=== PATIENT | female | born 1990 | race Caucasian/White ===

== ENCOUNTER 2021-10-03 11:45 | Outpatient (REF) | payer OTHER, SELFPAY ==
[2021-10-03 13:29] LABS: MANUAL DIFF FLAG NO
[2021-10-03 13:32] LABS: Basophils Absolute Auto 0.1 X10*3/uL (0.0-0.2); Basophils Percent Auto 0.5 % (0-2); Eosinophils Absolute Auto 0.1 X10*3/uL (0.0-0.4); Eosinophils Percent Auto 1.1 % (0-4); Hematocrit 34.9 % (37.0-47.0); Hemoglobin 10.4 g/dl (12.0-16.0); Imm Gran Abs Auto 0.08 X10*3/uL (0.00-0.03); Imm Gran Pct Auto 0.8 % (0.0-0.4); Lymphocytes Absolute Auto 1.6 X10*3/uL (1.2-4.9); Lymphocytes Percent Auto 14.9 % (20-40); Mean Corpuscular HGB Conc 29.8 g/dl (31.0-35.0); Mean Corpuscular Hemoglobin 23.7 pg (27.0-33.0); Mean Corpuscular Volume 79.7 fL (80.0-98.0); Mean Platelet Volume 9.6 fL (9.4-12.3); Monocytes Absolute Auto 0.8 X10*3/uL (0.1-1.2); Monocytes Percent Auto 7.6 % (2-11); Neutrophils Percent Auto 75.1 % (45-73); Platelet Count 693 X10*3/uL (160-400); Red Blood Count 4.38 X10*6/uL (4.20-5.50); Red Cell Distribution Width 19.3 % (11.0-16.0); White Blood Count 10.6 X10*3/uL (4.8-10.8)
[2021-10-03 14:11] LABS: Erythrocyte Sedimentation Rate 95 MM/HR (0-20)
[2021-10-03 14:28] LABS: Alanine Aminotransferase 18 U/L (0-31); Albumin Level 3.8 g/dL (3.5-5.0); Alkaline Phosphatase 88 U/L (39-117); Anion Gap 19 (12-20); Aspartate Amino Transferase 15 U/L (5-31); Bilirubin Total 0.2 mg/dL (0.0-1.0); Blood Urea Nitrogen 11 mg/dL (9-16); C Reactive Protein 29.16 mg/dL (< or = 0.50); Calcium 9.4 mg/dL (8.4-10.2); Carbon Dioxide 24 mmol/L (22-29); Chloride 98 mmol/L (96-108); Estimated Glomerular Filt Rate > 60; Glucose Random 114 mg/dL (60-115); Potassium 3.8 mmol/L (3.3-5.1); Sodium 137 mmol/L (135-145); Total Protein 7.9 g/dL (6.5-8.0)
== END 2021-10-03 11:46 | disposition home or self-care (01) ==
LOC: HO.10HDL 11:45
PROVIDERS: Visit Provider Internal Medicine Rheumatology
DX: M06.00 Rheumatoid arthritis without rheumatoid factor, unspecified site (principal); Z79.899 Other long term (current) drug therapy
CPT/HCPCS: 36415; 80053; 85025; 85652; 86140

== ENCOUNTER → 2021-10-05 09:57 | Outpatient (BNVA) | payer OTHER, SELFPAY | PROVIDERS: PCP Internal Medicine; Visit Provider Internal Medicine Rheumatology | DX: M06.00 Rheumatoid arthritis without rheumatoid factor, unspecified site (principal); L73.2 Hidradenitis suppurativa; N20.0 Calculus of kidney; Z79.899 Other long term (current) drug therapy | CPT/HCPCS: 20610; 99212 ==

== ENCOUNTER 2021-12-26 12:03 | Outpatient (REF) | payer OTHER, SELFPAY ==
[2021-12-26 13:46] LABS: MANUAL DIFF FLAG NO
[2021-12-26 13:52] LABS: Basophils Percent Auto 0.2 % (0-2); Eosinophils Percent Auto 0.2 % (0-4); Hematocrit 41.5 % (37.0-47.0); Hemoglobin 12.2 g/dl (12.0-16.0); Imm Gran Abs Auto 0.44 X10*3/uL (0.00-0.03); Imm Gran Pct Auto 2.5 % (0.0-0.4); Lymphocytes Absolute Auto 1.4 X10*3/uL (1.2-4.9); Lymphocytes Percent Auto 8.1 % (20-40); Mean Corpuscular HGB Conc 29.4 g/dl (31.0-35.0); Mean Corpuscular Hemoglobin 25.3 pg (27.0-33.0); Mean Corpuscular Volume 85.9 fL (80.0-98.0); Mean Platelet Volume 9.3 fL (9.4-12.3); Monocytes Absolute Auto 0.6 X10*3/uL (0.1-1.2); Monocytes Percent Auto 3.2 % (2-11); Neutrophils Absolute Auto 15.1 x10*3/uL (2.0-8.3); Neutrophils Percent Auto 85.8 % (45-73); Platelet Count 469 X10*3/uL (160-400); Red Blood Count 4.83 X10*6/uL (4.20-5.50); Red Cell Distribution Width 20.1 % (11.0-16.0); White Blood Count 17.6 X10*3/uL (4.8-10.8)
[2021-12-26 14:51] LABS: Alanine Aminotransferase 29 U/L (0-31); Aspartate Amino Transferase 12 U/L (5-31); C Reactive Protein 1.57 mg/dL (< or = 0.50); Estimated Glomerular Filt Rate > 60
[2021-12-26 15:22] LABS: Erythrocyte Sedimentation Rate 36 MM/HR (0-20)
== END 2021-12-26 12:04 | disposition home or self-care (01) ==
LOC: HO.10HDL 12:03
PROVIDERS: Visit Provider Internal Medicine Rheumatology
DX: M06.00 Rheumatoid arthritis without rheumatoid factor, unspecified site (principal); Z79.899 Other long term (current) drug therapy
CPT/HCPCS: 36415; 82565; 84450; 84460; 85025; 85652; 86140

== ENCOUNTER → 2021-12-27 07:58 | Outpatient (BNVA) | payer OTHER, SELFPAY | PROVIDERS: PCP Internal Medicine; Visit Provider Internal Medicine Rheumatology | DX: M06.00 Rheumatoid arthritis without rheumatoid factor, unspecified site (principal); M47.816 Spondylosis without myelopathy or radiculopathy, lumbar region; L73.2 Hidradenitis suppurativa; Z79.52 Long term (current) use of systemic steroids; Z79.899 Other long term (current) drug therapy | CPT/HCPCS: 99212 ==

== ENCOUNTER 2022-02-22 08:03 | Outpatient (REF) | payer OTHER, SELFPAY ==
[2022-02-22 10:31] LABS: MANUAL DIFF FLAG NO
[2022-02-22 10:44] LABS: Basophils Percent Auto 0.2 % (0-2); Eosinophils Percent Auto 0.3 % (0-4); Hematocrit 36.2 % (37.0-47.0); Hemoglobin 10.4 g/dl (12.0-16.0); Imm Gran Abs Auto 0.15 X10*3/uL (0.00-0.03); Imm Gran Pct Auto 1.2 % (0.0-0.4); Lymphocytes Absolute Auto 1.6 X10*3/uL (1.2-4.9); Lymphocytes Percent Auto 12.7 % (20-40); Mean Corpuscular HGB Conc 28.7 g/dl (31.0-35.0); Mean Corpuscular Hemoglobin 25.3 pg (27.0-33.0); Mean Corpuscular Volume 88.1 fL (80.0-98.0); Mean Platelet Volume 9.6 fL (9.4-12.3); Monocytes Absolute Auto 0.9 X10*3/uL (0.1-1.2); Monocytes Percent Auto 6.8 % (2-11); Neutrophils Absolute Auto 9.8 x10*3/uL (2.0-8.3); Neutrophils Percent Auto 78.8 % (45-73); Platelet Count 550 X10*3/uL (160-400); Red Blood Count 4.11 X10*6/uL (4.20-5.50); Red Cell Distribution Width 18.9 % (11.0-16.0); White Blood Count 12.4 X10*3/uL (4.8-10.8)
[2022-02-22 11:07] LABS: Alanine Aminotransferase 42 U/L (0-31); Aspartate Amino Transferase 24 U/L (5-31); C Reactive Protein 11.08 mg/dL (< or = 0.50); Estimated Glomerular Filt Rate > 60
[2022-02-22 11:37] LABS: Erythrocyte Sedimentation Rate 86 MM/HR (0-20)
[2022-02-28 17:48] LABS: Vitamin D 25-OH, D2 36 ng/mL; Vitamin D 25-OH, D3 6 ng/mL; Vitamin D 25-OH, Total 42 ng/mL (30-100)
== END 2022-02-22 08:04 | disposition home or self-care (01) ==
LOC: HO.10HDL 08:03
PROVIDERS: Visit Provider Internal Medicine Rheumatology
DX: M06.00 Rheumatoid arthritis without rheumatoid factor, unspecified site (principal); Z79.899 Other long term (current) drug therapy; Z79.52 Long term (current) use of systemic steroids
CPT/HCPCS: 36415; 82306; 82565; 84450; 84460; 85025; 85652; 86140

== ENCOUNTER → 2022-02-27 08:32 | Outpatient (BNVA) | payer OTHER, SELFPAY | PROVIDERS: PCP Internal Medicine; Visit Provider Internal Medicine Rheumatology | DX: M06.00 Rheumatoid arthritis without rheumatoid factor, unspecified site (principal); R74.01 Elevation of levels of liver transaminase levels; L73.2 Hidradenitis suppurativa; Z79.52 Long term (current) use of systemic steroids; Z79.899 Other long term (current) drug therapy | CPT/HCPCS: 99212 ==

== ENCOUNTER 2022-04-13 08:59 | Outpatient (REF) | payer OTHER, SELFPAY ==
[2022-04-13 10:21] LABS: MANUAL DIFF FLAG NO
[2022-04-13 10:37] LABS: Basophils Percent Auto 0.2 % (0-2); Eosinophils Absolute Auto 0.1 X10*3/uL (0.0-0.4); Eosinophils Percent Auto 0.6 % (0-4); Hematocrit 37.2 % (37.0-47.0); Hemoglobin 11.1 g/dl (12.0-16.0); Imm Gran Abs Auto 0.21 X10*3/uL (0.00-0.03); Imm Gran Pct Auto 1.6 % (0.0-0.4); Lymphocytes Absolute Auto 2.2 X10*3/uL (1.2-4.9); Lymphocytes Percent Auto 16.4 % (20-40); Mean Corpuscular HGB Conc 29.8 g/dl (31.0-35.0); Mean Corpuscular Hemoglobin 26.3 pg (27.0-33.0); Mean Corpuscular Volume 88.2 fL (80.0-98.0); Mean Platelet Volume 9.4 fL (9.4-12.3); Monocytes Percent Auto 7.4 % (2-11); Neutrophils Absolute Auto 9.7 x10*3/uL (2.0-8.3); Neutrophils Percent Auto 73.8 % (45-73); Platelet Count 367 X10*3/uL (160-400); Red Blood Count 4.22 X10*6/uL (4.20-5.50); Red Cell Distribution Width 19.7 % (11.0-16.0); White Blood Count 13.1 X10*3/uL (4.8-10.8)
[2022-04-13 10:45] LABS: Alanine Aminotransferase 24 U/L (0-31); Aspartate Amino Transferase 11 U/L (5-31); C Reactive Protein 1.26 mg/dL (< or = 0.50); Estimated Glomerular Filt Rate > 60
[2022-04-13 11:53] LABS: Erythrocyte Sedimentation Rate 23 MM/HR (0-20)
== END 2022-04-13 09:00 | disposition home or self-care (01) ==
LOC: HO.10HDL 08:59
PROVIDERS: Visit Provider Internal Medicine Rheumatology
DX: M06.00 Rheumatoid arthritis without rheumatoid factor, unspecified site (principal); Z79.899 Other long term (current) drug therapy
CPT/HCPCS: 36415; 82565; 84450; 84460; 85025; 85652; 86140; 99212

== ENCOUNTER 2022-05-18 11:13 | Outpatient (REF) | payer OTHER, SELFPAY ==
[2022-05-18 13:39] LABS: MANUAL DIFF FLAG NO
[2022-05-18 13:54] LABS: Basophils Absolute Auto 0.1 X10*3/uL (0.0-0.2); Basophils Percent Auto 0.4 % (0-2); Eosinophils Absolute Auto 0.2 X10*3/uL (0.0-0.4); Eosinophils Percent Auto 1.3 % (0-4); Hematocrit 38.9 % (37.0-47.0); Hemoglobin 11.9 g/dl (12.0-16.0); Imm Gran Abs Auto 0.31 X10*3/uL (0.00-0.03); Imm Gran Pct Auto 1.9 % (0.0-0.4); Lymphocytes Absolute Auto 2.1 X10*3/uL (1.2-4.9); Lymphocytes Percent Auto 12.8 % (20-40); Mean Corpuscular HGB Conc 30.6 g/dl (31.0-35.0); Mean Corpuscular Hemoglobin 27.6 pg (27.0-33.0); Mean Corpuscular Volume 90.3 fL (80.0-98.0); Mean Platelet Volume 9.5 fL (9.4-12.3); Monocytes Percent Auto 6.4 % (2-11); Neutrophils Absolute Auto 12.6 x10*3/uL (2.0-8.3); Neutrophils Percent Auto 77.2 % (45-73); Platelet Count 413 X10*3/uL (160-400); Red Blood Count 4.31 X10*6/uL (4.20-5.50); Red Cell Distribution Width 19.4 % (11.0-16.0); White Blood Count 16.3 X10*3/uL (4.8-10.8)
[2022-05-18 14:36] LABS: Erythrocyte Sedimentation Rate 30 MM/HR (0-20)
[2022-05-18 15:11] LABS: C Reactive Protein 3.84 mg/dL (< or = 0.50)
== END 2022-05-18 11:14 | disposition home or self-care (01) ==
LOC: HO.10HDL 11:13
PROVIDERS: Visit Provider Internal Medicine Rheumatology
DX: M06.00 Rheumatoid arthritis without rheumatoid factor, unspecified site (principal); Z79.899 Other long term (current) drug therapy
CPT/HCPCS: 36415; 85025; 85652; 86140

== ENCOUNTER → 2022-05-24 09:33 | Outpatient (BNVA) | payer OTHER, SELFPAY | PROVIDERS: PCP Internal Medicine; Visit Provider Internal Medicine Rheumatology | DX: M06.00 Rheumatoid arthritis without rheumatoid factor, unspecified site (principal); R21 Rash and other nonspecific skin eruption; Z79.60 Long term (current) use of unspecified immunomodulators and immunosuppressants; Z79.52 Long term (current) use of systemic steroids | CPT/HCPCS: 99212 ==

== ENCOUNTER 2022-08-21 12:01 | Outpatient (REF) | payer OTHER, SELFPAY ==
[2022-08-21 13:17] LABS: MANUAL DIFF FLAG NO
[2022-08-21 13:21] LABS: Basophils Absolute Auto 0.1 X10*3/uL (0.0-0.2); Basophils Percent Auto 0.6 % (0-2); Eosinophils Absolute Auto 0.7 X10*3/uL (0.0-0.4); Eosinophils Percent Auto 7.5 % (0-4); Hematocrit 36.2 % (37.0-47.0); Hemoglobin 10.9 g/dl (12.0-16.0); Imm Gran Abs Auto 0.09 X10*3/uL (0.00-0.03); Lymphocytes Absolute Auto 2.1 X10*3/uL (1.2-4.9); Lymphocytes Percent Auto 23.6 % (20-40); Mean Corpuscular HGB Conc 30.1 g/dl (31.0-35.0); Mean Corpuscular Hemoglobin 27.4 pg (27.0-33.0); Mean Platelet Volume 9.8 fL (9.4-12.3); Monocytes Absolute Auto 0.5 X10*3/uL (0.1-1.2); Monocytes Percent Auto 5.9 % (2-11); Neutrophils Absolute Auto 5.4 x10*3/uL (2.0-8.3); Neutrophils Percent Auto 61.4 % (45-73); Platelet Count 360 X10*3/uL (160-400); Red Blood Count 3.98 X10*6/uL (4.20-5.50); Red Cell Distribution Width 18.5 % (11.0-16.0); White Blood Count 8.8 X10*3/uL (4.8-10.8)
[2022-08-21 13:34] LABS: Alanine Aminotransferase 32 U/L (0-31); Aspartate Amino Transferase 20 U/L (5-31); C Reactive Protein 0.37 mg/dL (< or = 0.50); Estimated Glomerular Filt Rate > 60
[2022-08-21 13:59] LABS: Erythrocyte Sedimentation Rate 18 MM/HR (0-20)
== END 2022-08-21 12:02 | disposition home or self-care (01) ==
LOC: HO.10HDL 12:01
PROVIDERS: Visit Provider Internal Medicine Rheumatology
DX: M06.00 Rheumatoid arthritis without rheumatoid factor, unspecified site (principal); Z79.899 Other long term (current) drug therapy
CPT/HCPCS: 36415; 82565; 84450; 84460; 85025; 85652; 86140

== ENCOUNTER → 2022-08-23 11:09 | Outpatient (BNVA) | payer OTHER, SELFPAY | PROVIDERS: PCP Internal Medicine; Visit Provider Internal Medicine Rheumatology | DX: M06.00 Rheumatoid arthritis without rheumatoid factor, unspecified site (principal); S72.412A Displaced unspecified condyle fracture of lower end of left femur, initial encounter for closed fracture; S86.021A Laceration of right Achilles tendon, initial encounter; L03.115 Cellulitis of right lower limb; W01.0XXA Fall on same level from slipping, tripping and stumbling without subsequent striking against object, initial encounter; Y93.9 Activity, unspecified; Y92.9 Unspecified place or not applicable; Y99.8 Other external cause status; R10.9 Unspecified abdominal pain; K58.9 Irritable bowel syndrome, unspecified; R21 Rash and other nonspecific skin eruption; Z79.52 Long term (current) use of systemic steroids; Z79.631 Long term (current) use of antimetabolite agent; Z79.891 Long term (current) use of opiate analgesic; Z79.899 Other long term (current) drug therapy | CPT/HCPCS: 20610; 99212 ==

== ENCOUNTER 2022-09-01 12:36 | Outpatient (REF) | payer OTHER, SELFPAY ==
--- NOTE | ~2022-09-01 | XR_ITS ---
EXAMINATION: XR LEFT KNEE XR KNEE STANDING, BILATERAL CLINICAL HISTORY: Pain in left knee. TECHNIQUE: AP standing view of bilateral knees. Lateral and sunrise views of the left knee. FINDINGS: Tiny medial marginal osteophytes on single frontal view of the right knee. LEFT KNEE: Tiny tricompartmental osteophytes. Small joint effusion. Small sclerotic focus projecting over the lateral aspect of the proximal tibia, possibly representing a bone island. XR/XR knee standing BI IMPRESSION: Mild degenerative changes. Small left joint effusion.
--- NOTE | ~2022-09-01 | XR_ITS ---
EXAMINATION: XR LEFT KNEE XR KNEE STANDING, BILATERAL CLINICAL HISTORY: Pain in left knee. TECHNIQUE: AP standing view of bilateral knees. Lateral and sunrise views of the left knee. FINDINGS: Tiny medial marginal osteophytes on single frontal view of the right knee. LEFT KNEE: Tiny tricompartmental osteophytes. Small joint effusion. Small sclerotic focus projecting over the lateral aspect of the proximal tibia, possibly representing a bone island. XR/XR knee LT 2V IMPRESSION: Mild degenerative changes. Small left joint effusion.
== END 2022-09-01 12:37 | disposition home or self-care (01) ==
LOC: HO.HOSX 12:36
PROVIDERS: Visit Provider Physician Assistant
DX: M25.562 Pain in left knee (principal); M25.561 Pain in right knee; S83.421D Sprain of lateral collateral ligament of right knee, subsequent encounter; W18.30XD Fall on same level, unspecified, subsequent encounter
CPT/HCPCS: 73560; 73565; 99202

== ENCOUNTER 2022-11-22 08:59 | Outpatient (REF) | payer OTHER, SELFPAY ==
[2022-11-22 10:13] LABS: MANUAL DIFF FLAG NO
[2022-11-22 10:18] LABS: Basophils Absolute Auto 0.1 X10*3/uL (0.0-0.2); Basophils Percent Auto 0.6 % (0-2); Eosinophils Absolute Auto 0.5 X10*3/uL (0.0-0.4); Eosinophils Percent Auto 3.7 % (0-4); Hematocrit 38.3 % (37.0-47.0); Hemoglobin 11.4 g/dl (12.0-16.0); Imm Gran Abs Auto 0.37 X10*3/uL (0.00-0.03); Imm Gran Pct Auto 2.9 % (0.0-0.4); Lymphocytes Absolute Auto 1.5 X10*3/uL (1.2-4.9); Lymphocytes Percent Auto 12.2 % (20-40); Mean Corpuscular HGB Conc 29.8 g/dl (31.0-35.0); Mean Corpuscular Hemoglobin 27.7 pg (27.0-33.0); Mean Platelet Volume 9.5 fL (9.4-12.3); Monocytes Absolute Auto 0.8 X10*3/uL (0.1-1.2); Monocytes Percent Auto 6.2 % (2-11); Neutrophils Absolute Auto 9.4 x10*3/uL (2.0-8.3); Neutrophils Percent Auto 74.4 % (45-73); Platelet Count 421 X10*3/uL (160-400); Red Blood Count 4.12 X10*6/uL (4.20-5.50); White Blood Count 12.7 X10*3/uL (4.8-10.8)
[2022-11-22 10:29] LABS: Alanine Aminotransferase 29 U/L (0-31); Aspartate Amino Transferase 18 U/L (5-31); C Reactive Protein 0.67 mg/dL (< or = 0.50); Estimated Glomerular Filt Rate > 60
[2022-11-22 11:09] LABS: Erythrocyte Sedimentation Rate 16 MM/HR (0-20)
== END 2022-11-22 09:00 | disposition home or self-care (01) ==
LOC: HO.10HDL 08:59
PROVIDERS: Visit Provider Internal Medicine Rheumatology
DX: M06.00 Rheumatoid arthritis without rheumatoid factor, unspecified site (principal); Z79.899 Other long term (current) drug therapy
CPT/HCPCS: 36415; 82565; 84450; 84460; 85025; 85652; 86140

== ENCOUNTER 2022-11-23 10:24 | Outpatient (AMB) | payer OTHER, SELFPAY ==
--- NOTE | 2022-11-23 10:37 | A.OFFVIS_ITS ---
Intake Vital Signs 11/23/22 10:39 Height 5 ft 1 in Weight 159 lb 2.78 oz BMI 30.1 BP 138/86 Blood Pressure Location Lt brachial Position Sitting Pulse 80 Pulse Source Palpation Temp 97 F Temp Source Skin Intake Visit Reasons: RA Intake Note: Patient here to follow up on RA. c/o right hip pain radiating down to knee and up to shoulder x 1.5 mo Esol Instructor Required: No Accompanied by: Self / Same As Patient Allergies cephalexin Allergy (Intermediate, Verified 11/23/22 10:38) Hives upadacitinib [From Rinvoq] Allergy (Mild, Verified 11/23/22 10:38) Rash naproxen [NAPROXEN] Allergy (Unknown, Verified 11/23/22 10:38) DIZZINESS EYE REDNESS AND SWELLING, edema HPI HPI Comments History of Present Illness Details The patient returns for evaluation of her rheumatoid arthritis. She remains on baricitinib 2 mg daily, methotrexate 20 mg once a week, folic acid 1 mg daily and occasional ibuprofen 400 mg. She has been able to taper the prednisone she says down to 5 mg twice a day for the past 3 weeks. She says she feels pretty good and is walking better. She still has a skin rash that is itchy. This tends to come and go. Recently she is mostly bothered by some right lumbar pain that radiates to the right buttock. She has had problems with low back pain and radicular symptoms in the past. At one point she required Percocet for that but has not needed it recently. There has been no change in bowel or bladder habits. She has not noticed any new lesions of cutaneous infections. [facility] Surgical History Hx of endoscopy Hx of colonoscopy History of removal of ovarian cyst Hx of lithotripsy Social History (Updated 11/23/22 @ 10:37 by DEBBIE Barney) Household Members: Significant Other Housing: House Are you a primary care services manager to a significant other at home: No Do you presently have visiting nurse or other home services: No 75 years or older and lives alone: No Alcohol intake: never Patient Tobacco Use Status: Former Tobacco user e-Cigarette/Vaping Use: Never Used Substance Use Type: Marijuana service: No Current occupational status: unemployed Current occupation: right hand dominant Review of Systems Const Details: Negative for appetite change, weight change, fever, chills, malaise and fatigue Eyes Details: Negative for vision change, dry eyes,headaches and dizziness ENT Details: Negative for hearing change, tinnitus, oral ulcer, nose bleeds and oral dryness. Card Details: Negative chest pain, edema and syncope Resp Details: Negative for SOB, cough and wheezing GI Details: Negative indigestion/heartburn, nausea, abdominal pain, bowel changes, diarrhea, constipation and bloody stool. Endo Details: Negative for polyuria and polydypsia Travis/Lymph Details: Negative for excessive bruising or bleeding. Physical Exam Vital Signs: Last Vital Signs Temp 97 F 11/23/22 10:39 Pulse 80 11/23/22 10:39 BP 138/86 11/23/22 10:39 BMI result Body Mass Index 30.1 APPEARANCE: Patient in no acute distress EYES no redness, pupils equal and reactive to light, eyelids normal ABD: Normal bowel sounds, no organomegaly, masses or tenderness. EXTREMITIES: No edema, no calf tenderness, normal peripheral pulses. SKIN: There is scattered scaly lesions on the legs and abdomen. At this point lists looks like some eczema. No breaks in the skin or subcutaneous nodules or abscesses are evident. JOINT EXAM: ?? Cervical Spine:.? Full range of motion without pain; no tenderness. Thoracic Spine:.? No scoliosis.? No tenderness on palpation. Lumbar Spine:.? Alignment normal.?? There is mild right lumbar pain with extremes of normal range of motion.? There is some paraspinal muscle tenderness on the right. Chest Wall:.? No tenderness, swelling, increased warmth or erythema. Hands:? right:? no pain with range of motion of the? fingers.? There is mild tenderness across and slight swelling at the 2nd 3rd MCP. No flexor tendon triggering or thenar atrophy. No sensory loss..? Left:? Normal pain-free range of motion.? There is some minimal tenderness at the 2nd and 3rd MCP and PIP joints; I do not see any swelling. Wrists:.?? No pain with flexion or extension at 75 degrees. There is minimal right wrist tenderness but neither wrist has increased warmth or erythema. Elbows:.? Right:? Normal pain-free range of motion. No tenderness or swelling.? No redness or warmth.? Left: no pain with extremes of range of motion with no tenderness over the joint space with no swelling, redness or warmth. Shoulders:.??Right: Slight discomfort with extremes of abduction and rotation. Mild anterior tenderness. Right: Full range of motion without pain. There is no tenderness, weakness, swelling, increased warmth or erythema. Hips:.?? Right:? No pain with extremes of range of motion.? No tenderness.? Left: Full range of motion without pain. Hip bursa:.? ? Mild bilateral trochanteric tenderness. Knees:.? Right: Mild patellofemoral crepitus with minimal medial tenderness. No effusion, redness or warmth. Left:?no pain with extremes of flexion or extension. No tenderness or effusion. Minimal crepitus. . Ankles: ? Right:? no pain with AP motion but mild pain with inversion and eversion.? There is some lateral and medial soft tissue swelling and mild tenderness medially and laterally.? .? Left:? AP motion seems intact without pain but inversion and eversion is slightly painful.? There is slight medial and lateral swelling and mild tenderness medially.? No redness or warmth. Feet:? Mild tenderness across the MTP joints.? Slight tenderness in the right lateral instep but no swelling appreciated.. Tender points: No tenderness to digital palpation at the occiput, trapezius, sec ond rib, lateral epicondyle, knees, greater trochanter and gluteal area bilaterally. ? Results Reviewed Results Reviewed: 11/22 Labs: wbc 12.7 Hgb 11.4, ESR 13,creat .82, ALT 18, AST 28, crp.63 Assessment & Plan Assessment & Plan (1) Eczema: Code(s): L30.9 - Dermatitis, unspecified (2) Long-term use of immunosuppressant medication: Code(s): Z79.899 - Other director long term care (current) drug therapy (3) Facet arthropathy, lumbar: Code(s): M47.816 - Spondylosis without myelopathy or radiculopathy, lumbar region (4) Seronegative rheumatoid arthritis: Comment: Age 16 at [facility] with Dr Haro. RF negative. Treatment with methotrexate partially helpful but she did much better with addition of Humira for a year or 2 but then she ran out of insurance. Recurrence of synovitis 2016 - out of insurance again, just on low dose prednisone. Humira started, May 2017; methotrexate(SC) added, June 2017 Xeljanz and methotrexate(SC) 01/27 06/28: Xeljanz not effective, Enbrel added to methotrexate 09/27: Actemra in place of Enbrel(ineffective), parenteral, then oral met hotrexate continued Actemra discontinued in September 2020 due to the hidradenitis suppurativa. Methotrexate continued. 01/2021 Humira started with 80 mg loading doses and the 40 mg weekly for hidradenitis; arthritis worse so Humira changed to Rinvoq 02/2022. Hives 04/2022, Rinvoq changed to baricitinib Code(s): M06.00 - Rheumatoid arthritis without rheumatoid factor, unspecified site Plan Rheumatoid arthritis with good improvement in her symptoms with this current regimen. The acute phase reactants are much better. She also has for the 1st time in a long time no effusions in the knees. We will see if we can taper the prednisone further in 1 mg steps. I gave her the 1 mg tablet. She will take 5 mg in the morning and 4 mg in the afternoon. In a month she could reduce to 5 mg and 3 mg doses. The back pain that radiates to the buttock is consistent with some lumbar degenerative disease that we had documented previously. She will continue the ibuprofen and local heat to that area. We will refer her for some physical therapy for that. She still has the skin rash which I think we should treat as eczema with some topical triamcinolone. She does use Benadryl at times for itching and that is helpful. We will check lab work before her visit in about 3 months. Orders: Orders C Reactive Protein Today M06.00 - Rheumatoid arthritis without rheumatoid factor, unspecified site Alanine Aminotransferase Today M06.00 - Rheumatoid arthritis without rheumatoid factor, unspecified site, Z79.899 - Other [place] [facility] (current[facility] drug therapy Aspartate Amino Transferase Today M06.00 - Rheumatoid arthritis without rheumatoid factor, unspecified site, Z79.899 - Other [place] [facility] (current[facility] drug therapy Complete Blood Count Auto Diff Today M06.00 - Rheumatoid arthritis without rheumatoid factor, unspecified site, Z79.899 - Other [place] [facility] (current[facility] drug therapy PT Evaluation and Treatment Today M47.816 - Spondylosis without myelopathy or radiculopathy, lumbar region, M54.50 - Low back pain, unspecified Erythrocyte Sedimentation Rate Today M06.00 - Rheumatoid arthritis without rheumatoid factor, unspecified site Creatinine Today M06.00 - Rheumatoid arthritis without rheumatoid factor, unspecified site, Z79.899 - Other [place] [facility] (current[facility] drug therapy Medications: New prednisone take 4 tabs in the evenings; continue with 5 mg tab every AM 120 tabs 3RF M06.00 - Rheumatoid arthritis without rheumatoid factor, unspecified site Changed From triamcinolone acetonide 0.1% 1 appl topical BID PRN L30.9 - Dermatitis, unspecified To triamcinolone acetonide 0.1% 1 appl topical BID 80 grams 2RF L30.9 - Dermatitis, unspecified From prednisone May increase to two twice a day if needed for flare ups 5 mg PO BID 100 tabs 1RF M06.00 - Rheumatoid arthritis without rheumatoid factor, unspecified site To prednisone She takes the 5 mg tablet in the morning and 4 of the 1 mg tablets in the evening. 5 mg PO DAILY 100 tabs 1RF M06.00 - Rheumatoid arthritis without rheumatoid factor, unspecified site Coding Level of Care Code Est Pt Level 3 (80448) Diagnoses Eczema L30.9 Long-term use of immunosuppressant medication Z79.899 Facet arthropathy, lumbar M47.816 Seronegative rheumatoid arthritis M06.00
[2022-11-23 10:39] VITALS: BP 138/86; PULSE 80; TEMP 36.1; BMI 30.1
== END 2022-11-23 11:10 | disposition home or self-care (01) ==
PROVIDERS: PCP Internal Medicine; Visit Provider Internal Medicine Rheumatology
DX: L30.9 Dermatitis, unspecified (principal); Z79.899 Other long term (current) drug therapy; M47.816 Spondylosis without myelopathy or radiculopathy, lumbar region; M06.00 Rheumatoid arthritis without rheumatoid factor, unspecified site
CPT/HCPCS: 99213

== ENCOUNTER → 2022-11-23 10:24 | Outpatient (BNVA) | payer OTHER, SELFPAY | PROVIDERS: PCP Internal Medicine; Visit Provider Internal Medicine Rheumatology | DX: M06.00 Rheumatoid arthritis without rheumatoid factor, unspecified site (principal); M47.816 Spondylosis without myelopathy or radiculopathy, lumbar region; L30.9 Dermatitis, unspecified; Z79.899 Other long term (current) drug therapy | CPT/HCPCS: 99212 ==

== ENCOUNTER 2023-02-23 10:11 | Outpatient (REF) | payer OTHER, SELFPAY ==
[2023-02-23 12:59] LABS: MANUAL DIFF FLAG NO
[2023-02-23 13:02] LABS: Basophils Percent Auto 0.3 % (0-2); Eosinophils Absolute Auto 0.5 X10*3/uL (0.0-0.4); Eosinophils Percent Auto 4.3 % (0-4); Hematocrit 35.2 % (37.0-47.0); Hemoglobin 10.3 g/dl (12.0-16.0); Imm Gran Abs Auto 0.21 X10*3/uL (0.00-0.03); Imm Gran Pct Auto 1.8 % (0.0-0.4); Lymphocytes Absolute Auto 1.4 X10*3/uL (1.2-4.9); Lymphocytes Percent Auto 11.8 % (20-40); Mean Corpuscular HGB Conc 29.3 g/dl (31.0-35.0); Mean Corpuscular Hemoglobin 26.5 pg (27.0-33.0); Mean Corpuscular Volume 90.5 fL (80.0-98.0); Mean Platelet Volume 9.4 fL (9.4-12.3); Monocytes Absolute Auto 1.1 X10*3/uL (0.1-1.2); Monocytes Percent Auto 9.1 % (2-11); Neutrophils Absolute Auto 8.5 x10*3/uL (2.0-8.3); Neutrophils Percent Auto 72.7 % (45-73); Platelet Count 370 X10*3/uL (160-400); Red Blood Count 3.89 X10*6/uL (4.20-5.50); Red Cell Distribution Width 19.8 % (11.0-16.0); White Blood Count 11.7 X10*3/uL (4.8-10.8)
[2023-02-23 13:16] LABS: Alanine Aminotransferase 28 U/L (0-31); Aspartate Amino Transferase 16 U/L (5-31); C Reactive Protein 0.72 mg/dL (< or = 0.50); Estimated Glomerular Filt Rate > 60
[2023-02-23 13:54] LABS: Erythrocyte Sedimentation Rate 28 MM/HR (0-20)
== END 2023-02-23 10:12 | disposition home or self-care (01) ==
LOC: HO.10HDL 10:11
PROVIDERS: Visit Provider Internal Medicine Rheumatology
DX: Z79.899 Other long term (current) drug therapy (principal)
CPT/HCPCS: 36415; 82565; 84450; 84460; 85025; 85652; 86140

== ENCOUNTER 2023-02-26 11:25 | Outpatient (AMB) | payer OTHER, SELFPAY ==
--- NOTE | 2023-02-26 11:26 | MHC.OFFVIS ---
Intake Vital Signs 02/26/23 11:34 Height 5 ft 1 in Weight 166 lb 7.184 oz BMI 31.4 BP 130/70 Blood Pressure Location Rt brachial Position Sitting Pulse 105 H Pulse Source Pulse Oximeter Temp 95 F L Temp Source Skin Intake Visit Reasons: RA Intake Note: Patient last seen 11/23/22, presents today for follow up and test results. Reorts falling about 2 months ago. Left shoulder fracture, right leg fracture. Seen at [facility]. Requesting refills on Folic acid. Strategic Partnership Representative Required: No Accompanied by: Significant Other Allergies cephalexin Allergy (Intermediate, Verified 02/26/23 11:27) Hives upadacitinib [From Rinvoq] Allergy (Mild, Verified 02/26/23 11:27) Rash naproxen [NAPROXEN] Allergy (Unknown, Verified 02/26/23 11:27) DIZZINESS EYE REDNESS AND SWELLING, edema HPI HPI Comments History of Present Illness Details The patient returns today for evaluation of her rheumatoid arthritis and osteoporosis. Her boyfriend accompanies her. I filled out his FMLA form so he can continue to bring her to doctor visits. She says in general the joints have been doing okay for now. There is some swelling and pain in the left knee. She remains on baricitinib 2 mg daily, methotrexate 20 mg a week, folic acid 1 mg daily, and prednisone 5 mg twice a day. Occasionally, on bad days she will take a 3rd 5 mg prednisone but that has been relatively infrequently recently. However back in December she was raking leaves in her yard. She stepped in a hole that was camouflaged by the leaves and fell. She sustained a lateral malleolar fracture of the right foot and also fell onto the left arm. That has continued to be painful on the arm and shoulder but the ankle has been improving. She recently had an MRI of the left shoulder showing a impacted glenoid fracture with a displaced, irregular labrum. She has not had specific treatment for this so far. They are awaiting approval for a CT scan of the shoulder to get better vision of the bones involved. She is not sure if they may be recommending surgery. She still gets occasional pain in the wrists, but she has been very limited recently because of the ankle pain on the right and in the left shoulder. The patient does use ibuprofen if needed although that tends to give her some nausea. She also seems to get nausea the day after she takes the methotrexate and spite of splitting the dose to 10 mg twice a day on her methotrexate dosing day. She remains on alendronate 70 mg weekly. She has a fractured tooth on the right and is awaiting a visit with the oral surgeon. She questions whether she should hold the alendronate if she is going to have oral surgery. She still getting a skin rash that is itchy. This is most prominent under the breasts but he is less prominently noticeable over the abdomen, shoulders, back and legs. We think this is eczema for the most part. [facility] Surgical History Hx of endoscopy Hx of colonoscopy History of removal of ovarian cyst Hx of lithotripsy Social History Household Members: Significant Other Housing: House Are you a primary pediatric acute care unit nurse to a significant other at home: No Do you presently have visiting nurse or other home services: No 75 years or older and lives alone: No Alcohol intake: never Patient Tobacco Use Status: Former Tobacco user e-Cigarette/Vaping Use: Never Used Substance Use Type: Marijuana service: No Current occupational status: unemployed Current occupation: right hand dominant Review of Systems Const Details: Negative for appetite change, weight change, fever, chills, malaise and fatigue Eyes Details: Negative for vision change, dry eyes,headaches and dizziness Card Details: Negative chest pain, edema and syncope Resp Details: Negative for SOB, cough and wheezing GI Details: Some nausea the day after the methotrexate dose. Negative indigestion/heartburn, abdominal pain, bowel changes, diarrhea, constipation and bloody stool. Skin/Breast Details: Itchy skin rashes noted above. Negative for hives, Raynaud's symptoms, sun sensitivity, and skin cancer Endo Details: Negative for polyuria and polydypsia Travis/Lymph Details: Negative for excessive bruising or bleeding. Physical Exam Vital Signs: Last Vital Signs Temp 95 F L 02/26/23 11:34 Pulse 105 H 02/26/23 11:34 BP 130/70 02/26/23 11:34 BMI result Body Mass Index 31.4 APPEARANCE: Patient in no acute distress EYES no redness, pupils equal and reactive to light, eyelids normal Mouth: There is a broken tooth in the upper incisor on the right. The surrounding gum is slightly tender. ABD: Normal bowel sounds, no organomegaly, masses or tenderness. EXTREMITIES: No edema, no calf tenderness, normal peripheral pulses. SKIN: There are scattered scaly lesions on the legs and abdomen. The lesions are more confluent in the axillary and some memory areas. At this point lists looks like some eczema except that the area between the skin folds looks more like a tinea rash. No breaks in the skin or subcutaneous nodules or abscesses are evident. JOINT EXAM: ?? Cervical Spine:.? Full range of motion without pain; no tenderness. Thoracic Spine:.? No scoliosis.? No tenderness on palpation. Lumbar Spine:.? Alignment normal.?? There is mild right lumbar pain with extremes of normal range of motion.? There is some paraspinal muscle tenderness on the right. Chest Wall:.? No tenderness, swelling, increased warmth or erythema. Hands:? right:? no pain with range of motion of the? fingers.? There is mild tenderness across and slight swelling at the 2nd and 3rd MCP. No flexor tendon triggering or thenar atrophy. No sensory loss..? Left:? Normal pain-free range of motion.? There is some minimal tenderness at the 2nd and 3rd MCP and PIP joints; I do not see any swelling. Wrists:.?? No pain with flexion or extension at 75 degrees. There is minimal right wrist tenderness but neither wrist has increased warmth or erythema. Elbows:.? Right:? Normal pain-free range of motion. No tenderness or swelling.? No redness or warmth.? Left: no pain with extremes of range of motion with no tenderness over the joint space with no swelling, redness or warmth. Shoulders:.??Right: Slight discomfort with extremes of abduction and rotation. Mild anterior tenderness. Right: Moderate pain with abduction 100 degrees or with extremes of rotation. There is mild anterior, subacromial and posterior tenderness. There is no redness or warmth. There is no supraclavicular or axillary adenopathy. I do not really detect abductor weakness. Hips:.?? Right:? No pain with extremes of range of motion.? No tenderness.? Left: Full range of motion without pain. Hip bursa:.? ? Mild bilateral trochanteric tenderness. Knees:.? Right: Mild patellofemoral crepitus with minimal medial tenderness. No effusion, redness or warmth. Left:? Slight pain with extremes of flexion or extension. There is a small to moderate effusion present and mild medial tenderness but no redness or warmth. There is no popliteal swelling or tenderness. She has minimal patellofemoral crepitus. . Ankles: ? Right:? no pain with AP motion but mild pain with inversion and eversion.? There is some lateral and medial soft tissue swelling and mild tenderness medially and laterally.? .? Left:? AP motion seems intact without pain but inversion and eversion is slightly painful.? There is slight medial and lateral swelling and mild tenderness medially.? No redness or warmth. Feet:? Mild tenderness across the MTP joints.? Slight tenderness in the right lateral instep but no swelling appreciated.. Tender points: No tenderness to digital palpation at the occiput, trapezius, second rib, lateral epicondyle, knees, greater trochanter and gluteal area bilaterally. Office Procedures Joint Injection/Drain Joint Injection/Drain Primary Site: left knee Injected: 40 mg of, Kenalog, with 1 mL of and 1% plain lidocaine Coding Details: With the patient's consent the left knee was prepped with ChloraPrep and alcohol. The skin was anesthetized with 2 cc of 1% lidocaine. The knee was then injected with 40 mg of triamcinolone and 1 cc of I % lidocaine. The patient tolerated the procedure with no immediate adverse effects. 81961 - Large joint Procedure code (CPT) selection complete Results Reviewed Results Reviewed: Laboratory Tests 02/23/23 10:15 WBC 11.7 H Hgb 10.3 L ESR 28 H Creatinine 0.77 AST 16 ALT 28 C-Reactive Protein 0.72 H Assessment & Plan Assessment & Plan (1) Tinea cruris: Code(s): B35.6 - Tinea cruris (2) Long-term use of immunosuppressant medication: Code(s): Z79.899 - Other dowel inspector (current) drug therapy (3) Fracture of right ankle, lateral malleolus: Code(s): S82.61XA - Displaced fracture of lateral malleolus of right fibula, initial encounter for closed fracture (4) Fracture of rim of glenoid fossa of left scapula: Code(s): S42.142A - Displaced fracture of glenoid cavity of scapula, left shoulder, initial encounter for closed fracture (5) Seronegative rheumatoid arthritis: Comment: Age 16 at [facility] with Dr Haro. RF negative. Treatment with methotrexate partially helpful but she did much better with addition of Humira for a year or 2 but then she ran out of insurance. Recurrence of synovitis 2015 - out of insurance again, just on low dose prednisone. Humira started, May 2017; methotrexate(SC) added, June 2017 Xeljanz and methotrexate(SC) 01/27 06/28: Xeljanz not effective, Enbrel added to methotrexate 09/27: Actemra in place of Enbrel(ineffective), parenteral, then oral methotrexate continued Actemra discontinued in September 2020 due to the hidradenitis suppurativa. Methotrexate continued. 01/2021 Humira started with 80 mg loading doses and the 40 mg weekly for hidradenitis; arthritis worse so Humira changed to Rinvoq 02/2022. Hives 04/2022, Rinvoq changed to baricitinib Code(s): M06.00 - Rheumatoid arthritis without rheumatoid factor, unspecified site Plan Rheumatoid arthritis with reasonable control the she still requires the prednisone. Unfortunately she now has acquired 2 fractures with the same fall: The right lateral malleolus which seems to be healing and the left glenoid fossa which may need surgery. There is swelling in the left knee with some pain. I think a corticosteroid injection there may be helpful. We reviewed potential side effects of corticosteroids. With the patient's consent the left knee was prepped with ChloraPrep and alcohol. The skin was anesthetized with 2 cc of 1% lidocaine. The knee was then injected with 40 mg of triamcinolone and 1 cc of I % lidocaine. The patient tolerated the procedure with no immediate adverse effects. She also has some need for dental procedure. I told her she could hold the alendronate before that procedure for a week and then a few weeks afterwards. I think for now she should stay with the Olumiant and methotrexate. This has been the most successful combination she has had. She is getting some nausea with methotrexate so we might consider parental methotrexate but given its availability difficulties I hesitate to switch her right now. She also does not want to switch considering that she has had success with this regimen. We will have her recheck in 3 months with lab work before that visit. Orders: Orders Aspartate Amino Transferase Today Z79.899 - Other senior care (current) drug therapy AMB Joint Injection/Aspiration Today M06.00 - Rheumatoid arthritis without rheumatoid factor, unspecified site Erythrocyte Sedimentation Rate Today M06.00 - Rheumatoid arthritis without rheumatoid factor, unspecified site C Reactive Protein Today M06.00 - Rheumatoid arthritis without rheumatoid factor, unspecified site Alanine Aminotransferase Today Z79.899 - Other senior care (current) drug therapy Complete Blood Count Auto Diff 1 Month Z79.899 - Other dowel inspector (current) drug therapy Creatinine Today Z79.899 - Other dowel inspector (current) drug therapy Medications: New clotrimazole 1% 1 appl topical BID 45 grams 1RF B35.6 - Tinea cruris prednisone 5 mg PO BID 120 tabs 1RF M06.00 - Rheumatoid arthritis without rheumatoid factor, unspecified site Coding Level of Care Code Est Pt Level 4 (83495) Diagnoses Tinea cruris B35.6 Long-term use of immunosuppressant medication Z79.899 Fracture of right ankle, lateral malleolus S82.61XA Fracture of rim of glenoid fossa of left scapula S42.142A Seronegative rheumatoid arthritis M06.00 CPT Codes Coding - 26363 Large joint: 36322 - Large joint ([id number])
[2023-02-26 11:34] VITALS: BP 130/70; PULSE 105; TEMP 35; BMI 31.4
== END 2023-02-26 12:14 | disposition home or self-care (01) ==
PROVIDERS: PCP Internal Medicine; Visit Provider Internal Medicine Rheumatology
DX: B35.6 Tinea cruris (principal); Z79.899 Other long term (current) drug therapy; M06.09 Rheumatoid arthritis without rheumatoid factor, multiple sites; S82.61XA Displaced fracture of lateral malleolus of right fibula, initial encounter for closed fracture; S42.142A Displaced fracture of glenoid cavity of scapula, left shoulder, initial encounter for closed fracture; M25.562 Pain in left knee
CPT/HCPCS: 20610; 99214

== ENCOUNTER → 2023-02-26 11:25 | Outpatient (BNVA) | payer OTHER, SELFPAY | PROVIDERS: PCP Internal Medicine; Visit Provider Internal Medicine Rheumatology | DX: M06.00 Rheumatoid arthritis without rheumatoid factor, unspecified site (principal); S82.61XA Displaced fracture of lateral malleolus of right fibula, initial encounter for closed fracture; S42.142A Displaced fracture of glenoid cavity of scapula, left shoulder, initial encounter for closed fracture; B35.6 Tinea cruris; Z79.899 Other long term (current) drug therapy | CPT/HCPCS: 20610; 99212 ==

== ENCOUNTER 2023-05-21 12:01 | Outpatient (REF) | payer OTHER, SELFPAY ==
[2023-05-21 13:20] LABS: MANUAL DIFF FLAG NO
[2023-05-21 13:26] LABS: Basophils Percent Auto 0.5 % (0-2); Eosinophils Absolute Auto 0.1 X10*3/uL (0.0-0.4); Eosinophils Percent Auto 1.2 % (0-4); Hematocrit 37.3 % (37.0-47.0); Hemoglobin 11.2 g/dl (12.0-16.0); Imm Gran Abs Auto 0.08 X10*3/uL (0.00-0.03); Imm Gran Pct Auto 0.9 % (0.0-0.4); Lymphocytes Percent Auto 22.7 % (20-40); Mean Corpuscular Hemoglobin 27.2 pg (27.0-33.0); Mean Corpuscular Volume 90.5 fL (80.0-98.0); Mean Platelet Volume 9.6 fL (9.4-12.3); Monocytes Absolute Auto 0.5 X10*3/uL (0.1-1.2); Monocytes Percent Auto 5.6 % (2-11); Neutrophils Absolute Auto 6.1 x10*3/uL (2.0-8.3); Neutrophils Percent Auto 69.1 % (45-73); Platelet Count 412 X10*3/uL (160-400); Red Blood Count 4.12 X10*6/uL (4.20-5.50); Red Cell Distribution Width 18.6 % (11.0-16.0); White Blood Count 8.8 X10*3/uL (4.8-10.8)
[2023-05-21 13:41] LABS: Alanine Aminotransferase 30 U/L (0-31); Aspartate Amino Transferase 18 U/L (5-31); C Reactive Protein 1.19 mg/dL (< or = 0.50); Estimated Glomerular Filt Rate > 60
[2023-05-21 14:14] LABS: Erythrocyte Sedimentation Rate 30 MM/HR (0-20)
== END 2023-05-21 12:02 | disposition home or self-care (01) ==
LOC: HO.10HDL 12:01
PROVIDERS: Visit Provider Internal Medicine Rheumatology
DX: M06.00 Rheumatoid arthritis without rheumatoid factor, unspecified site (principal); Z79.60 Long term (current) use of unspecified immunomodulators and immunosuppressants
CPT/HCPCS: 36415; 82565; 84450; 84460; 85025; 85652; 86140

== ENCOUNTER 2023-05-23 11:21 | Outpatient (AMB) | payer OTHER, SELFPAY ==
--- NOTE | 2023-05-23 11:22 | MHC.OFFVIS ---
Intake Vital Signs 05/23/23 11:23 Height 5 ft 1 in Weight 173 lb 8.061 oz BMI 32.8 BP 148/62 H Blood Pressure Location Rt brachial Position Sitting Pulse 91 Pulse Source Pulse Oximeter Pulse Oximetry (%) 98 Oxygen Delivery Method Room Air Intake Visit Reasons: ra/op with dr figueroa Intake Note: Patient last seen by Dr Love on 02/26/23 presents today for follow up and test results. 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 [facility] Required: No Accompanied by: Significant Other Allergies cephalexin Allergy (Intermediate, Verified 05/23/23 11:25) Hives upadacitinib [From Rinvoq] Allergy (Mild, Verified 05/23/23 11:25) Rash naproxen [NAPROXEN] Allergy (Unknown, Verified 05/23/23 11:25) DIZZINESS EYE REDNESS AND SWELLING, edema Medication List - Last Reconciled 05/23/23 by Jose Hood MD acetaminophen (Tylenol Extra Strength) 1,000 mg PO Q6H PRN alendronate 70 mg PO QWEEK amitriptyline mg PO baricitinib (Olumiant) 2 mg PO DAILY clotrimazole 1% 1 appl topical BID cyclobenzaprine 10 mg PO BEDTIME ergocalciferol (vitamin D2) 1,250 mcg PO .once a month folic acid 1 mg PO DAILY ibuprofen 400 mg PO TID PRN levonorgestrel (Mirena) intrauterine methotrexate sodium 20 mg (8 x 2.5 mg) PO QWEEK mometasone 0.1% 0 appl topical omeprazole 20 mg PO BID prednisone 5 mg PO BID quetiapine (Seroquel) 25 mg PO BID triamcinolone acetonide 0.1% 1 appl topical BID HPI HPI Comments History of Present Illness Details 32-year-old female with seronegative RA returns for follow-up. She is on Olumiant 2 mg daily, prednisone 5 mg Twice daily and alendronate 70 mg weekly. She has a Mirena IUD. She states that she is doing fairly well overall she has been having some right lower back pain. She was recently moving stuff at home. Left knee pain is improved after the injection. She has a follow-up appointment with her orthopedist tomorrow. She was evaluated by Dr. Yang and was initially prescribed an antifungal cream for a diffuse fungal infection, now she is prescribed steroid cream for eczema on hands Most recent history by Dr. Love 02/2023: The patient returns today for evaluation of her rheumatoid arthritis and osteoporosis. Her boyfriend accompanies her. I filled out his FMLA form so he can continue to bring her to doctor visits. She says in general the joints have been doing okay for now. There is some swelling and pain in the left knee. She remains on baricitinib 2 mg daily, methotrexate 20 mg a week, folic acid 1 mg daily, and prednisone 5 mg twice a day. Occasionally, on bad days she will take a 3rd 5 mg prednisone but that has been relatively infrequently recently. However back in December she was raking leaves in her yard. She stepped in a hole that was camouflaged by the leaves and fell. She sustained a lateral malleolar fracture of the right foot and also fell onto the left arm. That has continued to be painful on the arm and shoulder but the ankle has been improving. She recently had an MRI of the left shoulder showing a impacted glenoid fracture with a displaced, irregular labrum. She has not had specific treatment for this so far. They are awaiting approval for a CT scan of the shoulder to get better vision of the bones involved. She is not sure if they may be recommending surgery. She still gets occasional pain in the wrists, but she has been very limited recently because of the ankle pain on the right and in the left shoulder. The patient does use ibuprofen if needed although that tends to give her some nausea. She also seems to get nausea the day after she takes the methotrexate and spite of splitting the dose to 10 mg twice a day on her methotrexate dosing day. She remains on alendronate 70 mg weekly. She has a fractured tooth on the right and is awaiting a visit with the oral surgeon. She questions whether she should hold the alendronate if she is going to have oral surgery. She still getting a skin rash that is itchy. This is most prominent under the breasts but he is less prominently noticeable over the abdomen, shoulders, back and legs. We think this is eczema for the most part. [facility] Surgical History Hx of endoscopy Hx of colonoscopy History of removal of ovarian cyst Hx of lithotripsy Social History Household Members: Significant Other Housing: House Are you a primary child caregiver private home to a significant other at home: No Do you presently have visiting nurse or other home services: No 75 years or older and lives alone: No Alcohol intake: never Patient Tobacco Use Status: Former Tobacco user e-Cigarette/Vaping Use: Never Used Substance Use Type: Marijuana service: No Current occupational status: unemployed Current occupation: right hand dominant Female Reproductive History Menstrual Total pregnancies: 2 Full term: 1 Number of Living Children: 1 Ab spontaneous: 1 Review of Systems Musc Reports arthralgias, Denies joint swelling and Reports stiffness Skin/Breast Reports unusual bruising Physical Exam Vital Signs: Last Vital Signs Pulse 91 05/23/23 11:23 BP 148/62 H 05/23/23 11:23 Pulse Ox 98 05/23/23 11:23 Oxygen Delivery Method Room Air 05/23/23 11:23 BMI result Body Mass Index 32.8 Const Other: Cushingoid General: cooperative and healthy appearing Nutritional Appearance: obese Orientation/consciousness: patient oriented x3 Limitations: no limitations HEENT Head: Yes atraumatic Resp Effort & Inspection: normal respiratory effort and able to speak in complete sentences Auscultation: clear to auscultation bilaterally Cardio Rate: regular rate Rhythm: regular rhythm Skin Other: Multiple superficial bruises on upper extremities. Striae and stretch wolf on belt area Neuro General: patient oriented x3 Extrem Other: Right 4th MCP swelling and mild tenderness No active synovitis both hands and wrists Normal range of motion of both elbows and right shoulder without pain Mildly limited left shoulder abduction Left knee warmth and pain with full flexion Right lower back pain with straight leg raise test Bilateral ankle tenderness without swelling or warmth Assessment & Plan Assessment & Plan (1) Seronegative rheumatoid arthritis: Comment: -ve -ve CCP -ve JOSE L dx Age 16 at [facility] with Dr Haro Treatment with methotrexate partially helpful but she did much better with addition of Humira for a year or 2 but then she ran out of insurance. Recurrence of synovitis 2015 - out of insurance again, just on low dose prednisone. Humira started, May 2017; methotrexate(SC) added, June 2017 Xeljanz and methotrexate(SC) 01/27 06/28: Xeljanz not effective, Enbrel added to methotrexate 09/27: Actemra in place of Enbrel(ineffective), parenteral, then oral methotrexate continued Actemra discontinued in September 2020 due to the hidradenitis suppurativa. Methotrexate continued. 01/2021 Humira started with 80 mg loading doses and the 40 mg weekly for hidradenitis; arthritis worse so Humira changed to Rinvoq 02/2022. Hives 04/2022, Rinvoq changed to baricitinib Code(s): M06.00 - Rheumatoid arthritis without rheumatoid factor, unspecified site Plan: This is a 32-year-old female with seronegative RA who returns for follow-up. This is her 1st visit with me. She used to follow-up with Dr. Love. She is on autoimmune 2 mg daily, methotrexate 20 mg weekly split dose, folic acid and prednisone 5 mg Twice daily. Doing well overall with only swollen joints on exam. Discussed with patient, will attempt to reduce prednisone. Reduce prednisone to 9 mg daily. 5 mg in the morning 4 mg at night. If symptoms are better in 1 month, reduce to 5 mg in the morning and 3 mg at night Labs before next visit in 3 months (2) Long-term use of immunosuppressant medication: Code(s): Z79.899 - Other longterm (current) drug therapy Plan: Monitor safety labs. Monitor for signs of infection (3) Fracture of rim of glenoid fossa of left scapula: Code(s): S42.142A - Displaced fracture of glenoid cavity of scapula, left shoulder, initial encounter for closed fracture Qualifiers: Encounter type: subsequent encounter Fracture type: closed Fracture healing: with routine healing Qualified Code(s): S42.142D - Displaced fracture of glenoid cavity of scapula, left shoulder, subsequent encounter for fracture with routine healing Plan: Has a follow-up appointment with orthopedist tomorrow (4) Low back pain: Code(s): M54.50 - Low back pain, unspecified Qualifiers: Chronicity: unspecified Back pain laterality: right Sciatica presence: without sciatica Qualified Code(s): M54.50 - Low back pain, unspecified Plan: Likely lumbar strain. Patient takes cyclobenzaprine 10 mg nightly. Advised patient to try taking another 10 mg in the day.. If it makes her lightheaded or dizzy Plan I spent 47 minutes reviewing patient's chart, evaluating patient, ordering diagnostic workup, counseling patient and documenting in the chart Medications: New prednisone 4 mg (4 x 1 mg) PO .QHS 120 tabs 0RF Coding Level of Care Code Est Pt Level 5 (06049) Diagnoses Seronegative rheumatoid arthritis M06.00 Long-term use of immunosuppressant medication Z79.899 Closed fracture of rim of glenoid fossa of left scapula with routine healing, subsequent encounter S42.142D Encounter type: subsequent encounter Fracture type: closed Fracture healing: with routine healing Right-sided low back pain without sciatica, unspecified chronicity M54.50 Chronicity: unspecified Back pain laterality: right Sciatica presence: without sciatica
[2023-05-23 11:23] VITALS: BP 148/62; PULSE 91; O2SAT 98; BMI 32.8
== END 2023-05-23 12:01 | disposition home or self-care (01) ==
PROVIDERS: PCP Internal Medicine; Visit Provider Student in an Organized Health Care Education/Training Program
DX: M06.09 Rheumatoid arthritis without rheumatoid factor, multiple sites (principal); Z79.899 Other long term (current) drug therapy; M54.50 Low back pain, unspecified; S42.142D Displaced fracture of glenoid cavity of scapula, left shoulder, subsequent encounter for fracture with routine healing
CPT/HCPCS: 99215

== ENCOUNTER → 2023-05-23 11:21 | Outpatient (BNVA) | payer OTHER, SELFPAY | PROVIDERS: PCP Internal Medicine; Visit Provider Student in an Organized Health Care Education/Training Program | DX: M06.00 Rheumatoid arthritis without rheumatoid factor, unspecified site (principal); Z79.899 Other long term (current) drug therapy | CPT/HCPCS: 99212 ==

== ENCOUNTER 2023-08-29 12:56 | Outpatient (REF) | payer OTHER, SELFPAY ==
[2023-08-29 13:23] LABS: MANUAL DIFF FLAG NO
[2023-08-29 13:48] LABS: Basophils Absolute Auto 0.1 X10*3/uL (0.0-0.2); Basophils Percent Auto 0.3 % (0-2); Eosinophils Percent Auto 0.1 % (0-4); Hematocrit 34.9 % (37.0-47.0); Hemoglobin 10.2 g/dl (12.0-16.0); Imm Gran Abs Auto 0.94 X10*3/uL (0.00-0.03); Imm Gran Pct Auto 4.8 % (0.0-0.4); Lymphocytes Absolute Auto 1.6 X10*3/uL (1.2-4.9); Lymphocytes Percent Auto 8.1 % (20-40); Mean Corpuscular HGB Conc 29.2 g/dl (31.0-35.0); Mean Corpuscular Hemoglobin 25.7 pg (27.0-33.0); Mean Corpuscular Volume 87.9 fL (80.0-98.0); Mean Platelet Volume 9.4 fL (9.4-12.3); Monocytes Absolute Auto 1.1 X10*3/uL (0.1-1.2); Monocytes Percent Auto 5.8 % (2-11); NRBC Pct Auto 0.2 /100WBC (0.0-0.2); Neutrophils Absolute Auto 15.9 x10*3/uL (2.0-8.3); Neutrophils Percent Auto 80.9 % (45-73); Platelet Count 435 X10*3/uL (160-400); Red Blood Count 3.97 X10*6/uL (4.20-5.50); Red Cell Distribution Width 19.6 % (11.0-16.0); White Blood Count 19.7 X10*3/uL (4.8-10.8)
[2023-08-29 14:12] LABS: Alanine Aminotransferase 31 U/L (0-31); Albumin Level 3.8 g/dL (3.5-5.0); Alkaline Phosphatase 76 U/L (39-117); Anion Gap 12 (12-20); Aspartate Amino Transferase 19 U/L (5-31); Bilirubin Total 0.1 mg/dL (0.0-1.0); Blood Urea Nitrogen 16 mg/dL (9-16); Calcium 9.3 mg/dL (8.4-10.2); Carbon Dioxide 26 mmol/L (22-29); Chloride 109 mmol/L (96-108); Estimated Glomerular Filt Rate > 60; Glucose Random 144 mg/dL (60-115); Sodium 143 mmol/L (135-145); Total Protein 6.8 g/dL (6.5-8.0)
[2023-08-29 14:56] LABS: Erythrocyte Sedimentation Rate 69 MM/HR (0-20)
[2023-08-30 03:48] LABS: HBc Num1 0.08 S/CO (0.00-0.79); HBsAGNum1 0.28 S/CO (0.00-0.99); Hepatitis A Antibody IgM 0.11 Index (0-0.79); Hepatitis B Core Antibody Nonreactive (Nonreactive); Hepatitis B Surface Antigen Negative (Negative); ~HepC Num1 0.26 S/CO (0.00-0.79); ~Hepatitis A Antibody IgM Nonreactive (Nonreactive); ~Hepatitis B Surface Antibody REACTIVE (Nonreactive); ~Hepatitis C Antibody Nonreactive (Nonreactive)
[2023-09-03 21:53] LABS: TS Negative Control Passed; TS Panel A 1; TS Panel B 0; TS Positive Control Passed; TSpotTB Negative (Negative)
== END 2023-08-29 12:57 | disposition home or self-care (01) ==
LOC: HO.10HDL 12:56
PROVIDERS: Visit Provider Student in an Organized Health Care Education/Training Program
DX: M06.00 Rheumatoid arthritis without rheumatoid factor, unspecified site (principal); Z11.59 Encounter for screening for other viral diseases; Z11.7 Encounter for testing for latent tuberculosis infection
CPT/HCPCS: 36415; 80053; 85025; 85652; 86140; 86481; 86704; 86706; 86709; 86803; 87340

== ENCOUNTER 2023-08-30 09:31 | Outpatient (AMB) | payer OTHER, SELFPAY ==
--- NOTE | 2023-08-30 09:31 | MHC.OFFVIS ---
Vital Signs 08/30/23 09:32 Height 5 ft 1 in Weight 179 lb 0.246 oz BMI 33.8 BP 150/86 H Blood Pressure Location Rt brachial Position Sitting Pulse 92 Pulse Source Pulse Oximeter Pulse Oximetry (%) 97 Oxygen Delivery Method Room Air Intake Visit Reasons: RA/CM Allergies cephalexin Allergy (Intermediate, Verified 08/30/23 09:34) Hives upadacitinib [From Rinvoq] Allergy (Mild, Verified 08/30/23 09:34) Rash naproxen [NAPROXEN] Allergy (Unknown, Verified 08/30/23 09:34) DIZZINESS EYE REDNESS AND SWELLING, edema Medication List - Last Reconciled 08/30/23 by Jose Hood MD acetaminophen (Tylenol Extra Strength) 1,000 mg PO Q6H PRN alendronate 70 mg PO QWEEK amitriptyline mg PO clotrimazole 1% 1 appl topical BID cyclobenzaprine 10 mg PO BEDTIME ergocalciferol (vitamin D2) 1,250 mcg PO .once a month folic acid 1 mg PO DAILY ibuprofen 400 mg PO TID PRN levonorgestrel (Mirena) intrauterine methotrexate sodium 20 mg (8 x 2.5 mg) PO QWEEK mometasone 0.1% 0 appl topical Olumiant (baricitinib) 2 mg PO DAILY NS omeprazole 20 mg PO BID prednisone 4 mg (4 x 1 mg) PO .QHS prednisone 5 mg PO BID quetiapine (Seroquel) 25 mg PO BID triamcinolone acetonide 0.1% 1 appl topical BID HPI Comments Details: 33-year-old female with seronegative RA returns for follow-up. She is s/p left shoulder surgery 2 days ago. She states that the left shoulder surgery that was done before did not take and the screws came loose, this time more screws were placed She stopped her Olumiant about 2 weeks before the procedure and she has not restarted it yet, she has continued with her methotrexate and increased her prednisone to 20 mg daily. She has been feeling worse since she stopped her Olumiant. Most recent history by Dr. Love 02/2023: The patient returns today for evaluation of her rheumatoid arthritis and osteoporosis. Her boyfriend accompanies her. I filled out his FMLA form so he can continue to bring her to doctor visits. She says in general the joints have been doing okay for now. There is some swelling and pain in the left knee. She remains on baricitinib 2 mg daily, methotrexate 20 mg a week, folic acid 1 mg daily, and prednisone 5 mg twice a day. Occasionally, on bad days she will take a 3rd 5 mg prednisone but that has been relatively infrequently recently. However back in December she was raking leaves in her yard. She stepped in a hole that was camouflaged by the leaves and fell. She sustained a lateral malleolar fracture of the right foot and also fell onto the left arm. That has continued to be painful on the arm and shoulder but the ankle has been improving. She recently had an MRI of the left shoulder showing a impacted glenoid fracture with a displaced, irregular labrum. She has not had specific treatment for this so far. They are awaiting approval for a CT scan of the shoulder to get better vision of the bones involved. She is not sure if they may be recommending surgery. She still gets occasional pain in the wrists, but she has been very limited recently because of the ankle pain on the right and in the left shoulder. The patient does use ibuprofen if needed although that tends to give her some nausea. She also seems to get nausea the day after she takes the methotrexate and spite of splitting the dose to 10 mg twice a day on her methotrexate dosing day. She remains on alendronate 70 mg weekly. She has a fractured tooth on the right and is awaiting a visit with the oral surgeon. She questions whether she should hold the alendronate if she is going to have oral surgery. She still getting a skin rash that is itchy. This is most prominent under the breasts but he is less prominently noticeable over the abdomen, shoulders, back and legs. We think this is eczema for the most part. [facility] Surgical History Hx of endoscopy Hx of colonoscopy History of removal of ovarian cyst Hx of lithotripsy Social History Household Members: Significant Other Housing: House Are you a primary caregiver assisted living to a significant other at home: No Do you presently have visiting nurse or other home services: No 75 years or older and lives alone: No Alcohol intake: never Patient Tobacco Use Status: Former Tobacco user e-Cigarette/Vaping Use: Never Used Substance Use Type: Marijuana service: No Current occupational status: unemployed Current occupation: right hand dominant Female Reproductive History Menstrual Total pregnancies: 2 Full term: 1 Number of Living Children: 1 Ab spontaneous: 1 Review of Systems Musc Reports arthralgias, Denies joint swelling and Reports stiffness Skin/Breast Reports unusual bruising Physical Exam Vital Signs: Last Vital Signs Pulse 92 08/30/23 09:32 BP 150/86 H 08/30/23 09:32 Pulse Ox 97 08/30/23 09:32 Oxygen Delivery Method Room Air 08/30/23 09:32 BMI result Body Mass Index 33.8 Const Other: Cushingoid General: cooperative and healthy appearing Nutritional Appearance: obese Orientation/consciousness: patient oriented x3 Limitations: no limitations HEENT Head: Yes atraumatic Resp Effort & Inspection: normal respiratory effort and able to speak in complete sentences Auscultation: clear to auscultation bilaterally Cardio Rate: regular rate Rhythm: regular rhythm Skin Other: Multiple superficial bruises on upper extremities. Neuro General: patient oriented x3 Extrem Other: Left upper extremity in a fixed sling Right elbow pain with full extension Normal range of motion of right shoulder without pain Left knee warmth and pain with full flexion Bilateral ankle swelling tenderness and warmth Assessment & Plan Assessment & Plan (1) Seronegative rheumatoid arthritis: Comment: -ve -ve CCP -ve JOSE L dx Age 16 at [facility] [place] with Dr Haro Treatment with methotrexate partially helpful but she did much better with addition of Humira for a year or 2 but then she ran out of insurance. Recurrence of synovitis 2015 - out of insurance again, just on low dose prednisone. Humira started, May 2017; methotrexate(SC) added, June 2017 Xeljanz and methotrexate(SC) 01/27 06/28: Xeljanz not effective, Enbrel added to methotrexate 09/27: Actemra in place of Enbrel(ineffective), parenteral, then oral methotrexate continued Actemra discontinued in September 2020 due to the hidradenitis suppurativa. Methotrexate continued. 01/2021 Humira started with 80 mg loading doses and the 40 mg weekly for hidradenitis; arthritis worse so Humira changed to Rinvoq 02/2022. Hives 04/2022, Rinvoq changed to baricitinib Code(s): M06.00 - Rheumatoid arthritis without rheumatoid factor, unspecified site Category: Medical Plan: This is a 33-year-old female with seronegative RA who returns for follow-up. She is s/p shoulder surgery 2 days ago, she had held her Olumiant 2 weeks prior and had to increase her prednisone to 20 mg daily. Remains on methotrexate. On exam she has multiple swollen and tender joints, inflammatory markers elevated as well as her white count. All is explained by her recent surgical procedure and increase prednisone dose Advised patient to restart her Olumiant tomorrow. Continue with methotrexate 20 mg weekly. Folic acid 1 mg daily. Lower her prednisone back to 5 mg Twice daily Labs before next visit in 3 months (2) Long-term use of immunosuppressant medication: Code(s): Z79.899 - Other half-way (current) drug therapy Category: Medical Plan: Monitor safety labs. Monitor for signs of infection (3) Fracture of rim of glenoid fossa of left scapula: Code(s): S42.142A - Displaced fracture of glenoid cavity of scapula, left shoulder, initial encounter for closed fracture Category: Medical Qualifiers: Encounter type: subsequent encounter Fracture type: closed Fracture healing: with routine healing Qualified Code(s): S42.142D - Displaced fracture of glenoid cavity of scapula, left shoulder, subsequent encounter for fracture with routine healing Plan: S/p surgery on 08/28/2023. (4) alf systemic steroid user: Code(s): Z79.52 - alf (current) use of systemic steroids Category: Medical Plan: Continue with alendronate. Patient has a Mirena IUD Plan I spent 37 minutes reviewing patient's chart, evaluating patient, ordering diagnostic workup, counseling patient and documenting in the chart Orders: Orders Comprehensive Met. Panel 3 Months M06.00 - Rheumatoid arthritis without rheumatoid factor, unspecified site, Z79.899 - Other half-way (current) drug therapy C Reactive Protein 3 Months M06.00 - Rheumatoid arthritis without rheumatoid factor, unspecified site, Z79.899 - Other half-way (current) drug therapy Complete Blood Count Auto Diff 3 Months M06.00 - Rheumatoid arthritis without rheumatoid factor, unspecified site, Z79.899 - Other terminal clerk (current) drug therapy Erythrocyte Sedimentation Rate 3 Months M06.00 - Rheumatoid arthritis without rheumatoid factor, unspecified site, Z79.899 - Other half-way (current) drug therapy Coding Level of Care Code Est Pt Level 4 (29269) Complex EM visit Add On G2211 Diagnoses Seronegative rheumatoid arthritis M06.00 Long-term use of immunosuppressant medication Z79.899 Closed fracture of rim of glenoid fossa of left scapula with routine healing, subsequent encounter S42.142D Encounter type: subsequent encounter Fracture type: closed Fracture healing: with routine healing terminal clerk systemic steroid user Z79.52
[2023-08-30 09:32] VITALS: BP 150/86; PULSE 92; O2SAT 97; BMI 33.8
== END 2023-08-30 09:49 | disposition home or self-care (01) ==
PROVIDERS: PCP Internal Medicine; Visit Provider Student in an Organized Health Care Education/Training Program
DX: M06.00 Rheumatoid arthritis without rheumatoid factor, unspecified site (principal); Z79.899 Other long term (current) drug therapy; S42.142D Displaced fracture of glenoid cavity of scapula, left shoulder, subsequent encounter for fracture with routine healing; Z79.52 Long term (current) use of systemic steroids
CPT/HCPCS: 99214; G2211

== ENCOUNTER → 2023-08-30 09:31 | Outpatient (BNVA) | payer OTHER, SELFPAY | PROVIDERS: PCP Internal Medicine; Visit Provider Student in an Organized Health Care Education/Training Program | DX: M06.00 Rheumatoid arthritis without rheumatoid factor, unspecified site (principal); S42.142D Displaced fracture of glenoid cavity of scapula, left shoulder, subsequent encounter for fracture with routine healing; Z79.899 Other long term (current) drug therapy; Z79.52 Long term (current) use of systemic steroids | CPT/HCPCS: 99212 ==

== ENCOUNTER 2023-11-09 11:44 | Outpatient (REF) | payer OTHER, SELFPAY ==
[2023-11-09 12:44] LABS: MANUAL DIFF FLAG NO
[2023-11-09 12:48] LABS: Basophils Percent Auto 0.2 % (0-2); Eosinophils Absolute Auto 0.1 X10*3/uL (0.0-0.4); Eosinophils Percent Auto 0.5 % (0-4); Hematocrit 34.1 % (37.0-47.0); Hemoglobin 10.3 g/dl (12.0-16.0); Imm Gran Abs Auto 0.28 X10*3/uL (0.00-0.03); Imm Gran Pct Auto 2.1 % (0.0-0.4); Lymphocytes Absolute Auto 2.1 X10*3/uL (1.2-4.9); Lymphocytes Percent Auto 15.4 % (20-40); Mean Corpuscular HGB Conc 30.2 g/dl (31.0-35.0); Mean Corpuscular Hemoglobin 26.4 pg (27.0-33.0); Mean Corpuscular Volume 87.4 fL (80.0-98.0); Mean Platelet Volume 8.8 fL (9.4-12.3); Monocytes Absolute Auto 0.9 X10*3/uL (0.1-1.2); Monocytes Percent Auto 6.4 % (2-11); NRBC Pct Auto 0.1 /100WBC (0.0-0.2); Neutrophils Absolute Auto 10.2 x10*3/uL (2.0-8.3); Neutrophils Percent Auto 75.4 % (45-73); Platelet Count 563 X10*3/uL (160-400); Red Cell Distribution Width 20.3 % (11.0-16.0); White Blood Count 13.6 X10*3/uL (4.8-10.8)
[2023-11-09 13:34] LABS: Erythrocyte Sedimentation Rate 80 MM/HR (0-20)
[2023-11-09 14:10] LABS: Alanine Aminotransferase 41 U/L (0-31); Albumin Level 3.9 g/dL (3.5-5.0); Alkaline Phosphatase 101 U/L (39-117); Anion Gap 10 (12-20); Aspartate Amino Transferase 14 U/L (5-31); Bilirubin Total 0.1 mg/dL (0.0-1.0); Blood Urea Nitrogen 12 mg/dL (9-16); C Reactive Protein 2.42 mg/dL (< or = 0.50); Calcium 9.5 mg/dL (8.4-10.2); Carbon Dioxide 28 mmol/L (22-29); Chloride 108 mmol/L (96-108); Estimated Glomerular Filt Rate > 60; Glucose Random 89 mg/dL (60-115); Potassium 3.8 mmol/L (3.3-5.1); Sodium 142 mmol/L (135-145); Total Protein 7.1 g/dL (6.5-8.0)
== END 2023-11-09 11:45 | disposition home or self-care (01) ==
LOC: HO.10HDL 11:44
PROVIDERS: Visit Provider Student in an Organized Health Care Education/Training Program
DX: M06.00 Rheumatoid arthritis without rheumatoid factor, unspecified site (principal); Z79.899 Other long term (current) drug therapy
CPT/HCPCS: 36415; 80053; 85025; 85652; 86140

== ENCOUNTER 2023-11-30 09:49 | Outpatient (AMB) | payer OTHER, SELFPAY ==
--- NOTE | 2023-11-30 09:52 | MHC.OFFVIS ---
Vital Signs 11/30/23 09:57 Height 5 ft 1 in Weight 169 lb 15.622 oz BMI 32.1 BP 142/82 H Blood Pressure Location Rt brachial Position Sitting Pulse 94 Pulse Source Pulse Oximeter Pulse Oximetry (%) 97 Oxygen Delivery Method Room Air Intake Visit Reasons: RA Intake Note: Patient presents for RA. Allergies cephalexin Allergy (Intermediate, Verified 11/30/23 09:55) Hives upadacitinib [From Rinvoq] Allergy (Mild, Verified 11/30/23 09:55) Rash naproxen [NAPROXEN] Allergy (Unknown, Verified 11/30/23 09:55) DIZZINESS EYE REDNESS AND SWELLING, edema Medication List - Last Reconciled 11/30/23 by Jose Hood MD acetaminophen (Tylenol Extra Strength) 1,000 mg PO Q6H PRN alendronate 70 mg PO QWEEK amitriptyline mg PO baricitinib (Olumiant) TAKE 1 TABLET (2MG) BY MOUTH DAILY cholecalciferol (vitamin D3) (Vitamin D3) 50 mcg PO DAILY clotrimazole 1% 1 appl topical BID cyclobenzaprine 10 mg PO BEDTIME ergocalciferol (vitamin D2) 1,250 mcg PO .once a month folic acid 1 mg PO DAILY ibuprofen 400 mg PO TID PRN levonorgestrel (Mirena) intrauterine losartan 25 mg PO DAILY methotrexate sodium 20 mg (8 x 2.5 mg) PO QWEEK mometasone 0.1% 0 appl topical omeprazole 20 mg PO BID oxycodone-acetaminophen 5-325 mg 1 tab PO BID PRN prednisone 5 mg PO BID prednisone 4 mg (4 x 1 mg) PO BEDTIME quetiapine (Seroquel) 25 mg PO BID sumatriptan succinate 25 mg PO DAILY triamcinolone acetonide 0.1% 1 appl topical BID HPI Comments Details: 33-year-old female with seronegative RA returns for follow-up. She is on Olumiant 2 mg daily, methotrexate 20 mg weekly, folic acid and prednisone. She states that she has not been doing well at all. Recurrent flare-ups affecting multiple joints including both her knees, most the left knee, both ankles, elbows, she states that the left shoulder is healing. She continues to go to physical therapy. She has been using much higher doses of prednisone. 10-20 mg a day in order to control her disease PFSH Surgical History History of shoulder surgery Hx of endoscopy Hx of colonoscopy History of removal of ovarian cyst Hx of lithotripsy Social History Household Members: Significant Other Housing: House Are you a primary clinical care manager to a significant other at home: No Do you presently have visiting nurse or other home services: No 75 years or older and lives alone: No Alcohol intake: never Patient Tobacco Use Status: Former Tobacco user e-Cigarette/Vaping Use: Never Used Substance Use Type: Marijuana service: No Current occupational status: unemployed Current occupation: right hand dominant Female Reproductive History Menstrual Total pregnancies: 2 Full term: 1 Number of Living Children: 1 Ab spontaneous: 1 Review of Systems Musc Reports arthralgias, Denies joint swelling and Reports stiffness Skin/Breast Reports unusual bruising Physical Exam Vital Signs: Last Vital Signs Pulse 94 11/30/23 09:57 BP 142/82 H 11/30/23 09:57 Pulse Ox 97 11/30/23 09:57 Oxygen Delivery Method Room Air 11/30/23 09:57 BMI result Body Mass Index 32.1 Const Other: Cushingoid General: cooperative and healthy appearing Nutritional Appearance: obese Orientation/consciousness: patient oriented x3 Limitations: no limitations HEENT Head: Yes atraumatic Resp Effort & Inspection: normal respiratory effort and able to speak in complete sentences Auscultation: clear to auscultation bilaterally Cardio Rate: regular rate Rhythm: regular rhythm Skin Other: Multiple superficial bruises on upper extremities. Neuro General: patient oriented x3 Extrem Other: Mildly limited left shoulder abduction Right elbow warmth, it is held in semi flexion and pain with full extension Normal range of motion of right shoulder without pain Left knee warmth and significant swelling, held in summary flexion, pain with any range of motion Bilateral ankle swelling tenderness and warmth Multiple tender MTPs bilaterally Office Procedures Joint Injection/Aspiration Joint Injection/Aspiration Primary Site: left knee Prep: site was prepped using sterile technique Injected: 40 mg of, Kenalog, with 1 mL of, 1% plain lidocaine and in the joint Approach Used: other (superolateral) Coding Details: With the patient's consent the left knee was prepped with ChloraPrep. The skin was anesthetized with 2 cc of 1% lidocaine. Using an 18 gauge needle, 53 cc of turbid serosanguineous fluid was aspirated, then The knee was then injected with 40 mg of triamcinolone and 1 cc of I % lidocaine. The patient tolerated the procedure with no immediate adverse effects. 25078 - Large joint Procedure code (CPT) selection complete Assessment & Plan Assessment & Plan (1) SO-TULIO (systemic onset juvenile idiopathic arthritis): Comment: veRF -ve CCP -ve AN, onset at age 13. dx at [facility] with Dr Haro Treatment with methotrexate partially helpful but she did much better with addition of Humira for a year or 2 but then she ran out of insurance. Recurrence of synovitis 2016 - out of insurance again, just on low dose prednisone. Humira started, May 2017; methotrexate(SC) added, June 2017 Xeljanz and methotrexate(SC) 01/27 06/28: Xeljanz not effective, Enbrel added to methotrexate 01/2021 Humira started with 80 mg loading doses and the 40 mg weekly for hidradenitis; arthritis worse so Humira changed to Rinvoq 02/2022. Hives 04/2022, Rinvoq changed to baricitinib Code(s): M08.20 - Juvenile rheumatoid arthritis with systemic onset, unspecified site Category: Medical Plan: This is a 33-year-old female with seronegative RA who presents for follow-up. She is on methotrexate 20 mg weekly, Olumiant 2 mg daily and prednisone 10-20 mg daily. On exam she continues to have multiple swollen and tender joints. Laboratory markers remain quite elevated. I think patient's diagnosis is systemic TULIO. Her symptoms started at age 13. She is seronegative. She continues to have significantly elevated inflammatory markers. Will need to change DMARDs. Patient does not recall ever being on infusions. Discontinue Olumiant at this time. Discussed risks and benefits of Actemra infusions. Patient agreed to proceed. We will start prior authorization for Actemra infusions. Continue methotrexate 20 mg weekly plus folic acid 1 mg daily Continue prednisone 10-20 mg daily Labs before next visit in 3 months (2) Long-term use of immunosuppressant medication: Code(s): Z79.899 - Other detention (current) drug therapy Category: Medical Plan: Monitor safety labs. Monitor for signs of infection (3) Fracture of rim of glenoid fossa of left scapula: Code(s): S42.142A - Displaced fracture of glenoid cavity of scapula, left shoulder, initial encounter for closed fracture Category: Medical Qualifiers: Encounter type: subsequent encounter Fracture healing: with routine healing Fracture type: closed Qualified Code(s): S42.142D - Displaced fracture of glenoid cavity of scapula, left shoulder, subsequent encounter for fracture with routine healing Plan: S/p surgery on 08/28/2023. Improving with PT (4) MCFP systemic steroid user: Code(s): Z79.52 - intermediate frame tender (current) use of systemic steroids Category: Medical Plan: Continue with alendronate. Patient has a Mirena IUD Plan I spent 65 minutes reviewing patient's chart, evaluating patient, doing left knee arthrocentesis +injection, completing FMLA paperwork, ordering diagnostic workup, counseling patient and documenting in the chart Orders: Orders Synovial Fld Cult + Gram stain Today M06.00 - Rheumatoid arthritis without rheumatoid factor, unspecified site Uric Acid Synovial Fluid Today M06.00 - Rheumatoid arthritis without rheumatoid factor, unspecified site AMB Joint Injection/Aspiration Today M06.00 - Rheumatoid arthritis without rheumatoid factor, unspecified site Cell Ct wDiff Synovial Fl Today M06.00 - Rheumatoid arthritis without rheumatoid factor, unspecified site Coding Level of Care Code Est Pt Level 5 (52172) Complex EM visit Add On G2211 Diagnoses SO-TULIO (systemic onset juvenile idiopathic arthritis) M08.20 Long-term use of immunosuppressant medication Z79.899 Closed fracture of rim of glenoid fossa of left scapula with routine healing, subsequent encounter S42.142D Encounter type: subsequent encounter Fracture healing: with routine healing Fracture type: closed intermediate frame tender systemic steroid user Z79.52 CPT Codes Coding - 57391 Large joint: 19878 - Large joint ([id number])
[2023-11-30 09:57] VITALS: BP 142/82; PULSE 94; O2SAT 97; BMI 32.1
== END 2023-11-30 10:50 | disposition home or self-care (01) ==
PROVIDERS: PCP Internal Medicine; Visit Provider Student in an Organized Health Care Education/Training Program
DX: M08.29 Juvenile rheumatoid arthritis with systemic onset, multiple sites (principal); Z79.899 Other long term (current) drug therapy; S42.142D Displaced fracture of glenoid cavity of scapula, left shoulder, subsequent encounter for fracture with routine healing; Z79.52 Long term (current) use of systemic steroids
CPT/HCPCS: 20610; 99215

== ENCOUNTER 2023-11-30 09:49 | Outpatient (REF) | payer OTHER, SELFPAY ==
[2023-11-30 12:28] LABS: Source Synovial Fluid LEFT KNEE
[2023-11-30 12:29] LABS: BF Shift QC OK YES; Man Diluent Bkgrd OK YES; RBC Synovial Fluid 0.012 X10*6/uL; WBC Synovial Fluid 23.295 X10*3/uL
[2023-11-30 13:00] LABS: Lymphocytes Synovial Fluid 5 %; Monocytes Synovial Fluid 4 %; Neutrophils Synovial Fluid 90 %; Other Cells Synovial Fluid 1
[2023-12-03 14:01] LABS: Uric Acid Synovial Fluid 5
== END 2023-11-30 09:50 | disposition home or self-care (01) ==
LOC: HO.LNP 09:49
PROVIDERS: PCP Internal Medicine; Visit Provider Student in an Organized Health Care Education/Training Program
DX: M06.00 Rheumatoid arthritis without rheumatoid factor, unspecified site (principal); Z79.52 Long term (current) use of systemic steroids; S42.142D Displaced fracture of glenoid cavity of scapula, left shoulder, subsequent encounter for fracture with routine healing
CPT/HCPCS: 20610; 84560; 87070; 87073; 87205; 89051; 99212

== ENCOUNTER 2024-01-09 11:23 | Outpatient (AMB) | payer OTHER, SELFPAY ==
--- NOTE | 2024-01-09 11:31 | MHC.OFFVIS ---
Vital Signs 01/09/24 11:34 Height 5 ft 1 in Weight 173 lb 1.006 oz BMI 32.7 BP 132/80 Blood Pressure Location Rt brachial Position Sitting Pulse 78 Pulse Source Pulse Oximeter Pulse Oximetry (%) 98 Oxygen Delivery Method Room Air Intake Visit Reasons: FMLA Paper work Intake Note: Patient presents for FMLA paper work. Allergies cephalexin Allergy (Intermediate, Verified 01/09/24 11:34) Hives upadacitinib [From Rinvoq] Allergy (Mild, Verified 01/09/24 11:34) Rash naproxen [NAPROXEN] Allergy (Unknown, Verified 01/09/24 11:34) DIZZINESS EYE REDNESS AND SWELLING, edema Medication List - Last Reconciled 01/09/24 by Jose Hood MD acetaminophen (Tylenol Extra Strength) 1,000 mg PO Q6H PRN alendronate 70 mg PO QWEEK amitriptyline mg PO cholecalciferol (vitamin D3) (Vitamin D3) 50 mcg PO DAILY clotrimazole 1% 1 appl topical BID cyclobenzaprine 10 mg PO BEDTIME ergocalciferol (vitamin D2) 1,250 mcg PO .once a month folic acid 1 mg PO DAILY ibuprofen 400 mg PO TID PRN levonorgestrel (Mirena) intrauterine losartan 25 mg PO DAILY methotrexate sodium 20 mg (8 x 2.5 mg) PO QWEEK mometasone 0.1% 0 appl topical omeprazole 20 mg PO BID oxycodone-acetaminophen 5-325 mg 1 tab PO BID PRN prednisone 5 mg PO BID prednisone 4 mg (4 x 1 mg) PO BEDTIME quetiapine (Seroquel) 25 mg PO BID sumatriptan succinate 25 mg PO DAILY triamcinolone acetonide 0.1% 1 appl topical BID HPI Comments Details: 33-year-old female with TULIO returns for follow-up. She received the 1st dose of Actemra infusion about 3 weeks ago. The infusion was uneventful. She remains on methotrexate 20 mg weekly, folic acid and prednisone. She states that she feels her joints are getting worse. We have not been swollen. She states that she has had bilateral knee pain, worse on the left, she states that her left knee gives out on her, she has had multiple falls. [facility], [facility] Surgical History History of shoulder surgery Hx of endoscopy Hx of colonoscopy History of removal of ovarian cyst Hx of lithotripsy Social History Household Members: Significant Other Housing: House Are you a primary healthcare market consultant to a significant other at home: No Do you presently have visiting nurse or other home services: No 75 years or older and lives alone: No Alcohol intake: never Patient Tobacco Use Status: Former Tobacco user e-Cigarette/Vaping Use: Never Used Substance Use Type: Marijuana service: No Current occupational status: unemployed Current occupation: right hand dominant Female Reproductive History Menstrual Total pregnancies: 2 Full term: 1 Number of Living Children: 1 Ab spontaneous: 1 Review of Systems Musc Reports arthralgias, Denies joint swelling and Reports stiffness Skin/Breast Reports unusual bruising Physical Exam Vital Signs: Last Vital Signs Pulse 78 01/09/24 11:34 BP 132/80 01/09/24 11:34 Pulse Ox 98 01/09/24 11:34 Oxygen Delivery Method Room Air 01/09/24 11:34 BMI result Body Mass Index 32.7 Const Other: Cushingoid General: cooperative and healthy appearing Nutritional Appearance: obese Orientation/consciousness: patient oriented x3 Limitations: no limitations HEENT Head: Yes atraumatic Resp Effort & Inspection: normal respiratory effort and able to speak in complete sentences Skin Other: Multiple superficial bruises on upper extremities. Neuro General: patient oriented x3 Extrem Other: Mildly limited left shoulder abduction No elbow warmth, swelling or pain with flexion and extension no tenderness or swelling both hands and wrists Normal range of motion of right shoulder without pain Bilateral knees are cool, no swelling, no pain with full flexion-extension No ankle swelling or tenderness bilaterally Assessment & Plan Assessment & Plan (1) SO-TULIO (systemic onset juvenile idiopathic arthritis): Comment: veRF -ve CCP -ve AN, onset at age 13. dx at [facility] with Dr Haro Treatment with methotrexate partially helpful but she did much better with addition of Humira for a year or 2 but then she ran out of insurance. Recurrence of synovitis 2016 - out of insurance again, just on low dose prednisone. Humira started, May 2017; methotrexate(SC) added, June 2017 Xeljanz and methotrexate(SC) 01/27 06/28: Xeljanz not effective, Enbrel added to methotrexate 01/2021 Humira started with 80 mg loading doses and the 40 mg weekly for hidradenitis; arthritis worse so Humira changed to Rinvoq 02/2022. Hives 04/2022, Rinvoq changed to baricitinib Baricitinib DC 11/2023 due to ineffective Actemra infusion started 12/2023 Code(s): M08.20 - Juvenile rheumatoid arthritis with systemic onset, unspecified site Category: Medical Plan: This is a 33-year-old female with seronegative RA who presents for follow-up. She is on methotrexate 20 mg weekly, prednisone 10-20 mg daily and Actemra IV infusion. She received the 1st dose of Actemra infusion about 3 weeks ago. Infusion was uneventful. On exam there is much less swollen joints. Patient however states that she continues to have diffuse joint pain. I will increase her dosing interval to 8 milligram/kilogram every 2 weeks rather than every 4 weeks. Continue methotrexate 20 mg weekly plus folic acid 1 mg daily Continue prednisone 10-20 mg daily Labs before next visit in 2 months (2) Long-term use of immunosuppressant medication: Code(s): Z79.899 - Other fpc (current) drug therapy Category: Medical Plan: Monitor safety labs. 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 Patient has a Mirena IUD (4) Internal derangement of left knee: Code(s): M23.92 - Unspecified internal derangement of left knee Category: Medical Plan: Patient complaining of left knee giving out on her, multiple falls. I will order left knee MRI to rule out internal derangement Plan I spent 25 minutes reviewing patient's chart, evaluating patient, completing [place] paperwork, ordering diagnostic workup, counseling patient and documenting in the chart Orders: Orders MR knee LT wo con Today M23.92 - Unspecified internal derangement of left knee Coding Level of Care Code Est Pt Level 4 (49057) Complex EM visit Add On G2211 Diagnoses SO-TULIO (systemic onset juvenile idiopathic arthritis) M08.20 Long-term use of immunosuppressant medication Z79.899 long-term systemic steroid user Z79.52 Internal derangement of left knee M23.92
[2024-01-09 11:34] VITALS: BP 132/80; PULSE 78; O2SAT 98; BMI 32.7
== END 2024-01-09 12:17 | disposition home or self-care (01) ==
LOC: HO.RHE 11:23
PROVIDERS: PCP Internal Medicine; Visit Provider Student in an Organized Health Care Education/Training Program
DX: M08.20 Juvenile rheumatoid arthritis with systemic onset, unspecified site (principal); Z79.899 Other long term (current) drug therapy; Z79.52 Long term (current) use of systemic steroids; M23.92 Unspecified internal derangement of left knee
CPT/HCPCS: 99214; G2211

== ENCOUNTER → 2024-01-09 11:23 | Outpatient (BNVA) | payer OTHER, SELFPAY | PROVIDERS: PCP Internal Medicine; Visit Provider Student in an Organized Health Care Education/Training Program | DX: M08.20 Juvenile rheumatoid arthritis with systemic onset, unspecified site (principal); M23.92 Unspecified internal derangement of left knee; Z91.81 History of falling; Z79.52 Long term (current) use of systemic steroids; Z79.899 Other long term (current) drug therapy | CPT/HCPCS: 99212 ==

== ENCOUNTER 2024-03-02 10:18 | Outpatient (REF) | payer OTHER, SELFPAY ==
--- NOTE | ~2024-03-02 | MR_ITS ---
EXAMINATION: MR KNEE WITHOUT CONTRAST LEFT CLINICAL INFORMATION: Hardware for left shoulder replacement. Unspecified internal derangement of left knee M23.92. COMPARISON: XR left knee 09/01/2022. TECHNIQUE: MRI of the knee without contrast was performed using routine sequences on a high-field scanner. FINDINGS: MENISCI: Medial Meniscus: Diffuse attenuation of the medial meniscus which may be congenital. Fraying of the anterior horn and root. Lateral Meniscus: Attenuation with near-complete absence of the anterior meniscal body and anterior horn/root which likely represents diffuse complex tearing. A small amount of meniscal tissue remains. 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 Intact posterior cruciate ligament. Collateral: Intact. EXTENSOR MECHANISM: Intact. ARTICULAR CARTILAGE/BONE: Patellofemoral Compartment: Intact articular cartilage. Medial Compartment: Chronic, nondisplaced impaction fracture of the posterior aspect of the medial tibial plateau with mild persistent edema. Intact articular cartilage. Lateral Compartment: Mild articular cartilage signal heterogeneity with tiny marginal osteophytes. Healed posterior lateral tibial plateau impaction fracture. JOINT FLUID AND BURSAE: Small joint effusion with chronic synovitis. MUSCLES/TENDONS: Mild edema and atrophy of the medial and lateral gastrocnemius muscles as well as the soleus and popliteus muscles. MR/MR knee LT wo con IMPRESSION: 1. 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 2. Chronic, nondisplaced impaction fracture of the posterior aspect of the medial tibial plateau with mild persistent marrow edema. Healed posterior lateral tibial plateau fracture. 3. Diffuse attenuation of the medial meniscus which may be congenital. Fraying of the anterior horn and root. 4. Diffuse complex tearing of the lateral meniscus anterior body and anterior horn/root with a small amount of meniscal tissue remaining. 5. Mild lateral compartment osteoarthritis. Small joint effusion with chronic synovitis. 6. Mild edema and atrophy of the medial and lateral gastrocnemius muscles as well as the soleus and popliteus muscles. Electronically signed by: Brett Alegria MD 03/04/2024 10:41 AM AGUSTÍN
== END 2024-03-02 10:19 | disposition home or self-care (01) ==
LOC: HO.MRI 10:18
PROVIDERS: PCP Internal Medicine; Visit Provider Student in an Organized Health Care Education/Training Program
DX: M23.92 Unspecified internal derangement of left knee (principal)
CPT/HCPCS: 73721

== ENCOUNTER 2024-03-02 14:58 | Emergency (ER) | payer OTHER, SELFPAY ==
--- NOTE | ~2024-03-02 | US_ITS ---
EXAMINATION: US TRIPLEX UPPER EXTREMITY, LEFT CLINICAL INFORMATION: Bruising, decreased sensation post surgery. COMPARISON: None available. TECHNIQUE: Color-flow triplex imaging with spectral analysis and compression Doppler was performed on the left upper extremity. FINDINGS: The left internal jugular, subclavian, and axillary veins are patent and free of thrombus. The imaged segment of the left brachiocephalic vein is patent. Spectral doppler waveforms are normal. The brachial, basilic, cephalic, radial, and ulnar veins are patent and compressible. US/US venous duplex UE LT IMPRESSION: No evidence of deep venous thrombosis involving the left upper extremity. Electronically signed by: Elizabeth Steen MD 03/02/2024 05:54 PM EST
[2024-03-02 15:10] VITALS: BP 187/107; PULSE 100; RESP 19; TEMP 36.6; O2SAT 99; BMI 32.7
--- NOTE | 2024-03-02 15:10 | ED_ITS ---
HPI - General Adult General Chief complaint: Extremity Injury, Upper Stated complaint: arms swelling Time Seen by Provider: 03/02/24 16:26 Source: patient, RN notes reviewed and old records reviewed Mode of arrival: ambulatory Limitations: no limitations History of Present Illness ED Provider: Ernesto SOTO narrative: 33-year-old female with past medical history significant for lupus, rheumatoid arthritis on chronic prednisone presents for evaluation of left arm pain. The patient had a complete left shoulder replacement at [facility] 5 days ago. She reports that over last 2 days she has had worsening bruising all the way down towards her left hand. The hand feels cool and she has trouble extending of the left hand. She has sensation intact. She is concerned due to the increased swelling and pain. She states this is her 3rd shoulder surgery on the same side and she was never had pain or bruising in the severe in the past. She is not on any blood thinners. She called her surgery office and was referred to the ER for evaluation. The patient has no history of DVT Related Data Home Medications ?Medication ?Instructions ?Recorded ?Confirmed acetaminophen 500 mg tablet 1,000 mg PO Q6H PRN 10/05/21 01/09/24 (Tylenol Extra Strength) alendronate 70 mg tablet 70 mg PO QWEEK 10/05/21 01/09/24 cyclobenzaprine 10 mg tablet 10 mg PO BEDTIME 10/05/21 01/09/24 levonorgestrel 21 mcg/24 hr (up to intrauterine 10/05/21 01/09/24 8 years) 52 mg intrauterine device (Mirena) ergocalciferol (vitamin D2) 1,250 1,250 mcg PO .once a month 12/27/21 01/09/24 mcg (50,000 unit) capsule amitriptyline 25 mg tablet mg PO 11/23/22 01/09/24 mometasone 0.1 % topical cream 0 appl topical 05/23/23 01/09/24 omeprazole 20 mg capsule,delayed 20 mg PO BID 05/23/23 01/09/24 release cholecalciferol (vitamin D3) 50 50 mcg PO DAILY 11/30/23 01/09/24 mcg (2,000 unit) tablet (Vitamin D3) losartan 25 mg tablet 25 mg PO DAILY 11/30/23 01/09/24 oxycodone-acetaminophen 5 mg-325 1 tab PO BID PRN 11/30/23 01/09/24 mg tablet sumatriptan succinate 25 mg tablet 25 mg PO DAILY 11/30/23 01/09/24 Previous Rx's ?Medication ?Instructions ?Recorded quetiapine 25 mg tablet (Seroquel) 25 mg PO BID #60 tabs 11/17/21 folic acid 1 mg tablet 1 mg PO DAILY #90 tabs 06/20/22 clotrimazole 1 % topical cream 1 appl topical BID #45 grams 02/26/23 prednisone 5 mg tablet 5 mg PO BID #120 tabs 02/26/23 ibuprofen 400 mg tablet 400 mg PO TID PRN for pain #90 tabs 03/15/23 triamcinolone acetonide 0.1 % 1 appl topical BID #60 grams 04/04/23 topical cream prednisone 1 mg tablet 4 mg (4 x 1 mg) PO BEDTIME #120 01/02/24 tabs methotrexate sodium 2.5 mg tablet 20 mg (8 x 2.5 mg) PO QWEEK #96 02/20/24 tabs Allergies Allergy/AdvReac Type Severity Reaction Status Date / Time cephalexin Allergy Intermediate Hives Verified 03/02/24 15:13 upadacitinib [From Rinvoq] Allergy Mild Rash Verified 03/02/24 15:13 naproxen [NAPROXEN] Allergy Unknown DIZZINESS Verified 03/02/24 15:13 EYE REDNESS AND SWELLING, edema Review of Systems 2 Constitutional: Constitutional: Denies body ache(s), Denies chills, Denies fever(s) and Denies headache(s) Eyes: Eyes: Denies blurry vision ENT: Denies vertigo, Denies dizziness and Denies headache(s) Cardiovascular: Cardiovascular: Denies chest pain and Denies chest pain at rest Respiratory: Respiratory: Denies cough Gastrointestinal: Gastrointestinal: Denies abdominal pain Musculoskeletal: Musculoskeletal: Denies deformity, Reports arthralgias, Reports joint swelling, Reports limited range of motion, Reports numbness, Reports radiating pain into limb, Reports stiffness and Reports tingling Integumentary/Breasts: Skin/Breast: Reports unusual bruising Neurologic: Denies vertigo, Denies dizziness, Denies headache(s), Reports numbness and Reports tingling PMFSH Past Medical History Surgical History History of shoulder surgery Hx of endoscopy Hx of colonoscopy History of removal of ovarian cyst Hx of lithotripsy Social History Social History Household Members: Significant Other Housing: House Are you a primary healthcare analyst to a significant other at home: No Do you presently have visiting nurse or other home services: No Alcohol intake: never Patient Tobacco Use Status: Former Tobacco user e-Cigarette/Vaping Use: Never Used Substance Use Type: Marijuana Advance Directives: No Advance Directives Information Provided: No Do you have a plan to hurt others: No Plan service: No Current occupational status: unemployed Current occupation: right hand dominant Physical Exam ED Vital Signs: Vital Signs - 24 hr 03/02/24 15:10 03/02/24 16:57 Temperature 98 F 98.1 F Pulse Rate 100 82 Respiratory Rate 19 18 Blood Pressure 187/107 H 143/92 H Pulse Oximetry 99 99 Oxygen Delivery Method Room Air Room Air BMI result Body Mass Index 32.7 Const General: healthy appearing, comfortable, no acute distress, alert and awake Nutritional Appearance: well nourished Orientation/consciousness: patient oriented x3 HENMT Head: Yes normocephalic and Yes atraumatic Eyes Eyelids: Yes eyelids normal Conjunctivae: conjunctivae normal Sclerae: sclerae normal Corneas: corneas normal Pupils: Equal, round and reactive pupils present EOM: EOMs intact bilaterally Neck Neck: Yes full ROM Resp Effort & Inspection: normal respiratory effort, able to speak in complete sentences and not labored Cardio Rate: regular rate Rhythm: regular rhythm Skin General skin exam: elasticity normal Neuro General: patient oriented x3 Cranial nerves: Yes Equal, round and reactive pupils present and Yes Bilaterally intact EOM present Cognition (Neuro): normal cognition Extrem Other: Patient has marked edema to the left upper extremity starting at the left clavicle extending to the left shoulder, down the left arm, left wrist and hand. Most of the ecchymosis he is on dependent surfaces on the dorsal surface as the patient has her arm in a sling. This was removed for the examination. There is minimal tenderness to the left shoulder. Radial pulses are 2+, strong and equal. Distal sensation and capillary refill intact. Course Course Course Narrative: This is a rapid medical exam performed by Juliet Diaz NP: Additional HPI, ROS, PE not included below will be deferred to primary provider. 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 States hand is cold with decreased sensation. Significant ecchymosis to left arm, 2+ radial pulse, hand cold to touch. Plan: labs, U/S Reevaluation(s) Reevaluation #1: Patient's workup largely unremarkable, the patient will be discharged to follow- up with her orthopedic surgeon tomorrow. She was given a dose of oxycodone as she missed her dose earlier while she was here. Time: 18:32 Medical Decision Making Medical Decision Making [facility] Narrative: 33-year-old female presents for evaluation of left arm pain. She feels as though her left arm is more swollen and bruised after the surgery than her previous surgeries. She is concerned about infection due to her chronic prednisone use. She has no fever, erythema or purulent drainage, her pain and swelling seems appropriate for a total shoulder replacement. She has good pulses. Good capillary refill and her motion remains intact. He seems somewhat limited due to the amount of edema she has. We will get an ultrasound to rule out DVT given the recent surgery. However I feel that her symptoms are most likely need postop pain. Check basic labs to evaluate for significant hemorrhage. Differential Diagnosis Differential Diagnoses: The differential diagnosis associated with the presentation includes Postop pain Ecchymosis Shoulder replacement DVT Postop abscess Lab Data [facility] Lab Attestation statement: I reviewed the patient's lab results. Patient has a mild leukocytosis to 11.4 which is likely related to her recent surgery and prednisone use, less likely indicative of infection. The patient appears to have a mild anemia at baseline, her hemoglobin of 10.5 and hematocrit 34.5 is consistent with her baseline. Platelet count is 310k. Patient's electrolytes are within normal limits, renal function is reassuring. AST and ALT is slightly elevated which has been present in the past it may be related to her recent surgery as well 03/02/24 15:40 03/02/24 15:40 Labs: Lab Results 03/02/24 Range/Units 15:40 WBC 11.4 H (4.8-10.8) X10*3/uL RBC 3.70 L (4.20-5.50) X10*6/uL Hgb 10.5 L (12.0-16.0) g/dl Hct 34.5 L (37.0-47.0) % MCV 93.2 (80.0-98.0) fL MCH 28.4 (27.0-33.0) pg MCHC 30.4 L (31.0-35.0) g/dl RDW 19.9 H (11.0-16.0) % Plt Count 310 (160-400) X10*3/uL MPV 8.6 L (9.4-12.3) fL Immature Gran % (Auto) 4.1 H (0.0-0.4) % Neut % (Auto) 87.0 H (45-73) % Lymph % (Auto) 6.7 L (20-40) % [place] % (Auto) 1.8 L (2-11) % Eos % (Auto) 0.2 (0-4) % Baso % (Auto) 0.2 (0-2) % Lymph # (Auto) 0.8 L (1.2-4.9) X10*3/uL [place] # (Auto) 0.2 (0.1-1.2) X10*3/uL Eos # (Auto) 0.0 (0.0-0.4) X10*3/uL Baso # (Auto) 0.0 (0.0-0.2) X10*3/uL Abs Immat Gran (auto) 0.47 H (0.00-0.03) X10*3/uL Absolute Neuts (auto) 9.9 H (2.0-8.3) x10*3/uL Absolute Nucleated RBC 0.020 H (0.0-0.012) X10*3/uL Nucleated RBC % (auto) 0.2 (0.0-0.2) /100WBC PT 10.3 L (10.9-12.4) SEC INR 0.9 (0.9-1.1) Sodium 142 (135-145) mmol/L Potassium 3.9 (3.3-5.1) mmol/L Chloride 106 (96-108) mmol/L Carbon Dioxide 26 (22-29) mmol/L Anion Gap 14 (12-20) BUN 17 H (9-16) mg/dL Creatinine 0.79 (0.5-1.4) mg/dL Estim Creat Clear Calc 95.1 Estimated GFR > 60 Random Glucose 104 (60-115) mg/dL Calcium 9.5 (8.4-10.2) mg/dL Total Bilirubin 0.5 (0.0-1.0) mg/dL AST 78 H (5-31) U/L ALT 185 H (0-31) U/L Alkaline Phosphatase 60 D (39-117) U/L Total Protein 6.8 (6.5-8.0) g/dL Albumin 4.5 (3.5-5.0) g/dL Discharge Plan Discharge Clinical Impression: Arm pain, left Patient Disposition: Home, Self-Care Instructions: Arm Pain (ED) Additional Instructions: Your workup in the ER today was reassuring. Your ultrasound shows no evidence of DVT. Your blood counts are around where they always are, you do have a mild anemia. There are no obvious signs of infection Call your orthopedic doctor tomorrow for follow-up Prescriptions: No Action quetiapine [Seroquel] 25 mg tablet 25 mg PO BID Qty: 60 3RF folic acid 1 mg tablet 1 mg PO DAILY Qty: 90 2RF ibuprofen 400 mg tablet 400 mg PO TID PRN (Reason: for pain) Qty: 90 1RF triamcinolone acetonide 0.1 % cream 1 appl topical BID Qty: 60 2RF prednisone 1 mg tablet 4 mg PO BEDTIME Qty: 120 2RF methotrexate sodium 2.5 mg tablet 20 mg PO QWEEK Qty: 96 0RF cyclobenzaprine 10 mg tablet 10 mg PO BEDTIME alendronate 70 mg tablet 70 mg PO QWEEK Mirena 20 mcg/24 hours (7 yrs) 52 mg intrauterine device intrauterine acetaminophen [Tylenol Extra Strength] 500 mg tablet 1,000 mg PO Q6H PRN ergocalciferol (vitamin D2) 1,250 mcg (50,000 unit) capsule 1,250 mcg PO .once a month amitriptyline 25 mg tablet PO clotrimazole 1 % cream 1 appl topical BID Qty: 45 1RF prednisone 5 mg tablet 5 mg PO BID Qty: 120 1RF mometasone 0.1 % cream 0 appl topical omeprazole 20 mg capsule,delayed release(DR/EC) 20 mg PO BID cholecalciferol (vitamin D3) [Vitamin D3] 50 mcg (2,000 unit) tablet 50 mcg PO DAILY losartan 25 mg tablet 25 mg PO DAILY oxycodone-acetaminophen 5-325 mg tablet 1 tab PO BID PRN sumatriptan succinate 25 mg tablet 25 mg PO DAILY Print Language: Mozambican
[2024-03-02 15:48] LABS: MANUAL DIFF FLAG NO
[2024-03-02 15:50] LABS: Basophils Percent Auto 0.2 % (0-2); Eosinophils Percent Auto 0.2 % (0-4); Hematocrit 34.5 % (37.0-47.0); Hemoglobin 10.5 g/dl (12.0-16.0); Imm Gran Abs Auto 0.47 X10*3/uL (0.00-0.03); Imm Gran Pct Auto 4.1 % (0.0-0.4); Lymphocytes Absolute Auto 0.8 X10*3/uL (1.2-4.9); Lymphocytes Percent Auto 6.7 % (20-40); Mean Corpuscular HGB Conc 30.4 g/dl (31.0-35.0); Mean Corpuscular Hemoglobin 28.4 pg (27.0-33.0); Mean Corpuscular Volume 93.2 fL (80.0-98.0); Mean Platelet Volume 8.6 fL (9.4-12.3); Monocytes Absolute Auto 0.2 X10*3/uL (0.1-1.2); Monocytes Percent Auto 1.8 % (2-11); NRBC Pct Auto 0.2 /100WBC (0.0-0.2); Neutrophils Absolute Auto 9.9 x10*3/uL (2.0-8.3); Platelet Count 310 X10*3/uL (160-400); Red Cell Distribution Width 19.9 % (11.0-16.0); White Blood Count 11.4 X10*3/uL (4.8-10.8)
[2024-03-02 16:08] LABS: INTERNATIONAL NORM RATIO 0.9 (0.9-1.1); Prothrombin Time 10.3 SEC (10.9-12.4)
[2024-03-02 16:11] LABS: Albumin Level 4.5 g/dL (3.5-5.0); Anion Gap 14 (12-20); Aspartate Amino Transferase 78 U/L (5-31); Bilirubin Total 0.5 mg/dL (0.0-1.0); Blood Urea Nitrogen 17 mg/dL (9-16); Calcium 9.5 mg/dL (8.4-10.2); Carbon Dioxide 26 mmol/L (22-29); Chloride 106 mmol/L (96-108); Creatinine Clr Calc Pharmacy 95.1; Estimated Glomerular Filt Rate > 60; Glucose Random 104 mg/dL (60-115); Potassium 3.9 mmol/L (3.3-5.1); Sodium 142 mmol/L (135-145); Total Protein 6.8 g/dL (6.5-8.0)
[2024-03-02 16:57] VITALS: BP 143/92; PULSE 82; RESP 18; TEMP 36.7; O2SAT 99
--- NOTE | 2024-03-02 17:12 | PC.NURSE ---
ultrasound at bedside
[2024-03-02 17:13] LABS: Alanine Aminotransferase 185 U/L (0-31); Alkaline Phosphatase 60 U/L (39-117)
[2024-03-02] MEDS: oxyCODONE HCl Immed Release 5 MG TABLET 10 MG PO (18:44)
[2024-03-02 18:53] VITALS: BP 143/92; PULSE 82; RESP 18; TEMP 36.7; O2SAT 99
== END 2024-03-02 18:53 | disposition home or self-care (01) ==
PROVIDERS: Registered Nurse Emergency; Emergency Provider Emergency Medicine Emergency Medical Services; PCP Internal Medicine
DX: R60.0 Localized edema (principal); M79.602 Pain in left arm; Z79.899 Other long term (current) drug therapy
CPT/HCPCS: 36415; 80053; 85025; 85610; 93971; 99283

== ENCOUNTER 2024-03-13 09:26 | Outpatient (AMB) | payer OTHER, SELFPAY ==
--- NOTE | 2024-03-13 09:29 | A.OFFVIS_ITS ---
Vital Signs 03/13/24 09:34 Height 5 ft 1 in Weight 173 lb 8.061 oz BMI 32.8 BP 142/90 H Blood Pressure Location Rt brachial Position Sitting Pulse 103 H Pulse Source Pulse Oximeter Pulse Oximetry (%) 97 Oxygen Delivery Method Room Air Intake Visit Reasons: RA Intake Note: Patient presents for RA. Allergies cephalexin Allergy (Intermediate, Verified 03/13/24 09:32) Hives upadacitinib [From Rinvoq] Allergy (Mild, Verified 03/13/24 09:32) Rash naproxen [NAPROXEN] Allergy (Unknown, Verified 03/13/24 09:32) DIZZINESS EYE REDNESS AND SWELLING, edema Medication List - Last Reconciled 03/13/24 by Jose Hood MD acetaminophen (Tylenol Extra Strength) 1,000 mg PO Q6H PRN alendronate 70 mg PO QWEEK amitriptyline mg PO cholecalciferol (vitamin D3) (Vitamin D3) 50 mcg PO DAILY clotrimazole 1% 1 appl topical BID cyclobenzaprine 10 mg PO BEDTIME ergocalciferol (vitamin D2) 1,250 mcg PO .once a month folic acid 1 mg PO DAILY ibuprofen 400 mg PO TID PRN levonorgestrel (Mirena) intrauterine losartan 50 mg PO DAILY methotrexate sodium 20 mg (8 x 2.5 mg) PO QWEEK mometasone 0.1% 0 appl topical omeprazole 20 mg PO BID oxycodone-acetaminophen 5-325 mg 1 tab PO BID PRN prednisone 5 mg PO BID prednisone 4 mg (4 x 1 mg) PO BEDTIME quetiapine (Seroquel) 25 mg PO BID sumatriptan succinate 25 mg PO DAILY triamcinolone acetonide 0.1% 1 appl topical BID HPI Comments Details: 33-year-old female with TULIO returns for follow-up. She has had another left shoulder surgery about 2 weeks ago. She is recovering reasonably well from t hat. She states that she continues to have intermittent achy joints. She takes prednisone 7 mg Twice daily. She remains on methotrexate, folic acid and Actemra infusions PFSH Surgical History History of shoulder surgery Hx of endoscopy Hx of colonoscopy History of removal of ovarian cyst Hx of lithotripsy Social History Household Members: Significant Other Housing: House Are you a primary home visit field care manager to a significant other at home: No Do you presently have visiting nurse or other home services: No 75 years or older and lives alone: No Alcohol intake: never Patient Tobacco Use Status: Former Tobacco user e-Cigarette/Vaping Use: Never Used Substance Use Type: Marijuana service: No Current occupational status: unemployed Current occupation: right hand dominant Female Reproductive History Menstrual Total pregnancies: 2 Full term: 1 Number of Living Children: 1 Ab spontaneous: 1 Review of Systems Musc Reports arthralgias, Denies joint swelling and Reports stiffness Skin/Breast Reports unusual bruising Physical Exam Vital Signs: Last Vital Signs Pulse 103 H 03/13/24 09:34 BP 142/90 H 03/13/24 09:34 Pulse Ox 97 03/13/24 09:34 Oxygen Delivery Method Room Air 03/13/24 09:34 BMI result Body Mass Index 32.8 Const Other: Cushingoid General: cooperative and healthy appearing Nutritional Appearance: obese Orientation/consciousness: patient oriented x3 Limitations: no limitations HEENT Head: Yes atraumatic Resp Effort & Inspection: normal respiratory effort and able to speak in complete sentences Skin Other: Multiple superficial bruises on upper extremities. Neuro General: patient oriented x3 Extrem Other: Left shoulder in a sling No elbow warmth, swelling or pain with flexion and extension no tenderness or swelling both hands and wrists Normal range of motion of right shoulder without pain Bilateral knees are cool, no swelling, no pain with full flexion-extension No ankle swelling or tenderness bilaterally Assessment & Plan Assessment & Plan (1) SO-TULIO (systemic onset juvenile idiopathic arthritis): Comment: veRF -ve CCP -ve AN, onset at age 13. dx at [facility] with Dr Haro Treatment with methotrexate partially helpful but she did much better with addition of Humira for a year or 2 but then she ran out of insurance. Recurrence of synovitis 2015 - out of insurance again, just on low dose prednisone. Humira started, May 2017; methotrexate(SC) added, June 2017 Xeljanz and methotrexate(SC) 01/27 06/28: Xeljanz not effective, Enbrel added to methotrexate 01/2021 Humira started with 80 mg loading doses and the 40 mg weekly for hidradenitis; arthritis worse so Humira changed to Rinvoq 02/2022. Hives 04/2022, Rinvoq changed to baricitinib Baricitinib DC 11/2023 due to ineffective Actemra infusion started 12/2023 Code(s): M08.20 - Juvenile rheumatoid arthritis with systemic onset, unspecified site Category: Medical Plan: This is a 33-year-old female with seronegative RA who presents for follow-up. She is on methotrexate 20 mg weekly, prednisone 14 mg daily and Actemra IV infusions. On exam she is doing quite well with no active synovitis. I think her pains today are largely related to degenerative arthritis and fibromyalgia. Had a long discussion today about the difference between rheumatoid arthritis flare- ups versus fibromyalgia Labs a few days after her shoulder surgery showed some transaminitis. I think it is less likely to be related to her methotrexate and Actemra as patient has been receiving these meds without transaminitis. 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 Monitor for signs of infection (3) long-term systemic steroid user: Code(s): Z79.52 - long-term (current) use of systemic steroids Category: Medical Plan: Continue with alendronate. Patient has a Mirena IUD (4) Internal derangement of left knee: Code(s): M23.92 - Unspecified internal derangement of left knee Category: Medical Plan: Left knee MRI shows complete ACL tear, lateral meniscus tear and fracture of the tibia. She has an appointment with Orthopedics next week (5) Fibromyalgia, primary: Code(s): M79.7 - Fibromyalgia Category: Medical Plan: Discussed management of fibromyalgia with patient. Is a noninflammatory, non- autoimmune central afferent processing disorder leading to a diffuse pain syndrome. I suggested that patient try to address her underlying psychiatric issues, anxiety/depression. I suggested evaluation by a therapist and/or a psychiatrist. Try to follow sleep hygiene practices. Consider a referral for a sleep study by her PCP to rule out CHRISTINE. Patient would benefit from increased physical activity, either through formal physical therapy or by joining a gym. Advised patient that she should start activity slowly and increase as tolerated. Consider low-impact exercises such as walking, swimming, aqua therapy stretching, yoga. Plan I spent 35 minutes reviewing patient's chart, evaluating patient, ordering diagnostic workup, counseling patient and documenting in the chart Orders: Orders Complete Blood Count Auto Diff 3 Months M06.00 - Rheumatoid arthritis without rheumatoid factor, unspecified site, Z79.899 - Other alf (current) drug therapy Comprehensive Met. 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
[2024-03-13 09:34] VITALS: BP 142/90; PULSE 103; O2SAT 97; BMI 32.8
== END 2024-03-13 10:10 | disposition home or self-care (01) ==
PROVIDERS: PCP Internal Medicine; Visit Provider Student in an Organized Health Care Education/Training Program
DX: M08.20 Juvenile rheumatoid arthritis with systemic onset, unspecified site (principal); Z79.899 Other long term (current) drug therapy; Z79.52 Long term (current) use of systemic steroids; M23.92 Unspecified internal derangement of left knee; M79.7 Fibromyalgia
CPT/HCPCS: 99214; G2211

== ENCOUNTER → 2024-03-13 09:26 | Outpatient (BNVA) | payer OTHER, SELFPAY | PROVIDERS: PCP Internal Medicine; Visit Provider Student in an Organized Health Care Education/Training Program | DX: M08.20 Juvenile rheumatoid arthritis with systemic onset, unspecified site (principal); M23.92 Unspecified internal derangement of left knee; M79.7 Fibromyalgia; Z79.899 Other long term (current) drug therapy; Z79.52 Long term (current) use of systemic steroids | CPT/HCPCS: 99212 ==

== ENCOUNTER 2024-03-21 08:03 | Outpatient (AMB) | payer OTHER, SELFPAY ==
--- NOTE | 2024-03-21 08:07 | MHC.OFFVIS ---
Intake Visit Reasons: FC-meniscus derangements, lateral meniscus,LTknee Intake Note: Melita is a 33 year old female who presents today as a new patient with complaints of left knee pain. Patient reports that she is unsure of injury, she has had multiple falls over the last few months. She had an MRI done of the left knee, which showed tendon tears and fracture. She complains of pain all the time, worse with activity such as prolonged walking, prolonged standing and stairs. The left knee has given out on multiple occasions resulting in multiple falls. Denies numbness but has some tingling. She is being treated for RA & Lupus and is prescribed Percocet for this by her PCP Allergies cephalexin Allergy (Intermediate, Verified 03/21/24 08:12) Hives upadacitinib [From Rinvoq] Allergy (Mild, Verified 03/21/24 08:12) Rash naproxen [NAPROXEN] Allergy (Unknown, Verified 03/21/24 08:12) DIZZINESS EYE REDNESS AND SWELLING, edema Medication List - Last Reconciled 03/21/24 by Crista Pagan PA-C acetaminophen (Tylenol Extra Strength) 1,000 mg PO Q6H PRN alendronate 70 mg PO QWEEK amitriptyline mg PO cholecalciferol (vitamin D3) (Vitamin D3) 50 mcg PO DAILY clotrimazole 1% 1 appl topical BID cyclobenzaprine 10 mg PO BEDTIME ergocalciferol (vitamin D2) 1,250 mcg PO .once a month folic acid 1 mg PO DAILY ibuprofen 400 mg PO TID PRN levonorgestrel (Mirena) intrauterine losartan 50 mg PO DAILY methotrexate sodium 20 mg (8 x 2.5 mg) PO QWEEK mometasone 0.1% 0 appl topical omeprazole 20 mg PO BID oxycodone-acetaminophen 5-325 mg 1 tab PO BID PRN prednisone 4 mg (4 x 1 mg) PO BEDTIME prednisone 5 mg PO BID quetiapine (Seroquel) 25 mg PO BID sumatriptan succinate 25 mg PO DAILY triamcinolone acetonide 0.1% 1 appl topical BID HPI HPI FC-meniscus derangements, lateral meniscus,LTknee: Details: 33-year-old female presents to the office today for an injury she sustained to her left knee. I initially saw her in August of 2022 for an injury where she stepped in a hole and she fell. After that injury she had multiple falls resulting in worsened left knee pain. She states she has recurrent instability in the left knee with ambulation and activities. She has rheumatoid arthritis and lupus which also exacerbates her symptoms. She is currently recovering from a recent left shoulder surgery. [facility] Surgical History History of shoulder surgery Hx of endoscopy Hx of colonoscopy History of removal of ovarian cyst Hx of lithotripsy Social History Household Members: Significant Other Housing: House Are you a primary managed care manager to a significant other at home: No Do you presently have visiting nurse or other home services: No 75 years or older and lives alone: No Alcohol intake: never Patient Tobacco Use Status: Former Tobacco user e-Cigarette/Vaping Use: Never Used Substance Use Type: Marijuana service: No Current occupational status: unemployed Current occupation: right hand dominant Review of Systems Const All systems reviewed & are unremarkable except as noted in HPI and below Physical Exam Const General: cooperative and no acute distress Orientation/consciousness: patient oriented x3 Resp Effort & Inspection: normal respiratory effort and able to speak in complete sentences Cardio Peripheral pulses: Peripheral pulses 2+ throughout Neuro General: patient oriented x3 Extrem Other: Left knee normal to inspection no effusion. Full range of motion. She does have some tenderness over the lateral joint line. Significant ligamentous laxity with anterior drawer when compared to the contralateral side. Neurovascularly intact Of note she does have some laxity on the right knee with anterior drawer at baseline. Results Reviewed Results Reviewed: MR knee LT wo con 03/02/24 IMPRESSION: 1. 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 2. Chronic, nondisplaced impaction fracture of the posterior aspect of the medial tibial plateau with mild persistent marrow edema. Healed posterior lateral tibial plateau fracture. 3. Diffuse attenuation of the medial meniscus which may be congenital. Fraying of the anterior horn and root. 4. Diffuse complex tearing of the lateral meniscus anterior body and anterior horn/root with a small amount of meniscal tissue remaining. 5. Mild lateral compartment osteoarthritis. Small joint effusion with chronic synovitis. 6. Mild edema and atrophy of the medial and lateral gastrocnemius muscles as well as the soleus and popliteus muscles. XR knee standing BI 09/01/22 IMPRESSION: Mild degenerative changes. Small left joint effusion. Assessment & Plan Assessment & Plan (1) Tears of meniscus and ACL of left knee: Code(s): S83.207A - Unspecified tear of unspecified meniscus, current injury, left knee, initial encounter; S83.512A - Sprain of anterior cruciate ligament of left knee, initial encounter Category: Medical Plan: We discussed options at this time which include continued conservative management with physical therapy and bracing. Given her ongoing instability it would be recommended to pursue left knee ACL reconstruction. As she is recovering from left shoulder surgery I recommend she obtain clearance from her surgeon as to when we would be able to proceed with left knee surgery given she would need to use crutches. This is not a time sensitive surgery as this appears to be a chronic finding. I do recommend a course of physical therapy which was ordered today to work on quad strengthening. Once she has clearance she will contact our office to proceed with booking of a left knee ACL reconstruction with allograft with Dr. Washington. Coding Level of Care Code New Pt Level 4 (27709) Complex EM visit Add On G2211 Diagnoses Tears of meniscus and ACL of left knee S83.207A; S83.512A
== END 2024-03-21 08:36 | disposition home or self-care (01) ==
PROVIDERS: PCP Internal Medicine; Visit Provider Physician Assistant
DX: S83.207A Unspecified tear of unspecified meniscus, current injury, left knee, initial encounter (principal); S83.512A Sprain of anterior cruciate ligament of left knee, initial encounter
CPT/HCPCS: 99214; G2211

== ENCOUNTER → 2024-03-21 08:03 | Outpatient (BNVA) | payer OTHER, SELFPAY | PROVIDERS: PCP Internal Medicine; Visit Provider Physician Assistant | DX: S83.207D Unspecified tear of unspecified meniscus, current injury, left knee, subsequent encounter (principal); S83.512D Sprain of anterior cruciate ligament of left knee, subsequent encounter | CPT/HCPCS: 99212 ==

== ENCOUNTER 2024-04-30 15:16 | Outpatient (AMB) | payer OTHER, SELFPAY ==
--- NOTE | 2024-04-30 15:18 | A.OFFVIS_ITS ---
Vital Signs 04/30/24 15:23 Height 5 ft 1 in Weight 174 lb 2.643 oz BMI 32.9 BP 164/115 H Blood Pressure Location Rt brachial Position Sitting Pulse 98 Pulse Source Pulse Oximeter Pulse Oximetry (%) 96 Oxygen Delivery Method Room Air Intake Visit Reasons: RA Intake Note: Patient presents for RA. Allergies cephalexin Allergy (Intermediate, Verified 04/30/24 15:23) Hives upadacitinib [From Rinvoq] Allergy (Mild, Verified 04/30/24 15:23) Rash naproxen [NAPROXEN] Allergy (Unknown, Verified 04/30/24 15:23) DIZZINESS EYE REDNESS AND SWELLING, edema Medication List - Last Reconciled 04/30/24 by Aiyana Orlando MD acetaminophen (Tylenol Extra Strength) 1,000 mg PO Q6H PRN alendronate 70 mg PO QWEEK amitriptyline mg PO cholecalciferol (vitamin D3) (Vitamin D3) 50 mcg PO DAILY clotrimazole 1% 1 appl topical BID cyclobenzaprine 10 mg PO BEDTIME ergocalciferol (vitamin D2) 1,250 mcg PO .once a month folic acid 1 mg PO DAILY ibuprofen 400 mg PO TID PRN levonorgestrel (Mirena) intrauterine losartan 50 mg PO DAILY methotrexate sodium 20 mg (8 x 2.5 mg) PO QWEEK mometasone 0.1% 0 appl topical omeprazole 20 mg PO BID oxycodone-acetaminophen 5-325 mg 1 tab PO BID PRN prednisone 4 mg (4 x 1 mg) PO BEDTIME PRN quetiapine (Seroquel) 25 mg PO BID sumatriptan succinate 25 mg PO DAILY triamcinolone acetonide 0.1% 1 appl topical BID HPI Comments Details: Patient is a 33-year-old female with hypertension, hidradenitis suppurativa, 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 Hood. At that time she reported continued intermittent achy joints. She is on 7 mg of prednisolone twice a day, methotrexate and Actemra infusions. Today, Patient states that she has received 4 Actemra infusions and continues to have breakthrough joint pain and swelling. Currently she is having swelling pain involving her bilateral hands and her bilateral elbows right worse than left. This makes it difficult for her to use her hands, walk or even do her ADLs. Rheumatologic History: veRF -ve CCP -ve AN, onset at age 13. dx at [facility] with Dr Haro Treatment with methotrexate partially helpful but she did much better with addition of Humira for a year or 2 but then she ran out of insurance. Recurrence of synovitis 2016 - out of insurance again, just on low dose prednisone. Humira started, May 2017; methotrexate(SC) added, June 2017 Xeljanz and methotrexate(SC) 01/27 06/28: Xeljanz not effective, Enbrel added to methotrexate 01/2021 Humira started with 80 mg loading doses and the 40 mg weekly for hidradenitis; arthritis worse so Humira changed to Rinvoq 02/2022. 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 Long-term current use of anakinra Rheumatoid arthritis flare Surgical History History of shoulder surgery Hx of endoscopy Hx of colonoscopy History of removal of ovarian cyst Hx of lithotripsy Social History Household Members: Significant Other Housing: House Are you a primary career professional to a significant other at home: No Do you presently have visiting nurse or other home services: No 75 years or older and lives alone: No Alcohol intake: never Patient Tobacco Use Status: Former Tobacco user e-Cigarette/Vaping Use: Never Used Substance Use Type: Marijuana service: No Current occupational status: unemployed Current occupation: right hand dominant Review of Systems Const Details: Review of Systems Constitutional: Denies fever, chills, weight loss ENT: Denies vision changes, eye pain or eye redness, dental caries, dry mouth GI: Denies nausea, vomiting, diarrhea, abdominal pain, change in BM Pulm: Denies SOB, MAST, hemoptysis, wheezing Cards: Denies chest pain, palpitations Skin: Denies Raynaud's, rash, nail changes, photosensitivity, IS SUPPORT ANALYST: Denies headaches, weakness, paresthesias, recurrent falls MSK: as per HPI All other systems reviewed and are unremarkable except noted above Physical Exam Vital Signs: Last Vital Signs Pulse 98 04/30/24 15:23 BP 164/115 H 04/30/24 15:23 Pulse Ox 96 04/30/24 15:23 Oxygen Delivery Method Room Air 04/30/24 15:23 BMI result Body Mass Index 32.9 Vital signs reviewed Physical Examination CONSTITUITIONAL Patient alert and cooperative. Well appearing and in no apparent painful distress HEENT Conjunctiva and sclera clear. ?Pupils equal round and reactive to light. ?No lymphadenopathy. ? CHEST/RESPIRATORY SYSTEM Normal respiratory effort and able to speak in complete sentences. ?Clear to auscultation bilaterally. ?No crackles, rales, rhonchi, wheezes heard. CARDIAC SYSTEM Regular rate and rhythm. ?S1 and S2 heard no murmurs. ?Radial pulses intact bilaterally MSK Hands: ?Able to make a fist. Tenderness to palpation of MCPs 2-5 bilaterally associated with swelling. Wrists: ?Full range of motion at the wrists without pain. ?No tenderness to palpation or synovitis noted to the wrists. Elbows: Decreased range of motion to bilateral elbows. Right elbow with swelling and tenderness to palpation of the elbow joint. Left elbow with tenderness to palpation of the elbow joint. Shoulders: Unable to move the left shoulder 2/2 pain Hips: Not examined as patient was examined in the chair. Knees: ?Full range of motion. ?Left knee with painful range of motion but this is known to have an ACL tear. Ankles: Full range of motion. ?Tenderness to palpation of bilateral ankles. ? Feet: ?Positive squeeze test SKIN Skin intact without rashes. Results Reviewed Results Reviewed: Laboratory Tests 04/02/24 08:20 WBC 6.9 RBC 3.62 L Hgb 10.0 L Hct 33.2 L Plt Count 388 D ESR 81 H Sodium 142 Potassium 3.7 Chloride 111 H Carbon Dioxide 27 BUN 14 Creatinine 0.70 AST 18 ALT 26 Alkaline Phosphatase 75 C-Reactive Protein 3.50 H Laboratory Tests 08/29/23 12:59 Hepatitis A IgM Ab Nonreactive Hep Bs Antigen Negative Hep Bs Antibody REACTIVE Hep B Core Total Ab Nonreactive Hepatitis C Ab (EIA) Nonreactive TB Test (T-Spot) Com Negative Assessment & Plan Assessment & Plan (1) Seronegative rheumatoid arthritis: Comment: -ve -ve CCP -ve JOSE L dx Age 16 at [facility] with Dr Haro Treatment with methotrexate partially helpful but she did much better with addition of Humira for a year or 2 but then she ran out of insurance. Recurrence of synovitis 2015 - out of insurance again, just on low dose prednisone. Humira started, May 2017; methotrexate(SC) added, June 2017 Xeljanz and methotrexate(SC) 01/27 06/28: Xeljanz not effective, Enbrel added to methotrexate 09/27: Actemra in place of Enbrel(ineffective), parenteral, then oral methotrexate continued Actemra discontinued in September 2020 due to the hidradenitis suppurativa. Methotrexate continued. 01/2021 Humira started with 80 mg loading doses and the 40 mg weekly for hidradenitis; arthritis worse so Humira changed to Rinvoq 02/2022. Hives 04/2022, Rinvoq changed to baricitinib Restarted Actemra 12/2023 - 03/2024. Not effective Code(s): M06.00 - Rheumatoid arthritis without rheumatoid factor, unspecified site Category: Medical Plan: #Seronegative RA Patient with seronegative rheumatoid arthritis currently in a flare of her disease today as evidenced by synovitis and multiple joints on examination. Actemra is not effective At this time patient has tried anti TNF, IL 6 inhibitors, HANSA inhibitors. Other medication needs for her to try include IL 1 inhibition and rituximab. Given her upcoming surgeries involving her knee and shoulder I think trying anakinra would be better because rituximab would prevent her from having any procedures done for the next 6 months or as anakinra has a short half-life. Discuss this with the patient and patient is in agreement with plan. 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) use of systemic steroids: Code(s): Z79.52 - prison (current) use of systemic steroids Category: Medical Plan: #Long-term Use of Steroids Discussed with patient the risks and benefits of steroid for managing the rheumatic condition Benefits include: - Reduced pain, improved mobility, increased participation in activities, and decreased progression of disease Risks include: - GI upset, potential ultrasound worsening or formation (especially in patients > 65 years old), elevated blood pressure/worsening hypertension, elevated blood sugar/worsening diabetes control, worsening of bone density, elevated lipids/worsening triglycerides, cataract formation, weight gain Recommended using proton pump inhibitors (PPIs) for the duration of steroid use to reduce the risk of gastric ulcers and vitamin-D daily to reduce the risk of osteoporosis Labs checked: ?A1c, T spot, hepatitis-B and C serologies Pneumocystis jiroveci prophylaxis: ?Patient with risk factors including steroids greater than 50 mg for more than 30 days, age greater than 60 years, and lung involvement from underlying rheumatic disease requires prophylaxis and will be given so Ordered DEXA given her fractures Plan I spent 40 minutes reviewing the record and labs, taking a history, examining the patient, discussing the treatment plan and documenting in the medical record Orders: Orders XR DEXA axial skeleton 04/30/24 M81.0 - Age-related osteoporosis without current pathological fracture Complete Blood Count Auto Diff 1 Month E55.9 - Vitamin D deficiency, unspecified, M06.9 - Rheumatoid arthritis, unspecified Comprehensive Met. Panel 1 Month E55.9 - Vitamin D deficiency, unspecified, M06.9 - Rheumatoid arthritis, unspecified C Reactive Protein 1 Month E55.9 - Vitamin D deficiency, unspecified, M06.9 - Rheumatoid arthritis, unspecified Erythrocyte Sedimentation Rate 1 Month E55.9 - Vitamin D deficiency, unspecified, M06.9 - Rheumatoid arthritis, unspecified Hepatitis A,B,C Profile 1 Month E55.9 - Vitamin D deficiency, unspecified, M06.9 - Rheumatoid arthritis, unspecified T Spot TB 1 Month E55.9 - Vitamin D deficiency, unspecified, M06.9 - Rheumatoid arthritis, unspecified Vitamin D 25-OH (D2 and D3) 1 Month E55.9 - Vitamin D deficiency, unspecified, M06.9 - Rheumatoid arthritis, unspecified Medications: New prednisone take 4 tablets for 15 days then 3 tablets for 15 days then 2 tablets for 15 days 1 tablet for 15 days 5 mg PO DIRECTED 150 tabs 0RF M06.00 - Rheumatoid arthritis without rheumatoid factor, unspecified site, M06.9 - Rheumatoid arthritis, unspecified anakinra administer at approximately same time(s) each day 100 mg (0.67 mL) subcut DAILY 30 days 20.1 mL 4RF M06.00 - Rheumatoid arthritis without rheumatoid factor, unspecified site Discontinued prednisone Discontinued Reason: Doctor's Order 4 mg (4 x 1 mg) PO BEDTIME PRN 60 tabs 2RF pain M06.00 - Rheumatoid arthritis without rheumatoid factor, unspecified site Coding Level of Care Code Est Pt Level 5 (48869) Complex EM visit Add On G2211 Diagnoses Seronegative rheumatoid arthritis M06.00 Long-term current use of anakinra Z79.899 prison (current) use of systemic steroids Z79.52
--- OUTSIDE RECORDS SUMMARY | 2024-04-30 15:19 | XMS_ITS | Clinical Summary ---
Author Organization Patient Business Ser [facility] Address [address] [place] [address] Care Team Providers Care Package Worker Name Role Phone Frederick Alfonso MD Primary Care Provider [phone] Allergies Active Allergy Reactions Criticality Noted Date Comments Cephalexin 04/23/2020 Hives Doxycycline 02/14/2023 Naproxen Swelling 11/09/2009 Edema of eyes Medications acetaminophen (TYLENOL) 500 mg tablet Take 500 mg by mouth every 6 hours as needed. Active alendronate (FOSAMAX) 70 mg tablet Take 1 Tablet by mouth every 7 days. 06/25/19 24 Active ergocalciferol (VITAMIN D-2) 1,250 mcg (50,000 unit) capsule Take 1 Capsule by mouth once a week. 06/26/19 24 Active levonorgestreL (MIRENA) 21 mcg/24 hr (8 yrs) 52 mg IUD 1 Each by Intrauterine route once. Active methotrexate 2.5 mg tablet Take 2.5 mg by mouth once a week. 8 pills every Active predniSONE (DELTASONE) 5 mg tablet TAKE 1 TABLET BY MOUTH TWICE A DAY 03/19/19 24 Active triamcinolone (KENALOG) 0.1 % ointment To affected area 2-3 times daily 01/04/20 21 Active amitriptyline (ELAVIL) 25 mg tabletIndicatio ns:Rheumatoid arthritis, unspecified (CMS/HCC) TAKE 1 TO 2 TABLETS BY MOUTH AT BEDTIME 60 tablet 5 02/12/20 24 Active clotrimazole (LOTRIMIN) 1 % cream 1 APPL TOPICALLY 2 TIMES A DAY 04/07/19 24 Active QUEtiapine (SEROquel) 25 mg tablet TAKE 1 TABLET BY MOUTH TWICE A DAY 180 tablet 1 02/20/20 24 Active cyclobenzaprine (FLEXERIL) 10 mg tablet Take 1 tablet (10 mg total) by mouth 2 (two) times a day if needed for muscle spasms. 60 tablet 5 02/19/20 24 025 Active omeprazole (PriLOSEC) [address] capsule Take 1 capsule (20 mg total) by mouth 2 (two) times a day. Do not crush or chew. 180 each 1 02/19/20 24 Active losartan (Cozaar) 50 mg tablet Take 1 tablet (50 mg total) by mouth 1 (one) time each day. 90 each 1 02/19/20 24 025 Active folic acid (FOLVITE) 1 mg tabletIndicatio ns:Rheumatoid arthritis, unspecified (CMS/HCC) TAKE 1 TABLET BY MOUTH EVERY DAY 90 tablet 1 03/26/19 25 Active Vitamin D3 50 mcg (2,000 unit) tablet TAKE 1 TABLET BY MOUTH EVERY DAY 90 tablet 1 03/26/19 25 Active oxyCODONE-aceta minophen (PERCOCET) 5-325 mg per tabletIndicatio ns:Facet arthropathy, lumbar Take 1 tablet by mouth 2 (two) times a day. Max Daily Amount: 2 tablets 56 tablet 04/23/19 25 Active oxyCODONE-aceta minophen (PERCOCET) 5-325 mg per tabletIndicatio ns:Facet arthropathy, lumbar Take 1 tablet by mouth 2 (two) times a day. Max Daily Amount: 2 tablets 56 tablet 03/21/19 25 025 Discontin ued(Reord er) Active Problems Problem Noted Date Diagnosed Date Primary hypertension 02/19/2024 Rheumatoid arthritis 12/13/2023 Overview (12/13/2023): Age 16 at [place] [facility] with Dr Haro. RF negative. Treatment with methotrexate partially helpful but she did much better with addition of Humira for a year or 2 but then she ran out of insurance. Recurrence of synovitis 2016 - out of insurance again, just on low dose prednisone. Humira started, May 2017; methotrexate(SC) added, June 2017 Xeljanz and methotrexate(SC) 01/27 06/28: Xeljanz not effective, Enbrel added to methotrexate 09/27: Actemra in place of Enbrel(ineffective), parenteral, then oral methotrexate continued Actemra discontinued in September 2020 due to the hidradenitis suppurativa. Methotrexate continued. 01/2021 Humira started with 80 mg loading doses and the 40 mg weekly for hidradenitis Vitamin D deficiency 12/13/2023 Benign breast cyst in female 06/13/2022 Overview (12/13/2023): 06/12/2022 Right: At 9:00, there is a 0.6 x 0.5 x 0.6 cm anechoic thin-walled cyst with a few small echoes and posterior acoustic enhancement most likely represents typically benign complicated cyst Left: At 9:00, there is a 1.5 x 0.8 x 1.2 cm anechoic thin-walled cyst which corresponds to mammographic finding. Obesity (BMI 30.0-34.9) 05/04/2021 Facet arthropathy, lumbar 12/29/2019 Irritable bowel syndrome (IBS) 10/28/2019 Overview (12/13/2023): 2020: Negative upper and lower endoscopies. Encounters Date Type Department Care Team Description 02/19/2024 10:00 AM EST Consult Adult Medicine [address] [address] Frederick Alfonso MD Preop examination (Primary Dx); Facet arthropathy, lumbar; Current chronic use of systemic steroids; Rheumatoid arthritis with positive rheumatoid factor, involving unspecified site (CMS/HCC); Primary hypertension from Last 3 Months Immunizations Name Administration Dates Next Due Influenza Quadravalent, MDCK , 0.5ml, preservative free (Flucelvax) 6mo and older 01/03/2021,12/29/2019,12/04/2017 Influenza Quadravalent, MDCK , 0.5ml, with preservative (Flucelvax) 6mo and older 04/02/2017 Influenza trivalent, with pr eservative (Fluzone; Afluria) 6mo and older 02/09/2016,11/19/2014 Td Tetanus diptheria (Tdvax) 7yo and older 04/23 Tdap Tetanus diptheria acell ular pertussis (Boostrix; Adacel) 7yo and older 02/09/2016 Surgical History Surgery Date Site/Laterality Comments KNEE ARTHROSCOPY PROCEDURE: [place] ARTHROSCOPY KNEE DIAGNOSTIC W/WO SYNOVIAL BX SPX; COMMENT: on left knee LAPAROSCOPY DIAGNOSTIC / BIO PSY / ASPIRATION / LYSIS PROCEDURE: PELVIS LAPAROSCOPY, DIAGNOSTIC UPPER GASTROINTESTINAL ENDOSCOPY 07/28/2019 PROCEDURE: [place] UPPER GI ENDOSCOPY PERFORMED; COMMENT: Visually normal; duodenal biopsies obtained--- pathology = normal. COLONOSCOPY 09/10/2019 PROCEDURE: HISTORICAL COLONOSCOPY; COMMENT: negative Medical History Medical History Date Comments Rheumatoid arthritis(714.0) DX:R heumatoid arthritis(714.0); COMMENT: following up with [facility] Vitamin D deficiency DX:Vitamin D deficiency Ovarian cyst DX:Ovarian cyst Chlamydia 06/2017 DX:Chlamydia Postprandial epigastric pain DX: Postprandial epigastric pain Early satiety DX:Early satiety Heartburn DX:Heartburn Abdominal cramping DX:Abdominal cramping Passage of loose stools DX:Passa ge of loose stools Irritable bowel syndrome (IBS) 10/28/2019 D X:Irritable bowel syndrome (IBS) Facet arthropathy, lumbar 12/29/2019 DX:Fac et arthropathy, lumbar Ovarian cyst DX:Ovarian cyst Heartburn DX:Heartburn Family History Medical History Relation Name Comments Other: Lupus Aunt Diabetes Father Arthritis Maternal Grandfather Pancreatic cancer Maternal Grandfather HT N, DM Prostate cancer Maternal Grandfather Arthritis Maternal Grandmother Arthritis Paternal Grandfather Arthritis Paternal Grandmother Relation Name Status Comments Aunt Brother Alive x2, healthy Father Alive DM II Maternal Grandfather Maternal Grandmother Alive Glaucom a, Khalida's Mother Alive Bipolar dx, Has himoto's dx Paternal Grandfather Paternal Grandmother Sister Alive x1, healthy Social History Tobacco Use Types Packs/Day Years Used Date Smoking Tobacco: Former Smokeless Tobacco: Never Alcohol Use Standard Drinks/Week Comments No 0 (1 standard drink = 0.6 oz pur e alcohol) Comments No Sex and Gender Information Value Date Recorded Sex Assigned at Female 04/10/2024 2:09 AM EST Legal Sex Female 2:47 PM EDT Gender Identity Female 04/10/2024 2:09 AM EST Sexual Orientation Something else 04/10/2024 2: 09 AM EST Obstetrics History Last Filed Vital Signs Vital Sign Reading Time Taken Comments Blood Pressure 142/96 02/19/2024 10:17 AM EST Pulse 86 02/19/2024 10:17 AM EST Temperature 36.7 ??C (98 ??F) 02/19/2024 10:17 AM EST Respiratory Rate 12 02/19/2024 10:17 AM EST Oxygen Saturation - - Inhaled Oxygen Concentration - - Weight 78.5 kg (173 lb) 02/19/2024 10:17 AM EST Height 155.6 cm (5' 1.25 ) 02/19/2024 10:[address] Body Mass Index 32.42 02/19/2024 10:17 AM EST Plan of Treatment Health Maintenance Due Date Last Done Comments Hepatitis B Vaccines (1 of 3 - 19+ 3-dose series) 2008 Pneumococcal Vaccine: Pediatrics (0 to 5 Years) and At-Risk Patients (6 to 64 Years) (2 of 2 - PCV) 05/16/2018 05/16/2017 Social Influencers of Health Screening 12/24/2019 COVID-19 Vaccine (3 - Pfizer risk series) 08/31/2020 08/03/2020, 07/13/2020 Influenza Vaccine (#1) 2023 , 12/29/2019, 12/04/2017, Additional history exists Depression Screening 06/25/2024 06/26/2023 Hypertension/CHF/CAD Annual BMP Blood Test 02/18/2025 02/19/2024, 11/16/2023, 11/16/2023 Cervical Cancer Screening: HPV 12/21/2027 12/20/2022 Cholesterol Screening (Lipid Panel) 06/24/2028 06/25/2023 DTaP,Tdap,and Td Vaccines (3 - Td or Tdap) 04/23/2030 04/23/2020, 02/09/2016 HIV Screening Completed 05/19/2022 Hepatitis C Screening Completed 05/19/2022 HIB Vaccines Aged Out No longer eligi ble based on patient's age to complete this topic HPV Vaccines Aged Out No longer eligi ble based on patient's age to complete this topic Hepatitis A Vaccines Aged Out No long er eligible based on patient's age to complete this topic IPV Vaccines Aged Out No longer eligi ble based on patient's age to complete this topic MMR Vaccines Aged Out No longer eligi ble based on patient's age to complete this topic Meningococcal ACWY Vaccine Aged Out N o longer eligible based on patient's age to complete this topic Meningococcal B Vacine Aged Out No lo nger eligible based on patient's age to complete this topic RSV Immunization Patients Under 20 months Aged Out No longer eligible based on patient's age to complete this topic Varicella Vaccines Aged Out No longer eligible based on patient's age to complete this topic Procedures Procedure Name Priority Date/Time Associated Diagnosis Comments EXTERNAL MRI REPORT 03/04/2024 EXTERNAL ULTRASOUND REPORT 03/02/2024 CBC WITH AUTO DIFFERENTIAL Routine 02/19/2024 11:02 AM EST Preop examination PROTHROMBIN TIME WITH INR Routine 02/19/2024 11:02 AM EST Preop examination CBC AND DIFFERENTIAL Routine 02/19/2024 11:02 AM EST Preop examination COMPREHENSIVE METABOLIC PANEL Routine 02/19/2024 11:02 AM EST Preoperative examination DEPRESSION SCREENING Routine 06/26/2023 LIPID PANEL Routine 06/25/2023 HPV Routine 12/20/2022 HEPATITIS C SCREENING Routine 05/19/2022 HIV SCREENING Routine 05/19/2022 from Last 3 Months or Most Recently Relevant to Health Maintenance Results * External MRI Report (03/04/2024) Anatomical Region Laterality Modality Magnetic Resonan ce us Provider Onbase IMG MRI PROCEDURES Final Resu lt * External Ultrasound Report (03/02/2024) Anatomical Region Laterality Modality Ultrasound us Provider Onbase MD IMG US PROCEDURES Final Resul t * (ABNORMAL) CBC auto differential (02/19/2024 11:02 AM EST) WBC 15.0(H) 4.8 - 10.8 K/mcL LAB HEMETOLOGY METHOD 02/19/2024 12:02 PM [facility] RBC 4.00 3.80 - 4.80 M/mcL LAB HEMETOLOGY METHOD 02/19/2024 12:02 PM [facility] Hemoglobin 11.1(L) 11.5 - 16.0 g/dL LAB HEMETOLOGY METHOD 02/19/2024 12:02 PM [facility] Hematocrit 37.4 35.0 - 47.0 % LAB HEMETOLOGY METHOD 02/19/2024 12:02 PM [facility] MCV 94.4 79.0 - 98.0 FL LAB HEMETOLOGY METHOD 02/19/2024 12:02 PM [facility] MCH 28.0 27.0 - 32.0 pcg LAB HEMETOLOGY METHOD 02/19/2024 12:02 PM [facility] MCHC 29.7(L) 32.0 - 37.0 g/dL LAB HEMETOLOGY METHOD 02/19/2024 12:02 PM [facility] RDW 20.9(H) 11.0 - 15.0 % LAB HEMETOLOGY METHOD 02/19/2024 12:02 PM [facility] Platelets 333 130 - 400 K/mcL LAB HEMETOLOGY METHOD 02/19/2024 12:02 PM [facility] MPV 9.6 7.0 - 11.0 FL LAB HEMETOLOGY METHOD 02/19/2024 12:02 PM [facility] NRBC 0.0 <1.0 % LAB HEMETOLOGY METHOD 02/19/2024 12:02 PM [facility] NRBC Absolute 0.00 <0.10 K/mcL LAB HEMETOLOGY METHOD 02/19/2024 12:02 PM [facility] Neutrophils Relative 79.2 % LAB HEMETOLOGY METHOD 02/19/2024 12:02 PM [facility] Lymphocytes Relative 10.3 % LAB HEMETOLOGY METHOD 02/19/2024 12:02 PM [facility] Monocytes Relative 6.1 % LAB HEMETOLOGY METHOD 02/19/2024 12:02 PM [facility] Eosinophils Relative 0.0 % LAB HEMETOLOGY METHOD 02/19/2024 12:02 PM [facility] Basophils Relative 0.3 % LAB HEMETOLOGY METHOD 02/19/2024 12:02 PM [facility] Immature Granulocytes Relative 4.1 % LAB HEMETOLOGY METHOD 02/19/2024 12:02 PM [facility] Neutrophils Absolute 11.87(H) 1.50 - 7.00 K/mcL LAB HEMETOLOGY METHOD 02/19/2024 12:02 PM [facility] Lymphocytes Absolute 1.55 1.00 - 5.00 K/mcL LAB HEMETOLOGY METHOD 02/19/2024 12:02 PM [facility] Monocytes Absolute 0.91 0.20 - 1.00 K/mcL LAB HEMETOLOGY METHOD 02/19/2024 12:02 PM [facility] Eosinophils Absolute 0.00 0.00 - 0.50 K/mcL LAB HEMETOLOGY METHOD 02/19/2024 12:02 PM [facility] Basophils Absolute 0.04 0.00 - 0.20 K/mcL LAB HEMETOLOGY METHOD 02/19/2024 12:02 PM [facility] Immature Granulocytes Absolute 0.61(H) 0.00 - 0.03 K/mcL LAB HEMETOLOGY METHOD 02/19/2024 12:02 PM [facility] Blood Venous blood specimen / Unknown Venipuncture / Unknown 02/19/2024 11:02 AM EST 02/19/2024 11:02 AM EST us Frederick Alfonso MD LAB BLOOD ORDERABLES Final Resu lt Performing Organization Address [facility]/ZIP Co de Phone Number [facility] [address] [place] [address], [place] [phone] * (ABNORMAL) Prothrombin time with INR (02/19/2024 11:02 AM EST) Pathologist [facility] Protime 10.1(L) 10.6 - 13.9 sec LAB COAGULATION METHOD 02/19/2024 11:57 AM [facility] INR 0.8 LAB COAGULATION METHOD 02/19/2024 11:57 AM [facility] Blood Venous blood specimen / Unknown Venipuncture / Unknown 02/19/2024 11:02 AM EST 02/19/2024 11:02 AM EST us Frederick Alfonso MD LAB BLOOD ORDERABLES Final Resu lt Performing Organization Address [facility]/ZIP Co de Phone Number [facility] [address] [place] [address], [place] [phone] * Comprehensive metabolic panel (02/19/2024 11:02 AM EST) Pathologist [facility] Sodium 142 133 - 145 mmol/L LAB CHEMISTRY METHOD 02/19/2024 5:35 PM [facility] Potassium 4.0 3.5 - 5.5 mmol/L LAB CHEMISTRY METHOD 02/19/2024 5:35 PM [facility] Chloride 108 96 - 110 mmol/L LAB CHEMISTRY METHOD 02/19/2024 5:35 PM [facility] CO2 28 21 - 32 mmol/L LAB CHEMISTRY METHOD 02/19/2024 5:35 PM [facility] Anion Gap 6 3 - 11 LAB CHEMISTRY METHOD 02/19/2024 5:35 PM [facility] Glucose 98 70 - 100 mg/dL LAB CHEMISTRY METHOD 02/19/2024 5:35 PM [facility] BUN 17 5 - 25 mg/dL LAB CHEMISTRY METHOD 02/19/2024 5:35 PM [facility] Creatinine 0.81 0.50 - 1.10 mg/dL LAB CHEMISTRY METHOD 02/19/2024 5:35 PM [facility] eGFR 98 >=60 mL/min/1. 73m2 LAB CHEMISTRY METHOD 02/19/2024 5:35 PM [facility] Comment:Calculation based on the??Chronic Kidney Disease Epidemiology Collaboration (CKD-EPI) equation refit??without adjustment for race. BUN/Creatinine Ratio 21.0 LAB CHEMISTRY METHOD 02/19/2024 5:35 PM [facility] Calcium 9.6 8.5 - 10.5 mg/dL LAB CHEMISTRY METHOD 02/19/2024 5:35 PM [facility] AST (SGOT) 14 10 - 42 unit/L LAB CHEMISTRY METHOD 02/19/2024 5:35 PM [facility] ALT (SGPT) 42 10 - 60 unit/L LAB CHEMISTRY METHOD 02/19/2024 5:35 PM [facility] Alkaline Phosphatase 78 42 - 121 unit/L LAB CHEMISTRY METHOD 02/19/2024 5:35 PM [facility] Total Protein 6.2 6.0 - 8.0 g/dL LAB CHEMISTRY METHOD 02/19/2024 5:35 PM [facility] Albumin 3.7 3.2 - 5.0 g/dL LAB CHEMISTRY METHOD 02/19/2024 5:35 PM [facility] Total Bilirubin 0.2 0.0 - 1.4 mg/dL LAB CHEMISTRY METHOD 02/19/2024 5:35 PM [facility] Blood Venous blood specimen / Unknown Venipuncture / Unknown 02/19/2024 11:02 AM EST 02/19/2024 11:02 AM EST Frederick Alfonso MD LAB BLOOD ORDERABLES Final Resu lt [facility] [address] [place] [address], * Depression Screening (06/26/2023) Pathologist [facility] Depression Screening Abstracted Historical Provider HEALTH MAINTENANCE Final Result * Lipid panel (06/25/2023) [facility] LDL/HDL Ratio 2 0 - 4 Triglycerides 76 0 - 150 mg/dL Cholesterol 171 0 - 200 mg/dL HDL 79 >=40 mg/dL LDL Cholesterol 77 0 - 100 mg/dL Blood Venous blood specimen / Unknown Historical Provider LAB BLOOD ORDERABLES Noelle l Result * Cervical Cancer Screening: HPV (12/20/2022) Pathologist [facility] Cervical Cancer Screening: HPV Negative, Abstracted Historical Provider HEALTH MAINTENANCE Final Result * HIV Screening (05/19/2022) [facility] HIV Screening Abstracted Historical Provider HEALTH MAINTENANCE Final Result * Hepatitis C Screening (05/19/2022) [facility] Hepatitis C Screening Abstracted Historical Provider HEALTH MAINTENANCE Final Result from Last 3 Months or Most Recently Relevant to Health Maintenance Insurance [facility] [employer] Care Teams Package Worker Relationship Specialty Start Date End Date Frederick Alfonso MD [address] [place] [address] [phone] PCP - General Internal Medicine 01/20/16
[2024-04-30 15:23] VITALS: BP 164/115; PULSE 98; O2SAT 96; BMI 32.9
== END 2024-04-30 16:03 | disposition home or self-care (01) ==
PROVIDERS: PCP Internal Medicine; Visit Provider Student in an Organized Health Care Education/Training Program
DX: M06.09 Rheumatoid arthritis without rheumatoid factor, multiple sites (principal); Z79.899 Other long term (current) drug therapy; Z79.52 Long term (current) use of systemic steroids
CPT/HCPCS: 99215; G2211

== ENCOUNTER → 2024-04-30 15:16 | Outpatient (BNVA) | payer OTHER, SELFPAY | PROVIDERS: PCP Internal Medicine; Visit Provider Student in an Organized Health Care Education/Training Program | DX: M81.0 Age-related osteoporosis without current pathological fracture (principal); M79.7 Fibromyalgia; M06.00 Rheumatoid arthritis without rheumatoid factor, unspecified site; E55.9 Vitamin D deficiency, unspecified; Z79.52 Long term (current) use of systemic steroids; Z79.899 Other long term (current) drug therapy | CPT/HCPCS: 99212 ==

== ENCOUNTER → 2024-05-06 08:15 | Outpatient (BNV) | payer OTHER, SELFPAY | PROVIDERS: PCP Internal Medicine; Visit Provider Radiology Diagnostic Radiology | DX: E28.39 Other primary ovarian failure (principal) | CPT/HCPCS: 77080 ==

== ENCOUNTER 2024-05-06 08:22 | Outpatient (REF) | payer OTHER, SELFPAY ==
--- NOTE | ~2024-05-06 | MM_ITS ---
EXAMINATION: DXA BONE DENSITY AXIAL HISTORY: Rheumatoid arthritis on glucocorticoids. History of fracture. TECHNIQUE: [employer] Dual energy absorptiometry (DEXA) of the lumbar spine, total left hip, and femoral neck was performed. COMPARISON: There are no prior studies for comparison. FINDINGS: The bone mineral density of the lumbar spine is 0.876 with a T-score of -2.5, and a Z-score of -2.9. The bone mineral density of the left total hip is 0.698 with a T-score of -2.5, and a Z-score of -2.6. The bone mineral density of the left femoral neck is 0.653 with a T-score of -2.8, and a Z-score of -2.8. MM/XR DEXA axial skeleton IMPRESSION: Based on bone mineral density, and according to World Health Organization (WHO) criteria, the diagnosis is consistent with osteoporosis. All bone density values are in grams per centimeter squared (g/cm2). Statistically, 68% of repeat scans fall within 1 SD (+/- 0.010 g/cm2 for AP spine L1-L4) and 1 SD (+/- 0.012 g/cm2 for femur total) [employer]RA[employer] is a trademark of the [employer] Metabolic [employer] Disease, a World Health Organization (WHO) Collaborating Center. Electronically signed by: Neto Lindsey MD 05/06/2024 09:17 AM AGUSTÍN
--- OUTSIDE RECORDS SUMMARY | 2024-05-06 08:42 | XMS_ITS | Clinical Summary ---
Author Organization Patient Business Ser [facility] Address [address] [place] [address] Care Team Providers Care Sql Server Bi Developer Name Role Phone Frederick Alfonso MD Primary Care Provider [phone] Allergies Active Allergy Reactions Criticality Noted Date [...] arthritis 12/13/2023 Overview (12/13/2023): Age 16 at [place] arthritis ctr with Dr Haro. RF negative. [...] 02/19/2024 10:00 AM EST Consult Adult Medicine [address] [address] Frederick Alfonso MD Preop examination (Primary Dx); [...] Surgery Date Site/Laterality Comments KNEE ARTHROSCOPY PROCEDURE: [place] ARTHROSCOPY KNEE DIAGNOSTIC W/WO SYNOVIAL BX SPX; COMMENT: on left knee LAPAROSCOPY DIAGNOSTIC / BIO PSY / ASPIRATION / LYSIS PROCEDURE: PELVIS LAPAROSCOPY, DIAGNOSTIC UPPER GASTROINTESTINAL ENDOSCOPY 07/28/2019 PROCEDURE: [place] UPPER GI ENDOSCOPY PERFORMED; COMMENT: Visually normal; duodenal biopsies obtained--- pathology = normal. COLONOSCOPY 09/10/2019 PROCEDURE: HISTORICAL COLONOSCOPY; COMMENT: negative Medical History Medical History Date Comments Rheumatoid arthritis(714.0) DX:R heumatoid arthritis(714.0); COMMENT: following up with [facility] Vitamin D deficiency DX:Vitamin D deficiency Ovarian [...] ORDERABLES Final Resu lt Performing Organization Address [facility]/ZIP Co de Phone Number [facility] [address] [place] [address], [place] [phone] * (ABNORMAL) Prothrombin time with INR (02/19/2024 11:02 AM EST) Pathologist [facility] Protime 10.1(L) 10.6 - 13.9 sec LAB COAGULATION METHOD 02/19/2024 11:57 AM [facility] INR 0.8 LAB COAGULATION METHOD 02/19/2024 11:57 AM [facility] Blood Venous blood specimen / Unknown Venipuncture / Unknown 02/19/2024 11:02 AM EST 02/19/2024 11:02 AM EST us Frederick Alfonso MD LAB BLOOD ORDERABLES Final Resu lt Performing Organization Address [facility]/ZIP Co de Phone Number [facility] [address] [place] [address], [place] [phone] * Comprehensive metabolic panel (02/19/2024 11:02 AM EST) Pathologist [facility] Sodium 142 133 - 145 mmol/L LAB [...] LAB BLOOD ORDERABLES Final Resu lt [facility] [address] [place] [address], * Depression Screening (06/26/2023) Pathologist [facility] Depression Screening Abstracted Historical Provider HEALTH MAINTENANCE Final Result * Lipid panel (06/25/2023) [facility] LDL/HDL Ratio 2 0 - 4 Triglycerides 76 0 - 150 mg/dL Cholesterol 171 0 - 200 mg/dL HDL 79 >=40 mg/dL LDL Cholesterol 77 0 - 100 mg/dL Blood Venous blood specimen / Unknown Historical Provider LAB BLOOD ORDERABLES Noelle l Result * Cervical Cancer Screening: HPV (12/20/2022) Pathologist [facility] Cervical Cancer Screening: HPV Negative, Abstracted Historical Provider HEALTH MAINTENANCE Final Result * HIV Screening (05/19/2022) [facility] HIV Screening Abstracted Historical Provider HEALTH MAINTENANCE Final Result * Hepatitis C Screening (05/19/2022) [facility] Hepatitis C Screening Abstracted Historical Provider HEALTH MAINTENANCE Final Result from Last 3 Months or Most Recently Relevant to Health Maintenance Insurance [facility] [place] [address] Care Teams Sql Server Bi Developer Relationship Specialty Start Date End Date Frederick Alfonso MD [address] [place] [address] [phone] PCP - General Internal Medicine 01/20/16
== END 2024-05-06 08:23 | disposition home or self-care (01) ==
LOC: HO.MAMMO 08:22
PROVIDERS: PCP Internal Medicine; Visit Provider Student in an Organized Health Care Education/Training Program
DX: M81.0 Age-related osteoporosis without current pathological fracture (principal)
CPT/HCPCS: 77080

== ENCOUNTER 2024-05-21 10:24 | Outpatient (REF) | payer OTHER, SELFPAY ==
--- OUTSIDE RECORDS SUMMARY | 2024-05-21 11:55 | XMS_ITS | Clinical Summary ---
Author Organization Patient Business Ser [facility] Address [address] [place] [address] Care Team Providers Care Associate Software Development Engineer Name Role Phone Frederick Alfonso MD Primary Care Provider [phone] Allergies Active Allergy Reactions Criticality Noted Date [...] muscle spasms. 60 tablet 5 02/19/20 24 Active omeprazole (PriLOSEC) [address] capsule [...] arthritis 12/13/2023 Overview (12/13/2023): Age 16 at [place] [facility] with Dr Haro. RF negative. Treatment with methotrexate partially helpful but she did much better with addition of Humira for a year or 2 but then she ran out of insurance. Recurrence of synovitis 2015 - out of insurance again, just on low dose prednisone. Humira started, May 2017; methotrexate(SC) added, June 2017 Xeljanz and methotrexate(SC) 11/18 4/19: Xeljanz not effective, Enbrel added to methotrexate [...] (12/13/2023): 2020: Negative upper and lower endoscopies. Immunizations Name Administration Dates Next Due Influenza [...] Surgery Date Site/Laterality Comments KNEE ARTHROSCOPY PROCEDURE: AR ARTHROSCOPY KNEE DIAGNOSTIC W/WO SYNOVIAL BX SPX; COMMENT: on left knee LAPAROSCOPY DIAGNOSTIC / BIO PSY / ASPIRATION / LYSIS PROCEDURE: PELVIS LAPAROSCOPY, DIAGNOSTIC UPPER GASTROINTESTINAL ENDOSCOPY 07/28/2019 PROCEDURE: AR UPPER GI ENDOSCOPY PERFORMED; COMMENT: Visually normal; duodenal biopsies obtained--- pathology = normal. COLONOSCOPY 09/10/2019 PROCEDURE: HISTORICAL COLONOSCOPY; COMMENT: negative Medical History Medical History Date Comments Rheumatoid arthritis(714.0) DX:R heumatoid arthritis(714.0); COMMENT: following up with [facility] Vitamin D deficiency DX:Vitamin D deficiency Ovarian [...] MRI REPORT 03/04/2024 EXTERNAL ULTRASOUND REPORT 03/02/2024 COMPREHENSIVE METABOLIC PANEL Routine 02/19/2024 11:02 AM EST Preoperative examination DEPRESSION SCREENING Routine 06/26/2023 LIPID PANEL Routine 06/25/2023 HPV Routine 12/20/2022 HEPATITIS C SCREENING Routine 05/19/2022 HIV SCREENING Routine 05/19/2022 from Last 3 Months or Most Recently Relevant to Health Maintenance Results * External MRI Report (03/04/2024) Anatomical Region Laterality Modality Magnetic Resonan ce us Provider Onbase MD IMG MRI PROCEDURES Final Resu lt * External Ultrasound Report (03/02/2024) Anatomical Region Laterality Modality Ultrasound us Provider Onbase MD IMG US PROCEDURES Final Resul t * Comprehensive metabolic panel (02/19/2024 11:02 AM EST) Sodium 142 133 - 145 mmol/L LAB CHEMISTRY METHOD 02/19/2024 5:35 PM [facility] Potassium 4.0 3.5 - 5.5 mmol/L LAB CHEMISTRY METHOD 02/19/2024 5:35 PM EST [facility] Chloride 108 96 - 110 mmol/L LAB CHEMISTRY METHOD 02/19/2024 5:35 PM [facility] CO2 28 21 - 32 mmol/L LAB CHEMISTRY METHOD 02/19/2024 5:35 PM [facility] Anion Gap 6 3 - 11 LAB CHEMISTRY METHOD 02/19/2024 5:35 PM [facility] Glucose 98 70 - 100 mg/dL LAB CHEMISTRY METHOD 02/19/2024 5:35 PM [facility] BUN 17 5 - 25 mg/dL LAB CHEMISTRY METHOD 02/19/2024 5:35 PM [facility] Creatinine 0.81 0.50 - 1.10 mg/dL LAB CHEMISTRY METHOD 02/19/2024 5:35 PM [facility] eGFR 98 >=60 mL/min/1. 73m2 LAB CHEMISTRY METHOD 02/19/2024 5:35 PM [facility] Comment:Calculation based on the??Chronic Kidney Disease Epidemiology Collaboration (CKD-EPI) equation refit??without adjustment for race. BUN/Creatinine Ratio 21.0 LAB CHEMISTRY METHOD 02/19/2024 5:35 PM [facility] Calcium 9.6 8.5 - 10.5 mg/dL LAB CHEMISTRY METHOD 02/19/2024 5:35 PM [facility] AST (SGOT) 14 10 - 42 unit/L LAB CHEMISTRY METHOD 02/19/2024 5:35 PM [facility] ALT (SGPT) 42 10 - 60 unit/L LAB CHEMISTRY METHOD 02/19/2024 5:35 PM [facility] Alkaline Phosphatase 78 42 - 121 unit/L LAB CHEMISTRY METHOD 02/19/2024 5:35 PM [facility] Total Protein 6.2 6.0 - 8.0 g/dL LAB CHEMISTRY METHOD 02/19/2024 5:35 PM [facility] Albumin 3.7 3.2 - 5.0 g/dL LAB CHEMISTRY METHOD 02/19/2024 5:35 PM [facility] Total Bilirubin 0.2 0.0 - 1.4 mg/dL LAB CHEMISTRY METHOD 02/19/2024 5:35 PM [facility] Blood Venous blood specimen / Unknown Venipuncture / Unknown 02/19/2024 11:02 AM EST 02/19/2024 11:02 AM EST Frederick Alfonso MD LAB BLOOD ORDERABLES Final Resu lt [facility] ([facility] [address] [place] [address], [place] [phone] * Depression Screening (06/26/2023) Pathologist [facility] Depression Screening Abstracted Historical Provider HEALTH MAINTENANCE Final Result * Lipid panel (06/25/2023) [facility] LDL/HDL Ratio 2 0 - 4 Triglycerides 76 0 - 150 mg/dL Cholesterol 171 0 - 200 mg/dL HDL 79 >=40 mg/dL LDL Cholesterol 77 0 - 100 mg/dL Blood Venous blood specimen / Unknown Historical Provider LAB BLOOD ORDERABLES Neolle l Result * Cervical Cancer Screening: HPV (12/20/2022) [facility] Cervical Cancer Screening: HPV Negative, Abstracted Historical Provider HEALTH MAINTENANCE Final Result * HIV Screening (05/19/2022) [facility] HIV Screening Abstracted Historical Provider HEALTH MAINTENANCE Final Result * Hepatitis C Screening (05/19/2022) [facility] Hepatitis C Screening Abstracted Historical Provider HEALTH MAINTENANCE Final Result from Last 3 Months or Most Recently Relevant to Health Maintenance Insurance [facility] Care Teams Associate Software Development Engineer Relationship Specialty Start Date End Date Frederick Alfonso MD [address] [place] [id number] PCP - General Internal Medicine 01/20/16
[2024-05-21 13:11] LABS: MANUAL DIFF FLAG NO
[2024-05-21 13:13] LABS: Basophils Percent Auto 0.2 % (0-2); Eosinophils Percent Auto 0.1 % (0-4); Hematocrit 37.6 % (37.0-47.0); Hemoglobin 11.2 g/dl (12.0-16.0); Imm Gran Abs Auto 0.29 X10*3/uL (0.00-0.03); Lymphocytes Absolute Auto 1.2 X10*3/uL (1.2-4.9); Lymphocytes Percent Auto 7.9 % (20-40); Mean Corpuscular HGB Conc 29.8 g/dl (31.0-35.0); Mean Corpuscular Hemoglobin 27.1 pg (27.0-33.0); Mean Platelet Volume 9.4 fL (9.4-12.3); Monocytes Absolute Auto 1.1 X10*3/uL (0.1-1.2); Monocytes Percent Auto 7.6 % (2-11); Neutrophils Absolute Auto 12.1 x10*3/uL (2.0-8.3); Neutrophils Percent Auto 82.2 % (45-73); Platelet Count 369 X10*3/uL (160-400); Red Blood Count 4.13 X10*6/uL (4.20-5.50); White Blood Count 14.7 X10*3/uL (4.8-10.8)
[2024-05-21 13:24] LABS: Alanine Aminotransferase 66 U/L (0-31); Alkaline Phosphatase 54 U/L (39-117); Anion Gap 12 (12-20); Aspartate Amino Transferase 18 U/L (5-31); Bilirubin Total 0.2 mg/dL (0.0-1.0); Blood Urea Nitrogen 16 mg/dL (9-16); C Reactive Protein < 0.04 mg/dL (< or = 0.50); Calcium 9.2 mg/dL (8.4-10.2); Carbon Dioxide 25 mmol/L (22-29); Chloride 108 mmol/L (96-108); Estimated Glomerular Filt Rate > 60; Glucose Random 101 mg/dL (60-115); Sodium 141 mmol/L (135-145); Total Protein 6.5 g/dL (6.5-8.0)
[2024-05-21 13:44] LABS: HBS Num1 33.48 mIU/mL (0-7.99); HBc Num1 0.04 S/CO (0.00-0.79); HBsAGNum1 0.28 S/CO (0.00-0.99); Hepatitis A Antibody IgM 0.15 Index (0-0.79); Hepatitis B Core Antibody Nonreactive (Nonreactive); Hepatitis B Surface Antigen Negative (Negative); ~HepC Num1 0.23 S/CO (0.00-0.79); ~Hepatitis A Antibody IgM Nonreactive (Nonreactive); ~Hepatitis B Surface Antibody REACTIVE (Nonreactive); ~Hepatitis C Antibody Nonreactive (Nonreactive)
[2024-05-21 14:09] LABS: Erythrocyte Sedimentation Rate 6 MM/HR (0-20)
[2024-05-23 21:19] LABS: TS Negative Control Passed; TS Panel A 0; TS Panel B 0; TS Positive Control Passed; TSpotTB Negative (Negative)
[2024-05-26 23:44] LABS: Vitamin D 25-OH, D2 10 ng/mL; Vitamin D 25-OH, D3 30 ng/mL; Vitamin D 25-OH, Total 40 ng/mL (30-100)
== END 2024-05-21 10:25 | disposition home or self-care (01) ==
LOC: HO.10HDL 10:24
PROVIDERS: Visit Provider Student in an Organized Health Care Education/Training Program
DX: M06.9 Rheumatoid arthritis, unspecified (principal); E55.9 Vitamin D deficiency, unspecified
CPT/HCPCS: 36415; 80053; 82306; 85025; 85652; 86140; 86481; 86704; 86706; 86709; 86803; 87340

== ENCOUNTER 2024-05-22 10:36 | Outpatient (AMB) | payer OTHER, SELFPAY ==
--- NOTE | 2024-05-22 10:38 | MHC.OFFVIS ---
Vital Signs 05/22/24 10:43 Height 5 ft 1 in Weight 170 lb 6.677 oz BMI 32.2 BP 172/100 H Blood Pressure Location Lt brachial Position Sitting Pulse 99 Pulse Source Pulse Oximeter Pulse Oximetry (%) 98 Oxygen Delivery Method Room Air Intake Visit Reasons: RA Intake Note: Patient presents for RA. Allergies cephalexin Allergy (Intermediate, Verified 05/22/24 10:41) Hives upadacitinib [From Rinvoq] Allergy (Mild, Verified 05/22/24 10:41) Rash naproxen [NAPROXEN] Allergy (Unknown, Verified 05/22/24 10:41) DIZZINESS EYE REDNESS AND SWELLING, edema Medication List - Last Reconciled 05/22/24 by Aiyana Orlando MD acetaminophen (Tylenol Extra Strength) 1,000 mg PO Q6H PRN alendronate 70 mg PO QWEEK amitriptyline mg PO anakinra 100 mg (0.67 mL) subcut DAILY 30 days cholecalciferol (vitamin D3) (Vitamin D3) 50 mcg PO DAILY clotrimazole 1% 1 appl topical BID cyclobenzaprine 10 mg PO BEDTIME ergocalciferol (vitamin D2) 1,250 mcg PO .once a month folic acid 1 mg PO DAILY ibuprofen 400 mg PO TID PRN levonorgestrel (Mirena) intrauterine losartan 50 mg PO DAILY methotrexate sodium 20 mg (8 x 2.5 mg) PO QWEEK methylprednisolone (Medrol) 8 mg orally; Take 4 tablets daily for 15 days then 3.5 tablets daily for 15 days then 3 tablets daily for 15 days then 2.5 tablets daily for 15 days then 2 tablets daily for 15 days then 1.5 tablets daily for 15 days then 1 tablet daily for 15 days then 0.5 tablet daily for 15 days then stop mometasone 0.1% 0 appl topical omeprazole 20 mg PO BID oxycodone-acetaminophen 5-325 mg 1 tab PO BID PRN quetiapine (Seroquel) 25 mg PO BID sumatriptan succinate 25 mg PO DAILY triamcinolone acetonide 0.1% 1 appl topical BID HPI Comments Details: Patient is a 33-year-old female with hypertension, hidradenitis suppurativa, seronegative rheumatoid arthritis (history of systemic onset juvenile idiopathic arthritis) and fibromyalgia here today for follow up Interval History: Patient last seen 04/30/24 with me. At that time she had received 4 Actemra infusions and continued to have breakthrough joint pain and swelling. she also complained of having swelling pain involving her bilateral hands and her bilateral elbows right worse than left. Made it difficult for her to use her hands, walk or even do her ADLs. her exam and her inflammatory markers were consistent with a flare of her rheumatoid arthritis. Actemra was stopped and she was started on prednisone taper as well as she was started on anakinra. also given her history of fall with multiple fractures there was concern for osteoporosis and a DEXA scan was ordered which confirmed it after that visit she continued to have joint pain despite the prednisone and she was change to medrol with better control of her pain. Today she reports much improved pain compared to her last visit. Still has some minor aches but overall is doing much better. started the anakinra 1 week ago and is tolerating the medication. Currently preparing for surgery of her left shoulder and her left knee. Has a new complaint of bulge in the center of her stomach when she is getting up from a flat position Rheumatologic History: veRF -ve CCP -ve AN, onset at age 13. dx at [facility] [facility] with Dr Haro Treatment with methotrexate partially helpful but she did much better with addition of Humira for a year or 2 but then she ran out of insurance. Recurrence of synovitis 2015 - out of insurance again, just on low dose prednisone. Humira started, May 2017; methotrexate(SC) added, June 2017 Xeljanz and methotrexate(SC) 01/27 06/28: Xeljanz not effective, Enbrel added to methotrexate 01/2021 Humira started with 80 mg loading doses and the 40 mg weekly for hidradenitis; arthritis worse so Humira changed to Rinvoq 02/2022. Hives 04/2022, Rinvoq changed to baricitinib Baricitinib DC 11/2023 due to ineffective Actemra infusion started 12/2023 - 04/2024. Not effective Anakinra 05/2024 Current Rheumatology Medication(s): Anakinra 100mg SC daily Medrol taper Methotrexate 20 mg every week PO Folic acid 1 mg daily [facility] Medical History (Updated 05/22/24 @ 11:48 by Aiyana Orlando MD) assisted (current) use of systemic steroids Long-term current use of anakinra Rheumatoid arthritis flare Surgical History History of shoulder surgery Hx of endoscopy Hx of colonoscopy History of removal of ovarian cyst Hx of lithotripsy Social History Household Members: Significant Other Housing: House Are you a primary career development consultant to a significant other at home: No Do you presently have visiting nurse or other home services: No 75 years or older and lives alone: No Alcohol intake: never Patient Tobacco Use Status: Former Tobacco user e-Cigarette/Vaping Use: Never Used Substance Use Type: Marijuana service: No Current occupational status: unemployed Current occupation: right hand dominant Review of Systems Const Details: Review of Systems Constitutional: Denies fever, chills, weight loss ENT: Denies vision changes, eye pain or eye redness, dental caries, dry mouth GI: Denies nausea, vomiting, diarrhea, abdominal pain, change in BM Pulm: Denies SOB, MAST, hemoptysis, wheezing Cards: Denies chest pain, palpitations Skin: Denies Raynaud's, rash, nail changes, photosensitivity, ACTUARY: Denies headaches, weakness, paresthesias, recurrent falls MSK: as per HPI All other systems reviewed and are unremarkable except noted above Physical Exam Vital Signs: Last Vital Signs Pulse 99 05/22/24 10:43 BP 172/100 H 05/22/24 10:43 Pulse Ox 98 05/22/24 10:43 Oxygen Delivery Method Room Air 05/22/24 10:43 BMI result Body Mass Index 32.2 Vital signs reviewed Physical Examination CONSTITUITIONAL Patient alert and cooperative. Well appearing and in no apparent painful distress HEENT Conjunctiva and sclera clear. ?Pupils equal round and reactive to light. ?No lymphadenopathy. ? CHEST/RESPIRATORY SYSTEM Normal respiratory effort and able to speak in complete sentences. ?Clear to auscultation bilaterally. ?No crackles, rales, rhonchi, wheezes heard. CARDIAC SYSTEM Regular rate and rhythm. ?S1 and S2 heard no murmurs. ?Radial pulses intact bilaterally MSK Hands: ?Able to make a fist. No tenderness to palpation of the MCPs, PIPs. No evidence of synovitis Wrists: ?Full range of motion at the wrists without pain. ?No tenderness to palpation or synovitis noted to the wrists. Elbows: bilateral elbows with full range of motion. There is no further swelling or tenderness to palpation of the elbows. Shoulders: Unable to move the left shoulder 2/2 pain. Full range of motion of the right shoulder. Hips: Full range of motion of the hips without pain. Knees: ?Full range of motion. ?Left knee with painful range of motion but this is known to have an ACL tear. Ankles: Full range of motion. ? No tenderness to palpation of the bilateral ankles ? Feet: ? negative squeeze test SKIN hyperpigmentation noted to the bilateral shins. Results Reviewed Results Reviewed: Laboratory Tests 04/02/24 05/21/24 08:20 10:33 WBC 14.7 H RBC 4.13 L Hgb 11.2 L Hct 37.6 Plt Count 369 ESR 81 H 6 Sodium 141 Potassium 4.0 Chloride 108 Carbon Dioxide 25 BUN 16 Creatinine 0.75 Total Bilirubin 0.2 AST 18 ALT 66 H Alkaline Phosphatase 54 C-Reactive Protein 3.50 H < 0.04 25-OH Vitamin D Total Pending Infectious serologies 05/21/24 10:33 Hepatitis A IgM Ab Nonreactive Hep Bs Antigen Negative Hep Bs Antibody REACTIVE Hep B Core Total Ab Nonreactive Hepatitis C Ab (EIA) Nonreactive TB Test (T-Spot) Com Pending DEXA 04/2024 FINDINGS: The bone mineral density of the lumbar spine is 0.876 with a T-score of -2.5, and a Z-score of -2.9. The bone mineral density of the left total hip is 0.698 with a T-score of -2.5, and a Z-score of -2.6. The bone mineral density of the left femoral neck is 0.653 with a T-score of -2.8, and a Z-score of -2.8. Assessment & Plan Assessment & Plan (1) Seronegative rheumatoid arthritis: Comment: -ve -ve CCP -ve JOSE L dx Age 16 at [facility] with Dr Haro Treatment with methotrexate partially helpful but she did much better with addition of Humira for a year or 2 but then she ran out of insurance. Recurrence of synovitis 2015 - out of insurance again, just on low dose prednisone. Humira started, May 2017; methotrexate(SC) added, June 2017 Xeljanz and methotrexate(SC) 01/27 06/28: Xeljanz not effective, Enbrel added to methotrexate 09/27: Actemra in place of Enbrel(ineffective), parenteral, then oral methotrexate continued Actemra discontinued in September 2020 due to the hidradenitis suppurativa. Methotrexate continued. 01/2021 Humira started with 80 mg loading doses and the 40 mg weekly for hidradenitis; arthritis worse so Humira changed to Rinvoq 02/2022. Hives 04/2022, Rinvoq changed to baricitinib Restarted Actemra 12/2023 - 03/2024. Not effective Anakinra 05/2024 Code(s): M06.00 - Rheumatoid arthritis without rheumatoid factor, unspecified site Category: Medical Plan: #Seronegative RA patient is a 33-year-old female with longstanding history of rheumatoid arthritis starting as a child being diagnosed with systemic onset juvenile idiopathic arthritis and now as an adult with seronegative rheumatoid arthritis. at the last visit she was in flare of her disease as evidenced by significant synovitis on examination and elevated inflammatory markers. She was initially started on prednisolone taper but this was not helpful and so she was changed to a Medrol taper which improved her joint pain and her inflammatory markers all resolved now. She started anakinra as her steroid sparing / DMARD agent. About 1 week ago. we will continue to taper her Medrol and hopefully the anakinra is enough for her. Plan - Methotrexate 20mg every week - Folic acid 1mg every day - Medrol taper as instructed - Anakinra 100mg SC daily - RTC 3 months - Labs before visit: CBC, CMP, ESR, CRP (2) Fibromyalgia, primary: Code(s): M79.7 - Fibromyalgia Category: Medical Plan: #Fibromyalgia Patient with an additional diagnosis of fibromyalgia however at this time I think her rheumatoid arthritis needs to be properly controlled before any additional fibromyalgia medications be added (3) Osteoporosis: Code(s): M81.0 - Age-related osteoporosis without current pathological fracture Qualifiers: Osteoporosis type: other Presence of current pathological fracture: with current pathological fracture Encounter type: initial encounter Qualified Code(s): M80.80XA - Other osteoporosis with current pathological fracture, unspecified site, initial encounter for fracture Plan: #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 DEXA scan showed osteoporosis in the spine and in the hip. She has been on alendronate for several years and despite that she had a fragility fracture involving her ankle. We will change her to Prolia. 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 of systemic steroids: Code(s): Z79.52 - assisted (current) use of systemic steroids Category: Medical Plan: #Long-term Use of Steroids Discussed with patient the risks and benefits of steroid for managing the rheumatic condition Benefits include: - Reduced pain, improved mobility, increased participation in activities, and decreased progression of disease Risks include: - GI upset, potential ultrasound worsening or formation (especially in patients > 65 years old), elevated blood pressure/worsening hypertension, elevated blood sugar/worsening diabetes control, worsening of bone density, elevated lipids/worsening triglycerides, cataract formation, weight gain Recommended using proton pump inhibitors (PPIs) for the duration of steroid use to reduce the risk of gastric ulcers and vitamin-D daily to reduce the risk of osteoporosis Labs checked: A1c, T spot, hepatitis-B and C serologies Pneumocystis jiroveci prophylaxis: Patient with risk factors including steroids greater than 50 mg for more than 30 days, age greater than 60 years, and lung involvement from underlying rheumatic disease requires prophylaxis and will be given so Plan I spent 35 minutes reviewing the record and labs, taking a history, examining the patient, discussing the treatment plan, ordering diagnostic work up and documenting in the medical record Coding Level of Care Code Est Pt Level 4 (71931) Complex EM visit Add On G2211 Diagnoses Seronegative rheumatoid arthritis M06.00 Fibromyalgia, primary M79.7 Other osteoporosis with current pathological fracture, initial encounter M80.80XA Osteoporosis type: other Presence of current pathological fracture: with current pathological fracture Encounter type: initial encounter Long-term current use of anakinra Z79.899 superintendent 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
[2024-05-22 10:43] VITALS: BP 172/100; PULSE 99; O2SAT 98; BMI 32.2
--- OUTSIDE RECORDS SUMMARY | 2024-05-22 13:24 | XMS_ITS | Clinical Summary ---
Author Organization Patient Business Ser [facility] Address [address] [place] [address] Care Team Providers Care Hydraulic Elevator Constructor Name Role Phone Frederick Alfonso MD Primary Care Provider [phone] Allergies Active Allergy Reactions Criticality Noted Date [...] arthritis 12/13/2023 Overview (12/13/2023): Age 16 at [place] [facility] with Dr Haro. RF negative. [...] Surgery Date Site/Laterality Comments KNEE ARTHROSCOPY PROCEDURE: [place] ARTHROSCOPY KNEE DIAGNOSTIC W/WO SYNOVIAL BX SPX; COMMENT: on left knee LAPAROSCOPY DIAGNOSTIC / BIO PSY / ASPIRATION / LYSIS PROCEDURE: PELVIS LAPAROSCOPY, DIAGNOSTIC UPPER GASTROINTESTINAL ENDOSCOPY 07/28/2019 PROCEDURE: WA UPPER GI ENDOSCOPY PERFORMED; COMMENT: Visually normal; duodenal biopsies obtained--- pathology = normal. COLONOSCOPY 09/10/2019 PROCEDURE: HISTORICAL COLONOSCOPY; COMMENT: negative Medical History Medical History Date Comments Rheumatoid arthritis(714.0) DX:R heumatoid arthritis(714.0); COMMENT: following up with [facility] Vitamin D deficiency DX:Vitamin D deficiency Ovarian [...] mmol/L LAB CHEMISTRY METHOD 02/19/2024 5:35 PM [facility] Potassium 4.0 3.5 - 5.5 mmol/L LAB CHEMISTRY METHOD 02/19/2024 5:35 PM EST [facility] Chloride 108 96 - 110 mmol/L LAB CHEMISTRY METHOD 02/19/2024 5:35 PM [facility] CO2 28 21 - 32 mmol/L LAB CHEMISTRY METHOD 02/19/2024 5:35 PM [facility] Anion Gap 6 3 - 11 LAB CHEMISTRY METHOD 02/19/2024 5:35 PM [facility] Glucose 98 70 - 100 mg/dL LAB CHEMISTRY METHOD 02/19/2024 5:35 PM [facility] BUN 17 5 - 25 mg/dL LAB CHEMISTRY METHOD 02/19/2024 5:35 PM [facility] Creatinine 0.81 0.50 - 1.10 mg/dL LAB CHEMISTRY METHOD 02/19/2024 5:35 PM [facility] eGFR 98 >=60 mL/min/1. 73m2 LAB CHEMISTRY METHOD 02/19/2024 5:35 PM [facility] Comment:Calculation based on the??Chronic Kidney Disease Epidemiology Collaboration (CKD-EPI) equation refit??without adjustment for race. BUN/Creatinine Ratio 21.0 LAB CHEMISTRY METHOD 02/19/2024 5:35 PM [facility] Calcium 9.6 8.5 - 10.5 mg/dL LAB CHEMISTRY METHOD 02/19/2024 5:35 PM [facility] AST (SGOT) 14 10 - 42 unit/L LAB CHEMISTRY METHOD 02/19/2024 5:35 PM [facility] ALT (SGPT) 42 10 - 60 unit/L LAB CHEMISTRY METHOD 02/19/2024 5:35 PM [facility] Alkaline Phosphatase 78 42 - 121 unit/L LAB CHEMISTRY METHOD 02/19/2024 5:35 PM [facility] Total Protein 6.2 6.0 - 8.0 g/dL LAB CHEMISTRY METHOD 02/19/2024 5:35 PM [facility] Albumin 3.7 3.2 - 5.0 g/dL LAB CHEMISTRY METHOD 02/19/2024 5:35 PM [facility] Total Bilirubin 0.2 0.0 - 1.4 mg/dL LAB CHEMISTRY METHOD 02/19/2024 5:35 PM [facility] Blood Venous blood specimen / Unknown Venipuncture / Unknown 02/19/2024 11:02 AM EST 02/19/2024 11:02 AM EST Frederick Alfonso MD LAB BLOOD ORDERABLES Final Resu lt [facility] [address] [place] [address], [place] [phone] * Depression Screening (06/26/2023) Pathologist [facility] Depression Screening Abstracted Historical Provider HEALTH MAINTENANCE Final Result * Lipid panel (06/25/2023) [facility] LDL/HDL Ratio 2 0 - 4 Triglycerides 76 0 - 150 mg/dL Cholesterol 171 0 - 200 mg/dL HDL 79 >=40 mg/dL LDL Cholesterol 77 0 - 100 mg/dL Blood Venous blood specimen / Unknown Historical Provider LAB BLOOD ORDERABLES Noelle l Result * Cervical Cancer Screening: HPV (12/20/2022) [facility] Cervical Cancer Screening: HPV Negative, Abstracted Historical Provider HEALTH MAINTENANCE Final Result * HIV Screening (05/19/2022) [facility] HIV Screening Abstracted Historical Provider HEALTH MAINTENANCE Final Result * Hepatitis C Screening (05/19/2022) [facility] Hepatitis C Screening Abstracted Historical Provider HEALTH MAINTENANCE Final Result from Last 3 Months or Most Recently Relevant to Health Maintenance Insurance [facility] [employer] Care Teams Hydraulic Elevator Constructor Relationship Specialty Start Date End Date Frederick Alfonso MD [address] [place] [phone] PCP - General Internal Medicine 01/20/16
== END 2024-05-22 11:18 | disposition home or self-care (01) ==
LOC: HO.RHE 10:37
PROVIDERS: PCP Internal Medicine; Visit Provider Student in an Organized Health Care Education/Training Program
DX: M06.00 Rheumatoid arthritis without rheumatoid factor, unspecified site (principal); M79.7 Fibromyalgia; M80.80XA Other osteoporosis with current pathological fracture, unspecified site, initial encounter for fracture; Z79.899 Other long term (current) drug therapy; Z79.52 Long term (current) use of systemic steroids
CPT/HCPCS: 99214; G2211

== ENCOUNTER → 2024-05-22 10:36 | Outpatient (BNVA) | payer OTHER, SELFPAY | PROVIDERS: PCP Internal Medicine; Visit Provider Student in an Organized Health Care Education/Training Program | DX: M06.00 Rheumatoid arthritis without rheumatoid factor, unspecified site (principal); M81.0 Age-related osteoporosis without current pathological fracture; M79.7 Fibromyalgia; Z79.52 Long term (current) use of systemic steroids; Z79.899 Other long term (current) drug therapy | CPT/HCPCS: 99212 ==

== ENCOUNTER 2024-06-26 08:45 | Outpatient (AMB) | payer OTHER, SELFPAY ==
--- NOTE | 2024-06-26 08:45 | A.OFFVIS_ITS ---
Vital Signs 06/26/24 08:48 Height 5 ft 1 in Weight 169 lb 8.568 oz BMI 32.0 BP 140/80 H Blood Pressure Location Rt brachial Position Sitting Pulse 98 Pulse Source Pulse Oximeter Pulse Oximetry (%) 98 Oxygen Delivery Method Room Air Intake Visit Reasons: RA Intake Note: Patient presents for RA. Allergies cephalexin Allergy (Intermediate, Verified 06/26/24 08:48) Hives upadacitinib [From Rinvoq] Allergy (Mild, Verified 06/26/24 08:48) Rash naproxen [NAPROXEN] Allergy (Unknown, Verified 06/26/24 08:48) DIZZINESS EYE REDNESS AND SWELLING, edema HPI Comments Details: Patient is a 33-year-old female with hypertension, hidradenitis suppurativa, seronegative rheumatoid arthritis (history of systemic onset juvenile idiopathic arthritis) and fibromyalgia here today for follow up Interval History: Patient last seen 05/22/24 with me. At that time she had improved joint pain on her Medrol taper and had started her anakinra. Here today for an urgent visit to discuss a rash Since the last visit She got COVID complicated by pneumonia Stopped her anakinra during that time Noticed she was getting a rash, concerned that it may be related to anakinra Complaining of bilateral lateral wrist pain Rheumatologic History: veRF -ve CCP -ve AN, onset at age 13. dx at [facility] with Dr Haro Treatment with methotrexate partially helpful but she did much better with addition of Humira for a year or 2 but then she ran out of insurance. Recurrence of synovitis 2015 - out of insurance again, just on low dose prednisone. Humira started, May 2017; methotrexate(SC) added, June 2017 Xeljanz and methotrexate(SC) 01/27 06/28: Xeljanz not effective, Enbrel added to methotrexate 01/2021 Humira started with 80 mg loading doses and the 40 mg weekly for hidradenitis; arthritis worse so Humira changed to Rinvoq 02/2022. Hives 04/2022, Rinvoq changed to baricitinib Baricitinib DC 11/2023 due to ineffective Actemra infusion started 12/2023 - 04/2024. Not effective Anakinra 05/2024 Current Rheumatology Medication(s): Anakinra 100mg SC daily Medrol taper Methotrexate 20 mg every week PO Folic acid 1 mg daily PFSH Medical History (Updated 05/22/24 @ 11:48 by Aiyana Orlando MD) longterm (current) use of systemic steroids Long-term current use of anakinra Rheumatoid arthritis flare Surgical History History of shoulder surgery Hx of endoscopy Hx of colonoscopy History of removal of ovarian cyst Hx of lithotripsy Social History Household Members: Significant Other Housing: House Are you a primary personal carer to a significant other at home: No Do you presently have visiting nurse or other home services: No 75 years or older and lives alone: No Alcohol intake: never Patient Tobacco Use Status: Former Tobacco user e-Cigarette/Vaping Use: Never Used Substance Use Type: Marijuana service: No Current occupational status: unemployed Current occupation: right hand dominant Review of Systems Const Details: Review of Systems Constitutional: Denies fever, chills, weight loss ENT: Denies vision changes, eye pain or eye redness, dental caries, dry mouth GI: Denies nausea, vomiting, diarrhea, abdominal pain, change in BM Pulm: Denies SOB, MAST, hemoptysis, wheezing Cards: Denies chest pain, palpitations Skin: Denies Raynaud's, rash, nail changes, photosensitivity, CREATIVE RESOURCE MANAGER: Denies headaches, weakness, paresthesias, recurrent falls MSK: as per HPI All other systems reviewed and are unremarkable except noted above Physical Exam Vital Signs: Last Vital Signs Pulse 98 06/26/24 08:48 BP 140/80 H 06/26/24 08:48 Pulse Ox 98 06/26/24 08:48 Oxygen Delivery Method Room Air 06/26/24 08:48 BMI result Body Mass Index 32.0 Vital signs reviewed Physical Examination CONSTITUITIONAL Patient alert and cooperative. Well appearing and in no apparent painful distress HEENT Conjunctiva and sclera clear. ?Pupils equal round and reactive to light. ?No lymphadenopathy. ? CHEST/RESPIRATORY SYSTEM Normal respiratory effort and able to speak in complete sentences. ?Clear to auscultation bilaterally. ?No crackles, rales, rhonchi, wheezes heard. CARDIAC SYSTEM Regular rate and rhythm. ?S1 and S2 heard no murmurs. ?Radial pulses intact bilaterally MSK Hands: ?Able to make a fist. No tenderness to palpation of the MCPs, PIPs. No evidence of synovitis Wrists: ?Full range of motion at the wrists without pain. ?No tenderness to palpation or synovitis noted to the wrists. bilateral positive hannah's test Elbows: bilateral elbows with full range of motion. There is no further swelling or tenderness to palpation of the elbows. Shoulders: Unable to move the left shoulder 2/2 pain. Full range of motion of the right shoulder. Hips: Full range of motion of the hips without pain. Knees: ?Full range of motion. ?Left knee with painful range of motion but this is known to have an ACL tear. Ankles: Full range of motion. ? No tenderness to palpation of the bilateral ankles ? Feet: ? negative squeeze test SKIN hyperpigmentation noted to the bilateral shins. Scaling noted to several areas of the skin Results Reviewed Results Reviewed: Laboratory Tests 04/02/24 05/21/24 08:20 10:33 WBC 14.7 H RBC 4.13 L Hgb 11.2 L Hct 37.6 Plt Count 369 ESR 81 H 6 Sodium 141 Potassium 4.0 Chloride 108 Carbon Dioxide 25 BUN 16 Creatinine 0.75 Total Bilirubin 0.2 AST 18 ALT 66 H Alkaline Phosphatase 54 C-Reactive Protein 3.50 H < 0.04 25-OH Vitamin D Total Pending Infectious serologies 05/21/24 10:33 Hepatitis A IgM Ab Nonreactive Hep Bs Antigen Negative Hep Bs Antibody REACTIVE Hep B Core Total Ab Nonreactive Hepatitis C Ab (EIA) Nonreactive TB Test (T-Spot) Com Pending DEXA 04/2024 FINDINGS: The bone mineral density of the lumbar spine is 0.876 with a T-score of -2.5, and a Z-score of -2.9. The bone mineral density of the left total hip is 0.698 with a T-score of -2.5, and a Z-score of -2.6. The bone mineral density of the left femoral neck is 0.653 with a T-score of -2.8, and a Z-score of -2.8. Assessment & Plan Assessment & Plan (1) Seronegative rheumatoid arthritis: Comment: -ve -ve CCP -ve JOSE L dx Age 16 at [facility] with Dr Tahir Treatment with methotrexate partially helpful but she did much better with addition of Humira for a year or 2 but then she ran out of insurance. Recurrence of synovitis 2015 - out of insurance again, just on low dose prednisone. Humira started, May 2017; methotrexate(SC) added, June 2017 Xeljanz and methotrexate(SC) 01/27 06/28: Xeljanz not effective, Enbrel added to methotrexate 09/27: Actemra in place of Enbrel(ineffective), parenteral, then oral methotrexate continued Actemra discontinued in September 2020 due to the hidradenitis suppurativa. Methotrexate continued. 01/2021 Humira started with 80 mg loading doses and the 40 mg weekly for hidradenitis; arthritis worse so Humira changed to Rinvoq 02/2022. Hives 04/2022, Rinvoq changed to baricitinib Restarted Actemra 12/2023 - 03/2024. Not effective Anakinra 05/2024 Code(s): M06.00 - Rheumatoid arthritis without rheumatoid factor, unspecified site Category: Medical Plan: #Seronegative RA Patient is a 33-year-old female with longstanding history of rheumatoid arthritis starting as a child being diagnosed with systemic onset juvenile idiopathic arthritis and now as an adult with seronegative rheumatoid arthritis. Patient is currently in low disease activity on prednisolone taper and anakinra injections. There is concern that anakinra could be causing this rash however at this time given her need for multiple surgeries other immunosuppressive agents would preclude her from scheduling surgeries. I discussed this with the patient and her partner at the visit and stated that she should continue the anakinra and if there is worsening of this rash and concern that the rash is related to anakinra we will have to keep her Medrol at a higher dose until she has completed all of her surgeries and then we can potentially switch her to a different agent. Plan - Methotrexate 20mg every week - Folic acid 1mg every day - Medrol taper as instructed - Anakinra 100mg SC daily - RTC August - Labs before visit: CBC, CMP, ESR, CRP (2) Fibromyalgia, primary: Code(s): M79.7 - Fibromyalgia Category: Medical Plan: #Fibromyalgia Patient with an additional diagnosis of fibromyalgia however at this time I think her rheumatoid arthritis needs to be properly controlled before any additional fibromyalgia medications be added (3) De Quervain's tenosynovitis, bilateral: Code(s): M65.4 - Radial styloid tenosynovitis [de Quervain] Plan: #Bilateral De Quervain's tenosynovitis Patient with bilateral de Quervain's tenosynovitis. Recommending splinting as well as topical diclofenac 4 times a day and stretches given. If no improvement in 8 weeks we can consider a steroid injection bilaterally. 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 DEXA scan showed osteoporosis in the spine and in the hip. She has been on alendronate for several years and despite that she had a fragility fracture involving her ankle. Received 1st dose of Prolia 05/30/24. Noted pain at the injection site for a few days after but otherwise tolerated the medication well. Continue vitamin-D supplementation. Vitamin-D check at next blood draw (5) Long-term current use of anakinra: Code(s): Z79.899 - Other long-term (current) drug therapy Category: Medical Plan: #Long-term Anakinra Risks and benefits of anakinra discussed with the patient Benefits include improved disease control, reduced flares and improve mortality Risks include injection site reactions, serious infections, rashes, headaches (6) long term acute care registered nurse (current) use of systemic steroids: Code(s): Z79.52 - long term acute care registered nurse (current) use of systemic steroids Category: Medical Plan: #Long-term Use of Steroids Discussed with patient the risks and benefits of steroid for managing the rheuma tic condition Benefits include: - Reduced pain, improved mobility, increased participation in activities, and decreased progression of disease Risks include: - GI upset, potential ultrasound worsening or formation (especially in patients > 65 years old), elevated blood pressure/worsening hypertension, elevated blood sugar/worsening diabetes control, worsening of bone density, elevated lipids/wor sening triglycerides, cataract formation, weight gain Recommended using proton pump inhibitors (PPIs) for the duration of steroid use to reduce the risk of gastric ulcers and vitamin-D daily to reduce the risk of osteoporosis Labs checked: A1c, T spot, hepatitis-B and C serologies Pneumocystis jiroveci prophylaxis: Patient with risk factors including steroids greater than 50 mg for more than 30 days, age greater than 60 years, and lung involvement from underlying rheumatic disease requires prophylaxis and will be given so Plan I spent 35 minutes reviewing the record and labs, taking a history, examining the patient, discussing the treatment plan, ordering diagnostic work up and documenting in the medical record Coding Level of Care Code Est Pt Level 4 (43953) Complex EM visit Add On [id number] Diagnoses Seronegative rheumatoid arthritis M06.00 Fibromyalgia, primary M79.7 De Quervain's tenosynovitis, bilateral M65.4 Osteoporosis with current pathological fracture with routine healing, unspecified osteoporosis type, subsequent encounter M80.00XD Osteoporosis type: unspecified Presence of current pathological fracture: with current pathological fracture Encounter type: subsequent encounter Fracture healing: with routine healing Long-term current use of anakinra Z79.899 longterm (current) use of systemic steroids Z79.52
[2024-06-26 08:48] VITALS: BP 140/80; PULSE 98; O2SAT 98; BMI 32.0
--- OUTSIDE RECORDS SUMMARY | 2024-06-26 09:24 | XMS_ITS | Clinical Summary ---
Author Organization [facility] [place] Address [address] [place] [address] Care Team Providers Care Private Duty Nurse Name Role Phone Frederick Alfonso MD Primary Care Provider [phone] Allergies Active Allergy Reactions Criticality Noted Date [...] (ELAVIL) 25 mg tabletIndicatio ns:Rheumatoid arthritis, unspecified (CMS/HCC V24, CMS/HCC V28) TAKE 1 TO 2 TABLETS BY MOUTH AT BEDTIME 60 tablet 5 02/12/20 24 Active clotrimazole (LOTRIMIN) 1 % cream 1 APPL TOPICALLY 2 TIMES A DAY 04/07/19 24 Active cyclobenzaprine (FLEXERIL) 10 mg tablet [...] (FOLVITE) 1 mg tabletIndicatio ns:Rheumatoid arthritis, unspecified (CMS/HCC V24, CMS/HCC V28) TAKE 1 TABLET BY MOUTH EVERY DAY 90 tablet 1 03/26/19 25 Active Vitamin D3 50 mcg (2,000 unit) tablet TAKE 1 TABLET BY MOUTH EVERY DAY 90 tablet 1 03/26/19 25 Active oxyCODONE-aceta minophen (PERCOCET) 5-325 mg per tabletIndicatio ns:Facet arthropathy, lumbar Take 1 tablet by mouth 2 (two) times a day. Max Daily Amount: 2 tablets 56 tablet 06/25/19 25 Active QUEtiapine (SEROquel) 25 mg tablet TAKE 1 TABLET BY MOUTH TWICE A DAY 180 tablet 1 02/20/20 24 025 Discontinu ed(Stop Taking at Discharge) oxyCODONE-aceta minophen (PERCOCET) 5-325 mg per tabletIndicatio ns:Facet arthropathy, lumbar Take 1 tablet by mouth 2 (two) times a day. Max Daily Amount: 2 tablets 56 tablet 05/24/19 25 025 Discontinu ed(Reorder ) nystatin (MYCOSTATIN) 100,000 unit/mL suspension Swish and swallow 5 mL (500,000 Units total) 4 (four) times a day for 6 days. 120 mL 06/15/19 25 025 levoFLOXacin (LEVAQUIN) 750 mg tablet Take 1 tablet (750 mg total) by mouth 1 (one) time each day for 3 days. 3 each 06/15/19 25 025 Active Problems Problem Noted Date Diagnosed Date Pneumonia due to COVID-19 virus 06/13/2024 Primary hypertension 02/19/2024 Rheumatoid arthritis ([facility] V24, [facility] V28) 12/13/2023 Overview (12/13/2023): Age 16 at [facility] with Dr Haro. RF negative. [...] Encounters Date Type Department Care Team Description 06/24/2024 Telephone Adult Medicine [address] [address] Frederick Alfonso MD My chart appt (Pt schedule an apt on my chart ) 06/12/2024 6:51 PM EDT - 06/14/2024 11:58 AM EDT Hospital Encounter [facility] [address] [place] [address] Kurt BaljitDO Xiang Shaffer Emmanuel C, MD Seralathan, Manikandan, MD Pneumonia due to COVID-19 virus (Primary Dx); Acute left-sided low back pain without sciatica; Sepsis, due to unspecified organism, unspecified whether acute organ dysfunction present ([facility] V24, [facility] V28); Rheumatoid arthritis, involving unspecified site, unspecified whether rheumatoid factor present ([facility] V24, [facility] V28) Discharge Disposition: Home-Health Care c from Last 3 Months Immunizations Name Administration [...] Surgery Date Site/Laterality Comments KNEE ARTHROSCOPY PROCEDURE: OK ARTHROSCOPY KNEE DIAGNOSTIC W/WO SYNOVIAL BX SPX; COMMENT: on left knee LAPAROSCOPY DIAGNOSTIC / BIO PSY / ASPIRATION / LYSIS PROCEDURE: PELVIS LAPAROSCOPY, DIAGNOSTIC UPPER GASTROINTESTINAL ENDOSCOPY 07/28/2019 PROCEDURE: OK UPPER GI ENDOSCOPY PERFORMED; COMMENT: Visually normal; duodenal biopsies obtained--- pathology = normal. COLONOSCOPY 09/10/2019 PROCEDURE: HISTORICAL COLONOSCOPY; COMMENT: negative Medical History Medical History Date Comments Rheumatoid arthritis(714.0) DX:R heumatoid arthritis(714.0); COMMENT: following up with [facility] Vitamin D deficiency DX:Vitamin D deficiency Ovarian [...] drink = 0.6 oz pur e alcohol) Interpersonal Safety Answer Date Record ed Physical Abuse 06/13/2024 Verbal Abuse 06/13/2024 Comments No Sex and Gender Information Value Date Recorded Sex Assigned at Female 04/10/2024 2:09 AM EST Legal Sex Female 2:47 PM EDT Gender Identity Female 04/10/2024 2:09 AM EST Sexual Orientation Something else 04/10/2024 2: 09 AM EST Obstetrics History Last Filed Vital Signs Vital Sign Reading Time Taken Comments Blood Pressure 149/92 06/14/2024 9:00 AM EDT Pulse 71 06/14/2024 9:00 AM EDT Temperature 36.4 ??C (97.5 ??F) 06/14/2024 9:00 AM ED T Respiratory Rate 18 06/14/2024 9:00 AM EDT Oxygen Saturation 97% 06/14/2024 9:00 AM EDT Inhaled Oxygen Concentration - - Weight 77.2 kg (170 lb 4.8 oz) 06/13/2024 5:00 A M EDT Height 154.9 cm (5' 1 ) 06/12/2024 6:48 PM EDT Body Mass Index 32.18 06/12/2024 6:48 PM EDT Plan of Treatment Upcoming Encounters Date Type Department Care Team (Late st Contact Info) Description 07/17/2024 10:30 AM EDT Office Visit Adult Medicine [facility] [address] [place] [phone] Frederick Alfonso MD [address] [place] [phone] Health Maintenance Due Date Last Done Comments Hepatitis B Vaccines (1 of 3 - 19+ 3-dose series) 2008 Pneumococcal Vaccine: Pediatrics (0 to 5 Years) and At-Risk Patients (6 to 64 Years) (2 of 2 - PCV) 05/16/2018 05/16/2017 Social Influencers of Health Screening 12/24/2019 COVID-19 Vaccine (3 - Pfizer risk series) 08/31/2020 08/03/2020, 07/13/2020 Depression Screening 06/25/2024 06/26/2023 Influenza Vaccine (Season Ended) 2024 01/03/2021, 12/29/2019, 12/04/2017, Additional history exists Hypertension/CHF/CAD Annual BMP Blood Test 06/14/2025 06/14/2024, 06/13/2024, 06/12/2024, Additional history exists Cervical Cancer Screening: HPV 12/21/2027 12/20/2022 Cholesterol [...] age to complete this topic Meningococcal B Vaccine Aged Out No l onger eligible based on patient's age to complete this topic RSV Immunization Patients Under 20 months Aged Out No longer eligible based on patient's age to complete this topic Varicella Vaccines Aged Out No longer eligible based on patient's age to complete this topic Procedures Procedure Name Priority Date/Time Associated Diagnosis Comments MANUAL DIFFERENTIAL - SYSMEX WAM Routine 06/14/2024 6:18 AM EDT CBC WITH AUTO DIFFERENTIAL Routine 06/14/2024 6:18 AM EDT CBC AND DIFFERENTIAL Routine 06/14/2024 6:18 AM EDT MAGNESIUM Timed 06/14/2024 6:18 AM EDT COMPREHENSIVE METABOLIC PANEL Timed 06/14/2024 6:18 AM EDT POCT GLUCOSE BLOOD Routine 06/14/2024 6: 05 AM EDT POCT GLUCOSE BLOOD Routine 06/13/2024 11 :54 PM EDT HERNANDEZ URINE CULTURE TUBE Routine 06/13/2024 7:03 PM EDT URINALYSIS WITH REFLEX MICROSCOPIC AND CULTURE Routine 06/13/2024 7:03 PM EDT URINALYSIS WITH REFLEX MICROSCOPIC AND CULTURE Routine 06/13/2024 7:03 PM EDT POCT GLUCOSE BLOOD Routine 06/13/2024 6: 48 PM EDT MANUAL DIFFERENTIAL - SYSMEX WAM Timed 06/13/2024 1:04 PM EDT CBC WITH AUTO DIFFERENTIAL Timed 06/13/2024 1:04 PM EDT PROTHROMBIN TIME WITH INR Routine 06/13/2024 1:04 PM EDT CBC AND DIFFERENTIAL Timed 06/13/2024 1:04 PM EDT SST - GOLD Routine 06/13/2024 1:02 PM EDT EXTRA TUBES Routine 06/13/2024 1:02 PM EDT POCT GLUCOSE BLOOD Routine 06/13/2024 11 :33 AM EDT POCT GLUCOSE BLOOD Routine 06/13/2024 6: 10 AM EDT MANUAL DIFFERENTIAL - SYSMEX WAM Routine 06/13/2024 5:56 AM EDT VITAMIN B12 AND FOLATE STAT Add-on 06/13/2024 5:56 AM EDT RETICULOCYTE COUNT Add-On 06/13/2024 5: 56 AM EDT IRON AND TIBC Add-On 06/13/2024 5:56 AM EDT FERRITIN Add-On 06/13/2024 5:56 AM EDT MAGNESIUM STAT Add-on 06/13/2024 5:56 AM EDT PROCALCITONIN STAT Add-on 06/13/2024 5:56 AM EDT PROLACTIN STAT Add-on 06/13/2024 5:56 AM EDT LACTATE, WITH REFLEX Routine 06/13/2024 5:56 AM EDT HEPATIC FUNCTION PANEL Routine 06/13/2024 5:56 AM EDT C-REACTIVE PROTEIN Routine 06/13/2024 5: 56 AM EDT CBC WITH AUTO DIFFERENTIAL Routine 06/13/2024 5:56 AM EDT BASIC METABOLIC PANEL Routine 06/13/2024 5:56 AM EDT CBC AND DIFFERENTIAL Routine 06/13/2024 5:56 AM EDT ECG ANNOTATED 06/13/2024 CT ANGIO CHEST/ABDOMEN/PELVIS WO AND/OR W CONTRAST STAT 06/12/2024 10:07 PM EDT Acute left-sided low back pain without sciatica OXYGEN THERAPY, ADULT Routine 06/12/2024 10:03 PM EDT OXYGEN THERAPY, ADULT Routine 06/12/2024 10:03 PM EDT TROPONIN I HIGH SENSITIVITY STAT 06/12/2024 9:14 PM EDT TROPONIN I HIGH SENSITIVITY STAT 06/12/2024 8:09 PM EDT LACTATE STAT 06/12/2024 7:55 PM EDT CULTURE BLOOD STAT 06/12/2024 7:55 PM EDT CULTURE BLOOD STAT 06/12/2024 7:55 PM EDT XR CHEST 1 VIEW STAT 06/12/2024 7:45 PM EDT [id number], RSV, FLU A AND B QUALITATIVE RT-PCR, INTERNAL LAB STAT 06/12/2024 7:11 PM EDT MANUAL DIFFERENTIAL - SYSMEX WAM STAT 06/12/2024 7:04 PM EDT HCG, SERUM, QUALITATIVE STAT Add-on 06/12/2024 7:04 PM EDT MAGNESIUM Add-On 06/12/2024 7:04 PM EDT HEPATIC FUNCTION PANEL STAT Add-on 06/12/2024 7:04 PM EDT CBC WITH AUTO DIFFERENTIAL STAT 06/12/2024 7:04 PM EDT BASIC METABOLIC PANEL STAT 06/12/2024 7:04 PM EDT CBC AND DIFFERENTIAL STAT 06/12/2024 7:04 PM EDT ECG 12-LEAD STAT 06/12/2024 7:03 PM EDT OK CRITICAL CARE 30-74 MINUTES Routine 06/12/2024 6:26 PM EDT HM DEPRESSION SCREENING Routine 06/26/2023 LIPID PANEL Routine 06/25/2023 HPV Routine 12/20/2022 HEPATITIS C SCREENING Routine 05/19/2022 HIV SCREENING Routine 05/19/2022 from Last 3 Months or Most Recently Relevant to Health Maintenance Results * (ABNORMAL) Manual differential (06/14/2024 6:18 AM EDT) Only the most recent of4 resultswithin the time period is included. Neutrophils % 89.0 % LAB HEMETOLOGY METHOD 06/14/2024 9:00 AM EDT [facility] Bands % 2.0 % LAB HEMETOLOGY METHOD 06/14/2024 9:00 AM EDT [facility] Lymphocytes % 4.0 % LAB HEMETOLOGY METHOD 06/14/2024 9:00 AM EDT [facility] Monocytes % 2.0 % LAB HEMETOLOGY METHOD 06/14/2024 9:00 AM EDT [facility] Eosinophils % 0.0 % LAB HEMETOLOGY METHOD 06/14/2024 9:00 AM [facility] Basophils % 0.0 % LAB HEMETOLOGY METHOD 06/14/2024 9:00 AM [facility] Metamyelocytes % 1.0(H) % LAB HEMETOLOGY METHOD 06/14/2024 9:00 AM [facility] Myelocytes % 1.0(H) % LAB HEMETOLOGY METHOD 06/14/2024 9:00 AM [facility] Promyelocytes % 1.0(H) % LAB HEMETOLOGY METHOD 06/14/2024 9:00 AM [facility] Neutrophils Absolute Manual 9.26(H) 1.50 - 7.00 K/mcL LAB HEMETOLOGY METHOD 06/14/2024 9:00 AM [facility] Bands Absolute Manual 0.21(H) 0.00 - 0.00 K/mcL LAB HEMETOLOGY METHOD 06/14/2024 9:00 AM [facility] Lymphocytes Absolute 0.42(L) 1.00 - 5.00 K/mcL LAB HEMETOLOGY METHOD 06/14/2024 9:00 AM [facility] Monocytes Absolute Manual 0.21 0.20 - 1.00 K/mcL LAB HEMETOLOGY METHOD 06/14/2024 9:00 AM [facility] Eosinophils Absolute Manual 0.00 0.00 - 0.50 K/mcL LAB HEMETOLOGY METHOD 06/14/2024 9:00 AM [facility] Basophils Absolute Manual 0.00 0.00 - 0.20 K/mcL LAB HEMETOLOGY METHOD 06/14/2024 9:00 AM [facility] Metamyelocytes Absolute Manual 0.10(H) 0.00 - 0.00 K/mcL LAB HEMETOLOGY METHOD 06/14/2024 9:00 AM [facility] Myelocytes Absolute Manual 0.10(H) 0.00 - 0.00 K/mcL LAB HEMETOLOGY METHOD 06/14/2024 9:00 AM [facility] Promyelocytes Absolute Manual 0.10(H) 0.00 - 0.00 K/mcL LAB HEMETOLOGY METHOD 06/14/2024 9:00 AM EDT [facility] Rbc Morphology Present( A) Consistent with indices, Normal for LAB HEMETOLOGY METHOD 06/14/2024 9:00 AM EDT [facility] Platelet Morphology - WAM Normal Normal LAB HEMETOLOGY METHOD 06/14/2024 9:00 AM EDT [facility] Polychromasia Present Present( A) (none) LAB HEMETOLOGY METHOD 06/14/2024 9:00 AM [facility] Blood Venous blood specimen / Unknown Venipuncture / Unknown 06/14/2024 6:18 AM EDT 06/14/2024 6:50 AM EDT Key [facility] LAB BLOOD ORDERABLES Final Result [facility] [address] [place] [address], * (ABNORMAL) CBC auto differential (06/14/2024 6:18 AM EDT) Only the most recent of4 resultswithin the time period is included. WBC 10.4 4.8 - 10.8 K/mcL LAB HEMETOLOGY METHOD 06/14/2024 9:00 AM T [facility] RBC 3.00(L) 3.80 - 4.80 M/mcL LAB HEMETOLOGY METHOD 06/14/2024 9:00 AM EDT [facility] Hemoglobin 8.1(L) 11.5 - 16.0 g/dL LAB HEMETOLOGY METHOD 06/14/2024 9:00 AM [facility] Hematocrit 27.3(L) 35.0 - 47.0 % LAB HEMETOLOGY METHOD 06/14/2024 9:00 AM EDT [facility] MCV 91.3 79.0 - 98.0 FL LAB HEMETOLOGY METHOD 06/14/2024 9:00 AM EDT [facility] MCH 27.1 27.0 - 32.0 pcg LAB HEMETOLOGY METHOD 06/14/2024 9:00 AM EDT [facility] MCHC 29.7(L) 32.0 - 37.0 g/dL LAB HEMETOLOGY METHOD 06/14/2024 9:00 AM EDT [facility] RDW 21.2(H) 11.0 - 15.0 % LAB HEMETOLOGY METHOD 06/14/2024 9:00 AM EDT [facility] Platelets 242 130 - 400 K/mcL LAB HEMETOLOGY METHOD 06/14/2024 9:00 AM EDT [facility] MPV 9.9 7.0 - 11.0 FL LAB HEMETOLOGY METHOD 06/14/2024 9:00 AM EDT [facility] NRBC 0.2 <1.0 % LAB HEMETOLOGY METHOD 06/14/2024 9:00 AM EDT [facility] NRBC Absolute 0.02 <0.10 K/mcL LAB HEMETOLOGY METHOD 06/14/2024 9:00 AM [facility] Blood Venous blood specimen / Unknown Venipuncture / Unknown 06/14/2024 6:18 AM EDT 06/14/2024 6:50 AM EDT us [facility] LAB BLOOD ORDERABLES Final Result [facility] [address] [place] [address], * Magnesium (06/14/2024 6:18 AM EDT) Only the most recent of3 resultswithin the time period is included. [facility] Magnesium 2.5 1.9 - 2.6 mg/dL LAB CHEMISTRY METHOD 06/14/2024 7:18 AM [facility] Blood Venous blood specimen / Unknown Venipuncture / Unknown 06/14/2024 6:18 AM EDT 06/14/2024 6:50 AM EDT Key [facility] LAB BLOOD ORDERABLES Final Result [facility] [address] [place] [address], * (ABNORMAL) Comprehensive metabolic panel (06/14/2024 6:18 AM EDT) [facility] Sodium 140 133 - 145 mmol/L LAB CHEMISTRY METHOD 06/14/2024 7:21 AM [facility] Potassium 4.0 3.5 - 5.5 mmol/L LAB CHEMISTRY METHOD 06/14/2024 7:21 AM [facility] Chloride 110 96 - 110 mmol/L LAB CHEMISTRY METHOD 06/14/2024 7:21 AM [facility] CO2 22 21 - 32 mmol/L LAB CHEMISTRY METHOD 06/14/2024 7:21 AM [facility] Anion Gap 8 3 - 11 LAB CHEMISTRY METHOD 06/14/2024 7:21 AM [facility] Glucose 141(H) 70 - 100 mg/dL LAB CHEMISTRY METHOD 06/14/2024 7:21 AM [facility] BUN 14 5 - 25 mg/dL LAB CHEMISTRY METHOD 06/14/2024 7:21 AM [facility] Creatinine 0.48(L) 0.50 - 1.10 mg/dL LAB CHEMISTRY METHOD 06/14/2024 7:21 AM [facility] eGFR 128 >=60 mL/min/1. 73m2 LAB CHEMISTRY METHOD 06/14/2024 7:21 AM [facility] Comment:Calculation based on the??Chronic Kidney Disease Epidemiology Collaboration (CKD-EPI) equation refit??without adjustment for race. BUN/Creatinine Ratio 29.2 LAB CHEMISTRY METHOD 06/14/2024 7:21 AM [facility] Calcium 7.7(L) 8.5 - 10.5 mg/dL LAB CHEMISTRY METHOD 06/14/2024 7:21 AM [facility] AST (SGOT) 14 10 - 42 unit/L LAB CHEMISTRY METHOD 06/14/2024 7:21 AM [facility] ALT (SGPT) 66(H) 10 - 60 unit/L LAB CHEMISTRY METHOD 06/14/2024 7:21 AM [facility] Alkaline Phosphatase 101 42 - 121 unit/L LAB CHEMISTRY METHOD 06/14/2024 7:21 AM [facility] Total Protein 5.1(L) 6.0 - 8.0 g/dL LAB CHEMISTRY METHOD 06/14/2024 7:21 AM [facility] Albumin 1.7(L) 3.2 - 5.0 g/dL LAB CHEMISTRY METHOD 06/14/2024 7:21 AM [facility] Total Bilirubin 0.1 0.0 - 1.4 mg/dL LAB CHEMISTRY METHOD 06/14/2024 7:21 AM [facility] Blood Venous blood specimen / Unknown Venipuncture / Unknown 06/14/2024 6:18 AM EDT 06/14/2024 6:50 AM EDT us Key [facility] LAB BLOOD ORDERABLES Final Result [facility] [address] [place] [address], * (ABNORMAL) POCT Glucose, blood (06/14/2024 6:05 AM EDT) Only the most recent of5 resultswithin the time period is included. [facility] Glucose POCT 131(H) 70 - 100 mg/dL 06/14/2024 6:06 AM EDT [facility] POCT Comment RN Notified 06/14/2024 6:06 AM EDT [facility] Blood Capillary blood specimen / Unknown 06/14/2024 6:05 AM EDT 06/14/2024 6:07 AM EDT Michele Mariano MD LAB POINT OF CA RE TEST DOCKED DEVICE UNSOLICITED RESULTS Final Result [facility] [address] [place] [address], [place] [phone] * Urinalysis with reflex microscopic and culture (06/13/2024 7:03 PM EDT) [facility] Specific [place] Urine 1.015 1.003 - 1.030 LAB URINALYSIS - AUTOMATED METHOD 06/13/2024 7:26 PM [facility] pH, Urine 6.0 5.0 - 8.0 pH LAB URINALYSIS - AUTOMATED METHOD 06/13/2024 7:26 PM [facility] Leukocytes, Urine Negative Negative LAB URINALYSIS - AUTOMATED METHOD 06/13/2024 7:26 PM [facility] Nitrite, Urine Negative Negative LAB URINALYSIS - AUTOMATED METHOD 06/13/2024 7:26 PM [facility] Protein, Urine Trace <=Trace mg/dL LAB URINALYSIS - AUTOMATED METHOD 06/13/2024 7:26 PM [facility] Glucose, Urine Negative Negative mg/dL LAB URINALYSIS - AUTOMATED METHOD 06/13/2024 7:26 PM [facility] Ketones, Urine Negative Negative mg/dL LAB URINALYSIS - AUTOMATED METHOD 06/13/2024 7:26 PM EDT [facility] Urobilinogen, Urine 0.2 0.2 - 1.0 mg/dL LAB URINALYSIS - AUTOMATED METHOD 06/13/2024 7:26 PM EDT [facility] Bilirubin, Urine Negative Negative LAB URINALYSIS - AUTOMATED METHOD 06/13/2024 7:26 PM EDT [facility] Blood, Urine Negative Negative LAB URINALYSIS - AUTOMATED METHOD 06/13/2024 7:26 PM EDT [facility] Urine Urine specimen obtained by clean catch procedure / Unknown Non-blood Collection / Unknown 06/13/2024 7:03 PM EDT 06/13/2024 7:13 PM EDT [facility] LAB URINE ORDERABLES Final Result Performing Organization Address City/[facility]/ZIP Co de Phone Number [facility] [address] [place] [address], [place] [phone] * Hernandez urine culture tube (06/13/2024 7:03 PM EDT) Pathologist [facility] Extra Tube Hold for add-ons. 06/13/2024 9:01 PM EDT [facility] Comment:Auto resulted. Urine Urine specimen obtained by clean catch procedure / Unknown Non-blood Collection / Unknown 06/13/2024 7:03 PM EDT 06/13/2024 7:13 PM EDT [facility] LAB URINE ORDERABLES Final Result Performing Organization Address [facility]/ZIP Co de Phone Number [facility] [address] [place] [address], [place] [phone] * (ABNORMAL) Prothrombin time with INR (06/13/2024 1:04 PM EDT) Pathologist [facility] Protime 14.6(H) 10.6 - 13.9 sec LAB COAGULATION METHOD 06/13/2024 1:26 PM EDT [facility] INR 1.2 LAB COAGULATION METHOD 06/13/2024 1:26 PM EDT [facility] Blood Venous blood specimen / Unknown Venipuncture / Unknown 06/13/2024 1:04 PM EDT 06/13/2024 1:15 PM EDT [facility] LAB BLOOD ORDERABLES Final Result Performing Organization Address City/[facility]/ZIP Co de Phone Number [facility] [address] [place] [address], [place] [phone] * SST tube (06/13/2024 1:02 PM EDT) Extra Tube Hold for add-ons. 06/13/2024 3:02 PM EDT [facility] Comment:Auto resulted. Blood Venous blood specimen / Unknown 06/13/2024 1:02 PM EDT 06/13/2024 1:53 PM EDT Michele Mariano MD LAB BLOOD ORDERABLES Fi nal Result Performing Organization Address [facility]/ZIP Co de Phone Number [facility] [address] [place] [address], [place] [phone] * Lactate, with reflex (06/13/2024 5:56 AM EDT) LACTIC ACID 0.8 0.4 - 2.0 mmol/L LAB CHEMISTRY METHOD 06/13/2024 7:20 AM EDT [facility] Blood Venous blood specimen / Unknown Venipuncture / Unknown 06/13/2024 5:56 AM EDT 06/13/2024 6:34 AM EDT Mike Otoole MD LAB BLOOD ORDERABLES Noelle l Result Performing Organization Address [facility]/ZIP Co de Phone Number [facility] [address] [place] [address], * (ABNORMAL) Vitamin B12 and folate (06/13/2024 5:56 AM EDT) Pathologist [facility] Vitamin B-12 198(L) 250 - 900 pcg/mL LAB CHEMISTRY METHOD 06/13/2024 1:50 PM EDT [facility] Folate 6.9 2.8 - 17.0 ng/ml LAB CHEMISTRY METHOD 06/13/2024 1:50 PM EDT [facility] Blood Venous blood specimen / Unknown Venipuncture / Unknown 06/13/2024 5:56 AM EDT 06/13/2024 6:34 AM EDT [facility] LAB BLOOD ORDERABLES Final Result Performing Organization Address [facility]/ZIP Co de Phone Number [facility] [address] [place] [address], * (ABNORMAL) Procalcitonin (06/13/2024 5:56 AM EDT) [facility] Procalcitonin 0.47(H) <=0.16 ng/mL LAB CHEMISTRY METHOD 06/13/2024 2:15 PM EDT [facility] Blood Venous blood specimen / Unknown Venipuncture / Unknown 06/13/2024 5:56 AM EDT 06/13/2024 6:34 AM EDT Narrative [facility] - 06/13/2024 2:15 PM EDT Procalcitonin > 2.00 ng/ml: Procalcitonin Levels above 2.00 ng/ml, on the first day of ICU admission represent a high risk for progression to severe sepsis and/or septic shock. Procalcitonin < 0.50 ng/ml: Procalcitonin levels below 0.50 ng/ml on the first day of ICU admission represent a low risk for progression to severe sepsis and/or septic shock. Concentrations <0.5 ng/mL do not exclude an infection, on account of local ized infections (without systemic signs) which can be associated with such low concentrations, or a systemic infection in its initial stages (<6 hours). Furthermore, increased procalcitonin can occur without infection. PCT concentrations between 0.5 and 2.0 ng/mL should be interpreted taking into account the patient's history. It is recommended to retest PCT within 6-24 hours if any concentrations <2.0 ng/mL are obtained. [facility] LAB BLOOD ORDERABLES Final Result Performing Organization Address [facility] de Phone Number [facility] [address] [place] [address], [place] [phone] * (ABNORMAL) Iron and TIBC (06/13/2024 5:56 AM EDT) [facility] Iron 11(L) 40 - 150 mcg/dL LAB CHEMISTRY METHOD 06/13/2024 1:35 PM EDT [facility] TIBC 208(L) 250 - 450 mcg/dL LAB CHEMISTRY METHOD 06/13/2024 1:35 PM EDT [facility] Iron Saturation 5(L) 15 - 50 % LAB CHEMISTRY METHOD 06/13/2024 1:35 PM EDT [facility] Blood Venous blood specimen / Unknown Venipuncture / Unknown 06/13/2024 5:56 AM EDT 06/13/2024 6:34 AM EDT [facility] LAB BLOOD ORDERABLES Final Result Performing Organization Address [facility] Co de Phone Number [facility] [address] [place] [address], [place] [phone] * Prolactin (06/13/2024 5:56 AM EDT) Prolactin 6.40 See Comment ng/mL LAB CHEMISTRY METHOD 06/13/2024 9:02 AM EDT [facility] Comment: Prolactin Reference Ranges (ng/mL) ??Non ?2.2 - ??30.3 ? 8.1 - 347.6 ??Postmenopausal 0.7 - ??31.5 Blood Venous blood specimen / Unknown Venipuncture / Unknown 06/13/2024 5:56 AM EDT 06/13/2024 6:34 AM EDT us [facility] LAB BLOOD ORDERABLES Final Result Performing Organization Address [facility] de Phone Number [facility] [address] [place] [address], [place] [phone] * (ABNORMAL) Reticulocyte count (06/13/2024 5:56 AM EDT) Retic Ct Abs 0.020(L) 0.030 - 0.090 M/mcL LAB HEMETOLOGY METHOD 06/13/2024 12:24 PM EDT [facility] Retic Ct Pct 0.6(L) 0.7 - 1.7 % LAB HEMETOLOGY METHOD 06/13/2024 12:24 PM [facility] Immature Retic Fract 16.7(H) 2.3 - 15.9 % LAB HEMETOLOGY METHOD 06/13/2024 12:24 PM EDT [facility] Reticulocyte Hemoglobin 19.3(L) >29.0 pcg LAB HEMETOLOGY METHOD 06/13/2024 12:24 PM EDT [facility] Blood Venous blood specimen / Unknown Venipuncture / Unknown 06/13/2024 5:56 AM EDT 06/13/2024 6:34 AM EDT Key LLANOS LAB BLOOD ORDERABLES Final Result Performing Organization Address City/[facility] de Phone Number [facility] [address] [place] [address], * (ABNORMAL) C-reactive protein (06/13/2024 5:56 AM EDT) [facility] C-Reactive Protein 23.40(H) <=0.50 mg/dL LAB CHEMISTRY METHOD 06/13/2024 8:04 AM EDT [facility] Blood Venous blood specimen / Unknown Venipuncture / Unknown 06/13/2024 5:56 AM EDT 06/13/2024 6:34 AM EDT us Speedy LLANOS LAB BLOOD ORDERABLES Final Res ult Performing Organization Address [facility]/ZIP Co de Phone Number [facility] [address] [place] [address], * Ferritin (06/13/2024 5:56 AM EDT) [facility] Ferritin 203 8 - 252 ng/mL LAB CHEMISTRY METHOD 06/13/2024 1:50 PM EDT [facility] Blood Venous blood specimen / Unknown Venipuncture / Unknown 06/13/2024 5:56 AM EDT 06/13/2024 6:34 AM EDT Key LLANOS LAB BLOOD ORDERABLES Final Result Performing Organization Address City/[facility]/ZIP Co de Phone Number [facility] [address] [place] [address], * (ABNORMAL) Hepatic function panel (06/13/2024 5:56 AM EDT) Only the most recent of2 resultswithin the time period is included. [facility] Total Protein 5.1(L) 6.0 - 8.0 g/dL LAB CHEMISTRY METHOD 06/13/2024 8:04 AM EDT [facility] Albumin 1.8(L) 3.2 - 5.0 g/dL LAB CHEMISTRY METHOD 06/13/2024 8:04 AM [facility] Comment:Results verified by repeat testing Total Bilirubin 0.2 0.0 - 1.4 mg/dL LAB CHEMISTRY METHOD 06/13/2024 8:04 AM [facility] Bilirubin, Direct 0.2 0.0 - 0.3 mg/dL LAB CHEMISTRY METHOD 06/13/2024 8:04 AM [facility] Bilirubin, Indirect 0.0 0.0 - 1.1 mg/dL LAB CHEMISTRY METHOD 06/13/2024 8:04 AM [facility] ALT (SGPT) 82(H) 10 - 60 unit/L LAB CHEMISTRY METHOD 06/13/2024 8:04 AM [facility] AST (SGOT) 24 10 - 42 unit/L LAB CHEMISTRY METHOD 06/13/2024 8:04 AM [facility] Alkaline Phosphatase 122(H) 42 - 121 unit/L LAB CHEMISTRY METHOD 06/13/2024 8:04 AM [facility] Blood Venous blood specimen / Unknown Venipuncture / Unknown 06/13/2024 5:56 AM EDT 06/13/2024 6:34 AM EDT us Speedy LLANOS LAB BLOOD ORDERABLES Final Res ult [facility] [address] [place] [address], * (ABNORMAL) Basic metabolic panel (06/13/2024 5:56 AM EDT) Only the most recent of2 resultswithin the time period is included. Sodium 139 133 - 145 mmol/L LAB CHEMISTRY METHOD 06/13/2024 7:49 AM [facility] Potassium 4.0 3.5 - 5.5 mmol/L LAB CHEMISTRY METHOD 06/13/2024 7:49 AM [facility] Chloride 111(H) 96 - 110 mmol/L LAB CHEMISTRY METHOD 06/13/2024 7:49 AM [facility] CO2 19(L) 21 - 32 mmol/L LAB CHEMISTRY METHOD 06/13/2024 7:49 AM [facility] Anion Gap 9 3 - 11 LAB CHEMISTRY METHOD 06/13/2024 7:49 AM [facility] Glucose 139(H) 70 - 100 mg/dL LAB CHEMISTRY METHOD 06/13/2024 7:49 AM [facility] BUN 11 5 - 25 mg/dL LAB CHEMISTRY METHOD 06/13/2024 7:49 AM [facility] Creatinine 0.49(L) 0.50 - 1.10 mg/dL LAB CHEMISTRY METHOD 06/13/2024 7:49 AM [facility] eGFR 127 >=60 mL/min/1. 73m2 LAB CHEMISTRY METHOD 06/13/2024 7:49 AM [facility] Comment:Calculation based on the??Chronic Kidney Disease Epidemiology Collaboration (CKD-EPI) equation refit??without adjustment for race. BUN/Creatinine Ratio 22.4 LAB CHEMISTRY METHOD 06/13/2024 7:49 AM [facility] Calcium 7.5(L) 8.5 - 10.5 mg/dL LAB CHEMISTRY METHOD 06/13/2024 7:49 AM [facility] Blood Venous blood specimen / Unknown Venipuncture / Unknown 06/13/2024 5:56 AM EDT 06/13/2024 6:34 AM EDT us Mike Otoole MD LAB BLOOD ORDERABLES Noelle l Result [facility] [address] [place] [address], [place] [phone] * ECG-Annotated (06/13/2024) us Provider Onbase MD ECG ORDERABLES Final Result * CT Angio Chest/Abdomen/Pelvis wo and/or w Contrast (06/12/2024 10:07 PM EDT) Anatomical Region Laterality Modality Body Computed Tomogra phy 06/12/2024 11:2 1 PM EDT Impressions 06/12/2024 11:21 PM EDT 1. No aortic dissection or aneurysm. 2. Consolidation with air bronchograms involving the bilateral lung bases consistent with bibasilar pneumonia. Recommend continued follow-up to resolution of these findings. 3. Hepatomegaly and hepatic steatosis. 4. Nonobstructing bilateral nephrolithiasis measuring up to 2-3 mm. 5. Cyst of the right adnexa measures 2.3 cm. 6. Chronic findings as above. This document has been electronically signed by: Albino Kuhn DO on 06/12/2024 23:21:58 Narrative 06/12/2024 11:21 PM EDT INDICATION: PE / Aorta dissection rule out CTA chest, abdomen, and pelvis with IV contrast. MIP and 3D post processing was submitted. Comparison: None Findings: The thyroid is unremarkable. Normal caliber of the thoracic aorta. No aneurysm or dissection of the thoracic aorta. The heart is normal size. Small nodes within the mediastinum. No pulmonary embolism. Consolidation with air bronchograms involving the bilateral lung bases consistent with bibasilar pneumonia. Recommend continued follow-up to resolution of findings. The abdominal aorta is unremarkable. No aneurysm or dissection of the abdominal aorta The celiac artery, superior mesenteric artery, inferior mesenteric artery and bilateral renal arteries are all patent without occlusion or stenosis. Hepatomegaly and hepatic steatosis. Gallbladder mildly distended. The pancreas, spleen, adrenal glands are unremarkable. Nonobstructing bilateral nephrolithiasis measuring up to 2-3 mm. The contour of the urinary bladder is unremarkable. IUD within anteverted uterus. Cyst of the right adnexa measuring up to 2.3 cm. No bowel obstruction, pneumoperitoneum, or pneumatosis. Normal appendix. Old bilateral rib fractures with callus formation. Left shoulder arthroplasty resulting in metallic beam hardening artifact. Procedure Note Albino Kuhn MD - 06/12/2024 INDICATION: PE / Aorta dissection rule out CTA chest, abdomen, and pelvis with IV contrast. MIP and 3D post processing was submitted. Comparison: None Findings: The thyroid is unremarkable. Normal caliber of the thoracic aorta. No aneurysm or dissection of the thoracic aorta. The heart is normal size. Small nodes within the mediastinum. No pulmonary embolism. Consolidation with air bronchograms involving the bilateral lung bases consistent with bibasilar pneumonia. Recommend continued follow-up to resolution of findings. The abdominal aorta is unremarkable. No aneurysm or dissection of the abdominal aorta The celiac artery, superior mesenteric artery, inferior mesentericartery and bilateral renal arteries are all patent without occlusion orstenosis. Hepatomegaly and hepatic steatosis. Gallbladder mildly distended. The pancreas, spleen, adrenal glands are unremarkable. Nonobstructing bilateral nephrolithiasis measuring up to 2-3 mm. The contour of the urinary bladder is unremarkable. IUD within anteverted uterus. Cyst of the right adnexa measuring up to2.3 cm. No bowel obstruction, pneumoperitoneum, or pneumatosis. Normal appendix. Old bilateral rib fractures with callus formation. Left shoulder arthroplasty resulting in metallic beam hardeningartifact. IMPRESSION: 1. No aortic dissection or aneurysm. 2. Consolidation with air bronchograms involving the bilateral lungbases consistent with bibasilar pneumonia. Recommend continued follow-up to resolution of these findings. 3. Hepatomegaly and hepatic steatosis. 4. Nonobstructing bilateral nephrolithiasis measuring up to 2-3 mm. 5. Cyst of the right adnexa measures 2.3 cm. 6. Chronic findings as above. This document has been electronically signed by: Albino Kuhn DO on 06/12/2024 23:21:58 Jade Hicks DO IMG CT PROCEDURES Final R esult * Troponin I high sensitivity (NOW and then in 1 hour) (06/12/2024 9:14 PM EDT) Only the most recent of2 resultswithin the time period is included. High Sensitivity Troponin I 11 <=54 ng/L LAB CHEMISTRY METHOD 06/12/2024 10:05 PM EDT [facility] Blood Venous blood specimen / Unknown Venipuncture / Unknown 06/12/2024 9:14 PM EDT 06/12/2024 9:24 PM EDT Narrative [facility] - 06/12/2024 10:05 PM EDT High levels of biotin in samples may falsely decrease hsTroponin values. ??Use caution when interpreting hsTroponin results in patients taking biotin who exhibit renal impairment (eGFR <60) or in patients taking more than 20 mg/day of biotin. Dana LLANOS LAB BLOOD ORDERABLES Final Resul t Performing Organization Address City/[facility]/ZIP Co de Phone Number [facility] [address] [place] [address], [place] [phone] * Blood culture (06/12/2024 7:55 PM EDT) Only the most recent of2 resultswithin the time period is included. Culture, Blood No growth at 5 days 06/17/2024 9:01 PM EDT [facility] Blood Venous blood specimen / Unknown Venipuncture / Unknown 06/12/2024 7:55 PM EDT 06/12/2024 8:31 PM EDT Jade Hicks DO LAB MICROBIOLOGY - GENERA L ORDERABLES Final Result [facility] [address] [place] [address], [place] [phone] * Lactate (06/12/2024 7:55 PM EDT) Lactate 1.9 0.4 - 2.0 mmol/L LAB CHEMISTRY METHOD 06/12/2024 8:53 PM EDT [facility] Blood Venous blood specimen / Unknown Venipuncture / Unknown 06/12/2024 7:55 PM EDT 06/12/2024 8:28 PM EDT us Jade Hicks DO LAB BLOOD ORDERABLES Noelle l Result GUILLAUME [facility] [address] [place] [address], [place] [phone] * XR Chest 1 View (06/12/2024 7:45 PM EDT) Anatomical Region Laterality Modality Body Radiographic Ashia ging 06/13/2024 8:20 AM EDT Impressions 06/13/2024 8:22 AM EDT Patchy opacity at the left base raising concern for early pneumonia. -------- FINAL REPORT -------- Dictated By: Brett Raymond Dictated Date: 06/13/2024 08:20 ET Assigned Physician: Brett Raymond Reviewed and Electronically Signed By: Brett Raymond Signed Date: 06/13/2024 08:22 ET Workstation ID: [id number] Transcribed By: Self Edit Transcribed Date: 06/13/2024 08:20 ET Narrative 06/13/2024 8:22 AM EDT PROCEDURE: AP chest radiograph. HISTORY: hypoxia. COMPARISON: 01/19/2018. FINDINGS: There is ill-defined heterogeneous opacity at the left lung base which is suspicious for a developing pneumonia. ??No pleural effusion. ??Smooth pleural thickening at the apices appears similar to the previous study. ??Cardiomediastinal contours are unchanged. ??Left glenohumeral arthroplasty. ??Deformity of the posterior right 7th rib suggesting a remote fracture. Procedure Note Brett Raymond MD - 06/13/2024 PROCEDURE: AP chest radiograph. HISTORY: hypoxia. COMPARISON: 01/19/2018. FINDINGS: There is ill-defined heterogeneous opacity at the left lung base which issuspicious for a developing pneumonia. No pleural effusion. Smoothpleural thickening at the apices appears similar to the previous study.Cardiomediastinal contours are unchanged. Left glenohumeral arthroplasty.Deformity of the posterior right 7th rib suggesting a remote fracture. IMPRESSION: Patchy opacity at the left base raising concern for early pneumonia. -------- FINAL REPORT -------- Dictated By: Brett Raymond Dictated Date: 06/13/2024 08:20 ET Assigned Physician: rBett Raymond Reviewed and Electronically Signed By: Brett Raymond Signed Date: 06/13/2024 08:22 ET Workstation ID: [id number] Transcribed By: Self Edit Transcribed Date: 06/13/2024 08:20 ET Dana LLANOS IMG XR PROCEDURES Final Result * (ABNORMAL) [id number], RSV, Influenza A and B qualitative RT-PCR (06/12/2024 7:11 PM EDT) Influenza A PCR Not Detected Not Detected LAB MICROBIOLOGY METHOD 06/12/2024 8:50 PM EDT [facility] Influenza B PCR Not Detected Not Detected LAB MICROBIOLOGY METHOD 06/12/2024 8:50 PM EDT [facility] RSV PCR Not Detected Not Detected LAB MICROBIOLOGY METHOD 06/12/2024 8:50 PM EDT [facility] SARS COV-2 Detected(A) Not Detected LAB MICROBIOLOGY METHOD 06/12/2024 8:50 PM EDT [facility] Swab Both anterior nares / Unknown Non-blood Collection / Unknown 06/12/2024 7:11 PM EDT 06/12/2024 8:04 PM EDT Narrative [facility] - 06/12/2024 8:50 PM EDT Disclaimer: ??Testing was performed using the [employer] GeneXpert Xpress SARS-CoV-2 _Flu_RSV PLUS PCR assay. ??The manner in which this information is used to guide patient care is the responsibility of the healthcare provider. ??Results should be correlated with the clinical history, epidemiological data, and other data available to the clinician evaluating the patient. ??Negative results do not preclude infection. ??This test has been authorized by the FDA under an Emergency Use Authorization (EUA). ??This test is only authorized for the duration of time the declaration that circumstances exist justifying the authorization of the emergency use of in vitro diagnostic tests for detection of SARS-CoV-2 virus and/or diagnosis of COVID-19 infection under section 564 (b) (1) of the Act, 21 U.S.C 360bbb-3 (b) (1), unless the authorization is terminated or revoked sooner. ?? Reference Range: Not Detected Fact sheet for Healthcare providers can be found at https://www.fda.gov/media/702416/download. ?? Fact sheet for Healthcare patients can be found at https://www.fda.gov/media/912436/download. Dana LLANOS LAB MICROBIOLOGY - GENERAL ORDER NORIS Final Result Performing Organization Address [facility]/ZIP Co de Phone Number [facility] [address] [place] [address], * hCG, serum, qualitative (06/12/2024 7:04 PM EDT) [facility] hCG Qual Negative Negative 06/12/2024 8:59 PM EDT [facility] Blood Venous blood specimen / Unknown Venipuncture / Unknown 06/12/2024 7:04 PM EDT 06/12/2024 8:02 PM EDT Jade Hicks DO LAB BLOOD ORDERABLES Noelle l Result Performing Organization Address City/[facility]/ZIP Co de Phone Number [facility] [address] [place] [address], [place] [phone] * ECG 12 lead (06/12/2024 7:03 PM EDT) [facility] Ventricular Rate ECG 142 BPM GEMUSE Atrial Rate 142 BPM GEMUSE P-R Interval 124 ms GEMUSE QRS Duration 72 ms GEMUSE Q-T Interval 282 ms GEMUSE QTc 433 ms GEMUSE P Wave [place] 50 degrees GEMUSE R [place] 41 degrees GEMUSE T [place] 65 degrees GEMUSE ECG Interpretation Sinus tachycardia When compared with ECG of 01-SEP-2017 19:14, Vent. rate has increased BY ??62 BPM Confirmed by Kelvin TOLEDO YUFENG ([id number]) on 06/12/2024 7:27:33 PM GEMUSE 06/12/2024 7:03 PM EDT 06/12/2024 7:27 PM EDT us Jade Hicks DO ECG ORDERABLES Final Res ult GEMUSE * OK CRITICAL CARE 30-74 MINUTES (06/12/2024 6:26 PM EDT) Narrative Jade Hicks DO - 06/12/2024 6:26 PM EDT VIET Ambrosio ? 06/16/2024 ??5:57 PM Critical Care Performed by: VIET Ambrosio Authorized by: Jade Hicks DO ?? Critical care provider statement: ??Critical care time (minutes): ??60 (45) ??Critical care time was exclusive of: ??Separately billable procedures and treating other patients ??Critical care was necessary to treat or prevent imminent or life-threatening deterioration of the following conditions: ??Respiratory failure ??Critical care was time spent personally by me on the following activities: ??Development of treatment plan with patient or surrogate, evaluation of patient's response to treatment, examination of patient, obtaining history from patient or surrogate, ordering and performing treatments and interventions, ordering and review of laboratory studies, ordering and review of radiographic studies, pulse oximetry and re-evaluation of patient's condition ??Care discussed with: admitting provider ?? Comments: ? 33-year-old female with ??Bilateral ??Lower lobe pneumonia secondary to COVID, meeting sepsis criteria. ??Significant hypoxia, tachypnea and increased respiratory effort requiring BiPAP. us Jade Hicks DO IN CLINIC/BEDSIDE ORDERAB LES Final Result * Depression Screening (06/26/2023) [facility] Depression Screening Abstracted us Historical Provider HEALTH MAINTENANCE Final Result * Lipid panel (06/25/2023) [facility] LDL/HDL Ratio 2 0 - 4 Triglycerides 76 0 - 150 mg/dL Cholesterol 171 0 - 200 mg/dL HDL 79 >=40 mg/dL LDL Cholesterol 77 0 - 100 mg/dL Blood Venous blood specimen / Unknown [facility] Provider LAB BLOOD ORDERABLES Noelle l Result * Cervical Cancer Screening: HPV (12/20/2022) [facility] Cervical Cancer Screening: HPV Negative, Abstracted [facility] Provider HEALTH MAINTENANCE Final Result * HIV Screening (05/19/2022) [facility] HIV Screening Abstracted [facility] Provider HEALTH MAINTENANCE Final Result * Hepatitis C Screening (05/19/2022) [facility] Hepatitis C Screening Abstracted [facility] Provider HEALTH MAINTENANCE Final Result from Last 3 Months or Most Recently Relevant to Health Maintenance Additional Health Concerns Infection Onset Date Last Indicated COVID-19 06/12/2024 06/12/[address] [facility] Advance Directives * Full Code - Default (Latest Code Status on File) Date Activated Date Inactivated Comments 06/13/2024 12:22 AM 06/14/2024 2:53 PM This is order is used when code status has not been discussed with the patient, or code status is otherwise unknown/unconfirmed To update the patient's code status, place a code status order. Do not modify or discontinue any currently active code status orders. Care Teams Private Duty Nurse Relationship Specialty Start Date End Date Frederick Alfonso MD [address] [place] [id number] PCP - General Internal Medicine 01/20/16
--- OUTSIDE RECORDS SUMMARY | 2024-06-26 09:24 | XMS_ITS | Encounter Summary ---
Author Organization [facility] Address [address] [place] [address] Care Team Providers Care Membership Counselor Name Role Phone Frederick Alfonso MD Primary Care Provider [phone] Reason for Visit * Reason Onset Date Comments My chart appt 06/24/2024 Pt schedule an a pt on my chart Encounter Details Date Type Department Care Team (Late st Contact Info) Description 06/24/2024 Telephone Adult Medicine [address] [phone] Frederick Alfonso MD [address] [place] [phone] My chart appt (Pt schedule an apt on my chart ) Social History Tobacco Use Types Packs/Day Years [...] Something else 04/10/2024 2: 09 AM EST documented as of this encounter Progress Notes * Rachana Park RN - 06/24/2024 4:40 PM EDT Pt states she was in [facility] on 06/12/24 and was discharged on 06/14/24 r/t Covid 19, pneumonia and an infection. She was prescribed antibiotics. She completed the antibiotics as directed. She has lupus, RA, osteoporosis and fibromyalgia. An appointment was made for her to be seen in the office on 07/17/24 at 10:[address] Alfonso and she is in agreement with this plan. She was instructedto call with any new or worsening symptoms. * Susan Irene - 06/24/2024 4:13 PM EDT Patient call requires triage: Symptoms patient is presenting: pt schedule an apt thru my chart, pt states, Just had Covid pneumonia ad infection happened also hernia and ears need to be checked How long has patient had these symptoms?: For ALL patients calling to schedule any appointment (routine, sick visit, follow up, consult, etc.) in the outpatient setting please ask the following questions: Do you have fever of higher than 101, sore throat with difficulty swallowing or severe shortness ofbreath? no If YES to any of these above symptoms, send a message to triage and do not book. Red dot. If no, an audio or video visit should be booked. Have you had close contact with someone with Coronavirus in the last 14 days? no Have you traveled abroad? no Have you traveled recently to another state outside of [place], [place], [place], [place], [place], [place], [place]? no o If yes, did you quarantine for 14 days or have a negative covid test? no If yes to any of the above, patient is not to be scheduled in office until after 14 day quarantine or negative covid test. If pain or injury related was it due to an accident at work or from a motor vehicle accident? If yes, date of accident/Injury: No If yes, gather 3rd constitution party insurance information [employer] Information: PCP: Frederick Alfonso MD Payor: [employer] PLAN / Plan: [employer] MEDICAID / Product Type: *No Product type* / documented in this encounter Plan of Treatment Upcoming Encounters Date Type Department Care Team (Late st Contact Info) Description 07/17/2024 10:30 AM EDT Office Visit Adult Medicine [facility] [address] [place] [phone] Frederick Alfonso MD [address] [place] [address] [phone] documented as of this encounter Visit Diagnoses Not on filedocumented in this encounter Additional Health Concerns Infection Onset Date Last Indicated Resolved Time COVID-19 06/12/2024 06/12/2024 documented as of this encounter Care Teams Membership Counselor Relationship Specialty Start Date End Date Frederick Alfonso MD [address] [place] [address] [phone] PCP - General Internal Medicine 01/20/16 documented as of this encounter
== END 2024-06-26 09:15 | disposition home or self-care (01) ==
LOC: HO.RHE 08:45
PROVIDERS: PCP Internal Medicine; Visit Provider Student in an Organized Health Care Education/Training Program
DX: M06.00 Rheumatoid arthritis without rheumatoid factor, unspecified site (principal); M79.7 Fibromyalgia; M65.4 Radial styloid tenosynovitis [de Quervain]; M80.00XD Age-related osteoporosis with current pathological fracture, unspecified site, subsequent encounter for fracture with routine healing; Z79.899 Other long term (current) drug therapy; Z79.52 Long term (current) use of systemic steroids
CPT/HCPCS: 99214; G2211

== ENCOUNTER → 2024-06-26 08:45 | Outpatient (BNVA) | payer OTHER, SELFPAY | PROVIDERS: PCP Internal Medicine; Visit Provider Student in an Organized Health Care Education/Training Program | DX: M06.00 Rheumatoid arthritis without rheumatoid factor, unspecified site (principal); M79.7 Fibromyalgia; M80.00XD Age-related osteoporosis with current pathological fracture, unspecified site, subsequent encounter for fracture with routine healing; X58.XXXD Exposure to other specified factors, subsequent encounter; Z79.52 Long term (current) use of systemic steroids; Z79.899 Other long term (current) drug therapy | CPT/HCPCS: 99212 ==

== ENCOUNTER 2024-08-27 08:07 | Outpatient (AMB) | payer OTHER, SELFPAY ==
[2024-08-27 08:11] VITALS: BP 128/68; PULSE 96; O2SAT 98; BMI 32.3
--- NOTE | 2024-08-27 08:11 | MHC.OFFVIS ---
Vital Signs 08/27/24 08:11 Height 5 ft 1 in Weight 170 lb 13.732 oz BMI 32.3 BP 128/68 Blood Pressure Location Lt brachial Position Sitting Pulse 96 Pulse Source Pulse Oximeter Pulse Oximetry (%) 98 Oxygen Delivery Method Room Air Intake Visit Reasons: RA Intake Note: Patient last seen by Doctor Aiyana Orlando on 06/26/24. Presents today for RA follow up. Allergies upadacitinib (From Rinvoq) Allergy (Mild, Verified 08/27/24 08:14) Rash naproxen (NAPROXEN) Allergy (Unknown, Verified 08/27/24 08:14) DIZZINESS EYE REDNESS AND SWELLING, edema Medication List - Last Reconciled 08/27/24 by Aiyana Orlando MD acetaminophen (Tylenol Extra Strength) 1,000 mg PO Q6H PRN amitriptyline mg PO anakinra 100 mg (0.67 mL) subcut DAILY 30 days cholecalciferol (vitamin D3) (Vitamin D3) 50 mcg PO DAILY clotrimazole 1% 1 appl topical BID cyclobenzaprine 10 mg PO BEDTIME folic acid 1 mg PO DAILY ibuprofen 400 mg PO TID PRN levonorgestrel (Mirena) intrauterine losartan 50 mg PO DAILY methotrexate sodium 20 mg (8 x 2.5 mg) PO QWEEK omeprazole 20 mg PO BID oxycodone-acetaminophen 5-325 mg 1 tab PO BID PRN quetiapine (Seroquel) 25 mg PO BID sumatriptan succinate 25 mg PO DAILY triamcinolone acetonide 0.1% 1 appl topical BID HPI Comments Details: Patient is a 33-year-old female with hypertension, hidradenitis suppurativa, seronegative rheumatoid arthritis (history of systemic onset juvenile idiopathic arthritis) and fibromyalgia here today for follow up Interval History: Patient last seen 06/26/2024 with me. At that time she was recovering from COVID complicated by pneumonia and had stopped her anakinra during that time. Complained of wrist pain Since that visit, She has had 2 falls Currently on 1/2 tablet of medrol without return of symptoms Tolerating the anakinra Has a right leg wound after cat scratch that is taking long to heal, completed antibiotics Rheumatologic History: veRF -ve CCP -ve AN, onset at age 13. dx at [facility] with Dr Haro Treatment with methotrexate partially helpful but she did much better with addition of Humira for a year or 2 but then she ran out of insurance. Recurrence of synovitis 2016 - out of insurance again, just on low dose prednisone. Humira started, May 2017; methotrexate(SC) added, June 2017 Xeljanz and methotrexate(SC) 01/27 06/28: Xeljanz not effective, Enbrel added to methotrexate 01/2021 Humira started with 80 mg loading doses and the 40 mg weekly for hidradenitis; arthritis worse so Humira changed to Rinvoq 02/2022. Hives 04/2022, Rinvoq changed to baricitinib Baricitinib DC 11/2023 due to ineffective Actemra infusion started 12/2023 - 04/2024. 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 Long-term current use of anakinra Rheumatoid arthritis flare Surgical History History of shoulder surgery Hx of endoscopy Hx of colonoscopy History of removal of ovarian cyst Hx of lithotripsy Social History Household Members: Significant Other Housing: House Are you a primary rn homecare to a significant other at home: No Do you presently have visiting nurse or other home services: No Alcohol intake: never Patient Tobacco Use Status: Former Tobacco user e-Cigarette/Vaping Use: Never Used Substance Use Type: Marijuana service: No Current occupational status: unemployed Current occupation: right hand dominant Review of Systems Const Details: Review of Systems Constitutional: Denies fever, chills, weight loss ENT: Denies vision changes, eye pain or eye redness, dental caries, dry mouth GI: Denies nausea, vomiting, diarrhea, abdominal pain, change in BM Pulm: Denies SOB, MAST, hemoptysis, wheezing Cards: Denies chest pain, palpitations Skin: Denies Raynaud's, rash, nail changes, photosensitivity, [employer]: Denies headaches, weakness, paresthesias, recurrent falls MSK: as per HPI All other systems reviewed and are unremarkable except noted above Physical Exam Vital Signs: Last Vital Signs Pulse 96 08/27/24 08:11 BP 128/68 08/27/24 08:11 Pulse Ox 98 08/27/24 08:11 Oxygen Delivery Method Room Air 08/27/24 08:11 BMI result Body Mass Index 32.3 Vital signs reviewed Physical Examination CONSTITUITIONAL Patient alert and cooperative. Well appearing and in no apparent painful distress HEENT Conjunctiva and sclera clear. ?Pupils equal round and reactive to light. ?No lymphadenopathy. ? CHEST/RESPIRATORY SYSTEM Normal respiratory effort and able to speak in complete sentences. ?Clear to auscultation bilaterally. ?No crackles, rales, rhonchi, wheezes heard. CARDIAC SYSTEM Regular rate and rhythm. ?S1 and S2 heard no murmurs. ?Radial pulses intact bilaterally MSK Hands: ?Able to make a fist. No tenderness to palpation of the MCPs, PIPs. No evidence of synovitis Wrists: ?Full range of motion at the wrists without pain. ?No tenderness to palpation or synovitis noted to the wrists. Elbows: bilateral elbows with full range of motion. There is no further swelling or tenderness to palpation of the elbows. Shoulders: Decreased ROM of left shoulder, improved from last visit. Full range of motion of the right shoulder. Knees: ?Full range of motion. ?Left knee with painful range of motion but this is known to have an ACL tear. Ankles: Full range of motion. ? No tenderness to palpation of the bilateral ankles ? subcentimeter ulcer noted to later right lower leg, no oozing or purulent discharge Feet: ? negative squeeze test SKIN hyperpigmentation noted to the bilateral shins. Scaling noted to several areas of the skin Results Reviewed Results Reviewed: Laboratory Tests 04/02/24 05/21/24 08:20 10:33 WBC 14.7 H RBC 4.13 L Hgb 11.2 L Hct 37.6 Plt Count 369 ESR 81 H 6 Sodium 141 Potassium 4.0 Chloride 108 Carbon Dioxide 25 BUN 16 Creatinine 0.75 Total Bilirubin 0.2 AST 18 ALT 66 H Alkaline Phosphatase 54 C-Reactive Protein 3.50 H < 0.04 25-OH Vitamin D Total Pending Infectious serologies 05/21/24 10:33 Hepatitis A IgM Ab Nonreactive Hep Bs Antigen Negative Hep Bs Antibody REACTIVE Hep B Core Total Ab Nonreactive Hepatitis C Ab (EIA) Nonreactive TB Test (T-Spot) Com Pending DEXA 04/2024 FINDINGS: The bone mineral density of the lumbar spine is 0.876 with a T-score of -2.5, and a Z-score of -2.9. The bone mineral density of the left total hip is 0.698 with a T-score of -2.5, and a Z-score of -2.6. The bone mineral density of the left femoral neck is 0.653 with a T-score of -2.8, and a Z-score of -2.8. Assessment & Plan Assessment & Plan (1) Seronegative rheumatoid arthritis: Comment: -ve -ve CCP -ve JOSE L dx Age 16 at [facility] with Dr Haro Treatment with methotrexate partially helpful but she did much better with addition of Humira for a year or 2 but then she ran out of insurance. Recurrence of synovitis 2015 - out of insurance again, just on low dose prednisone. Humira started, May 2017; methotrexate(SC) added, June 2017 Xeljanz and methotrexate(SC) 01/27 06/28: Xeljanz not effective, Enbrel added to methotrexate 09/27: Actemra in place of Enbrel(ineffective), parenteral, then oral methotrexate continued Actemra discontinued in September 2020 due to the hidradenitis suppurativa. Methotrexate continued. 01/2021 Humira started with 80 mg loading doses and the 40 mg weekly for hidradenitis; arthritis worse so Humira changed to Rinvoq 02/2022. Hives 04/2022, Rinvoq changed to baricitinib Restarted Actemra 12/2023 - 03/2024. Not effective Anakinra 05/2024 Code(s): M06.00 - Rheumatoid arthritis without rheumatoid factor, unspecified site Category: Medical Plan: #Seronegative RA Patient is a 33-year-old female with longstanding history of rheumatoid arthritis starting as a child being diagnosed with systemic onset juvenile idiopathic arthritis and now as an adult with seronegative rheumatoid arthritis. Patient is currently in low disease activity on prednisolone taper and anakinra injections. Doing well on the anakinra and methotrexate combination Plan - Methotrexate 20mg every week - Folic acid 1mg every day - Medrol taper as instructed - Anakinra 100mg SC daily - Labs today: CBC, CMP, ESR, CRP - Wound care referral - PT referral to strengthen lower extremity muscles and assist with balance - RTC 4 months (2) Fibromyalgia, primary: Code(s): M79.7 - Fibromyalgia Category: Medical Plan: #Fibromyalgia Patient with an additional diagnosis of fibromyalgia however at this time I think her rheumatoid arthritis needs to be properly controlled before any additional fibromyalgia medications be added (3) De Quervain's tenosynovitis, bilateral: Code(s): M65.4 - Radial styloid tenosynovitis [de Quervain] Plan: #Bilateral De Quervain's tenosynovitis Improved (4) Osteoporosis: Code(s): M81.0 - Age-related osteoporosis without current pathological fracture Qualifiers: Osteoporosis type: age-related Presence of current pathological fracture: with current pathological fracture Encounter type: initial encounter Qualified Code(s): M80.00XA - Age-related osteoporosis with current pathological fracture, unspecified site, initial encounter for fracture Plan: #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 DEXA scan showed osteoporosis in the spine and in the hip. She has been on alendronate for several years and despite that she had a fragility fracture involving her ankle. Received 1st dose of Prolia 05/30/24. Noted pain at the injection site for a few days after but otherwise tolerated the medication well. Had a fall with rib fractures recently, if she continued to fall and have fractures, we may need to change medication to evenity Continue vitamin-D supplementation. 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 Category: Medical Plan: #Long-term Use of Steroids Discussed with patient the risks and benefits of steroid for managing the rheumatic condition Benefits include: - Reduced pain, improved mobility, increased participation in activities, and decreased progression of disease Risks include: - GI upset, potential ultrasound worsening or formation (especially in patients > 65 years old), elevated blood pressure/worsening hypertension, elevated blood sugar/worsening diabetes control, worsening of bone density, elevated lipids/worsening triglycerides, cataract formation, weight gain Recommended using proton pump inhibitors (PPIs) for the duration of steroid use to reduce the risk of gastric ulcers and vitamin-D daily to reduce the risk of osteoporosis Labs checked: A1c, T spot, hepatitis-B and C serologies Pneumocystis jiroveci prophylaxis: Patient with risk factors including steroids greater than 50 mg for more than 30 days, age greater than 60 years, and lung involvement from underlying rheumatic disease requires prophylaxis and will be given so Plan I spent 35 minutes reviewing the record and labs, taking a history, examining the patient, discussing the treatment plan, ordering diagnostic work up and documenting in the medical record Orders: Orders MR shoulder LT wo con Today M25.512 - Pain in left shoulder Complete Blood Count Auto Diff Today M06.00 - Rheumatoid arthritis without rheumatoid factor, unspecified site Erythrocyte Sedimentation Rate Today M06.00 - Rheumatoid arthritis without rheumatoid factor, unspecified site PT Evaluation and Treatment Today M06.00 - Rheumatoid arthritis without rheumatoid factor, unspecified site C Reactive Protein Today M06.00 - Rheumatoid arthritis without rheumatoid factor, unspecified site Comprehensive Met. Panel Today M06.00 - Rheumatoid arthritis without rheumatoid factor, unspecified site Referrals Wound Care Referral S81.801A - Unspecified open wound, right lower leg, initial encounter Pain Management Referral M06.00 - Rheumatoid arthritis without rheumatoid factor, unspecified site, S22.49XA - Multiple fractures of ribs, unspecified side, initial encounter for closed fracture Coding Level of Care Code Est Pt Level 4 (81322) Complex EM visit Add On G2211 Diagnoses Seronegative rheumatoid arthritis M06.00 Fibromyalgia, primary M79.7 De Quervain's tenosynovitis, bilateral M65.4 Age-related osteoporosis with current pathological fracture, initial encounter M80.00XA Osteoporosis type: age-related Presence of current pathological fracture: with current pathological fracture Encounter type: initial encounter Long-term current use of anakinra Z79.899 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
--- OUTSIDE RECORDS SUMMARY | 2024-08-27 08:20 | XMS_ITS | Clinical Summary ---
Author Organization [facility] [place] Address [address] [place] [address] Care Team Providers Care Veterinary Technologist Name Role Phone Frederick Alfonso MD Primary Care Provider [phone] Allergies Active Allergy Reactions Criticality Noted Date [...] area 2-3 times daily 01/04/20 21 Active clotrimazole (LOTRIMIN) 1 % cream 1 APPL TOPICALLY 2 TIMES A DAY 04/07/19 24 Active folic acid (FOLVITE) 1 mg tabletIndicati ons:Rheumatoid arthritis, unspecified (CMS/HCC V24, CMS/HCC V28) TAKE 1 TABLET BY MOUTH EVERY DAY 90 tablet 1 03/26/19 25 Active Vitamin D3 50 mcg (2,000 unit) tablet TAKE 1 TABLET BY MOUTH EVERY DAY 90 tablet 1 03/26/19 25 Active methylPREDNISo lone (MEDROL) 8 mg tablet Take 1 tablet (8 mg total) by mouth 2 (two) times a day. 06/03/19 25 Active SUMAtriptan (IMITREX) 25 mg tablet TAKE 1 TABLET BY MOUTH MAY REPEAT DOSE ONCE AFTER 2 HOURS, IF NEEDED. 5 tablet 5 07/22/19 25 Active SUMAtriptan (IMITREX) 25 mg tablet Take 1 tablet (25 mg total) by mouth 1 (one) time if needed for migraine. Active amitriptyline (ELAVIL) 25 mg tabletIndicati ons:Rheumatoid arthritis, unspecified (CMS/HCC V24, CMS/HCC V28) TAKE 1 TO 2 TABLETS BY MOUTH AT BEDTIME 60 tablet 5 07/31/19 25 Active omeprazole (PriLOSEC) [address] capsule TAKE 1 CAPSULE (20 MG TOTAL) BY MOUTH 2 (TWO) TIMES A DAY. DO NOT CRUSH OR CHEW. 180 capsule 1 08/14/19 25 Active losartan (COZAAR) 50 mg tablet TAKE 1 TABLET BY MOUTH 1 TIME EACH DAY. 90 tablet 1 08/14/19 25 Active oxyCODONE-acet aminophen (PERCOCET) 5-325 mg per tabletIndicati ons:Facet arthropathy, lumbar Take 1 tablet by mouth 2 (two) times a day. Max Daily Amount: 2 tablets 56 tablet 08/26/19 25 Active cyclobenzaprin e (FLEXERIL) 10 mg tablet Take 1 tablet (10 mg total) by mouth 2 (two) times a day if needed for muscle spasms. 60 tablet 5 08/26/19 25 Active amitriptyline (ELAVIL) 25 mg tabletIndicati ons:Rheumatoid arthritis, unspecified (CMS/HCC V24, CMS/HCC V28) TAKE 1 TO 2 TABLETS BY MOUTH AT BEDTIME 60 tablet 5 02/12/20 24 2024 Discontinued cyclobenzaprin e (FLEXERIL) 10 mg tablet Take 1 tablet (10 mg total) by mouth 2 (two) times a day if needed for muscle spasms. 60 tablet 5 02/19/20 24 2024 Discontinued omeprazole (PriLOSEC) [address] capsule Take 1 capsule (20 mg total) by mouth 2 (two) times a day. Do not crush or chew. 180 each 1 02/19/20 24 2024 Discontinued losartan (Cozaar) 50 mg tablet Take 1 tablet (50 mg total) by mouth 1 (one) time each day. 90 each 1 02/19/20 24 2024 Discontinued oxyCODONE-acet aminophen (PERCOCET) 5-325 mg per tabletIndicati ons:Facet arthropathy, lumbar Take 1 tablet by mouth 2 (two) times a day. Max Daily Amount: 2 tablets 56 tablet 07/26/19 25 2024 Discontinued(R eorder) cyclobenzaprin e (FLEXERIL) 10 mg tablet TAKE 1 TABLET BY MOUTH 2 TIMES A DAY IF NEEDED FOR MUSCLE SPASMS. 60 tablet 5 08/09/19 25 2024 Discontinued(R eorder) Active Problems Problem Noted Date Diagnosed Date Pneumonia due to COVID-19 virus 06/13/2024 Primary hypertension 02/19/2024 Rheumatoid arthritis ([facility] V24, [facility] V28) 12/13/2023 Overview (12/13/2023): Age 16 at [facility] with Dr Haro. RF negative. [...] Encounters Date Type Department Care Team Description 07/17/2024 11:28 AM EDT - 07/17/2024 11:59 PM EDT Hospital Encounter [address] [phone] Pain of right lower extremity; Leg lesion Discharge Disposition: Home or Self Care 07/17/2024 11:20 AM EDT - 07/17/2024 11:59 PM EDT Hospital Encounter [address] [phone] Right wrist pain Discharge Disposition: Home or Self Care 07/17/2024 10:30 AM EDT Office Visit Adult [address] [phone] Frederick Alfonso MD Pneumonia due to COVID-19 virus (Primary Dx); Pain of right lower extremity; Leg lesion; Right wrist pain; Bilateral hearing loss, unspecified hearing loss type; Ear pain, bilateral; Elevated blood pressure reading; Rheumatoid arthritis, involving unspecified site, unspecified whether rheumatoid factor present (CMS/HCC V24, CMS/HCC V28); Acute hypoxic respiratory failure (CMS/HCC V24, CMS/HCC V28) 07/17/2024 Telephone Adult Medicine [address] [phone] Frederick Alfonso MD Forms/questionnaires 07/08/2024 Lab Requisition [facility] - Main Lab [address] [facility] [place] [id number] Wellington Del Valle MD Local infection of the skin and subcutaneous tissue, unspecified 06/24/2024 Telephone [id number] [place] [phone] Frederick Alfonso MD My chart appt (Pt schedule an apt on my chart ) 06/12/2024 6:51 PM EDT - 06/14/2024 11:58 AM EDT Hospital Encounter [facility] [address] [place] [phone] Jade Hicks DO Maduakor, Emmanuel C, MD Seralathan, Manikandan, MD Pneumonia due to COVID-19 virus (Primary Dx); Acute left-sided low back pain without sciatica; Sepsis, due to unspecified organism, unspecified whether acute organ dysfunction present ([facility] V24, [facility] V28); Rheumatoid arthritis, involving unspecified site, unspecified whether rheumatoid factor present ([facility] V24, [facility] V28) Discharge Disposition: Home-Health Care Svc from Last 3 Months Immunizations Name Administration [...] Surgery Date Site/Laterality Comments KNEE ARTHROSCOPY PROCEDURE: [place]Y ARTHROSCOPY KNEE DIAGNOSTIC W/WO SYNOVIAL BX SPX; COMMENT: on left knee LAPAROSCOPY DIAGNOSTIC / BIO PSY / ASPIRATION / LYSIS PROCEDURE: PELVIS LAPAROSCOPY, DIAGNOSTIC UPPER GASTROINTESTINAL ENDOSCOPY 07/28/2019 PROCEDURE: WY UPPER GI ENDOSCOPY PERFORMED; COMMENT: Visually normal; duodenal biopsies obtained--- pathology = normal. COLONOSCOPY 09/10/2019 PROCEDURE: HISTORICAL COLONOSCOPY; COMMENT: negative Medical History Medical History Date Comments Rheumatoid arthritis(714.0) DX:R heumatoid arthritis(714.0); COMMENT: [place] [facility] Vitamin D deficiency DX:Vitamin D deficiency Ovarian [...] Date Smoking Tobacco: Former Smokeless Tobacco: Never Tobacco Cessation:Counseling Given: Not Answered Alcohol Use Standard Drinks/Week Comments No 0 [...] Sign Reading Time Taken Comments Blood Pressure 138/98 07/17/2024 10:18 AM EDT Pulse 98 07/17/2024 10:18 AM EDT Temperature 36 C (96.8 F) 07/17/2024 10:18 AM EDT Respiratory Rate 15 07/17/2024 10:18 AM EDT Oxygen Saturation 99% 07/17/2024 10:18 AM EDT Inhaled Oxygen Concentration - - Weight 75.8 kg (167 lb) 07/17/2024 10:18 AM EDT Height 154.9 cm (5' 0.98 ) 07/17/2024 10:18 AM E DT Body Mass Index 31.57 07/17/2024 10:18 AM EDT Plan of Treatment Upcoming Encounters Date Type Department Care Team (Late st Contact Info) Description 11/19/2024 9:30 AM EDT Office Visit Adult Medicine [address] [phone] Richard Aquino PA [address] [place] [address] Health Maintenance Due Date Last Done Comments [...] Procedure Name Priority Date/Time Associated Diagnosis Comments ORGANISM ID BILL ONLY Routine 08/11/2024 1:24 PM EDT Local infection of the skin and subcutaneous tissue, unspecified ..ORGANISM IDENTIFICATION, MOLD RESULT Routine 08/11/2024 1:24 PM EDT Local infection of the skin and subcutaneous tissue, unspecified FUNGAL IDENTIFICATION, MOLD Routine 08/11/2024 1:24 PM EDT Local infection of the skin and subcutaneous tissue, unspecified XR FEMUR 2+ VIEWS RIGHT Routine 07/17/2024 11:45 AM EDT Pain of right lower extremity Leg lesion XR WRIST 3+ VIEWS RIGHT Routine 07/17/2024 11:45 AM EDT Right wrist pain CULTURE FUNGAL, OTHER Routine 07/08/2024 12:00 AM EDT Local infection of the skin and subcutaneous tissue, unspecified MANUAL DIFFERENTIAL - SYSMEX WAM Routine 06/14/2024 [...] 1 VIEW STAT 06/12/2024 7:45 PM EDT [id number], RSV, FLU A AND B QUALITATIVE RT-PCR, [...] ECG 12-LEAD STAT 06/12/2024 7:03 PM EDT [facility] 30-74 MINUTES Routine 06/12/2024 6:26 PM EDT HM DEPRESSION SCREENING Routine 06/26/2023 LIPID PANEL Routine 06/25/2023 HM HPV Routine 12/20/2022 HEPATITIS C SCREENING Routine 05/19/2022 HIV SCREENING Routine 05/19/2022 from Last 3 Months or Most Recently Relevant to Health Maintenance Results * Organism ID bill only (08/11/2024 1:24 PM EDT) Organism ID Performed 08/25/2024 1:05 PM EDT [facility] Other Topography unknown / Unknown Non-blood Collection / Unknown 08/11/2024 1:24 PM EDT 08/11/2024 1:25 PM EDT Narrative [facility] - 08/25/2024 1:05 PM EDT Performed at: [address], [address], [place], [place] [id number] Slurry Control Operator Helper: Rehtt Buck MD, Phone: [phone] us Wellington Del Valle MD LAB MICROBIOLOGY - G ENERAL ORDERABLES Final Result Performing Organization Address City/[facility]/ZIP Co de Phone Number [facility] * (ABNORMAL) Organism identification, mold result (08/11/2024 1:24 PM EDT) Result 1 Trichophyton rubrum(A) 08/25/2024 1:05 PM EDT [facility] Other Topography unknown / Unknown Non-blood Collection / Unknown 08/11/2024 1:24 PM EDT 08/11/2024 1:25 PM EDT Narrative [facility] - 08/25/2024 1:05 PM EDT Performed at: [address] [id number] Slurry Control Operator Helper: Shasha Wilson MD, Phone: [phone] us Wellington Del Valle MD LAB MICROBIOLOGY - G ENERAL ORDERABLES Final Result Performing Organization Address [facility]/ZIP Co de Phone Number [facility] * (ABNORMAL) Fungal identification, mold (08/11/2024 1:24 PM EDT) Organism Identification , Mold Final report(A) 08/25/2024 1:05 PM EDT [facility] Other Topography unknown / Unknown Non-blood Collection / Unknown 08/11/2024 1:24 PM EDT 08/11/2024 1:25 PM EDT Narrative [facility] - 08/25/2024 1:05 PM EDT Performed at: 01 - [facility] [id number] Slurry Control Operator Helper: Shasha Wilson MD, Phone: [phone] us Wellington Del Valle MD LAB MICROBIOLOGY - G ENERAL ORDERABLES Final Result [facility] * XR Femur 2+ Views Right (07/17/2024 11:45 AM EDT) Anatomical Region Laterality Modality Lower Extremities, Femur Right Radiogr aphic Imaging 07/17/2024 3:40 PM EDT Narrative 07/17/2024 3:42 PM EDT Right femur, 2 views. History patient complains on the feeling like a bone chip in the leg. There is no evidence of fractures, dislocations or abnormal soft tissue calcifications. Alignment is maintained. Note was made of IUD in place. CONCLUSIONS: No evidence of fractures, dislocations or abnormal soft tissue calcifications. -------- FINAL REPORT -------- Dictated By: Janine Jaime Dictated Date: 07/17/2024 15:40 ET Assigned Physician: Janine Jaime Reviewed and Electronically Signed By: Janine Jaime Signed Date: 07/17/2024 15:42 ET Workstation ID: [id number] Transcribed By: Self Edit Transcribed Date: 07/17/2024 15:40 ET Procedure Note Janine aJime MD - 07/17/2024 Right femur, 2 views. History patient complains on the feeling like a bone chip in the leg. There is no evidence of fractures, dislocations or abnormal soft tissuecalcifications. Alignment is maintained. Note was made of IUD in place. CONCLUSIONS: No evidence of fractures, dislocations or abnormal softtissue calcifications. -------- FINAL REPORT -------- Dictated By: Janine Jaime Dictated Date: 07/17/2024 15:40 ET Assigned Physician: Janine Jaime Reviewed and Electronically Signed By: Janine Jaime Signed Date: 07/17/2024 15:42 ET Workstation ID: [id number] Transcribed By: Self Edit Transcribed Date: 07/17/2024 15:40 ET us Frederick Alfonso MD IMG XR PROCEDURES Final Result * XR Wrist 3+ Views Right (07/17/2024 11:45 AM EDT) Anatomical Region Laterality Modality Upper Extremities, Wrist Right Radiogr aphic Imaging 07/17/2024 3:37 PM EDT Narrative 07/17/2024 3:38 PM EDT Right wrist, 3 views. History pain. Rheumatoid arthritis. No previous studies are available for comparison. There is no evidence of fractures, dislocations or bony erosions. There is no abnormal soft tissue calcifications. Alignment is maintained. CONCLUSIONS: Unremarkable radiographs of the right wrist. -------- FINAL REPORT -------- Dictated By: Janine Jaime Dictated Date: 07/17/2024 15:37 ET Assigned Physician: Janine Jaime Reviewed and Electronically Signed By: Janine Jaime Signed Date: 07/17/2024 15:38 ET Workstation ID: [id number] Transcribed By: Self Edit Transcribed Date: 07/17/2024 15:37 ET Procedure Note Janine Jaime MD - 07/17/2024 Right wrist, 3 views. History pain. Rheumatoid arthritis. No previous studies are available for comparison. There is no evidence of fractures, dislocations or bony erosions. There isno abnormal soft tissue calcifications. Alignment is maintained. CONCLUSIONS: Unremarkable radiographs of the right wrist. -------- FINAL REPORT -------- Dictated By: Janine Jaime Dictated Date: 07/17/2024 15:37 ET Assigned Physician: Janine Jaime Reviewed and Electronically Signed By: Janine Jaime Signed Date: 07/17/2024 15:38 ET Workstation ID: [id number] Transcribed By: Self Edit Transcribed Date: 07/17/2024 15:37 ET us Frederick Alfonso MD IMG XR PROCEDURES Final Result * (ABNORMAL) Culture fungal, other (07/08/2024 12:00 AM EDT) [facility] Culture, Fungus Fungus(A) 3:14 PM EDT [facility] Comment: ORGANISM SENT TO REFERENCE LABORATORY FOR IDENTIFICATION. Refer to [id number] for results The organism value for this result has been updated. These results have been appended to the previously preliminary verified report. Skin 07/08/2024 07/08/2024 7:1 2 PM EDT us Wellington Del Valle MD LAB MICROBIOLOGY - G ENERAL ORDERABLES Final Result [facility] [address] [place] [address], [place] [phone] * (ABNORMAL) Manual differential (06/14/2024 6:18 AM EDT) Only the most recent of4 resultswithin the time period is included. Neutrophils % 89.0 % LAB HEMETOLOGY METHOD 06/14/2024 9:00 AM EDT [facility] Bands % 2.0 % LAB HEMETOLOGY METHOD 06/14/2024 9:00 AM EDT [facility] Lymphocytes % 4.0 % LAB HEMETOLOGY METHOD 06/14/2024 9:00 AM EDT [facility] Monocytes % 2.0 % LAB HEMETOLOGY METHOD 06/14/2024 9:00 AM [facility] Eosinophils % 0.0 % LAB HEMETOLOGY METHOD 06/14/2024 9:00 AM [facility] Basophils % 0.0 % LAB HEMETOLOGY METHOD 06/14/2024 9:00 AM [facility] Metamyelocytes % 1.0(H) % LAB HEMETOLOGY METHOD 06/14/2024 9:00 AM [facility] Myelocytes % 1.0(H) % LAB HEMETOLOGY METHOD 06/14/2024 9:00 AM [facility] Promyelocytes % 1.0(H) % LAB HEMETOLOGY METHOD 06/14/2024 9:00 AM [facility] Neutrophils Absolute Manual 9.26(H) 1.50 - 7.00 K/mcL LAB HEMETOLOGY METHOD 06/14/2024 9:00 AM [facility] Bands Absolute Manual 0.21(H) 0.00 - 0.00 K/mcL LAB HEMETOLOGY METHOD 06/14/2024 9:00 AM [facility] Lymphocytes Absolute 0.42(L) 1.00 - 5.00 K/mcL LAB HEMETOLOGY METHOD 06/14/2024 9:00 AM [facility] Monocytes Absolute Manual 0.21 0.20 - 1.00 K/mcL LAB HEMETOLOGY METHOD 06/14/2024 9:00 AM [facility] Eosinophils Absolute Manual 0.00 0.00 - 0.50 K/mcL LAB HEMETOLOGY METHOD 06/14/2024 9:00 AM [facility] Basophils Absolute Manual 0.00 0.00 - 0.20 K/mcL LAB HEMETOLOGY METHOD 06/14/2024 9:00 AM [facility] Metamyelocytes Absolute Manual 0.10(H) 0.00 - 0.00 K/mcL LAB HEMETOLOGY METHOD 06/14/2024 9:00 AM EDT [facility] Myelocytes Absolute Manual 0.10(H) 0.00 - 0.00 K/[facility] LAB HEMETOLOGY METHOD 06/14/2024 9:00 AM EDT [facility] Promyelocytes Absolute Manual 0.10(H) 0.00 - 0.00 K/[facility] LAB HEMETOLOGY METHOD 06/14/2024 9:00 AM EDT [facility] Rbc Morphology Present( A) Consistent with indices, Normal for [place] LAB HEMETOLOGY METHOD 06/14/2024 9:00 AM EDT [facility] Platelet Morphology - WAM Normal Normal [facility] 06/14/2024 9:00 AM EDT [facility] Polychromasia Present Present( A) (none) LAB HEMETOLOGY METHOD 06/14/2024 9:00 AM EDT [facility] Blood Venous blood specimen / Unknown Venipuncture / Unknown 06/14/2024 6:18 AM EDT 06/14/2024 6:50 AM EDT [facility] LAB BLOOD ORDERABLES Final Result [facility] [address] [place] [address], * (ABNORMAL) CBC auto differential (06/14/2024 6:18 AM EDT) Only the most recent of4 resultswithin the time period is included. WBC 10.4 4.8 - 10.8 K/[facility] LAB HEMETOLOGY METHOD 06/14/2024 9:00 AM EDT [facility] RBC 3.00(L) 3.80 - 4.80 M/[facility] LAB HEMETOLOGY METHOD 06/14/2024 9:00 AM EDT [facility] Hemoglobin 8.1(L) 11.5 - 16.0 g/dL LAB HEMETOLOGY METHOD 06/14/2024 9:00 AM [facility] Hematocrit 27.3(L) 35.0 - 47.0 % LAB HEMETOLOGY METHOD 06/14/2024 9:00 AM [facility] MCV 91.3 79.0 - 98.0 FL LAB HEMETOLOGY METHOD 06/14/2024 9:00 AM [facility] MCH 27.1 27.0 - 32.0 pcg LAB HEMETOLOGY METHOD 06/14/2024 9:00 AM [facility] MCHC 29.7(L) 32.0 - 37.0 g/dL LAB HEMETOLOGY METHOD 06/14/2024 9:00 AM [facility] RDW 21.2(H) 11.0 - 15.0 % LAB HEMETOLOGY METHOD 06/14/2024 9:00 AM [facility] Platelets 242 130 - 400 K/mcL LAB HEMETOLOGY METHOD 06/14/2024 9:00 AM [facility] MPV 9.9 7.0 - 11.0 FL LAB HEMETOLOGY METHOD 06/14/2024 9:00 AM [facility] NRBC 0.2 <1.0 % LAB HEMETOLOGY METHOD 06/14/2024 9:00 AM [facility] NRBC Absolute 0.02 <0.10 K/mcL LAB HEMETOLOGY METHOD 06/14/2024 9:00 AM [facility] Blood Venous blood specimen / Unknown Venipuncture / Unknown 06/14/2024 6:18 AM EDT 06/14/2024 6:50 AM EDT [facility] LAB BLOOD ORDERABLES Final Result [facility] [address] [place] [address], [place] [phone] * Magnesium (06/14/2024 6:18 AM EDT) Only the most recent of3 resultswithin the time period is included. Magnesium 2.5 1.9 - 2.6 mg/dL LAB CHEMISTRY METHOD 06/14/2024 7:18 AM EDT [facility] Blood Venous blood specimen / Unknown Venipuncture / Unknown 06/14/2024 6:18 AM EDT 06/14/2024 6:50 AM EDT [facility] LAB BLOOD ORDERABLES Final Result Performing Organization Address [facility] de Phone Number [facility] [address] [place] [address], * (ABNORMAL) Comprehensive metabolic panel (06/14/2024 6:18 AM EDT) Pathologist [facility] Sodium 140 133 - 145 mmol/L LAB CHEMISTRY METHOD 06/14/2024 7:21 AM [facility] Potassium 4.0 3.5 - 5.5 mmol/L LAB CHEMISTRY METHOD 06/14/2024 7:21 AM [facility] Chloride 110 96 - 110 mmol/L LAB CHEMISTRY METHOD 06/14/2024 7:21 AM [facility] CO2 22 21 - 32 mmol/L LAB CHEMISTRY METHOD 06/14/2024 7:21 AM [facility] Anion Gap 8 3 - 11 LAB CHEMISTRY METHOD 06/14/2024 7:21 AM [facility] Glucose 141(H) 70 - 100 mg/dL LAB CHEMISTRY METHOD 06/14/2024 7:21 AM [facility] BUN 14 5 - 25 mg/dL LAB CHEMISTRY METHOD 06/14/2024 7:21 AM [facility] Creatinine 0.48(L) 0.50 - 1.10 mg/dL LAB CHEMISTRY METHOD 06/14/2024 7:21 AM [facility] eGFR 128 >=60 mL/min/1. 73m2 LAB CHEMISTRY METHOD 06/14/2024 7:21 AM [facility] Comment:Calculation based on the Chronic Kidney Disease Epidemiology Collaboration (CKD-EPI) equation refit without adjustment for race. BUN/Creatinine Ratio 29.2 LAB CHEMISTRY METHOD 06/14/2024 7:21 AM [facility] Calcium 7.7(L) 8.5 - 10.5 mg/dL LAB CHEMISTRY METHOD 06/14/2024 7:21 AM [facility] AST (SGOT) 14 10 - 42 unit/L LAB CHEMISTRY METHOD 06/14/2024 7:21 AM [facility] ALT (SGPT) 66(H) 10 - 60 unit/L LAB CHEMISTRY METHOD 06/14/2024 7:21 AM [facility] Alkaline Phosphatase 101 42 - 121 unit/L LAB CHEMISTRY METHOD 06/14/2024 7:21 AM [facility] Total Protein 5.1(L) 6.0 - 8.0 g/dL LAB CHEMISTRY METHOD 06/14/2024 7:21 AM [facility] Albumin 1.7(L) 3.2 - 5.0 g/dL LAB CHEMISTRY METHOD 06/14/2024 7:21 AM [facility] Total Bilirubin 0.1 0.0 - 1.4 mg/dL LAB CHEMISTRY METHOD 06/14/2024 7:21 AM [facility] Blood Venous blood specimen / Unknown Venipuncture / Unknown 06/14/2024 6:18 AM EDT 06/14/2024 6:50 AM EDT [facility] LAB BLOOD ORDERABLES Final Result Performing Organization Address [facility]/ZIP Co de Phone Number [facility] [address] [place] [address], [place] [phone] * (ABNORMAL) POCT Glucose, blood (06/14/2024 6:05 AM EDT) Only the most recent of5 resultswithin the time period is included. [facility] Glucose POCT 131(H) 70 - 100 mg/dL 06/14/2024 6:06 AM EDT [facility] POCT Comment RN Notified 06/14/2024 6:06 AM EDT [facility] Blood Capillary blood specimen / Unknown 06/14/2024 6:05 AM EDT 06/14/2024 6:07 AM EDT Michele Mariano MD LAB POINT OF CA RE TEST DOCKED DEVICE UNSOLICITED RESULTS Final Result Performing Organization Address City/[facility]/ZIP Co de Phone Number [facility] [address] [place] [address], [place] [phone] * Urinalysis with reflex microscopic and culture (06/13/2024 7:03 PM EDT) [facility] Specific [place] Urine 1.015 1.003 - 1.030 LAB URINALYSIS - AUTOMATED METHOD 06/13/2024 7:26 PM EDT [facility] pH, Urine 6.0 5.0 - 8.0 pH LAB URINALYSIS - AUTOMATED METHOD 06/13/2024 [facility] Leukocytes, Urine Negative Negative LAB URINALYSIS - AUTOMATED METHOD 06/13/2024 7:26 PM EDT [facility] Nitrite, Urine Negative Negative LAB URINALYSIS - AUTOMATED METHOD 06/13/2024 7:26 PM EDT [facility] Protein, Urine Trace <=Trace mg/dL LAB URINALYSIS - AUTOMATED METHOD 06/13/2024 7:26 PM EDT [facility] Glucose, Urine Negative Negative mg/dL LAB URINALYSIS - AUTOMATED METHOD 06/13/2024 7:26 PM EDT [facility] Ketones, Urine Negative Negative mg/dL LAB URINALYSIS - AUTOMATED METHOD 06/13/2024 7:26 PM EDT [facility] Urobilinogen, Urine 0.2 0.2 - 1.0 mg/dL LAB URINALYSIS - AUTOMATED METHOD 06/13/2024 7:26 PM EDT [facility] Bilirubin, Urine Negative Negative LAB URINALYSIS - AUTOMATED METHOD 06/13/2024 7:26 PM EDT [facility] Blood, Urine Negative Negative LAB URINALYSIS - AUTOMATED METHOD 06/13/2024 7:26 PM EDT [facility] Urine Urine specimen obtained by clean catch procedure / Unknown Non-blood Collection / Unknown 06/13/2024 7:03 PM EDT 06/13/2024 7:13 PM EDT us [facility] LAB URINE ORDERABLES Final Result Performing Organization Address [facility]/ZIP Co de Phone Number [facility] [address] [place] [address], [place] [phone] * Hernandez urine culture tube (06/13/2024 7:03 PM EDT) Extra Tube Hold for add-ons. 06/13/2024 9:01 PM EDT [facility] Comment:Auto resulted. Urine Urine specimen obtained by clean catch procedure / Unknown Non-blood Collection / Unknown 06/13/2024 7:03 PM EDT 06/13/2024 7:13 PM EDT us [facility] LAB URINE ORDERABLES Final Result [facility] [address] [place] [address], [place] [phone] * (ABNORMAL) Prothrombin time with INR (06/13/2024 1:04 PM EDT) [facility] Protime 14.6(H) 10.6 - 13.9 sec LAB COAGULATION METHOD 06/13/2024 1:26 PM EDT [facility] INR 1.2 LAB COAGULATION METHOD 06/13/2024 1:26 PM EDT [facility] Blood Venous blood specimen / Unknown Venipuncture / Unknown 06/13/2024 1:04 PM EDT 06/13/2024 1:15 PM EDT [facility] LAB BLOOD ORDERABLES Final Result Performing Organization Address City/[facility]/ZIP Co de Phone Number [facility] [address], [place] [address], * SST tube (06/13/2024 1:02 PM EDT) [facility] Extra Tube Hold for add-ons. 06/13/2024 3:02 PM EDT [facility] Comment:Auto resulted. Blood Venous blood specimen / Unknown 06/13/2024 1:02 PM EDT 06/13/2024 1:53 PM EDT Michele Mariano MD LAB BLOOD ORDERABLES Fi nal Result [facility] [address] [place] [address], [place] [phone] * Lactate, with reflex (06/13/2024 5:56 AM EDT) [facility] LACTIC ACID 0.8 0.4 - 2.0 mmol/L LAB CHEMISTRY METHOD 06/13/2024 7:20 AM EDT [facility] Blood Venous blood specimen / Unknown Venipuncture / Unknown 06/13/2024 5:56 AM EDT 06/13/2024 6:34 AM EDT Mike Otoole MD LAB BLOOD ORDERABLES Noelle l Result Performing Organization Address [facility] de Phone Number [facility] [address] [place] [address], * (ABNORMAL) Vitamin B12 and folate (06/13/2024 5:56 AM EDT) Vitamin B-12 198(L) 250 - 900 pcg/mL LAB CHEMISTRY METHOD 06/13/2024 1:50 PM EDT [facility] Folate 6.9 2.8 - 17.0 ng/ml LAB CHEMISTRY METHOD 06/13/2024 1:50 PM EDT [facility] Blood Venous blood specimen / Unknown Venipuncture / Unknown 06/13/2024 5:56 AM EDT 06/13/2024 6:34 AM EDT Key [facility] LAB BLOOD ORDERABLES Final Result Performing Organization Address [facility] de Phone Number [facility] [address] [place] [address], * (ABNORMAL) Procalcitonin (06/13/2024 5:56 AM EDT) Procalcitonin 0.47(H) <=0.16 ng/mL LAB CHEMISTRY METHOD 06/13/2024 2:15 PM EDT [facility] Blood Venous blood specimen / Unknown Venipuncture / Unknown 06/13/2024 5:56 AM EDT 06/13/2024 6:34 AM EDT Narrative [facility] - 06/13/2024 2:15 PM EDT [...] BLOOD ORDERABLES Final Result Performing Organization Address [facility] de Phone Number [facility] [address] [place] [address], [place] [phone] * (ABNORMAL) Iron and TIBC (06/13/2024 5:56 AM EDT) Iron 11(L) 40 - 150 mcg/dL LAB CHEMISTRY METHOD 06/13/2024 1:35 PM EDT [facility] TIBC 208(L) 250 - 450 mcg/dL LAB CHEMISTRY METHOD 06/13/2024 1:35 PM EDT [facility] Iron Saturation 5(L) 15 - 50 % LAB CHEMISTRY METHOD 06/13/2024 1:35 PM EDT [facility] Blood Venous blood specimen / Unknown Venipuncture / Unknown 06/13/2024 5:56 AM EDT 06/13/2024 6:34 AM EDT Key [facility] LAB BLOOD ORDERABLES Final Result Performing Organization Address [facility]/ZIP Co de Phone Number [facility] [address] [place] [address], [place] [phone] * Prolactin (06/13/2024 5:56 AM EDT) [facility] Prolactin 6.40 See Comment ng/mL LAB CHEMISTRY METHOD 06/13/2024 9:02 AM EDT [facility] Comment: Prolactin Reference Ranges (ng/mL) Non 2.2 - 30.3 8.1 - 347.6 Postmenopausal 0.7 - 31.5 Blood Venous blood specimen / Unknown Venipuncture / Unknown 06/13/2024 5:56 AM EDT 06/13/2024 6:34 AM EDT [facility] LAB BLOOD ORDERABLES Final Result [facility] [address] [place] [address], [place] [phone] * (ABNORMAL) Reticulocyte count (06/13/2024 5:56 AM EDT) [facility] Retic Ct Abs 0.020(L) 0.030 - 0.090 M/mcL LAB HEMETOLOGY METHOD 06/13/2024 12:24 PM EDT [facility] Retic Ct Pct 0.6(L) 0.7 - 1.7 % LAB HEMETOLOGY METHOD 06/13/2024 12:24 PM EDT [facility] Immature Retic Fract 16.7(H) 2.3 - 15.9 % LAB HEMETOLOGY METHOD 06/13/2024 12:24 PM EDT [facility] Reticulocyte Hemoglobin 19.3(L) >29.0 pcg LAB HEMETOLOGY METHOD 06/13/2024 12:24 PM EDT [facility] Blood Venous blood specimen / Unknown Venipuncture / Unknown 06/13/2024 5:56 AM EDT 06/13/2024 6:34 AM EDT us Key [facility] LAB BLOOD ORDERABLES Final Result Performing Organization Address [facility] Co de Phone Number [facility] [address] [place] [address], [place] [phone] * (ABNORMAL) C-reactive protein (06/13/2024 5:56 AM EDT) [facility] C-Reactive Protein 23.40(H) <=0.50 mg/dL LAB CHEMISTRY METHOD 06/13/2024 8:04 AM EDT [facility] Blood Venous blood specimen / Unknown Venipuncture / Unknown 06/13/2024 5:56 AM EDT 06/13/2024 6:34 AM EDT us Speedy [facility] LAB BLOOD ORDERABLES Final Res ult Performing Organization Address [facility] Co de Phone Number [facility] [address] [place] [address], [place] [phone] * Ferritin (06/13/2024 5:56 AM EDT) [facility] Ferritin 203 8 - 252 ng/mL LAB CHEMISTRY METHOD 06/13/2024 1:50 PM EDT [facility] Blood Venous blood specimen / Unknown Venipuncture / Unknown 06/13/2024 5:56 AM EDT 06/13/2024 6:34 AM EDT us Key [facility] LAB BLOOD ORDERABLES Final Result Performing Organization Address City/[facility] Co de Phone Number [facility] [address] [place] [address], [place] [phone] * (ABNORMAL) Hepatic function panel (06/13/2024 5:56 AM EDT) Only the most recent of2 resultswithin the time period is included. [facility] Total Protein 5.1(L) 6.0 - 8.0 g/dL LAB CHEMISTRY METHOD 06/13/2024 8:04 AM [facility] Albumin 1.8(L) 3.2 - 5.0 g/dL LAB CHEMISTRY METHOD 06/13/2024 8:04 AM [facility] Comment:Results verified by repeat testing Total Bilirubin 0.2 0.0 - 1.4 mg/dL LAB CHEMISTRY METHOD 06/13/2024 8:04 AM [facility] Bilirubin, Direct 0.2 0.0 - 0.3 mg/dL LAB CHEMISTRY METHOD 06/13/2024 8:04 AM [facility] Bilirubin, Indirect 0.0 0.0 - 1.1 mg/dL LAB CHEMISTRY METHOD 06/13/2024 8:04 AM [facility] ALT (SGPT) 82(H) 10 - 60 unit/L LAB CHEMISTRY METHOD 06/13/2024 8:04 AM [facility] AST (SGOT) 24 10 - 42 unit/L LAB CHEMISTRY METHOD 06/13/2024 8:04 AM [facility] Alkaline Phosphatase 122(H) 42 - 121 unit/L LAB CHEMISTRY METHOD 06/13/2024 8:04 AM [facility] Blood Venous blood specimen / Unknown Venipuncture / Unknown 06/13/2024 5:56 AM EDT 06/13/2024 6:34 AM EDT us Speedy [facility]ANOS LAB BLOOD ORDERABLES Final Res ult [facility] [address] [place] [address], * (ABNORMAL) Basic metabolic panel (06/13/2024 5:56 AM EDT) Only the most recent of2 resultswithin the time period is included. [facility] Sodium 139 133 - 145 mmol/L LAB CHEMISTRY METHOD 06/13/2024 7:49 AM [facility] Potassium 4.0 3.5 - 5.5 mmol/L LAB CHEMISTRY METHOD 06/13/2024 7:49 AM [facility] Chloride 111(H) 96 - 110 mmol/L LAB CHEMISTRY METHOD 06/13/2024 7:49 AM [facility] CO2 19(L) 21 - 32 mmol/L LAB CHEMISTRY METHOD 06/13/2024 7:49 AM [facility] Anion Gap 9 3 - 11 LAB CHEMISTRY METHOD 06/13/2024 7:49 AM [facility] Glucose 139(H) 70 - 100 mg/dL LAB CHEMISTRY METHOD 06/13/2024 7:49 AM [facility] BUN 11 5 - 25 mg/dL LAB CHEMISTRY METHOD 06/13/2024 7:49 AM [facility] Creatinine 0.49(L) 0.50 - 1.10 mg/dL LAB CHEMISTRY METHOD 06/13/2024 7:49 AM [facility] eGFR 127 >=60 mL/min/1. 73m2 LAB CHEMISTRY METHOD 06/13/2024 7:49 AM [facility] Comment:Calculation based on the Chronic Kidney Disease Epidemiology Collaboration (CKD-EPI) equation refit without adjustment for race. BUN/Creatinine Ratio 22.4 LAB CHEMISTRY METHOD 06/13/2024 7:49 AM [facility] Calcium 7.5(L) 8.5 - 10.5 mg/dL LAB CHEMISTRY METHOD 06/13/2024 7:49 AM [facility] Blood Venous blood specimen / Unknown Venipuncture / Unknown 06/13/2024 5:56 AM EDT 06/13/2024 6:34 AM EDT us Mike Otoole MD LAB BLOOD ORDERABLES Noelle etta Result [facility] [address] [place] [address], * ECG-Annotated (06/13/2024) us Provider Onbase ECG ORDERABLES Final Result * CT Angio [...] document has been electronically signed by: Albino Zapata DO on 06/12/2024 23:21:58 Narrative 06/12/2024 11:21 [...] metallic beam hardening artifact. Procedure Note Albino Zapata MD - 06/12/2024 INDICATION: PE / Aorta [...] document has been electronically signed by: Albino Zaapta DO on 06/12/2024 23:21:58 Jade Hicks DO IMG CT PROCEDURES Final R esult * Troponin I high sensitivity (NOW and then in 1 hour) (06/12/2024 9:14 PM EDT) Only the most recent of2 resultswithin the time period is included. [facility] High Sensitivity Troponin I 11 <=54 ng/L LAB CHEMISTRY METHOD 06/12/2024 10:05 PM EDT [facility] Blood Venous blood specimen / Unknown Venipuncture / Unknown 06/12/2024 9:14 PM EDT 06/12/2024 9:24 PM EDT Narrative [facility] - 06/12/2024 10:05 PM EDT High levels of biotin in samples may falsely decrease hsTroponin values. Use caution when interpreting hsTroponin results in patients taking biotin who exhibit renal impairment (eGFR <60) or in patients taking more than 20 mg/day of biotin. Dana [facility] LAB BLOOD ORDERABLES Final Resul t Performing Organization Address City/[facility]/ZIP Co de Phone Number [facility] [address] [place] [address], * Blood culture (06/12/2024 7:55 PM EDT) Only the most recent of2 resultswithin the time period is included. [facility] Culture, Blood No growth at 5 days 06/17/2024 9:01 PM EDT [facility] Blood Venous blood specimen / Unknown Venipuncture / Unknown 06/12/2024 7:55 PM EDT 06/12/2024 8:31 PM EDT Jade Hicks DO LAB MICROBIOLOGY - GENERA L ORDERABLES Final Result [facility] [address] [place] [address], * Lactate (06/12/2024 7:55 PM EDT) [facility] Lactate 1.9 0.4 - 2.0 mmol/L LAB CHEMISTRY METHOD 06/12/2024 8:53 PM EDT [facility] Blood Venous blood specimen / Unknown Venipuncture / Unknown 06/12/2024 7:55 PM EDT 06/12/2024 8:28 PM EDT us Jade Hicks DO LAB BLOOD ORDERABLES Noelle l Result [facility] [address] [place] [address], * XR Chest 1 View (06/12/2024 7:45 [...] Signed Date: 06/13/2024 08:22 ET Workstation ID: [id number] Transcribed By: Self Edit Transcribed Date: 06/13/2024 08:20 ET Narrative 06/13/2024 8:22 AM EDT PROCEDURE: AP chest radiograph. HISTORY: hypoxia. COMPARISON: 01/19/2018. FINDINGS: There is ill-defined heterogeneous opacity at the left lung base which is suspicious for a developing pneumonia. No pleural effusion. Smooth pleural thickening at the apices appears similar to the previous study. Cardiomediastinal contours are unchanged. Left glenohumeral arthroplasty. Deformity of the posterior right 7th rib suggesting [...] Signed Date: 06/13/2024 08:22 ET Workstation ID: [id number] Transcribed By: Self Edit Transcribed Date: 06/13/2024 08:20 ET Dana LLANOS IMG XR PROCEDURES Final Result * (ABNORMAL) [id number], RSV, Influenza A and B qualitative RT-PCR (06/12/2024 7:11 PM EDT) Influenza A PCR Not Detected Not Detected LAB MICROBIOLOGY METHOD 06/12/2024 8:50 PM EDT [facility] Influenza B PCR Not Detected Not Detected LAB MICROBIOLOGY METHOD 06/12/2024 8:50 PM EDT [facility] RSV PCR Not Detected Not Detected LAB MICROBIOLOGY METHOD 06/12/2024 8:50 PM EDT [facility] SARS COV-2 Detected(A) Not Detected LAB MICROBIOLOGY METHOD 06/12/2024 8:50 PM EDT [facility] Swab Both anterior nares / Unknown Non-blood Collection / Unknown 06/12/2024 7:11 PM EDT 06/12/2024 8:04 PM EDT Narrative [facility] - 06/12/2024 8:50 PM EDT Disclaimer: Testing was performed using the [employer] GeneXpert Xpress SARS-CoV-2 _Flu_RSV PLUS PCR assay. The manner in which this information is used to guide patient care is the responsibility of the healthcare provider. Results should be correlated with the clinical history, epidemiological data, and other data available to the clinician evaluating the patient. Negative results do not preclude infection. This test has been authorized by the FDA under an Emergency Use Authorization (EUA). This test is only authorized for the duration of time the declaration that circumstances exist justifying the authorization of the emergency use of in vitro diagnostic tests for detection of SARS-CoV-2 virus and/or diagnosis of COVID-19 infection under section 564 (b) (1) of the Act, 21 U.S.C 360bbb-3 (b) (1), unless the authorization is terminated or revoked sooner. Reference Range: Not Detected Fact sheet for Healthcare providers can be found at https://www.fda.gov/media/597487/download. Fact sheet for Healthcare patients can be found at https://www.fda.gov/media/795436/download. Dana [facility]AN[facility] LAB MICROBIOLOGY - GENERAL ORDER NORIS Final Result Performing Organization Address [facility]/ZIP Co de Phone Number [facility] [address] [place] [address], * hCG, serum, qualitative (06/12/2024 7:04 PM EDT) [facility] hCG Qual Negative Negative 06/12/2024 8:59 PM EDT [facility] Blood Venous blood specimen / Unknown Venipuncture / Unknown 06/12/2024 7:04 PM EDT 06/12/2024 8:02 PM EDT Jade Hicks DO LAB BLOOD ORDERABLES Noelle l Result [facility] [address] [place] [address], [place] [phone] * ECG 12 lead (06/12/2024 7:03 PM EDT) Ventricular Rate ECG 142 BPM GEMUSE Atrial Rate 142 BPM GEMUSE P-R Interval 124 ms GEMUSE QRS Duration 72 ms GEMUSE Q-T Interval 282 ms GEMUSE QTc 433 ms GEMUSE P Wave [place] 50 degrees GEMUSE R [place] 41 degrees GEMUSE T [place] 65 degrees GEMUSE ECG Interpretation Sinus tachycardia When compared with ECG of 01-SEP-2017 19:14, Vent. rate has increased BY 62 BPM Confirmed by Kelvin TOLEDO YUFENG ([id number]) on 06/12/2024 7:27:33 PM GEMUSE 06/12/2024 7:03 PM EDT 06/12/2024 7:27 PM EDT us Jade Hicks DO ECG ORDERABLES Final Res ult GEMUSE * [place] [facility] 30-74 MINUTES (06/12/2024 6:26 PM EDT) Narrative Jade Hicks DO - 06/12/2024 6:26 PM EDT VIET Ambrosio 06/16/2024 5:57 PM Critical Care Performed by: VIET Ambrosio Authorized by: Jade Hicks DO Critical care provider statement: Critical care time (minutes): 60 (45) Critical care time was exclusive of: Separately billable procedures and treating other patients Critical care was necessary to treat or prevent imminent or life-threatening deterioration of the following conditions: Respiratory failure Critical care was time spent personally by me on the following activities: Development of treatment plan with patient or surrogate, evaluation of patient's response to treatment, examination of patient, obtaining history from patient or surrogate, ordering and performing treatments and interventions, ordering and review of laboratory studies, ordering and review of radiographic studies, pulse oximetry and re-evaluation of patient's condition Care discussed with: admitting provider Comments: 33-year-old female with Bilateral Lower lobe pneumonia secondary to COVID, meeting sepsis criteria. Significant hypoxia, tachypnea and increased respiratory effort requiring BiPAP. us Jade Hicks DO IN CLINIC/BEDSIDE ORDERAB LES Final Result * Depression Screening (06/26/2023) Pathologist [facility] Depression Screening Abstracted us Historical Provider HEALTH MAINTENANCE Final Result * Lipid panel (06/25/2023) LDL/HDL Ratio 2 0 - 4 Triglycerides 76 0 - 150 mg/dL Cholesterol 171 0 - 200 mg/dL HDL 79 >=40 mg/dL LDL Cholesterol 77 0 - 100 mg/dL Blood Venous blood specimen / Unknown [facility] Provider LAB BLOOD ORDERABLES Noelle l Result * Cervical Cancer Screening: HPV (12/20/2022) Pathologist [facility] Cervical Cancer Screening: HPV Negative, Abstracted [facility] Provider HEALTH MAINTENANCE Final Result * HIV Screening (05/19/2022) Pathologist [facility] HIV Screening Abstracted [facility] Provider HEALTH MAINTENANCE Final Result * Hepatitis C Screening (05/19/2022) Pathologist [facility] Hepatitis C Screening Abstracted [facility] Provider HEALTH MAINTENANCE Final Result from Last 3 Months or Most Recently Relevant to Health Maintenance Insurance [facility] Advance Directives * Full Code - [...] currently active code status orders. Care Teams Veterinary Technologist Relationship Specialty Start Date End Date Frederick Alfonso MD [address] [place] [id number] PCP - General Internal Medicine 01/20/16
== END 2024-08-27 09:05 | disposition home or self-care (01) ==
LOC: HO.RHE 08:07
PROVIDERS: PCP Internal Medicine; Visit Provider Student in an Organized Health Care Education/Training Program
DX: M06.00 Rheumatoid arthritis without rheumatoid factor, unspecified site (principal); M79.7 Fibromyalgia; M65.4 Radial styloid tenosynovitis [de Quervain]; M80.00XA Age-related osteoporosis with current pathological fracture, unspecified site, initial encounter for fracture; Z79.899 Other long term (current) drug therapy; Z79.52 Long term (current) use of systemic steroids
CPT/HCPCS: 99214; G2211

== ENCOUNTER 2024-08-27 09:12 | Outpatient (REF) | payer OTHER, SELFPAY ==
[2024-08-27 09:55] LABS: MANUAL DIFF FLAG NO
[2024-08-27 10:01] LABS: Basophils Absolute Auto 0.1 X10*3/uL (0.0-0.2); Basophils Percent Auto 0.8 % (0-2); Eosinophils Absolute Auto 0.3 X10*3/uL (0.0-0.4); Eosinophils Percent Auto 3.9 % (0-4); Hematocrit 36.6 % (37.0-47.0); Imm Gran Abs Auto 0.25 X10*3/uL (0.00-0.03); Imm Gran Pct Auto 3.2 % (0.0-0.4); Lymphocytes Absolute Auto 2.7 X10*3/uL (1.2-4.9); Lymphocytes Percent Auto 33.4 % (20-40); Mean Corpuscular HGB Conc 30.1 g/dl (31.0-35.0); Mean Corpuscular Hemoglobin 27.4 pg (27.0-33.0); Mean Corpuscular Volume 91.3 fL (80.0-98.0); Mean Platelet Volume 9.1 fL (9.4-12.3); Monocytes Percent Auto 13.1 % (2-11); Neutrophils Absolute Auto 3.6 x10*3/uL (2.0-8.3); Neutrophils Percent Auto 45.6 % (45-73); Platelet Count 330 X10*3/uL (160-400); Red Blood Count 4.01 X10*6/uL (4.20-5.50); Red Cell Distribution Width 18.4 % (11.0-16.0); White Blood Count 7.9 X10*3/uL (4.8-10.8)
[2024-08-27 10:36] LABS: Alanine Aminotransferase 81 U/L (0-31); Albumin Level 4.3 g/dL (3.5-5.0); Alkaline Phosphatase 68 U/L (39-117); Anion Gap 9 (12-20); Aspartate Amino Transferase 30 U/L (5-31); Bilirubin Total 0.1 mg/dL (0.0-1.0); Blood Urea Nitrogen 8 mg/dL (9-16); C Reactive Protein 0.15 mg/dL (< or = 0.50); Calcium 9.2 mg/dL (8.4-10.2); Carbon Dioxide 27 mmol/L (22-29); Chloride 111 mmol/L (96-108); Estimated Glomerular Filt Rate > 60; Glucose Random 101 mg/dL (60-115); Potassium 3.4 mmol/L (3.3-5.1); Sodium 144 mmol/L (135-145); Total Protein 6.4 g/dL (6.5-8.0)
[2024-08-27 10:49] LABS: Erythrocyte Sedimentation Rate 14 MM/HR (0-20)
[2024-08-27 10:53] LABS: Thyroid Stimulating Hormone 8.64 uIU/mL (0.32-4.0)
== END 2024-08-27 09:13 | disposition home or self-care (01) ==
LOC: HO.10HDL 09:12
PROVIDERS: Visit Provider Student in an Organized Health Care Education/Training Program
DX: E03.9 Hypothyroidism, unspecified (principal); R06.00 Dyspnea, unspecified; M79.7 Fibromyalgia; M65.4 Radial styloid tenosynovitis [de Quervain]; Z79.899 Other long term (current) drug therapy; Z79.52 Long term (current) use of systemic steroids
CPT/HCPCS: 36415; 80053; 84443; 85025; 85652; 86140; 99212

== ENCOUNTER 2024-09-01 09:52 | Outpatient (AMB) | payer OTHER, SELFPAY ==
--- NOTE | 2024-09-01 09:54 | MHC.OFFVIS ---
Vital Signs 09/01/24 09:56 Height 5 ft 1 in Weight 164 lb BMI 31.0 BP 160/97 H Blood Pressure Location Lt brachial Position Sitting Respiration 16 Pulse 110 H Pulse Source Pulse Oximeter Pulse Oximetry (%) 98 Oxygen Delivery Method Room Air Intake Visit Reasons: Multiple fractures of ribs, Allergies upadacitinib (From Rinvoq) Allergy (Mild, Verified 09/01/24 09:57) Rash naproxen (NAPROXEN) Allergy (Unknown, Verified 09/01/24 09:57) DIZZINESS EYE REDNESS AND SWELLING, edema Medication List - Last Reconciled 09/01/24 by Diane Abdalla LPN acetaminophen (Tylenol Extra Strength) 1,000 mg PO Q6H PRN amitriptyline mg PO anakinra 100 mg (0.67 mL) subcut DAILY 30 days cholecalciferol (vitamin D3) (Vitamin D3) 50 mcg PO DAILY clotrimazole 1% 1 appl topical BID cyclobenzaprine 10 mg PO BEDTIME folic acid 1 mg PO DAILY ibuprofen 400 mg PO TID PRN levonorgestrel (Mirena) intrauterine losartan 50 mg PO DAILY methotrexate sodium 20 mg (8 x 2.5 mg) PO QWEEK omeprazole 20 mg PO BID oxycodone-acetaminophen 5-325 mg 1 tab PO BID PRN quetiapine (Seroquel) 25 mg PO BID sumatriptan succinate 25 mg PO DAILY triamcinolone acetonide 0.1% 1 appl topical BID HPI HPI Multiple fractures of ribs,: Details: History of Present Illness The patient is a 34-year-old female presenting with chronic pain management. She has a history of rheumatoid arthritis, which began significantly affecting her at the age of 27. The condition has progressively worsened, leading to multiple fractures and surgeries, including three shoulder surgeries and an upcoming ACL repair. The patient also suffers from osteoporosis, which has resulted in frequent bone fractures. She is currently receiving Prolia injections every six months to manage this condition. Chronic pain has been a significant issue for over five years, primarily affecting her neck, lower back, knees, ribs, and hands. The pain has severely impacted her daily activities, leading to unemployment since 2020 due to the inability to perform physical tasks. The patient has been on long-term steroid therapy, which is being tapered off, and she expresses concern about the potential exacerbation of her symptoms. She is also taking oxycodone with acetaminophen for pain management, but reports inadequate relief. Additional medical history includes hypertension, anemia, kidney stones, and a hernia. She also reports a history of depression and is concerned about the long-term use of opioids given her family history of addiction. Pain Description - Onset: Pain has been present for over five years, with recent exacerbations in the knees, ribs, and hands. - Quality: The pain is severe and persistent, impacting daily activities and sleep. - Location: Primarily affects the neck, lower back, knees, ribs, and hands. - Exacerbating factors: Physical activity and lack of adequate pain control. - Relieving factors: Limited relief from oxycodone and acetaminophen. - Impact: The pain has led to unemployment and difficulty performing daily tasks. Physical Exam - Appears afebrile. - Alert and oriented. - Mood and affect appropriate. - Follows and participates in conversation appropriately. - Respiratory effort is unlabored. - Able to transition from sit to stand unassisted. - Ambulates with bilaterally normal heel strike and toe off. - Able to stand and walk on toes and heels. Results Pain Management - Affect: The patient expresses fear and concern about long-term pain management and potential opioid dependency. - Analgesia: Currently taking oxycodone with acetaminophen, but reports inadequate pain relief. - Adverse Effects: Concerns about long-term opioid use and potential exacerbation of symptoms after tapering steroids. - Activities of Daily Living: Pain has led to unemployment and difficulty with physical tasks. - Aberrant Drug Related Behaviors: No evidence of misuse, but there is a family history of addiction, and the patient is cautious about increasing opioid dosage. FOR[facility]LY [facility], [facility] Medical History (Updated 09/16/24 @ 08:03 by Grady Pantoja MD) halfway (current) use of systemic steroids Long-term current use of anakinra Rheumatoid arthritis flare Surgical History History of shoulder surgery Hx of endoscopy Hx of colonoscopy History of removal of ovarian cyst Hx of lithotripsy Social History Household Members: Significant Other Housing: House Are you a primary career agent to a significant other at home: No Do you presently have visiting nurse or other home services: No Alcohol intake: never Patient Tobacco Use Status: Former Tobacco user e-Cigarette/Vaping Use: Never Used Substance Use Type: Marijuana service: No Current occupational status: unemployed Current occupation: right hand dominant Physical Exam Vital Signs: Last Vital Signs Pulse 110 H 09/01/24 09:56 Resp 16 09/01/24 09:56 BP 160/97 H 09/01/24 09:56 Pulse Ox 98 09/01/24 09:56 Oxygen Delivery Method Room Air 09/01/24 09:56 BMI result Body Mass Index 31.0 Assessment & Plan Assessment & Plan (1) Seronegative rheumatoid arthritis: Comment: -ve -ve CCP -ve JOSE L dx Age 16 at [facility] with Dr Haro Treatment with methotrexate partially helpful but she did much better with addition of Humira for a year or 2 but then she ran out of insurance. Recurrence of synovitis 2015 - out of insurance again, just on low dose prednisone. Humira started, May 2017; methotrexate(SC) added, June 2017 Xeljanz and methotrexate(SC) 01/27 06/28: Xeljanz not effective, Enbrel added to methotrexate 09/27: Actemra in place of Enbrel(ineffective), parenteral, then oral methotrexate continued Actemra discontinued in September 2020 due to the hidradenitis suppurativa. Methotrexate continued. 01/2021 Humira started with 80 mg loading doses and the 40 mg weekly for hidradenitis; arthritis worse so Humira changed to Rinvoq 02/2022. Hives 04/2022, Rinvoq changed to baricitinib Restarted Actemra 12/2023 - 03/2024. Not effective Anakinra 05/2024 Code(s): M06.00 - Rheumatoid arthritis without rheumatoid factor, unspecified site Category: Medical (2) Chronic pain: Code(s): G89.29 - Other chronic pain Category: Medical Plan Plan - Agree with increasing oxycodone dosage to four times daily as needed, through the primary care provider. Recommend implementing a formal contract for opioid use, including random urine screenings and pill counts to ensure compliance. - Consider cortisone injections for knee pain once the knee is stable post-surgery. - Order hip x-ray to evaluate for potential injections. - Continue Prolia injections for osteoporosis management. - Taper off steroids. Patient was informed and verbally consented to the use of an ambient scribe for clinic note documentation during this visit. Discussion Notes I discussed with the patient the challenges of managing chronic pain associated with rheumatoid arthritis and osteoporosis. We reviewed the current pain management regimen and agreed that increasing oxycodone dosage to four times daily is reasonable, with oversight by her primary care provider. I emphasized the importance of a formal contract for opioid use, including random urine screenings and pill counts, given her family history of addiction. We also discussed the potential for cortisone injections for knee pain and the need for a hip x-ray to evaluate for possible injections. Patient Instructions - Follow up with your primary care provider regarding the increased oxycodone dosage. - Schedule a hip x-ray at your convenience. - Continue Prolia injections as scheduled. - Monitor symptoms closely as you taper off steroids. - Contact the clinic if you need cortisone injections for knee pain after surgery. Orders: Orders XR hip BI w [id number] 09/01/24 M06.00 - Rheumatoid arthritis without rheumatoid factor, unspecified site Coding Level of Care Code New Pt Level 4 (75753) Diagnoses Seronegative rheumatoid arthritis M06.00 Chronic pain G89.29
[2024-09-01 09:56] VITALS: BP 160/97; PULSE 110; RESP 16; O2SAT 98; BMI 31.0
--- OUTSIDE RECORDS SUMMARY | 2024-09-01 10:46 | XMS_ITS | Clinical Summary ---
Author Organization [facility] [place] Address [address] [place] [address] Care Team Providers Care Crate Tier Name Role Phone Frederick Alfonso MD Primary Care Provider [phone] Allergies Active Allergy Reactions Criticality Noted Date [...] spasms. 60 tablet 5 08/26/19 25 Active cyclobenzaprin e (FLEXERIL) 10 [...] virus 06/13/2024 Primary hypertension 02/19/2024 Rheumatoid arthritis ([facility] V24, [facility] V28) 12/13/2023 Overview (12/13/2023): Age 16 at [facility] with Dr Haro. RF negative. [...] - 07/17/2024 11:59 PM EDT Hospital Encounter [address] [phone] Pain of right lower extremity; Leg lesion Discharge Disposition: Home or Self Care 07/17/2024 11:20 AM EDT - 07/17/2024 11:59 PM EDT Hospital Encounter [address] [phone] Right wrist pain Discharge Disposition: Home or Self Care 07/17/2024 10:30 AM EDT Office Visit Adult Medicine [address] [phone] Frederick Alfonso MD Pneumonia due to COVID-19 virus (Primary Dx); Pain of right lower extremity; Leg lesion; Right wrist pain; Bilateral hearing loss, unspecified hearing loss type; Ear pain, bilateral; Elevated blood pressure reading; Rheumatoid arthritis, involving unspecified site, unspecified whether rheumatoid factor present ([facility] V24, [facility] V28); Acute hypoxic respiratory failure ([facility] V24, [facility] V28) 07/17/2024 Telephone Adult Medicine [address] [phone] Frederick Alfonso MD Forms/questionnaires 07/08/2024 Lab Requisition [facility] - Main Lab [address] [facility] [employer] [place] [address] Wellington Del Valle MD Local infection of the skin and subcutaneous tissue, unspecified 06/24/2024 Telephone Adult Medicine [address] [place] [address] Frederick Alfonso MD My chart appt (Pt schedule an apt on my chart ) 06/12/2024 6:51 PM EDT - 06/14/2024 11:58 AM EDT Hospital Encounter [facility]rology [facility] [address] [place] [address] Jade Hicks DO Maduakor, Emmanuel C, MD Seralathan, Manikandan, MD Pneumonia due to COVID-19 virus (Primary Dx); Acute left-sided low back pain without sciatica; Sepsis, due to unspecified organism, unspecified whether acute organ dysfunction present ([facility] V24, [facility] V28); Rheumatoid arthritis, involving unspecified site, unspecified whether rheumatoid factor present ([facility] V24, [facility] V28) Discharge Disposition: Home-Health Care Svc from [...] Surgery Date Site/Laterality Comments KNEE ARTHROSCOPY PROCEDURE: TN ARTHROSCOPY KNEE DIAGNOSTIC W/WO SYNOVIAL BX SPX; COMMENT: on left knee LAPAROSCOPY DIAGNOSTIC / BIO PSY / ASPIRATION / LYSIS PROCEDURE: PELVIS LAPAROSCOPY, DIAGNOSTIC UPPER GASTROINTESTINAL ENDOSCOPY 07/28/2019 PROCEDURE: TN UPPER GI ENDOSCOPY PERFORMED; COMMENT: Visually normal; duodenal biopsies obtained--- pathology = normal. COLONOSCOPY 09/10/2019 PROCEDURE: HISTORICAL COLONOSCOPY; COMMENT: negative Medical History Medical History Date Comments Rheumatoid arthritis(714.0) DX:R heumatoid arthritis(714.0); COMMENT: following up with [facility] Vitamin D deficiency DX:Vitamin D deficiency Ovarian [...] 9:30 AM EDT Office Visit Adult Medicine [facility] [address] [place] [address] Richard Aquino PA [address] [place] [address] Health Maintenance Due Date Last Done Comments [...] 1 VIEW STAT 06/12/2024 7:45 PM EDT [id number], RSV, FLU A AND B QUALITATIVE RT-PCR, [...] ECG 12-LEAD STAT 06/12/2024 7:03 PM EDT [facility] CRITICAL CARE 30-74 MINUTES Routine 06/12/2024 6:26 PM EDT HM DEPRESSION SCREENING Routine 06/26/2023 LIPID PANEL Routine 06/25/2023 HM HPV Routine 12/20/2022 HM HEPATITIS C SCREENING Routine 05/19/2022 HM HIV SCREENING Routine 05/19/2022 from Last 3 Months or Most Recently Relevant to Health Maintenance Results * Organism ID bill only (08/11/2024 1:24 PM EDT) Organism ID Performed 08/25/2024 1:05 PM EDT [facility] Other Topography unknown / Unknown Non-blood Collection / Unknown 08/11/2024 1:24 PM EDT 08/11/2024 1:25 PM EDT Narrative [facility] - 08/25/2024 1:05 PM EDT Performed at: [address], [address], [place], [place] [id number] [employer] Blender Helper: Rhett Buck MD, Phone: [phone] us Wellington Del Valle MD LAB MICROBIOLOGY - G ENERAL ORDERABLES Final Result Performing Organization Address [facility] Co de Phone Number [facility] * (ABNORMAL) Organism identification, mold result (08/11/2024 1:24 PM EDT) Result 1 Trichophyton rubrum(A) 08/25/2024 1:05 PM EDT [facility] Other Topography unknown / Unknown Non-blood Collection / Unknown 08/11/2024 1:24 PM EDT 08/11/2024 1:25 PM EDT Narrative [facility] - 08/25/2024 1:05 PM EDT Performed at: [address] [id number] [employer] Helper: Shasha Wilson MD, Phone: [phone] us Wellington Del Valle MD LAB MICROBIOLOGY - G ENERAL ORDERABLES Final Result Performing Organization Address City/[facility]/ZIP Co de Phone Number [facility] * (ABNORMAL) Fungal identification, mold (08/11/2024 1:24 PM EDT) Organism Identification , Mold Final report(A) 08/25/2024 1:05 PM EDT [facility] Other Topography unknown / Unknown Non-blood Collection / Unknown 08/11/2024 1:24 PM EDT 08/11/2024 1:25 PM EDT Narrative [facility] - 08/25/2024 1:05 PM EDT Performed at: 01 - [facility] [address] [id number] Fl[employer] Blender Helper: Shasha Wilson MD, Phone: [phone] Wellington Del Valle MD LAB MICROBIOLOGY - [...] Signed Date: 07/17/2024 15:42 ET Workstation ID: [id number] Transcribed By: Self Edit Transcribed Date: 07/17/2024 15:40 ET Procedure Note Janine Jaime MD - 07/17/2024 Right femur, 2 views. [...] Signed Date: 07/17/2024 15:42 ET Workstation ID: [id number] Transcribed By: Self Edit Transcribed Date: 07/17/2024 [...] Signed Date: 07/17/2024 15:38 ET Workstation ID: [id number] Transcribed By: Self Edit Transcribed Date: 07/17/2024 [...] Signed Date: 07/17/2024 15:38 ET Workstation ID: [id number] Transcribed By: Self Edit Transcribed Date: 07/17/2024 15:37 ET us Frederick Alfonso MD IMG XR PROCEDURES Final Result * (ABNORMAL) Culture fungal, other (07/08/2024 12:00 AM EDT) [facility] Culture, Fungus Fungus(A) 3:14 PM EDT [facility] Comment: ORGANISM SENT TO [facility] FOR IDENTIFICATION. Refer to [id number] for results The organism value for this result has been updated. These results have been appended to the previously preliminary verified report. Skin 07/08/2024 07/08/2024 7:1 2 PM EDT us Wellington Del Valle MD LAB MICROBIOLOGY - G ENERAL ORDERABLES Final Result [facility] [address] [place] [address], [place] [phone] * (ABNORMAL) Manual differential (06/14/2024 6:18 AM EDT) Only the most recent of4 resultswithin the time period is included. [facility] Neutrophils % 89.0 % LAB HEMETOLOGY METHOD 06/14/2024 9:00 AM EDT [facility] Bands % 2.0 % LAB HEMETOLOGY METHOD 06/14/2024 9:00 AM EDT [facility] Lymphocytes % 4.0 % LAB HEMETOLOGY METHOD 06/14/2024 9:00 AM EDT [facility] Monocytes % 2.0 % LAB HEMETOLOGY METHOD 06/14/2024 9:00 AM EDT [facility] Eosinophils % 0.0 % LAB HEMETOLOGY METHOD 06/14/2024 9:00 AM EDT [facility] Basophils % 0.0 % LAB HEMETOLOGY METHOD 06/14/2024 9:00 AM [facility] Metamyelocytes % 1.0(H) % LAB HEMETOLOGY METHOD 06/14/2024 9:00 AM [facility] Myelocytes % 1.0(H) % LAB HEMETOLOGY METHOD 06/14/2024 9:00 AM [facility] Promyelocytes % 1.0(H) % LAB HEMETOLOGY METHOD 06/14/2024 9:00 AM [facility] Neutrophils Absolute Manual 9.26(H) 1.50 - 7.00 K/mcL LAB HEMETOLOGY METHOD 06/14/2024 9:00 AM [facility] Bands Absolute Manual 0.21(H) 0.00 - 0.00 K/mcL LAB HEMETOLOGY METHOD 06/14/2024 9:00 AM [facility] Lymphocytes Absolute 0.42(L) 1.00 - 5.00 K/mcL LAB HEMETOLOGY METHOD 06/14/2024 9:00 AM [facility] Monocytes Absolute Manual 0.21 0.20 - 1.00 K/mcL LAB HEMETOLOGY METHOD 06/14/2024 9:00 AM [facility] Eosinophils Absolute Manual 0.00 0.00 - 0.50 K/mcL LAB HEMETOLOGY METHOD 06/14/2024 9:00 AM [facility] Basophils Absolute Manual 0.00 0.00 - 0.20 K/mcL LAB HEMETOLOGY METHOD 06/14/2024 9:00 AM [facility] Metamyelocytes Absolute Manual 0.10(H) 0.00 - 0.00 K/mcL LAB HEMETOLOGY METHOD 06/14/2024 9:00 AM [facility] Myelocytes Absolute Manual 0.10(H) 0.00 - 0.00 K/mcL LAB HEMETOLOGY METHOD 06/14/2024 9:00 AM EDT [facility] Promyelocytes Absolute Manual 0.10(H) 0.00 - 0.00 K/mcL LAB HEMETOLOGY METHOD 06/14/2024 9:00 AM EDT [facility] Rbc Morphology Present( A) Consistent with indices, Normal for Ute LAB HEMETOLOGY METHOD 06/14/2024 9:00 AM EDT [facility] Platelet Morphology - WAM Normal Normal LAB HEMETOLOGY METHOD 06/14/2024 9:00 AM EDT [facility] Polychromasia Present Present( A) (none) LAB HEMETOLOGY METHOD 06/14/2024 9:00 AM [facility] Blood Venous blood specimen / Unknown Venipuncture / Unknown 06/14/2024 6:18 AM EDT 06/14/2024 6:50 AM EDT Key [facility]ANOS LAB BLOOD ORDERABLES Final Result [facility] [address] [place] [address], * (ABNORMAL) CBC auto differential (06/14/2024 6:18 AM EDT) Only the most recent of4 resultswithin the time period is included. WBC 10.4 4.8 - 10.8 K/mcL LAB HEMETOLOGY METHOD 06/14/2024 9:00 AM EDT [facility] RBC 3.00(L) 3.80 - 4.80 M/mcL LAB HEMETOLOGY METHOD 06/14/2024 9:00 AM EDT [facility] Hemoglobin 8.1(L) 11.5 - 16.0 g/dL LAB HEMETOLOGY METHOD 06[facility]14[facility]24 [facility] Hematocrit 27.3(L) 35.0 - 47.0 % LAB HEMETOLOGY METHOD 06/14/2024 9:00 AM EDT [facility] MCV 91.3 79.0 - 98.0 FL LAB HEMETOLOGY METHOD 06/14/2024 9:00 AM [facility] MCH 27.1 27.0 - 32.0 pcg LAB HEMETOLOGY METHOD 06/14/2024 9:00 AM EDT [facility] MCHC 29.7(L) 32.0 - 37.0 g/dL LAB HEMETOLOGY METHOD 06/14/2024 9:00 AM [facility] RDW 21.2(H) 11.0 - 15.0 % LAB HEMETOLOGY METHOD 06/14/2024 9:00 AM [facility] Platelets 242 130 - 400 K/mcL LAB HEMETOLOGY METHOD 06/14/2024 9:00 AM [facility] MPV 9.9 7.0 - 11.0 FL LAB HEMETOLOGY METHOD 06/14/2024 9:00 AM [facility] NRBC 0.2 <1.0 % LAB HEMETOLOGY METHOD 06/14/2024 9:00 AM [facility] NRBC Absolute 0.02 <0.10 K/mcL LAB HEMETOLOGY METHOD 06/14/2024 9:00 AM [facility] Blood Venous blood specimen / Unknown Venipuncture / Unknown 06/14/2024 6:18 AM EDT 06/14/2024 6:50 AM EDT Key [facility]ANOS LAB BLOOD ORDERABLES Final Result [facility] [address] [place] [address], * Magnesium (06/14/2024 6:18 AM EDT) Only the most recent of3 resultswithin the time period is included. Magnesium 2.5 1.9 - 2.6 mg/dL LAB CHEMISTRY METHOD 06/14/2024 7:18 AM [facility] Blood Venous blood specimen / Unknown Venipuncture / Unknown 06/14/2024 6:18 AM EDT 06/14/2024 6:50 AM EDT Key LLANOS LAB BLOOD ORDERABLES Final Result [facility] [address] [place] [address], * (ABNORMAL) Comprehensive metabolic panel (06/14/2024 6:18 AM EDT) Pathologist [facility] Sodium 140 133 - 145 mmol/L LAB CHEMISTRY METHOD 06/14/2024 7:21 AM [facility] Potassium 4.0 3.5 - 5.5 mmol/L LAB CHEMISTRY METHOD 06/14/2024 7:21 AM [facility] Chloride 110 96 - 110 mmol/L LAB CHEMISTRY METHOD 06/14/2024 7:21 AM [facility] CO2 22 21 - 32 mmol/L LAB CHEMISTRY METHOD 06/14/2024 7:21 AM [facility] Anion Gap 8 3 - 11 LAB CHEMISTRY METHOD 06/14/2024 7:21 AM [facility] Glucose 141(H) 70 - 100 mg/dL LAB CHEMISTRY METHOD 06/14/2024 7:21 AM [facility] BUN 14 5 - 25 mg/dL LAB CHEMISTRY METHOD 06/14/2024 7:21 AM [facility] Creatinine 0.48(L) 0.50 - 1.10 mg/dL LAB CHEMISTRY METHOD 06/14/2024 7:21 AM [facility] eGFR 128 >=60 mL/min/1. 73m2 LAB CHEMISTRY METHOD 06/14/2024 7:21 AM [facility] Comment:Calculation based on the Chronic Kidney Disease Epidemiology Collaboration (CKD-EPI) equation refit without adjustment for race. BUN/Creatinine Ratio 29.2 LAB CHEMISTRY METHOD 06/14/2024 7:21 AM [facility] Calcium 7.7(L) 8.5 - 10.5 mg/dL LAB CHEMISTRY METHOD 06/14/2024 7:21 AM [facility] AST (SGOT) 14 10 - 42 unit/L LAB CHEMISTRY METHOD 06/14/2024 7:21 AM [facility] ALT (SGPT) 66(H) 10 - 60 unit/L LAB CHEMISTRY METHOD 06/14/2024 7:21 AM [facility] Alkaline Phosphatase 101 42 - 121 unit/L LAB CHEMISTRY METHOD 06/14/2024 7:21 AM [facility] Total Protein 5.1(L) 6.0 - 8.0 g/dL LAB CHEMISTRY METHOD 06/14/2024 7:21 AM [facility] Albumin 1.7(L) 3.2 - 5.0 g/dL LAB CHEMISTRY METHOD 06/14/2024 7:21 AM [facility] Total Bilirubin 0.1 0.0 - 1.4 mg/dL LAB CHEMISTRY METHOD 06/14/2024 7:21 AM [facility] Blood Venous blood specimen / Unknown Venipuncture / Unknown 06/14/2024 6:18 AM EDT 06/14/2024 6:50 AM EDT us Key LLANOS LAB BLOOD ORDERABLES Final Result [facility] [address] [place] [address], * (ABNORMAL) POCT Glucose, blood (06/14/2024 6:05 AM EDT) Only the most recent of5 resultswithin the time period is included. [facility] Glucose POCT 131(H) 70 - 100 mg/dL 06/14/2024 6:06 AM EDT [facility] POCT Comment RN Notified 06/14/2024 6:06 AM EDT [facility] Blood Capillary blood specimen / Unknown 06/14/2024 6:05 AM EDT 06/14/2024 6:07 AM EDT Michele Mariano MD LAB POINT OF CA RE TEST DOCKED DEVICE UNSOLICITED RESULTS Final Result [facility] [address] [place] [address], * Urinalysis with reflex microscopic and culture (06/13/2024 7:03 PM EDT) [facility] Specific [place] Urine 1.015 1.003 - 1.030 LAB URINALYSIS - AUTOMATED METHOD 06/13/2024 7:26 PM [facility] pH, Urine 6.0 5.0 - 8.0 pH LAB URINALYSIS - AUTOMATED METHOD 06/13/2024 7:26 PM [facility] Leukocytes, Urine Negative Negative LAB URINALYSIS - AUTOMATED METHOD 06/13/2024 7:26 PM T [facility] Nitrite, Urine Negative Negative LAB URINALYSIS - AUTOMATED METHOD 06/13/2024 7:26 PM [facility] Protein, Urine Trace <=Trace mg/dL LAB URINALYSIS - AUTOMATED METHOD 06/13/2024 7:26 PM [facility] Glucose, Urine Negative Negative mg/dL LAB URINALYSIS - AUTOMATED METHOD 06/13/2024 7:26 PM [facility] Ketones, Urine Negative Negative mg/dL LAB URINALYSIS - AUTOMATED METHOD 06/13/2024 7:26 PM EDT [facility] Urobilinogen, Urine 0.2 0.2 - 1.0 mg/dL LAB URINALYSIS - AUTOMATED METHOD 06/13/2024 7:26 PM EDT [facility] Bilirubin, Urine Negative Negative LAB URINALYSIS - AUTOMATED METHOD 06/13/2024 7:26 PM EDT [facility] Blood, Urine Negative Negative LAB URINALYSIS - AUTOMATED METHOD 06/13/2024 7:26 PM EDT [facility] Urine Urine specimen obtained by clean catch procedure / Unknown Non-blood Collection / Unknown 06/13/2024 7:03 PM EDT 06/13/2024 7:13 PM EDT Key [facility] LAB URINE ORDERABLES Final Result Performing Organization Address City/[facility]/ZIP Co de Phone Number [facility] [address] [place] [address], [place] [phone] * Hernandez urine culture tube (06/13/2024 7:03 PM EDT) [facility] Extra Tube Hold for add-ons. 06/13/2024 9:01 PM EDT [facility] Comment:Auto resulted. Urine Urine specimen obtained by clean catch procedure / Unknown Non-blood Collection / Unknown 06/13/2024 7:03 PM EDT 06/13/2024 7:13 PM EDT Key [facility] LAB URINE ORDERABLES Final Result Performing Organization Address [facility]/ZIP Co de Phone Number [facility] [address] [place] [address], [place] [phone] * (ABNORMAL) Prothrombin time with INR (06/13/2024 1:04 PM EDT) Protime 14.6(H) 10.6 - 13.9 sec LAB COAGULATION METHOD 06/13/2024 1:26 PM EDT [facility] INR 1.2 LAB COAGULATION METHOD 06/13/2024 1:26 PM EDT [facility] Blood Venous blood specimen / Unknown Venipuncture / Unknown 06/13/2024 1:04 PM EDT 06/13/2024 1:15 PM EDT Key [facility] LAB BLOOD ORDERABLES Final Result [facility] [address] [place] [address], [place] [phone] * SST tube (06/13/2024 1:02 PM EDT) [facility] Extra Tube Hold for add-ons. 06/13/2024 3:02 PM EDT [facility] Comment:Auto resulted. Blood Venous blood specimen / Unknown 06/13/2024 1:02 PM EDT 06/13/2024 1:53 PM EDT Michele Mariano MD LAB BLOOD ORDERABLES Fi nal Result [facility] [address] [place] [address], [place] [phone] * Lactate, with reflex (06/13/2024 5:56 AM EDT) [facility] LACTIC ACID 0.8 0.4 - 2.0 mmol/L LAB CHEMISTRY METHOD 06/13/2024 7:20 AM EDT [facility] Blood Venous blood specimen / Unknown Venipuncture / Unknown 06/13/2024 5:56 AM EDT 06/13/2024 6:34 AM EDT Mike Otoole MD LAB BLOOD ORDERABLES Noelle l Result Performing Organization Address City/[facility]/ZIP Co de Phone Number [facility] [address] [place] [address], * (ABNORMAL) Vitamin B12 and folate (06/13/2024 5:56 AM EDT) Vitamin B-12 198(L) 250 - 900 pcg/mL LAB CHEMISTRY METHOD 06/13/2024 1:50 PM EDT [facility] Folate 6.9 2.8 - 17.0 ng/ml LAB CHEMISTRY METHOD 06/13/2024 1:50 PM EDT [facility] Blood Venous blood specimen / Unknown Venipuncture / Unknown 06/13/2024 5:56 AM EDT 06/13/2024 6:34 AM EDT Key [facility]ANOS LAB BLOOD ORDERABLES Final Result Performing Organization Address [facility]/ZIP Co de Phone Number [facility] [address] [place] [address], [place] [phone] * (ABNORMAL) Procalcitonin (06/13/2024 5:56 AM EDT) [facility] Procalcitonin 0.47(H) <=0.16 ng/mL LAB CHEMISTRY METHOD 06/13/2024 2:15 PM EDT [facility] Blood Venous blood specimen / Unknown Venipuncture / Unknown 06/13/2024 5:56 AM EDT 06/13/2024 6:34 AM EDT Narrative [facility] - 06/13/2024 2:15 PM EDT Procalcitonin [...] BLOOD ORDERABLES Final Result Performing Organization Address [facility] de Phone Number [facility] [address] [place] [address], [place] [phone] * (ABNORMAL) Iron and TIBC (06/13/2024 5:56 AM EDT) [facility] Iron 11(L) 40 - 150 mcg/dL LAB CHEMISTRY METHOD 06/13/2024 1:35 PM EDT [facility] TIBC 208(L) 250 - 450 mcg/dL LAB CHEMISTRY METHOD 06/13/2024 1:35 PM EDT [facility] Iron Saturation 5(L) 15 - 50 % LAB CHEMISTRY METHOD 06/13/2024 1:35 PM EDT [facility] Blood Venous blood specimen / Unknown Venipuncture / Unknown 06/13/2024 5:56 AM EDT 06/13/2024 6:34 AM EDT Key Sommer OR LAB BLOOD ORDERABLES Final Result Performing Organization Address [facility] de Phone Number [facility] [address] [place] [address], [place] [phone] * Prolactin (06/13/2024 5:56 AM EDT) Prolactin 6.40 See Comment ng/mL LAB CHEMISTRY METHOD 06/13/2024 9:02 AM EDT [facility] Comment: Prolactin Reference Ranges (ng/mL) Non 2.2 - 30.3 8.1 - 347.6 Postmenopausal 0.7 - 31.5 Blood Venous blood specimen / Unknown Venipuncture / Unknown 06/13/2024 5:56 AM EDT 06/13/2024 6:34 AM EDT Key Sommer [place] LAB BLOOD ORDERABLES Final Result Performing Organization Address City/[facility]/ZIP Co de Phone Number [facility] [address] [place] [address], [place] [phone] * (ABNORMAL) Reticulocyte count (06/13/2024 5:56 AM EDT) Retic Ct Abs 0.020(L) 0.030 - 0.090 M/mcL LAB HEMETOLOGY METHOD 06/13/2024 12:24 PM EDT [facility] Retic Ct Pct 0.6(L) 0.7 - 1.7 % LAB HEMETOLOGY METHOD 06/13/2024 12:24 PM T [facility] Immature Retic Fract 16.7(H) 2.3 - 15.9 % LAB HEMETOLOGY METHOD 06/13/2024 12:24 PM EDT [facility] Reticulocyte Hemoglobin 19.3(L) >29.0 pcg LAB HEMETOLOGY METHOD 06/13/2024 12:24 PM EDT [facility] Blood Venous blood specimen / Unknown Venipuncture / Unknown 06/13/2024 5:56 AM EDT 06/13/2024 6:34 AM EDT Key Sommer [place] LAB BLOOD ORDERABLES Final Result Performing Organization Address City/[facility]/ZIP Co de Phone Number [facility] [address] [place] [address], [place] [phone] * (ABNORMAL) C-reactive protein (06/13/2024 5:56 AM EDT) [facility] C-Reactive Protein 23.40(H) <=0.50 mg/dL LAB CHEMISTRY METHOD 06/13/2024 8:04 AM EDT [facility] Blood Venous blood specimen / Unknown Venipuncture / Unknown 06/13/2024 5:56 AM EDT 06/13/2024 6:34 AM EDT us Speedy LLANOS LAB BLOOD ORDERABLES Final Res ult Performing Organization Address City/[facility]/ZIP Co de Phone Number [facility] [address] [place] [address], * Ferritin (06/13/2024 5:56 AM EDT) [facility] Ferritin 203 8 - 252 ng/mL LAB CHEMISTRY METHOD 06/13/2024 1:50 PM EDT [facility] Blood Venous blood specimen / Unknown Venipuncture / Unknown 06/13/2024 5:56 AM EDT 06/13/2024 6:34 AM EDT us Key LLANOS LAB BLOOD ORDERABLES Final Result [facility] [address] [place] [address], [place] [phone] * (ABNORMAL) Hepatic function panel (06/13/2024 5:56 AM EDT) Only the most recent of2 resultswithin the time period is included. [facility] Total Protein 5.1(L) 6.0 - 8.0 g/dL LAB CHEMISTRY METHOD 06/13/2024 8:04 AM EDT [facility] Albumin 1.8(L) 3.2 - 5.0 g/dL LAB CHEMISTRY METHOD 06/13/2024 8:04 AM [facility] Comment:Results verified by repeat testing Total Bilirubin 0.2 0.0 - 1.4 mg/dL LAB CHEMISTRY METHOD 06/13/2024 8:04 AM [facility] Bilirubin, Direct 0.2 0.0 - 0.3 mg/dL LAB CHEMISTRY METHOD 06/13/2024 8:04 AM [facility] LAB Bilirubin, Indirect 0.0 0.0 - 1.1 mg/dL LAB CHEMISTRY METHOD 06/13/2024 8:04 AM [facility] ALT (SGPT) 82(H) 10 - 60 unit/L LAB CHEMISTRY METHOD 06/13/2024 8:04 AM [facility] AST (SGOT) 24 10 - 42 unit/L LAB CHEMISTRY METHOD 06/13/2024 8:04 AM [facility] Alkaline Phosphatase 122(H) 42 - 121 unit/L LAB CHEMISTRY METHOD 06/13/2024 8:04 AM [facility] Blood Venous blood specimen / Unknown Venipuncture / Unknown 06/13/2024 5:56 AM EDT 06/13/2024 6:34 AM EDT us Speedy LLANOS LAB BLOOD ORDERABLES Final Res ult [facility] [address] [place] [address], * (ABNORMAL) Basic metabolic panel (06/13/2024 5:56 AM EDT) Only the most recent of2 resultswithin the time period is included. Sodium 139 133 - 145 mmol/L LAB CHEMISTRY METHOD 06/13/2024 7:49 AM [facility] Potassium 4.0 3.5 - 5.5 mmol/L LAB CHEMISTRY METHOD 06/13/2024 7:49 AM [facility] Chloride 111(H) 96 - 110 mmol/L LAB CHEMISTRY METHOD 06/13/2024 7:49 AM [facility] CO2 19(L) 21 - 32 mmol/L LAB CHEMISTRY METHOD 06/13/2024 7:49 AM [facility] Anion Gap 9 3 - 11 LAB CHEMISTRY METHOD 06/13/2024 7:49 AM [facility] Glucose 139(H) 70 - 100 mg/dL LAB CHEMISTRY METHOD 06/13/2024 7:49 AM [facility] BUN 11 5 - 25 mg/dL LAB CHEMISTRY METHOD 06/13/2024 7:49 AM [facility] Creatinine 0.49(L) 0.50 - 1.10 mg/dL LAB CHEMISTRY METHOD 06/13/2024 7:49 AM [facility] eGFR 127 >=60 mL/min/1. 73m2 LAB CHEMISTRY METHOD 06/13/2024 7:49 AM [facility] Comment:Calculation based on the Chronic Kidney Disease Epidemiology Collaboration (CKD-EPI) equation refit without adjustment for race. BUN/Creatinine Ratio 22.4 LAB CHEMISTRY METHOD 06/13/2024 7:49 AM [facility] Calcium 7.5(L) 8.5 - 10.5 mg/dL LAB CHEMISTRY METHOD 06/13/2024 7:49 AM [facility] Blood Venous blood specimen / Unknown Venipuncture / Unknown 06/13/2024 5:56 AM EDT 06/13/2024 6:34 AM EDT us Mike Otoole MD LAB BLOOD ORDERABLES Noelle quiles Result [facility] [address] [place] [address], * ECG-Annotated (06/13/2024) us Provider Onbase MD [...] by: Albino Zapata DO on 06/12/2024 23:21:58 us Jade Hicks DO IMG CT PROCEDURES Final R esult * Troponin I high sensitivity (NOW and then in 1 hour) (06/12/2024 9:14 PM EDT) Only the most recent of2 resultswithin the time period is included. High Sensitivity Troponin I 11 <=54 ng/L LAB CHEMISTRY METHOD 06/12/2024 10:05 PM EDT [facility] Blood Venous blood specimen / Unknown Venipuncture / Unknown 06/12/2024 9:14 PM EDT 06/12/2024 9:24 PM EDT Narrative [facility] - 06/12/2024 10:05 PM EDT High levels of biotin in samples may falsely decrease hsTroponin values. Use caution when interpreting hsTroponin results in patients taking biotin who exhibit renal impairment (eGFR <60) or in patients taking more than 20 mg/day of biotin. Dana LLANOS LAB BLOOD ORDERABLES Final Resul t Performing Organization Address [facility] Co de Phone Number [facility] [address] [place] [address], [place] [phone] * Blood culture (06/12/2024 7:55 PM EDT) Only the most recent of2 resultswithin the time period is included. Culture, Blood No growth at 5 days 06/17/2024 9:01 PM EDT [facility] Blood Venous blood specimen / Unknown Venipuncture / Unknown 06/12/2024 7:55 PM EDT 06/12/2024 8:31 PM EDT us Jade Hicks DO LAB MICROBIOLOGY - GENERA L ORDERABLES Final Result Performing Organization Address [facility]/ZIP Co de Phone Number [facility] [address] [place] [address], [place] [phone] * Lactate (06/12/2024 7:55 PM EDT) Lactate 1.9 0.4 - 2.0 mmol/L LAB CHEMISTRY METHOD 06/12/2024 8:53 PM EDT [facility] Blood Venous blood specimen / Unknown Venipuncture / Unknown 06/12/2024 7:55 PM EDT 06/12/2024 8:28 PM EDT us Ting Ho Alberto Hicks DO LAB BLOOD ORDERABLES Noelle l Result [facility] [address] [place] [address], [place] [phone] * XR Chest 1 View (06/12/2024 7:45 [...] Signed Date: 06/13/2024 08:22 ET Workstation ID: [id number] Transcribed By: Self Edit Transcribed Date: 06/13/2024 [...] Signed Date: 06/13/2024 08:22 ET Workstation ID: [id number] Transcribed By: Self Edit Transcribed Date: 06/13/2024 08:20 ET Dana LLANOS IMG XR PROCEDURES Final Result * (ABNORMAL) [id number], RSV, Influenza A and B qualitative RT-PCR (06/12/2024 7:11 PM EDT) Pathologist [facility] Influenza A PCR Not Detected Not Detected LAB MICROBIOLOGY METHOD 06/12/2024 8:50 PM EDT [facility] Influenza B PCR Not Detected Not Detected LAB MICROBIOLOGY METHOD 06/12/2024 8:50 PM EDT [facility] RSV PCR Not Detected Not Detected LAB MICROBIOLOGY METHOD 06/12/2024 8:50 PM EDT [facility] SARS COV-2 Detected(A) Not Detected LAB MICROBIOLOGY METHOD 06/12/2024 8:50 PM EDT [facility] Swab Both anterior nares / Unknown Non-blood Collection / Unknown 06/12/2024 7:11 PM EDT 06/12/2024 8:04 PM EDT Narrative [facility] - 06/12/2024 8:50 PM EDT Disclaimer: Testing was performed using the [employer] GeneXpert Xpress SARS-CoV-2 _Flu_RSV PLUS PCR assay. [...] for Healthcare providers can be found at https://www.fda.gov/media/638196/download. Fact sheet for Healthcare patients can be found at https://www.fda.gov/media/803585/download. Dana LLANOS LAB MICROBIOLOGY - GENERAL ORDER NORIS Final Result Performing Organization Address [facility]/ZIP Co de Phone Number [facility] [address] [place] [address], * hCG, serum, qualitative (06/12/2024 7:04 PM EDT) Pathologist [facility] hCG Qual Negative Negative 06/12/2024 8:59 PM EDT [facility] Blood Venous blood specimen / Unknown Venipuncture / Unknown 06/12/2024 7:04 PM EDT 06/12/2024 8:02 PM EDT Jade Hicks DO LAB BLOOD ORDERABLES Noelle l Result Performing Organization Address [facility]/ZIP Co de Phone Number [facility] [address] [place] [address], [place] [phone] * ECG 12 lead (06/12/2024 7:03 PM EDT) Ventricular Rate ECG 142 BPM GEMUSE Atrial Rate 142 BPM GEMUSE P-R Interval 124 ms GEMUSE QRS Duration 72 ms GEMUSE Q-T Interval 282 ms GEMUSE QTc 433 ms GEMUSE P Wave Nitro 50 degrees GEMUSE R Nitro 41 degrees GEMUSE T Nitro 65 degrees GEMUSE ECG Interpretation Sinus tachycardia When compared with ECG of 01-SEP-2017 19:14, Vent. rate has increased BY 62 BPM Confirmed by Kelvin TOLEDO, KISHA ([id number]) on 06/12/2024 7:27:33 PM GEMUSE 06/12/2024 7:03 PM EDT 06/12/2024 7:27 PM EDT Jade Hicks DO ECG ORDERABLES Final Res ult GEMUSE * [place] [facility] 30-74 MINUTES (06/12/2024 6:26 PM [...] tachypnea and increased respiratory effort requiring BiPAP. Jade Hicks DO IN CLINIC/BEDSIDE ORDERAB LES Final Result * Depression Screening (06/26/2023) Pathologist [facility] Depression Screening Abstracted Historical Provider HEALTH MAINTENANCE Final Result * Lipid panel (06/25/2023) Pathologist [facility] LDL/HDL Ratio 2 0 - 4 Triglycerides 76 0 - 150 mg/dL Cholesterol 171 0 - 200 mg/dL HDL 79 >=40 mg/dL LDL Cholesterol 77 0 - 100 mg/dL Blood Venous blood specimen / Unknown Historical Provider LAB BLOOD ORDERABLES Noelle l Result * Cervical Cancer Screening: HPV (12/20/2022) Cervical Cancer Screening: HPV Negative, Abstracted Historical Provider HEALTH MAINTENANCE Final Result * HIV Screening (05/19/2022) Pathologist [facility] HIV Screening Abstracted [facility] Provider HEALTH MAINTENANCE Final Result * Hepatitis C Screening (05/19/2022) Pathologist [facility] Hepatitis C Screening Abstracted Historical Provider HEALTH MAINTENANCE Final Result from Last 3 Months or Most Recently Relevant to Health Maintenance Insurance [facility] Advance Directives * Full Code - [...] currently active code status orders. Care Teams Crate Tier Relationship Specialty Start Date End Date Frederick Alfonso MD [address] [place] [id number] PCP - General Internal Medicine 01/20/16
== END 2024-09-01 10:32 | disposition home or self-care (01) ==
LOC: HO.PMC 09:52
PROVIDERS: PCP Internal Medicine; Referring Provider Student in an Organized Health Care Education/Training Program; Visit Provider Internal Medicine
DX: M06.00 Rheumatoid arthritis without rheumatoid factor, unspecified site (principal); G89.29 Other chronic pain
CPT/HCPCS: 99204

== ENCOUNTER → 2024-09-01 09:52 | Outpatient (BNVA) | payer OTHER, SELFPAY | PROVIDERS: PCP Internal Medicine; Referring Provider Student in an Organized Health Care Education/Training Program; Visit Provider Internal Medicine | DX: M06.00 Rheumatoid arthritis without rheumatoid factor, unspecified site (principal); G89.29 Other chronic pain; M81.0 Age-related osteoporosis without current pathological fracture; Z79.620 Long term (current) use of immunosuppressive biologic | CPT/HCPCS: 99202 ==

== ENCOUNTER 2024-09-05 11:15 | Outpatient (RCR) | payer OTHER, SELFPAY | END 2024-09-05 16:27 | disposition home or self-care (01) | LOC: HO.WCC 11:15 | PROVIDERS: PCP Internal Medicine; Visit Provider Surgery Surgical Oncology | DX: W55.03XA Scratched by cat, initial encounter (principal); I10 Essential (primary) hypertension; Y93.9 Activity, unspecified; Y92.9 Unspecified place or not applicable; Y99.9 Unspecified external cause status; Z87.891 Personal history of nicotine dependence | CPT/HCPCS: 97597; 99212; 99214 ==

== ENCOUNTER 2024-11-28 10:46 | Outpatient (AMB) | payer OTHER, SELFPAY ==
--- NOTE | 2024-11-28 10:59 | AM.OFFVISNUR ---
Intake Visit Reasons: Prolia Allergies upadacitinib (From Rinvoq) Allergy (Mild, Verified 09/01/24 09:57) Rash naproxen (NAPROXEN) Allergy (Unknown, Verified 09/01/24 09:57) DIZZINESS EYE REDNESS AND SWELLING, edema Office Meds Prolia 60 mg/mL subcutaneous syringe Performing Provider: Aiyana Orlando MD Performing Location[place] [facility] Administered by: Butch Hankins RN on 11/28/24 10:59 Dose Route Admin Location Dispensed Lot Number Expiration Date [facility] [employer] 60 mg subcut 1 mL [id number] 05/10/27 05330-760-97 [employer] Total Dispensed Waste 1 mL 0 % Comments: Cheryl Rowley presents today for Prolia (Denosumab) 60 mg/mL injection for the treatment of osteoporosis. The patient has not had any recent fever or illness. The injection site to be used is without erythema, edema, and is clean, dry, and intact. We discussed post-injection symptoms to be aware of. The patient tolerated the procedure well. She was accompanied by her friend and departed from the practice Assessment & Plan Assessment & Plan Orders: Orders AMB Denosumab Injection Patient Supplied Today M81.0 - Age-related osteoporosis without current pathological fracture Coding
--- OUTSIDE RECORDS SUMMARY | 2024-11-28 11:25 | XMS_ITS ---
Author Name [facility] Organization Unknown Care Team Organization Name Specialty Phone Email Start Date End Da te [facility] FLACO ANUJA Primary Care 01/17/2022 4
--- OUTSIDE RECORDS SUMMARY | 2024-11-28 11:25 | XMS_ITS | Encounter Summary ---
Author Organization [facility] Address [address] [place] [address] Care Team Providers Care Chief Of Staff Name Role Phone Frederick Alfonso MD Primary Care Provider Encounter Details Date Type Department Care Team ([facility] Contact Info) Description 07/08/2024 Lab Requisition [facility] [address] [facility] [place] [address] Wellington Del Valle MD [address] [place] [phone] Local infection of the skin and subcutaneous tissue, unspecified Social History Tobacco Use Types Packs/Day Years [...] AM EST documented as of this encounter Plan of Treatment Upcoming Encounters Date Type Department Care Team ([facility] Contact Info) Description 12/16/2024 10:00 AM EDT Office Visit Adult Medicine [address] [phone] Frederick Alfonso MD [address] [place] [address] 01/07/2025 10:30 AM EDT Procedure visit Obstetrics & Gynecology - [facility] [address] [place] [phone] Rachelle Gross, CNM [address] [place], [place] documented as of this encounter Procedures Procedure Name Priority Date/Time Associated Diagnosis Comments CULTURE FUNGAL, OTHER Routine 07/08/2024 12:00 AM EDT Local infection of the skin and subcutaneous tissue, unspecified documented in this encounter Results * (ABNORMAL) Culture fungal, other (07/08/2024 12:00 AM EDT) Culture, Fungus Fungus(A) 3:14 PM EDT [facility] Comment: ORGANISM SENT TO REFERENCE LABORATORY FOR IDENTIFICATION. Refer to [id number] for results The organism value for this result has been updated. These results have been appended to the previously preliminary verified report. Skin 07/08/2024 07/08/2024 7:1 2 PM EDT Wellington Del Valle MD LAB MICROBIOLOGY - G ENERAL ORDERABLES Final Result [facility] [address] [place] [address], documented in this encounter Visit Diagnoses Diagnosis Local infection of the skin and subcutaneous tissue, unspecified documented in this encounter Additional Health Concerns Infection Onset Date Last Indicated Resolved Time COVID-19 06/12/2024 06/12/2024 07/12/2024 7:04 PM EDT documented as of this encounter Care Teams Chief Of Staff Relationship Specialty Start Date End Date Frederick Alfonso MD [address] [place], [place] PCP - General Internal Medicine 11/12/24 documented as of this encounter
--- OUTSIDE RECORDS SUMMARY | 2024-11-28 11:25 | XMS_ITS | Clinical Summary ---
Author Organization [facility] [place] Address [address] [place] [address] Care Team Providers Care Green End Worker Name Role Phone Frederick Alfonso MD Primary Care Provider Allergies Active Allergy Reactions Criticality Noted Date Comments Cephalexin 04/23/2020 Hives Doxycycline 02/14/2023 Naproxen Swelling 11/09/2009 Edema of eyes Medications acetaminophen (TYLENOL) 500 mg tablet Take 500 mg by mouth every 6 hours as needed. Active alendronate (FOSAMAX) 70 mg tablet 06/25/19 24 Active ergocalciferol (VITAMIN D-2) 1,250 mcg (50,000 unit) capsule 06/26/19 24 Active levonorgestreL (MIRENA) 21 mcg/24 hr (8 yrs) 52 mg IUD 1 Each by Intrauterine route once. Active methotrexate 2.5 mg tablet Take 2.5 mg by mouth once a week. 8 pills every Active predniSONE (DELTASONE) 5 mg tablet 03/19/19 24 Active triamcinolone (KENALOG) 0.1 % ointment To affected area 2-3 times daily 01/04/20 21 Active clotrimazole (LOTRIMIN) 1 % cream 1 APPL TOPICALLY 2 TIMES A DAY 04/07/19 24 Active methylPREDNISo lone (MEDROL) 8 mg tablet [...] (ELAVIL) 25 mg tabletIndicati ons:Rheumatoid arthritis, unspecified ([facility] V24, [facility] V28) TAKE 1 TO 2 TABLETS BY MOUTH AT BEDTIME 60 tablet 5 07/31/19 25 Active omeprazole (PriLOSEC) [address] capsule TAKE 1 CAPSULE (20 MG TOTAL) BY MOUTH 2 (TWO) TIMES A DAY. DO NOT CRUSH OR CHEW. 180 capsule 1 08/14/19 25 Active cyclobenzaprin e (FLEXERIL) 10 mg tablet Take 1 tablet (10 mg total) by mouth 2 (two) times a day if needed for muscle spasms. 60 tablet 5 09/24/19 25 Active losartan (COZAAR) 100 mg tablet Take 1 tablet (100 mg total) by mouth 1 (one) time each day. 90 tablet 1 10/15/19 25 2025 Active folic acid (FOLVITE) 1 mg tabletIndicati ons:Rheumatoid arthritis, unspecified ([facility] V24, [facility] V28) TAKE 1 TABLET BY MOUTH EVERY DAY 90 tablet 1 10/23/19 25 Active Vitamin D3 50 mcg (2,000 unit) tablet TAKE 1 TABLET BY MOUTH EVERY DAY 90 tablet 1 11/13/19 25 Active oxyCODONE (ROXICODONE) 15 mg immediate release tabletIndicati ons:Rheumatoid arthritis, involving unspecified site, unspecified whether rheumatoid factor present ([facility] V24, [facility] V28),Other chronic pain Take 1 tablet (15 mg total) by mouth every 6 (six) hours. Max Daily Amount: 60 mg 112 tablet 11/19/19 25 Active Vitamin D3 50 mcg (2,000 unit) tablet TAKE 1 TABLET BY MOUTH EVERY DAY 90 tablet 1 03/26/19 25 2024 Discontinued oxyCODONE-acet aminophen (PERCOCET) 5-325 mg per tabletIndicati ons:Facet arthropathy, lumbar Take 1 tablet by mouth 2 (two) times a day. Max Daily Amount: 2 tablets 56 tablet 09/24/19 25 2024 Discontinued oxyCODONE-acet aminophen (PERCOCET) 5-325 mg per tabletIndicati ons:Rheumatoid arthritis, involving unspecified site, unspecified whether rheumatoid factor present (CMS/HCC V24, CMS/HCC V28),Rupture of anterior cruciate ligament of knee, unspecified laterality, subsequent encounter,Clos ed fracture of multiple ribs with routine healing, unspecified laterality, subsequent encounter Take 1 tablet by mouth every 6 (six) hours. Max Daily Amount: 4 tablets 112 tablet 10/16/19 25 2024 Discontinued oxyCODONE (ROXICODONE) 15 mg immediate release tabletIndicati ons:Rheumatoid arthritis, involving unspecified site, unspecified whether rheumatoid factor present (CMS/HCC V24, CMS/HCC V28),Other chronic pain Take 1 tablet (15 mg total) by mouth every 6 (six) hours. Max Daily Amount: 60 mg 112 tablet 11/19/19 25 2024 Discontinued(R eorder) Active Problems Problem Noted Date Diagnosed Date Pneumonia due to COVID-19 virus 06/13/2024 Primary hypertension 02/19/2024 Rheumatoid arthritis (CMS/[facility] V24, [facility] V28) 12/13/2023 Overview (12/13/2023): Age 16 at [facility] with Dr Haro. RF negative. [...] Encounters Date Type Department Care Team Description 11/18/2024 8:30 AM EDT Office Visit [address] [phone] Frederick Alfonso MD Rheumatoid arthritis, involving unspecified site, unspecified whether rheumatoid factor present ([facility] V24, [facility] V28) (Primary Dx); Other chronic pain; Primary hypertension 11/17/2024 8:00 AM EDT Office Visit [address] [phone] Cynthia Argueta NP Encounter for long-term (current) use of high-risk medication (Primary Dx); Rheumatoid arthritis, involving unspecified site, unspecified whether rheumatoid factor present ([facility] V24, [facility] V28); Primary hypertension 10/14/2024 2:30 PM EDT Office Visit [address] [phone] Frederick Alfonso MD Other chronic pain (Primary Dx); Rheumatoid arthritis, involving unspecified site, unspecified whether rheumatoid factor present ([facility] V24, [facility] V28); Primary hypertension; Rupture of anterior cruciate ligament of knee, unspecified laterality, subsequent encounter; Closed fracture of multiple ribs with routine healing, unspecified laterality, subsequent encounter from Last 3 Months Immunizations Name Administration [...] Surgery Date Site/Laterality Comments KNEE ARTHROSCOPY PROCEDURE: GA ARTHROSCOPY KNEE DIAGNOSTIC W/WO SYNOVIAL BX SPX; COMMENT: on left knee LAPAROSCOPY DIAGNOSTIC / BIO PSY / ASPIRATION / LYSIS PROCEDURE: PELVIS LAPAROSCOPY, DIAGNOSTIC UPPER GASTROINTESTINAL ENDOSCOPY 07/28/2019 PROCEDURE: GA UPPER GI ENDOSCOPY PERFORMED; COMMENT: Visually normal; duodenal biopsies obtained--- pathology = normal. COLONOSCOPY 09/10/2019 PROCEDURE: HISTORICAL COLONOSCOPY; COMMENT: negative Medical History Medical History Date Comments Rheumatoid arthritis(714.0) DX:R heumatoid arthritis(714.0); COMMENT: [place] [facility] [place] D deficiency DX:Vitamin D deficiency Ovarian [...] Sign Reading Time Taken Comments Blood Pressure 108/70 11/18/2024 8:27 AM EDT Pulse 108 11/18/2024 8:27 AM EDT Temperature 36.3 C (97.4 F) 11/18/2024 8:27 AM EDT Respiratory Rate 14 11/18/2024 8:27 AM EDT Oxygen Saturation 97% 10/14/2024 2:34 PM EDT Inhaled Oxygen Concentration - - Weight 71.2 kg (157 lb) 11/18/2024 8:27 AM EDT Height 154.9 cm (5' 1 ) 11/18/2024 8:27 AM EDT Body Mass Index 29.66 11/18/2024 8:27 AM EDT Plan of Treatment Upcoming Encounters Date Type Department Care Team (Late st Contact Info) Description 12/16/2024 10:00 AM EDT Office Visit Adult Medicine [address] [phone] Frederick Alfonso MD [address] [place] [address] 01/07/2025 10:30 AM EDT Procedure visit Obstetrics & Gynecology - [address] [phone] Rachelle Gross, VIK[place] [address] [place], [place] Health Maintenance Due Date Last Done Comments Hepatitis B Vaccines (1 of 3 - 19+ 3-dose series) 2008 Social Influencers of Health Screening 12/24/2019 COVID-19 Vaccine (3 - Pfizer risk series) 08/31/2020 08/03/2020, 07/13/2020 Depression Screening 03/12/2024 06/26/2023 Influenza Vaccine (#1) 2024 , 12/29/2019, 12/04/2017, Additional history exists Hypertension/CHF/CAD Annual BMP Blood Test 11/12/2025 11/12/2024, 06/14/2024, 06/13/2024, Additional history exists Cervical Cancer Screening: HPV 12/21/2027 12/20/2022 Cholesterol Screening (Lipid Panel) 06/24/2028 06/25/2023 DTaP,Tdap,and Td Vaccines (3 - Td or Tdap) 04/23/2030 04/23/2020, 02/09/2016 RSV Immunization Adult Patients (1 - 1-dose 75+ series) 2064 Pneumococcal Vaccine: Pediatrics (0 to 5 Years) and At-Risk Patients (6 to 49 Years) Aged Out 05/16/2017 No longer eligible based on patient's age to complete this topic HIV Screening Completed 05/19/2022 Hepatitis C Screening [...] Procedure Name Priority Date/Time Associated Diagnosis Comments OPIATES CONFIRMATION, URINE Routine 11/12/2024 10:19 AM EDT Encounter for long-term (current) use of high-risk medication THC, URINE, CONFIRMATION Routine 11/12/2024 10:19 AM EDT Encounter for long-term (current) use of high-risk medication BASIC METABOLIC PANEL Routine 11/12/2024 10:19 AM EDT Primary hypertension DRUG ABUSE SCREEN EXPANDED WITH REFLEX CONFIRMATION, URINE Routine 11/12/2024 10:19 AM EDT Encounter for long-term (current) use of high-risk medication DEPRESSION SCREENING Routine 06/26/2023 LIPID PANEL Routine 06/25/2023 HPV Routine 12/20/2022 HEPATITIS C SCREENING Routine 05/19/2022 HIV SCREENING Routine 05/19/2022 from Last 3 Months or Most Recently Relevant to Health Maintenance Results * (ABNORMAL) Drug abuse screen expanded with reflex confirmation, urine (11/12/2024 10:19 AM EDT) Amphetamine Screen, Ur Negative Negative LAB CHEMISTRY METHOD 5 2:14 PM T [facility] Comment:Certain OTC medicati ons containing ephedrine, phenylephrine, pseudoephedrine and phenylpropanolamine can cause false positive results. Barbiturate Screen, Ur Negative Negative LAB CHEMISTRY METHOD 5 2:14 PM EDT [facility] Benzodiazepine Screen, Ur Negative Negative LAB CHEMISTRY METHOD 5 2:14 PM [facility] Cocaine Screen, Ur Negative Negative LAB CHEMISTRY METHOD 5 2:14 PM [facility] Opiate Screen, Ur Positive(A ) Negative LAB CHEMISTRY METHOD 5 2:14 PM [facility] Cannabinoid (THC) Screen, Ur Positive(A ) Negative LAB CHEMISTRY METHOD 5 2:14 PM EDT [facility] Comment:Specimens from patie nts taking pantoprazole sodium (Protonix) have been shown to produce false positive results. Fentanyl, Ur Negative Negative LAB CHEMISTRY METHOD 5 2:14 PM EDT [facility] Oxycodone Screen, Ur Positive(A ) Negative LAB CHEMISTRY METHOD 5 2:14 PM EDT [facility] Urine Urine specimen obtained by clean catch procedure / Unknown Non-blood Collection / Unknown 11/12/2024 10:19 AM EDT 11/12/2024 10:19 AM EDT Narrative [facility] - 11/12/2024 2:14 PM EDT Assay cutoffs: Amphetamines 1000 ng/mL Barbiturates 200 ng/mL Benzodiazepines 200 ng/mL Cocaine 300 ng/mL Fentanyl 1 ng/mL Opiates 300 ng/mL Oxycodone 100 ng/mL THC 50 ng/mL Semi-quantitative assay for screening purposes only. Unconfirmed screening result should not be used for non-medical purposes. *POSITIVE RESULTS ARE AUTOMATICALLY SENT FOR ALTERNATE METHOD CONFIRMATION* us Frederick Alfonso MD LAB URINE ORDERABLES Final Resu lt [facility] [address] [place] [address], * (ABNORMAL) Opiates confirmation, urine (11/12/2024 10:19 AM EDT) Morphine Confirm, Urine Negative Negative ng/mL 11/18/2024 12:38 PM EDT [facility] Codeine Confirm, Urine Negative Negative ng/mL 11/18/2024 12:38 PM EDT [facility] Hydrocodone Confirm, Urine Negative Negative ng/mL 11/18/2024 12:38 PM EDT [facility] Hydromorphone Confirm, Urine Negative Negative ng/mL 11/18/2024 12:38 PM EDT [facility] Oxycodone Confirm, Urine 623(H) Negative ng/mL 11/18/2024 12:38 PM EDT [facility] Oxymorphone Confirm, Urine 311(H) Negative ng/mL 11/18/2024 12:38 PM EDT [facility] Creatinine 180 20 - 250 mg/dL 11/18/2024 12:38 PM EDT [facility] Adulterants Negative 11/18/2024 12:38 PM EDT [facility] Comment: Confirmation (LC/MS/MS) Decision Limits Morphine 25 ng/mL Codeine 25 ng/mL Hydrocodone 25 ng/mL Hydromorphone 25 ng/mL Oxycodone 25 ng/mL Oxymorphone 25 ng/mL Adulterant Decision Limit: General Oxidants 200 ug/mL The adulterant assay tests for General Oxidants, including Chromates and Nitrites. Adulterants are substances either ingested or added directly to a urine specimen to prevent the detection of drug use. If applicable, any drug confirmation testing reported here was developed and the performance characteristics determined by [facility]. This confirmation testing has not been cleared or approved by the FDA. The laboratory is regulated under CLIA as qualified to perform high-complexity testing. This test is used for patient testing purposes. It should not be regarded as investigational or for research. Test performed at [facility], [address] , [place] [address] Madison Titus MD, PhD - Bakery Worker Urine Urine specimen obtained by clean catch procedure / Unknown Non-blood Collection / Unknown 11/12/2024 10:19 AM EDT 11/12/2024 2:14 PM EDT us Frederick Alfonso MD LAB URINE ORDERABLES Final Resu lt [facility] [address] [place] [address] * THC, urine, confirmation (11/12/2024 10:19 AM EDT) Tetrahydrocannabinoid (THC) >1500 Negative ng/mL 11/17/2024 11:35 PM EDT [facility] Tetrahydrocannabinoid (THC)/Creatinine Ratio 1242 11:35 PM EDT [facility] Creatinine 175 20 - 250 mg/dL 11/17/2024 11:35 PM EDT [facility] Adulterants Negative 11/17/2024 11:35 PM EDT [facility] Comment: The urine THC/creatinine ratio is the best monitor to determine the possibility of continued drug usage. With abstinence, the ratio should decrease within one week by a factor of two or more. Confirmation (GC/MS) Decision Limit THC ([id number]) 3 ng/mL Adulterant Decision Limit: General Oxidants 200 ug/mL The adulterant assay tests for General Oxidants, including Chromates and Nitrites. Adulterants are substances either ingested or added directly to a urine specimen to prevent the detection of drug use. If applicable, any drug confirmation testing reported here was developed and the performance characteristics determined by [facility]. This confirmation testing has not been cleared or approved by the FDA. The laboratory is regulated under CLIA as qualified to perform high-complexity testing. This test is used for patient testing purposes. It should not be regarded as investigational or for research. Test performed at [facility], [address] , [place], [place] [id number] Madison Titus MD, PhD - Bakery Worker Urine Urine specimen obtained by clean catch procedure / Unknown Non-blood Collection / Unknown 11/12/2024 10:19 AM EDT 11/12/2024 2:14 PM EDT us Frederick Alfonso MD LAB URINE ORDERABLES Final Resu lt [facility] [address] [place] [address] * (ABNORMAL) Basic metabolic panel (11/12/2024 10:19 AM EDT) Sodium 139 133 - 145 mmol/L LAB CHEMISTRY METHOD 11/12/2024 1:21 PM EDT [facility] Potassium 4.0 3.5 - 5.5 mmol/L LAB CHEMISTRY METHOD 11/12/2024 1:21 PM [facility] Chloride 105 96 - 110 mmol/L LAB CHEMISTRY METHOD 11/12/2024 1:21 PM [facility] CO2 29 21 - 32 mmol/L LAB CHEMISTRY METHOD 11/12/2024 1:21 PM [facility] Anion Gap 5 3 - 11 LAB CHEMISTRY METHOD 11/12/2024 1:21 PM [facility] Glucose 68(L) 70 - 100 mg/dL LAB CHEMISTRY METHOD 11/12/2024 1:21 PM [facility] BUN 20 5 - 25 mg/dL LAB CHEMISTRY METHOD 11/12/2024 1:21 PM [facility] Creatinine 0.71 0.50 - 1.10 mg/dL LAB CHEMISTRY METHOD 11/12/2024 1:21 PM [facility] eGFR 114 >=60 mL/min/1. 73m2 LAB CHEMISTRY METHOD 11/12/2024 1:21 PM [facility] Comment:Calculation based on the Chronic Kidney Disease Epidemiology Collaboration (CKD-EPI) equation refit without adjustment for race. BUN/Creatinine Ratio 28.2 LAB CHEMISTRY METHOD 11/12/2024 1:21 PM [facility] Calcium 9.5 8.5 - 10.5 mg/dL LAB CHEMISTRY METHOD 11/12/2024 1:21 PM [facility] Blood Venous blood specimen / Unknown Venipuncture / Unknown 11/12/2024 10:19 AM EDT 11/12/2024 10:19 AM EDT us Frederick Alfonso MD LAB BLOOD ORDERABLES Final Resu lt [facility] [address] [place] [address], * Depression Screening (06/26/2023) [facility] Depression Screening Abstracted [facility] Provider HEALTH MAINTENANCE Final Result * Lipid panel (06/25/2023) [facility] LDL/HDL Ratio 2 0 - 4 Triglycerides 76 0 - 150 mg/dL Cholesterol 171 0 - 200 mg/dL HDL 79 >=40 mg/dL LDL Cholesterol 77 0 - 100 mg/dL Blood Venous blood specimen / Unknown [facility] Provider LAB BLOOD ORDERABLES Noelle l Result * Cervical Cancer Screening: HPV (12/20/2022) [facility] Cervical Cancer Screening: HPV Negative, Abstracted Result [facility] Provider HEALTH MAINTENANCE Final Result * HIV Screening (05/19/2022) [facility] HIV Screening Abstracted [facility] Provider HEALTH MAINTENANCE Final Result * Hepatitis C Screening (05/19/2022) [facility] Hepatitis C Screening Abstracted [facility] Provider HEALTH MAINTENANCE Final Result from Last 3 Months or Most Recently Relevant to Health Maintenance Insurance [facility] Advance Directives * Full Code [...] currently active code status orders. Care Teams Green End Worker Relationship Specialty Start Date End Date Frederick Alfonso MD [address] [place] [phone] PCP - General Internal Medicine 11/12/24
== END 2024-11-28 10:49 | disposition home or self-care (01) ==
LOC: HO.RHES 10:46
PROVIDERS: PCP Internal Medicine; Visit Provider Student in an Organized Health Care Education/Training Program
DX: M81.0 Age-related osteoporosis without current pathological fracture (principal)

== ENCOUNTER → 2024-11-28 10:46 | Outpatient (BNVA) | payer OTHER, SELFPAY | PROVIDERS: PCP Internal Medicine; Visit Provider Student in an Organized Health Care Education/Training Program | DX: M81.0 Age-related osteoporosis without current pathological fracture (principal); Z79.620 Long term (current) use of immunosuppressive biologic | CPT/HCPCS: 96372; J0897 ==

== ENCOUNTER 2024-12-29 10:47 | Outpatient (REF) | payer OTHER, SELFPAY ==
[2024-12-29 13:43] LABS: Alanine Aminotransferase 25 U/L (0-31); Albumin Level 4.0 g/dL (3.5-5.0); Alkaline Phosphatase 76 U/L (39-117); Anion Gap 13 (12-20); Aspartate Amino Transferase 20 U/L (5-31); Blood Urea Nitrogen 13 mg/dL (9-16); Calcium 9.0 mg/dL (8.4-10.2); Carbon Dioxide 27 mmol/L (22-29); Chloride 106 mmol/L (96-108); Estimated Glomerular Filt Rate > 60; Potassium 3.7 mmol/L (3.3-5.1); Sodium 142 mmol/L (135-145); Total Protein 6.8 g/dL (6.5-8.0)
== END 2024-12-29 10:48 | disposition home or self-care (01) ==
LOC: HO.HKASLDS 10:47
PROVIDERS: PCP Internal Medicine; Visit Provider Student in an Organized Health Care Education/Training Program
DX: M81.0 Age-related osteoporosis without current pathological fracture (principal)
CPT/HCPCS: 36415; 80053; 82306

== ENCOUNTER 2024-12-30 08:57 | Outpatient (AMB) | payer OTHER, SELFPAY ==
--- NOTE | 2024-12-25 15:22 | MHC.OFFVIS ---
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 Long-term current use of anakinra Rheumatoid arthritis flare Surgical History History of shoulder surgery Hx of endoscopy Hx of colonoscopy History of removal of ovarian cyst Hx of lithotripsy Social History Household Members: Significant Other Housing: House Are you a primary healthcare social worker to a significant other at home: No Do you presently have visiting nurse or other home services: No 75 years or older and lives alone: No Alcohol intake: never Patient Tobacco Use Status: Former Tobacco user e-Cigarette/Vaping Use: Never Used Substance Use Type: Marijuana service: No Current occupational status: unemployed 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
--- OUTSIDE RECORDS SUMMARY | 2024-12-25 20:43 | XMS_ITS | Encounter Summary ---
Author Organization [facility] Address [address] [place] [address] Care Team Providers Care Corner Cutter Name Role Phone Frederick Alfonso MD Primary Care Provider [phone] Reason for Visit * Reason Comments Leg Pain * Auth/Cert (Routine) Specialty Diagnoses / Procedures Referred By Contac t Referred To Contact Diagnoses Leg swelling Pain Swelling of thigh Procedures . Levi Victoria MD [address] [place] [phone] Phone: tel: fax: [facility] [address] [place] [phone] Phone: tel: Referral ID Status Reason Start Date Expiration Date Visits Re quested Visits Authorized [id number] 1 1 Encounter Details Date Type Department Care Team (Latest Contact Info) Description 12/25/2024 8:43 PM EDT - 12/27/2024 1:50 PM EDT Hospital Encounter [facility] [address] [place] [phone] Bryson Aldridge MD [address] [place] [phone] Levi Victoria MD [address] [place] [phone] Michele Mariano MD [address] [place] [phone] Pain (Primary Dx); Swelling of thigh Discharge Disposition: Home or Self Care Social History Tobacco Use Types Packs/Day Years Used Date Smoking Tobacco: Former Smokeless Tobacco: Never Alcohol Use Standard Drinks/Week Comments No 0 (1 standard drink = 0.6 oz pur e alcohol) Interpersonal Safety Answer Date Record ed Physical Abuse Unrecognized value 12/26/2024 Verbal Abuse Unrecognized value 12/26/2024 Comments No Sex and Gender Information Value Date Recorded Sex Assigned at Female 04/10/2024 2:09 AM EST Legal Sex Female 2:47 PM EDT Gender Identity Female 04/10/2024 2:09 AM EST Sexual Orientation Something else 04/10/2024 2: 09 AM EST documented as of this encounter Last Filed Vital Signs Vital Sign Reading Time Taken Comments Blood Pressure 139/90 12/27/2024 7:39 AM EDT Pulse 65 12/27/2024 7:39 AM EDT Temperature 36.5 C (97.7 F) 12/27/2024 7:39 AM EDT Respiratory Rate 16 12/27/2024 7:39 AM EDT Oxygen Saturation 99% 12/27/2024 7:39 AM EDT Inhaled Oxygen Concentration - - Weight 69.9 kg (154 lb) 12/25/2024 4:10 PM EDT Height 154.9 cm (5' 1 ) 12/25/2024 4:10 PM EDT Body Mass Index 29.1 12/25/2024 4:10 PM EDT documented in this encounter Functional Status * Calculated C-SSRS Risk Score (Lifetime/Recent) Answer Date of Assessment Author No Risk Indicated 12/26/2024 3:22 AM EDT Cristal Llanos RN * [place] Suicide Severity Rating Scale (Screener/Recent Self-Report) Question Answer Date of Assessment Author 1. Wish to be (Past 1 Month) No 025 3:22 AM EDT Cristal Llanos RN 2. Non-Specific Active Suici lesley Thoughts (Past 1 Month) No 12/26/2024 3:22 AM EDT Cristal Llanos RN 6. Suicidal Behavior (Lifetime) No 3:22 AM EDT Cristal Llanos RN documented as of this encounter Discharge Summaries * Michele Mariano MD - 12/27/2024 12:20 PM EDT Images from the original note were not included. YELLOW JACKET DISCHARGE SUMMARY Patient Information Melita Rowley : 1990 [34 y.o.] Admitting Provider Michele Mariano MD Discharge Provider iMchele Mariano MD, Michele Mariano MD Primary Care Physician Frederick Alfonso MD Admission Date 12/25/2024 Discharge Date 12/27/2024 Summary of Hospital Problems Primary Discharge Diagnosis: Leg swelling, evans's cyst rupture Discharge Destination: home Code Status at Discharge: Full Code - Default Hospital Course Summary LOS: 1 day H&P as on 12/25/2024 Left leg swelling. HISTORY OF PRESENT ILLNESS 34-year-old female with past medical history of lupus, fibromyalgia, chronic steroid use, history of rheumatoid arthritis who is coming to the hospital with worsening left lower extremity swelling and pain for the last 1 to 2 weeks. Patient denies any falls or trauma. She stated that she started noticing swelling of the left lower extremity especially on the posterior side almost 1 to 2 weeks agowhich has continuously gotten worse. She denied any fever or chills. On arrival to the hospital, the patient was hypertensive. Oratory workup showed elevated CRP and potassium levels were found to below. Patient has chronic anemia with a baseline hemoglobin of 8-9. She underwent imaging which was suggestive of posterior left thigh deep soft tissue collection of fluid suggestive of liquefying hematoma versus seroma versus abscess. Hospital course Patient was signed to observation for further management of left lower extremity swelling, pain. Reviewed CT of the lower extremity noted posterior left thigh, deep soft tissue fluid collection whichcould be liquefying hematoma, seroma, abscess or other etiology. Orthopedic surgery consultation requested and recommended IR guided aspiration. Patient underwent ultrasound-guided drainage of the mildly complex left calf collection with partial resolution. Cultures from the leg aspirate showed no organisms seen (preliminary results. Orthopedic surgeon followed up today, suspecting ruptured Evans's cyst to left lower extremity. And patient is reporting improvement in symptoms, feeling much betzaida r. Orthopedic surgeon recommended to follow-up in the clinic as needed and will follow-up on the final culture results, notify the patient if there is an issue. Patient is otherwise stable for discharge today. # Disposition-Home Total time spent 35minutes doing chart review, interviewing patient, gathering information, performing physical exam, formulating plan, explaining management plan to patient, coordinating care with RN, documentation and placing orders. Follow-Up Instructions and Recommendations Frederick Alfonso MD [address] [facility] [phone] Schedule an appointment as soon as possible for a visit in 3 day(s) for transition of care visit Margarette Etienne MD [address] [place] [phone] Schedule an appointment as soon as possible for a visit in 1 week(s) If symptoms worsen, As needed Discharge Procedure Orders Discharge Diet: Return to previous diet Order Specific Question Answer Comments General Instructions for your diet at home Return to previous diet Restrict your activities and rest today, may resume normal activity tomorrow There are no outpatient Patient Instructions on file for this admission. Discharge Medications Your medication list CONTINUE taking these medications Instructions Last Dose Given Next Dose Due acetaminophen 500 mg tablet Commonly known as: TYLENOL Take 500 mg by mouth every 6 hours as needed. alendronate 70 mg tablet Commonly known as: FOSAMAX amitriptyline 25 mg tablet Commonly known as: ELAVIL TAKE 1 TO 2 TABLETS BY MOUTH AT BEDTIME cyclobenzaprine 10 mg tablet Commonly known as: FLEXERIL Take 1 tablet (10 mg total) by mouth 2 (two) times a day if needed for muscle spasms. ergocalciferol 1,250 mcg (50,000 unit) capsule Commonly known as: VITAMIN D-2 folic acid 1 mg tablet Commonly known as: FOLVITE TAKE 1 TABLET BY MOUTH EVERY DAY levonorgestreL 21 mcg/24hr (up to 8 yrs) 52 mg IUD Commonly known as: MIRENA 1 Each by Intrauterine route once. losartan 100 mg tablet Commonly known as: COZAAR Take 1 tablet (100 mg total) by mouth 1 (one) time each day. methotrexate 2.5 mg tablet Take 2.5 mg by mouth once a week. 8 pills every methylPREDNISolone 8 mg tablet Commonly known as: MEDROL Take 1 tablet (8 mg total) by mouth 2 (two) times a day. omeprazole [address] capsule Commonly known as: PriLOSEC TAKE 1 CAPSULE (20 MG TOTAL) BY MOUTH 2 (TWO) TIMES A DAY. DO NOT CRUSH OR CHEW. oxyCODONE 15 mg immediate release tablet Commonly known as: ROXICODONE Take 1 tablet (15 mg total) by mouth every 6 (six) hours. Max Daily Amount: 60 mg SUMAtriptan 25 mg tablet Commonly known as: IMITREX Take 1 tablet (25 mg total) by mouth 1 (one) time if needed for migraine. SUMAtriptan 25 mg tablet Commonly known as: IMITREX TAKE 1 TABLET BY MOUTH MAY REPEAT DOSE ONCE AFTER 2 HOURS, IF NEEDED. triamcinolone 0.1 % ointment Commonly known as: KENALOG To affected area 2-3 times daily Vitamin D3 50 mcg (2,000 unit) tablet Generic drug: cholecalciferol TAKE 1 TABLET BY MOUTH EVERY DAY Physical Exam at time of Discharge Physical Exam Constitutional: General: She is not in acute distress. Appearance: Normal appearance. She is not ill-appearing. HENT: Head: Normocephalic and atraumatic. Eyes: Conjunctiva/sclera: Conjunctivae normal. Cardiovascular: Rate and Rhythm: Normal rate and regular rhythm. Pulses: Normal pulses. Heart sounds: Normal heart sounds. Pulmonary: Effort: Pulmonary effort is normal. No respiratory distress. Breath sounds: Normal breath sounds. No wheezing. Abdominal: General: Bowel sounds are normal. There is no distension. Palpations: Abdomen is soft. Tenderness: There is no abdominal tenderness. There is no guarding. Skin: General: Skin is warm. Neurological: Mental Status: She is alert. Psychiatric: Mood and Affect: Mood normal. Behavior: Behavior normal. Vitals Visit Vitals BP (!) 139/90 Pulse 65 Temp 36.5 ??C (97.7 ??F) Resp 16 Temp (24hrs), Av.2 ??C (97.1 ??F), Min:35.7 ??C (96.2 ??F), Max:36.5 ??C (97.7 ??F) Body mass index is 29.1 kg/m??. No results found for: PTWT , PTHT documented in this encounter Medications at Time of Discharge acetaminophen (TYLENOL) 500 mg tablet Take 500 mg by mouth every 6 hours as needed. alendronate (FOSAMAX) 70 mg tablet 06/25/2023 amitriptyline (ELAVIL) 25 mg tabletIndications :Rheumatoid arthritis, unspecified ([facility] V24, [facility] V28) TAKE 1 TO 2 TABLETS BY MOUTH AT BEDTIME 60 tablet 5 07/30/2024 cyclobenzaprine (FLEXERIL) 10 mg tablet Take 1 tablet (10 mg total) by mouth 2 (two) times a day if needed for muscle spasms. 60 tablet 5 09/23/2024 ergocalciferol (VITAMIN D-2) 1,250 mcg (50,000 unit) capsule 06/26/2023 folic acid (FOLVITE) 1 mg tabletIndications :Rheumatoid arthritis, unspecified ([facility] V24, [facility] V28) TAKE 1 TABLET BY MOUTH EVERY DAY 90 tablet 1 10/22/2024 levonorgestreL (MIRENA) 21 mcg/24 hr (8 yrs) 52 mg IUD 1 Each by Intrauterine route once. losartan (COZAAR) 100 mg tablet Take 1 tablet (100 mg total) by mouth 1 (one) time each day. 90 tablet 1 10/14/2024 methotrexate 2.5 mg tablet Take 2.5 mg by mouth once a week. 8 pills every methylPREDNISolon e (MEDROL) 8 mg tablet Take 1 tablet (8 mg total) by mouth 2 (two) times a day. 06/02/2024 omeprazole (PriLOSEC) [address] capsule TAKE 1 CAPSULE (20 MG TOTAL) BY MOUTH 2 (TWO) TIMES A DAY. DO NOT CRUSH OR CHEW. 180 capsule 1 08/13/2024 oxyCODONE (ROXICODONE) 15 mg immediate release tabletIndications :Rheumatoid arthritis, involving unspecified site, unspecified whether rheumatoid factor present ([facility] V24, [facility] V28),Other chronic pain Take 1 tablet (15 mg total) by mouth every 6 (six) hours. Max Daily Amount: 60 mg 112 tablet 12/18/2024 SUMAtriptan (IMITREX) 25 mg tablet TAKE 1 TABLET BY MOUTH MAY REPEAT DOSE ONCE AFTER 2 HOURS, IF NEEDED. 5 tablet 5 07/21/2024 SUMAtriptan (IMITREX) 25 mg tablet Take 1 tablet (25 mg total) by mouth 1 (one) time if needed for migraine. triamcinolone (KENALOG) 0.1 % ointment To affected area 2-3 times daily 01/03/2021 Vitamin D3 50 mcg (2,000 unit) tablet TAKE 1 TABLET BY MOUTH EVERY DAY 90 tablet 1 11/12/2024 documented as of this encounter Discharge Disposition Disposition Code Departure Means Destination Comment s Home or Self Care Car Home documented in this encounter Progress Notes * VIET Jones - 12/27/2024 1:50 PM EDT Images from the original note were not included. Body fluid culture reviewed showing no growth. No further acute orthopedic intervention needed. Culture body fluid with gram stain Order: [id number] Collected 12/26/2024 14:46 Status: Final result Test Result Released: Yes (not seen) Specimen Information: Leg, Left; Aspirate 0 Result Notes Fluid Culture No growth at 3 days Gram Stain Result No Epithelial cells Few Polymorphonuclear leukocytes No organisms seen Resulting Agency: [facility] Specimen Collected: 12/26/24 14:46 EDT Last Resulted: 12/29/24 10:33 EDT * Lisa Simms RN - 12/27/2024 1:50 PM EDT Pt medically cleared for discharge. Dispo is home self-care. No skilled need for VNA. Family to provide transport. * Janine Reno RN - 12/27/2024 1:36 PM EDT Education provided with regards to home medications and f/u appointments. Patients acknowledged. * Michele Maraino MD - 12/27/2024 12:20 PM EDT H&P as on 12/25/2024 Left leg swelling. HISTORY OF PRESENT ILLNESS 34-year-old female with past medical history of lupus, fibromyalgia, chronic steroid use, history of rheumatoid arthritis who is coming to the hospital with worsening left lower extremity swelling and pain for the last 1 to 2 weeks. Patient denies any falls or trauma. She stated that she started noticing swelling of the left lower extremity especially on the posterior side almost 1 to 2 weeks agowhich has continuously gotten worse. She denied any fever or chills. On arrival to the hospital, the patient was hypertensive. Oratory workup showed elevated CRP and potassium levels were found to below. Patient has chronic anemia with a baseline hemoglobin of 8-9. She underwent imaging which was suggestive of posterior left thigh deep soft tissue collection of fluid suggestive of liquefying hematoma versus seroma versus abscess. Hospital course Patient was signed to observation for further management of left lower extremity swelling, pain. Reviewed CT of the lower extremity noted posterior left thigh, deep soft tissue fluid collection which could be liquefying hematoma, seroma, abscess or other etiology. Orthopedic surgery consultation requested and recommended IR guided aspiration. Patient underwent ultrasound-guided drainage of the mildly complex left calf collection with partial resolution. Cultures from the leg aspirate showed noorganisms seen (preliminary results. Orthopedic surgeon followed up today, suspecting ruptured Evans's cyst to left lower extremity. And patient is reporting improvement in symptoms, feeling much bett er. Orthopedic surgeon recommended to follow-up in the clinic as needed and will follow-up on the final culture results, notify the patient if there is an issue. Patient is otherwise stable for discharge today. # Disposition-Home Total time spent 35minutes doing chart review, interviewing patient, gathering information, performing physical exam, formulating plan, explaining management plan to patient, coordinating care with RN, documentation and placing orders. * Michele Mariano MD - 12/27/2024 12:16 PM EDT Inpatient order was entered in error and pt is still under observation since 12/25/24 * Margarette Etienne MD - 12/27/2024 11:31 AM EDT Diagnosis: Likely ruptured Evans's cyst to left lower extremity I saw and evaluated the patient this morning. She says she feels much better after the IR aspirate.Able to ambulate. I reviewed the results from the IR aspirate it appears to be blood-tinged/orange-tinged fluid likely ruptured Evans's cyst. No organisms are so far seen on Gram stain. The patient reports that she feels much better. Given the above she can likely be discharged today. Orthopedics will follow-up cultures and if any concerns with the culture results we will call her and bring her back. She can be reached at [phone]. Follow up in the clinic as needed. We will just follow-up final culture results notify her if there is an issue. * Michele Mariano MD - 12/26/2024 1:35 PM EDT Brief note Patient is 34 years old female with past medical history significant for lupus, fibromyalgia, rheumatoid arthritis on chronic steroids came to the hospital with complaints of worsening left lower extremity swelling, pain. Please refer to the H&P completed earlier today. Patient was seen by the bedside this morning during rounds, reported some pain in the left lower extremity. Reviewed CT lower extremity imaging, noted posterior left thigh and deep soft tissue fluid collection which could beliquefying hematoma, seroma, abscess or other etiology. Given this orthopedic surgery consultation was requested and suspecting Bakers cyst rupture and fluid accumulation is likely from it. Recommending IR guided aspiration of and if the sample shows any infectious growth, orthopedic surgery team will plan for irrigation and debridement. Patient is n.p.o. drainage of the abscess. Will continue to follow. * Lisa Simms RN - 12/26/2024 11:28 AM EDT 12/26/24 1127 Initial Transition Plan Initial Transition Plan Home Discharge Planning Living Arrangements Spouse/significant other Type of Residence Private residence Assistive Devices Walker;Eyeglasses;Wheelchair;Cane Support Systems Spouse/significant other Medication Coverage Has Med Coverage Under Insurance Plan Yes Medication Affordability No concerns related to payment for meds Informed Choice Informed Choice Given? Yes Transportation Transportation at discharge Family MIGUEL: 12/27-12/28 Barrier: IR today for drainage of abscess Plan: home self-care * Joesy Hernandez RN - 12/26/2024 2:53 AM EDT ED RN HANDOFF (All Mejias Below Must Be Completed) Reason/Diagnosis for Admission: Type of Admission: [x] Medsurg, [] Telemetry Already in a Hospital Bed: [] Yes / [x] No Room Considerations/Precautions (ex: fever, diarrhea, or any infectious concerns): [] Yes / [x] No Newspaper Vendor: [] Yes / [x] No If YES, Cardiac Rhythm: [] NSR, [] SB, [] ST, [] A-FIB, [] A-Flutter, [] Pacemaker, [] 1st Degree HB, [] 2nd Degree HB, [] 3rd Degree HB Reason for Newspaper Vendor: VS: Visit Vitals BP (!) 147/84 (BP Location: Right arm;Upper, Patient Position: Lying) Pulse 81 Temp 36.9 ??C (98.4 ??F) (Oral) Resp 18 Ht 1.549 m (61 ) Wt 69.9 kg (154 lb) SpO2 99% BMI 29.10 kg/m?? OB Status IUD Smoking Status Former BSA 1.69 m?? Current Mental Status: A/O x [x]4, []3, []2, []1 Current Ambulation Status: Ambulates short distances IV Access: [x] Yes / [] No Field IV present: [] Yes / [x] No Hx of Violence: [] Yes / [x] No / [] Unknown Fall Risk:[] Yes / [x] No Yellow Bracelet Applied [] Yes / [] No Yellow Socks Applied [] Yes / [] No Patient Belongings inventoried and BL completed: [x] Yes / [] No Patient belongings stored in the security closet: [] Yes (If Yes please supply Security bag #): [x] No Patient Medications stored in Pharmacy: [] Yes (If Yes please supply Medication Security bag #): [x] No ED Summary of Care: PT NPO POSSIBLE GO TO OR TOMORROW TO DRAIN ABSCESS BEHIND LEFT KNEE. Submitted by and Phone Extension: JOSEY Lofton RN * Claudia Holt RN - 12/25/2024 4:08 PM EDT Pt presents to ed c/o left lower leg pain and swelling x 1 week. Pt denies injury. Pt has hx of rheumatoid arthritis and states swelling occasionally occurs but this episode is worsening. Pt is ambulating with limp in triage. * VIET Burrows - 12/25/2024 4:04 PM EDT HPI Chief Complaint Patient presents with Leg Pain The patient reports that their left calf has been swollen and tight for the past week. They describe the sensation as a consistent muscle cramp, making it difficult to walk. The patient has a historyof rheumatoid arthritis, lupus, and fibromyalgia, but notes that the current swelling and tightnessare more severe than previous episodes. They also mention swelling in the foot after standing for an hour or two. The patient experiences a lot of pain in the affected area, which is worse in certainareas of the calf. They are currently on muscle relaxers and pain medication, and express a desire just to understand the cause of the symptoms rule out serious or limb threatening condition. Patientdenies any fevers, chills, nausea, vomiting, diarrhea, chest pain, shortness of breath, palpitations, numbness or tingling, No data recorded Patient History Medical History[1] Surgical History[2] Family History[3] Social History Tobacco Use Smoking status: Former Smokeless tobacco: Never Substance Use Topics Alcohol use: No Drug use: Yes Types: Marijuana/Cannabis Review of Systems Review of Systems Physical Exam ED Triage Vitals [12/25/24 1610] Temp Heart Rate Resp BP 36.7 ??C (98.1 ??F) 95 17 (!) 147/81 SpO2 Temp Source Heart Rate Source Patient Position 100 % Oral -- -- BP Location FiO2 (%) -- -- Physical Exam Vitals and nursing note reviewed. Constitutional: General: She is not in acute distress. Appearance: She is not ill-appearing, toxic-appearing or diaphoretic. HENT: Head: Normocephalic and atraumatic. Right Ear: External ear normal. Left Ear: External ear normal. Nose: Nose normal. No rhinorrhea. Eyes: Extraocular Movements: Extraocular movements intact. Conjunctiva/sclera: Conjunctivae normal. Cardiovascular: Rate and Rhythm: Normal rate. Comments: Well-perfused Pulmonary: Effort: Pulmonary effort is normal. No respiratory distress. Breath sounds: No stridor. Abdominal: General: There is no distension. Musculoskeletal: General: No deformity. Normal range of motion. Cervical back: Normal range of motion and neck supple. No rigidity. Right hip: Tenderness present. No deformity, lacerations, bony tenderness or crepitus. Normal rangeof motion. Normal strength. Left hip: Tenderness present. No deformity, lacerations, bony tenderness or crepitus. Normal range of motion. Normal strength. Right upper leg: No swelling. Left upper leg: Swelling present. Right knee: Ecchymosis present. No swelling. Tenderness present. Left knee: Swelling and ecchymosis present. Tenderness present. Right lower leg: Tenderness present. Left lower leg: Swelling and tenderness present. No edema. Right ankle: Tenderness present. Left ankle: Tenderness present. Comments: Patient with a diffuse ecchymosis on bilateral lower extremities with diffuse soft tissueTTP with left side being greater than right. Moderate swelling diffusely of left lower entire extremity. Distal pulses 2+ bilaterally of dorsalis pedis and posterior tibial. Left posterior knee with notable Evans's cyst/fluctuant mass with mass noted inferior to this at the superior aspect of gastrocnemius muscle. No areas of erythema, isolated swelling, warmth to touch. Skin: General: Skin is dry. Coloration: Skin is not jaundiced or pale. Neurological: General: No focal deficit present. Mental Status: She is alert and oriented to person, place, and time. Mental status is at baseline. Coordination: Coordination normal. Psychiatric: Mood and Affect: Mood normal. Behavior: Behavior normal. Thought Content: Thought content normal. Judgment: Judgment normal. ED Course & MDM ED Course as of 12/25/241940 [facility] Dec 25, [address] Lower Extremity wo Contrast Left [LB] ED Course User Index [LB] VIET Burrows Clinical Impressions as of 12/25/241940 Pain Medical Decision Making Hand-off to Dr. Bryson Torres. Chief Complaint: Left calf swelling and pain for one week History & Clinical Summary (HPI - 2 lines): Patient reports persistent left calf swelling and cramping for one week, worse with standing; history of RA, lupus, fibromyalgia. Pertinent Negatives / Red Flag Findings: No fever, chills, nausea, vomiting, chest pain, SOB, numbness/tingling: rules out systemic infection, PE, or neurovascular compromise No erythema, warmth, or severe tenderness beyond cyst area: rules out cellulitis or septic arthritis No signs of limb ischemia: rules out arterial occlusion Physical Exam: Left calf swelling and tenderness No overlying cellulitis Neurovascularly intact distal to swelling Imaging / Labs: Ultrasound: Negative for DVT; large Evans's cyst with adjacent fluid collection CT scan: Pending for further characterization No labs drawn yet Differential Diagnosis: Evans's cyst with fluid collection - Most likely given imaging findings DVT - Ruled out by ultrasound Septic arthritis or cellulitis - Unlikely, no systemic or local infection signs Popliteal mass or tumor - Low likelihood, pending CT for confirmation Working assessment: Symptomatic Evans's cyst with adjacent fluid collection; patient requesting aspiration/drainage; noevidence of infection or vascular compromise Anticipated Plan: Await CT scan results Patient requesting drainage. 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 DX:Facet arthropathy, lumbar Heartburn DX:Heartburn Heartburn DX:Heartburn Irritable bowel syndrome (IBS) 10/28/2019 DX:Irritable bowel syndrome (IBS) Ovarian cyst DX:Ovarian cyst Ovarian cyst DX:Ovarian cyst Passage of loose stools DX:Passage of loose stools Postprandial epigastric pain DX:Postprandial epigastric pain Rheumatoid arthritis(714.0) DX:Rheumatoid arthritis(714.0); COMMENT: following up with [facility] Vitamin D deficiency DX:Vitamin D deficiency [2] Past Surgical History: Procedure Laterality Date COLONOSCOPY 09/10/2019 PROCEDURE: HISTORICAL COLONOSCOPY; COMMENT: negative KNEE ARTHROSCOPY PROCEDURE: LA ARTHROSCOPY KNEE DIAGNOSTIC W/WO SYNOVIAL BX SPX; COMMENT: on left knee LAPAROSCOPY DIAGNOSTIC / BIOPSY / ASPIRATION / LYSIS PROCEDURE: PELVIS LAPAROSCOPY, DIAGNOSTIC UPPER GASTROINTESTINAL ENDOSCOPY 07/28/2019 PROCEDURE: LA UPPER GI ENDOSCOPY PERFORMED; COMMENT: Visually normal; duodenal biopsies obtained---pathology = normal. [3] Family History Problem Relation Name Age of Onset Diabetes Father Arthritis Maternal Grandmother Prostate cancer Maternal Grandfather Pancreatic cancer Maternal Grandfather HTN, DM Arthritis Maternal Grandfather Arthritis Paternal Grandmother Arthritis Paternal Grandfather Other (Other: Lupus) Aunt VIET Burrows 12/25/241945 Cosigned by Lenin Acosta MD at 12/26/2024 7:28 AM EDT documented in this encounter H&P Notes * Levi Victoria MD - 12/26/2024 1:46 AM EDT Images from the original note were not included. [facility] HISTORY AND PHYSICAL Please contact author [Levi Victoria MD] via [employer]. Patient: Melita Rowley Admission Date/Time: 12/25/2024 8:43 PM : 1990 [34 y.o.] Patient's PCP: Frederick Alfonso MD Attending Provider: Bryson Torres* CHIEF COMPLAINT Left leg swelling. HISTORY OF PRESENT ILLNESS 34-year-old female with past medical history of lupus, fibromyalgia, chronic steroid use, history of rheumatoid arthritis who is coming to the hospital with worsening left lower extremity swelling and pain for the last 1 to 2 weeks. Patient denies any falls or trauma. She stated that she started noticing swelling of the left lower extremity especially on the posterior side almost 1 to 2 weeks ago which has continuously gotten worse. She denied any fever or chills. On arrival to the hospital, the patient was hypertensive. Oratory workup showed elevated CRP and potassium levels were found to be low. Patient has chronic anemia with a baseline hemoglobin of 8-9. She underwent imaging which wassuggestive of posterior left thigh deep soft tissue collection of fluid suggestive of liquefying hematoma versus seroma versus abscess. Review of Systems A complete 14 point review of symptoms was done and is negative except as mentioned in the note above. MEDICAL HISTORY Past Medical History Medical History[1] Past Surgical History Surgical History[2] Social History reports that she has quit smoking. She has never used smokeless tobacco. She reports current drug use. Drug: Marijuana/Cannabis. She reports that she does not drink alcohol. Family History family history includes Arthritis in her maternal grandfather, maternal grandmother, paternal grandfather, and paternal grandmother; Diabetes in her father; Other: Lupus in her aunt; Pancreatic cancer in her maternal grandfather; Prostate cancer in her maternal grandfather. Allergies is allergic to cephalexin, doxycycline, and naproxen. Home Medications Medications Ordered Prior to Encounter[3] OBJECTIVE Vitals Visit Vitals BP (!) 147/84 (BP Location: Right arm;Upper, Patient Position: Lying) Pulse 81 Temp 36.9 ??C (98.4 ??F) (Oral) Resp 18 Temp (24hrs), Av.6 ??C (97.9 ??F), Min:36.3 ??C (97.3 ??F), Max:36.9 ??C (98.4 ??F) Body mass index is 29.1 kg/m??. No results found for: PTWT , PTHT Physical Examination Constitutional: General: Not in acute distress. Appearance: Normal appearance. Not ill-appearing. HENT: Head: Normocephalic and atraumatic. Right Ear: External ear normal. Left Ear: External ear normal. Nose: Nose normal. Eyes: Extraocular Movements: Extraocular movements intact. Cardiovascular: Rate and Rhythm: Normal rate and regular rhythm. Pulses: Normal pulses. Heart sounds: Normal heart sounds. No murmur heard. No friction rub. No gallop. Pulmonary: Effort: Pulmonary effort is normal. No respiratory distress. Breath sounds: Normal breath sounds. No stridor. No wheezing or rales. Abdominal: General: Abdomen is flat. There is no distension. Palpations: Abdomen is soft. There is no mass. Tenderness: There is no abdominal tenderness. Musculoskeletal: General: No swelling or deformity. Normal range of motion. Cervical back: Normal range of motion. Right lower leg: No edema. Left lower leg: No edema. Left lower extremity swelling, warmth and erythema noted. Skin: General: Skin is warm and dry. Patient has bruising noted on the skin of the lower extremities bilaterally. Neurological: General: No focal deficit present. Mental Status: Alert and oriented to person, place, and time. Mental status is at baseline. Psychiatric: Mood and Affect: Mood normal. Behavior: Behavior normal. LAB RESULTS (most recent) HEMATOLOGY Lab Results Component Value Date WBC 8.1 12/25/2024 HGB 9.3 (L) 12/25/2024 HCT 32.2 (L) 12/25/2024 MCV 84.5 12/25/2024 PLT 391 12/25/2024 CHEMISTRY Lab Results Component Value Date GLUCOSE 101 (H) 12/25/2024 NA 142 12/25/2024 K 3.3 (L) 12/25/2024 CO2 27 12/25/2024 CL 110 12/25/2024 BUN 15 12/25/2024 CREATININE 0.60 12/25/2024 EGFR 120 12/25/2024 CALCIUM 8.7 12/25/2024 MG 2.5 06/14/2024 ANIONGAP 5 12/25/[address] Lower Extremity wo Contrast Left Final Result Posterior left thigh deep soft tissue fluid collection, which could be due to liquefying hematoma, seroma, abscess, or other etiology. Compartment syndrome should be excluded clinically. Popliteal cyst. Left calf superficial soft tissue edema. Moderate left knee effusion. This document has been electronically signed by: Elder Stoner MD on 12/25/2024 21:31:35 Vascular US Duplex Lower Extremity Venous Left Final Result 1. Negative for left lower extremity deep vein thrombosis. 2. 5.4 cm evans's cyst. 3. 12.6 cm fluid collection within the superomedial soft tissues of the calf. It is unclear if this communicates with the Evans's cyst. In addition to a ruptured Evans's cyst, consider hematoma, seroma and abscess. This document has been electronically signed by: Digna Kohler MD on 12/25/2024 17:17:47 ASSESSMENT & PLAN 34-year-old female with past medical history of lupus, fibromyalgia, rheumatoid arthritis, chronic steroid use being admitted to the hospital for left lower extremity swelling and uncontrolled pain likely in the setting of liquefying hematoma versus seroma versus abscess. Also found to have elevated inflammatory markers, hypokalemia. Patient has chronic anemia with a baseline hemoglobin of 8-9. Continue with home doses of Tylenol and oxycodone for pain control. Continue with losartan for blood pressure control. Potassium replacement for hypokalemia. Continue with home doses of Protonix, methylprednisone 40 mg twice daily, Flexeril, Elavil, folic acid. Will keep the patient n.p.o. for orthopedic evaluation in the morning. Check labs tomorrow. SCD for DVT prophylaxis. Pulse ox and vitals as per routine. Admission checklist [x] Code status: Full Code - Default [x] VTE Prophylaxis: SCD. [x] Diet order on admission: Dietary Orders (From admission, onward) Start Ordered 12/26/2445 Adult NPO diet Location: [facility]; Diet: NPO- Except for Medications Diet effective now Question Answer Comment Location [facility] Diet NPO- Except for Medications 12/26/2444 [x] Medication reconciliation Levi Victoria MD [facility] Hospitalist, 7am-5pm Available thru EpicChat After 5pm, please EpicChat cross coverage 12/26/2024 1:49 AM EDT [1] Past Medical History: Diagnosis Date Abdominal cramping DX:Abdominal cramping Chlamydia 06/2017 DX:Chlamydia Early satiety DX:Early satiety Facet arthropathy, lumbar 12/29/2019 DX:Facet arthropathy, lumbar Heartburn DX:Heartburn Heartburn DX:Heartburn Irritable bowel syndrome (IBS) 10/28/2019 DX:Irritable bowel syndrome (IBS) Ovarian cyst DX:Ovarian cyst Ovarian cyst DX:Ovarian cyst Passage of loose stools DX:Passage of loose stools Postprandial epigastric pain DX:Postprandial epigastric pain Rheumatoid arthritis(714.0) DX:Rheumatoid arthritis(714.0); COMMENT: following up with [facility] Vitamin D deficiency DX:Vitamin D deficiency [2] Past Surgical History: Procedure Laterality Date COLONOSCOPY 09/10/2019 PROCEDURE: HISTORICAL COLONOSCOPY; COMMENT: negative KNEE ARTHROSCOPY PROCEDURE: LA ARTHROSCOPY KNEE DIAGNOSTIC W/WO SYNOVIAL BX SPX; COMMENT: on left knee LAPAROSCOPY DIAGNOSTIC / BIOPSY / ASPIRATION / LYSIS PROCEDURE: PELVIS LAPAROSCOPY, DIAGNOSTIC UPPER GASTROINTESTINAL ENDOSCOPY 07/28/2019 PROCEDURE: LA UPPER GI ENDOSCOPY PERFORMED; COMMENT: Visually normal; duodenal biopsies obtained---pathology = normal. [3] No current facility-administered medications on file prior to encounter. Current Outpatient Medications on File Prior to Encounter Medication Sig Dispense Refill acetaminophen (TYLENOL) 500 mg tablet Take 500 mg by mouth every 6 hours as needed. alendronate (FOSAMAX) 70 mg tablet amitriptyline (ELAVIL) 25 mg tablet TAKE 1 TO 2 TABLETS BY MOUTH AT BEDTIME 60 tablet 5 cyclobenzaprine (FLEXERIL) 10 mg tablet Take 1 tablet (10 mg total) by mouth 2 (two) times a day ifneeded for muscle spasms. 60 tablet 5 ergocalciferol (VITAMIN D-2) 1,250 mcg (50,000 unit) capsule folic acid (FOLVITE) 1 mg tablet TAKE 1 TABLET BY MOUTH EVERY DAY 90 tablet 1 levonorgestreL (MIRENA) 21 mcg/24 hr (8 yrs) 52 mg IUD 1 Each by Intrauterine route once. losartan (COZAAR) 100 mg tablet Take 1 tablet (100 mg total) by mouth 1 (one) time each day. 90 tablet 1 methotrexate 2.5 mg tablet Take 2.5 mg by mouth once a week. 8 pills every methylPREDNISolone (MEDROL) 8 mg tablet Take 1 tablet (8 mg total) by mouth 2 (two) times a day. (Patient taking differently: Take 0.5 tablets (4 mg total) by mouth 2 (two) times a day.) omeprazole (PriLOSEC) [address] capsule TAKE 1 CAPSULE (20 MG TOTAL) BY MOUTH 2 (TWO) TIMES A DAY. DO NOT CRUSH OR CHEW. 180 capsule 1 oxyCODONE (ROXICODONE) 15 mg immediate release tablet Take 1 tablet (15 mg total) by mouth every 6 (six) hours. Max Daily Amount: 60 mg 112 tablet 0 SUMAtriptan (IMITREX) 25 mg tablet TAKE 1 TABLET BY MOUTH MAY REPEAT DOSE ONCE AFTER 2 HOURS, IF NEEDED. 5 tablet 5 SUMAtriptan (IMITREX) 25 mg tablet Take 1 tablet (25 mg total) by mouth 1 (one) time if needed for migraine. triamcinolone (KENALOG) 0.1 % ointment To affected area 2-3 times daily Vitamin D3 50 mcg (2,000 unit) tablet TAKE 1 TABLET BY MOUTH EVERY DAY 90 tablet 1 [DISCONTINUED] clotrimazole (LOTRIMIN) 1 % cream 1 APPL TOPICALLY 2 TIMES A DAY [DISCONTINUED] predniSONE (DELTASONE) 5 mg tablet documented in this encounter Consult Notes * Margarette Etienne MD - 12/26/2024 11:11 AM EDT Diagnosis: Left medial calf swelling Date of injury: Approximately 7 days prior to presentation slowly developing over the course of thelast week, so from 12/20/2024 to present. The patient is a very pleasant 34-year-old woman with significant rheumatoid history including lupus, fibromyalgia, rheumatoid arthritis with chronic steroid use. She is currently on methotrexate as well as prednisone. She was in her usual state of health till approximately 1 week ago. She reportedno inciting event no trauma no falls no colds when she noted swelling in her left medial tibia. Shereports over the course of the week she noted increasing difficulty walking. Once it became too difficult and painful to walk she presented to the emergency room. On physical exam there is no obviousarea of induration over the tibia posteriorly or anteriorly. There is no distinct area of redness and no distinct area of loculation. There is no increased warmth. Physical exam findings are not consistent with an infection. I feel no masses. There is no history of trauma and no obvious fractures. Her swelling also extends from above the knee to the entire leg distally. There is she has a white cell count of 8.7 which is also not consistent with infection. Granted she does have the history of rheumatoid arthritis and is on immunosuppressants given the methotrexate and the prednisone. A CT scan was obtained and reviewed and showed a collection posterior medially in the tibia. However given the appearance I am still not convinced that this is an infection despite her potential immunosuppression. She does have a history of a Evans's cyst and reports that she has had swelling in the posterior aspect of her leg. My suspicion is that her Evans's cyst is likely ruptured and this fluid area is connecting. She also states she has known injuries in her knee with a ruptured ACL and ligamentousinjuries. This is all consistent with [id number] in the knee that may have led to what we are see ing now. As such I would recommend an IR guided aspiration or drainage of the area cultures. If thematerial does look infectious or the cultures do grow we can perform an irrigation and debridement.However if the findings are more consistent with a Evans's cyst/noninfectious etiology she will notneed a procedure. I discussed this with the patient all her questions were answered. * Lyane Santana MD - 12/26/2024 10:33 AM EDTAssociated Order(s): IP CONSULT TO INTERVENTIONAL RADIOLOGY Interventional Radiology Consult Note History Of Present Illness Melita Rowley is a 34 y.o. female presenting with left lauren collection. Past Medical History She has a past medical history of Abdominal cramping, Chlamydia (06/2017), Early satiety, Facet arthropathy, lumbar (12/29/2019), Heartburn, Heartburn, Irritable bowel syndrome (IBS) (10/28/2019), Ovarian cyst, Ovarian cyst, Passage of loose stools, Postprandial epigastric pain, Rheumatoid arthritis(714.0), and Vitamin D deficiency. She has no past medical history of History of malignant neoplasm of large intestine, Personal history of malignant neoplasm of breast, or Personal history of malignant neoplasm of ovary. Surgical History She has a past surgical history that includes Knee Arthroscopy; Laparoscopy diagnostic / biopsy / aspiration / lysis; Upper gastrointestinal endoscopy (07/28/2019); and Colonoscopy (09/10/2019). Family History family history includes Arthritis in her maternal grandfather, maternal grandmother, paternal grandfather, and paternal grandmother; Diabetes in her father; Other: Lupus in her aunt; Pancreatic cancer in her maternal grandfather; Prostate cancer in her maternal grandfather. Social History She reports that she has quit smoking. She has never used smokeless tobacco. She reports current drug use. Drug: Marijuana/Cannabis. She reports that she does not drink alcohol. Allergies Cephalexin, Doxycycline, and Naproxen Medications Prescriptions Prior to Admission[1] Last Recorded Vitals Blood pressure 123/80, pulse 76, temperature 36.1 ??C (96.9 ??F), temperature source Temporal, resp. rate 15, height 1.549 m (61 ), weight 69.9 kg (154 lb), SpO2 98%. Relevant Results Lab Results Component Value Date INR 0.9 12/25/2024 PLT 343 12/26/2024 WBC 8.7 12/26/2024 HGB 8.6 (L) 12/26/2024 HCT 29.6 (L) 12/26/2024 EGFR 120 12/26/2024 Assessment/Plan Principal Problem: Leg swelling Images reviewed and collection amenable to us guided drainage [1] Medications Prior to Admission Medication Sig Dispense Refill Last Dose/Taking acetaminophen (TYLENOL) 500 mg tablet Take 500 mg by mouth every 6 hours as needed. Taking alendronate (FOSAMAX) 70 mg tablet Taking amitriptyline (ELAVIL) 25 mg tablet TAKE 1 TO 2 TABLETS BY MOUTH AT BEDTIME 60 tablet 5 Taking cyclobenzaprine (FLEXERIL) 10 mg tablet Take 1 tablet (10 mg total) by mouth 2 (two) times a day ifneeded for muscle spasms. 60 tablet 5 Taking As Needed ergocalciferol (VITAMIN D-2) 1,250 mcg (50,000 unit) capsule Taking folic acid (FOLVITE) 1 mg tablet TAKE 1 TABLET BY MOUTH EVERY DAY 90 tablet 1 Taking levonorgestreL (MIRENA) 21 mcg/24 hr (8 yrs) 52 mg IUD 1 Each by Intrauterine route once. Taking losartan (COZAAR) 100 mg tablet Take 1 tablet (100 mg total) by mouth 1 (one) time each day. 90 tablet 1 Taking methotrexate 2.5 mg tablet Take 2.5 mg by mouth once a week. 8 pills every Taking methylPREDNISolone (MEDROL) 8 mg tablet Take 1 tablet (8 mg total) by mouth 2 (two) times a day. (Patient taking differently: Take 0.5 tablets (4 mg total) by mouth 2 (two) times a day.) Taking Differently omeprazole (PriLOSEC) [address] capsule TAKE 1 CAPSULE (20 MG TOTAL) BY MOUTH 2 (TWO) TIMES A DAY. DO NOT CRUSH OR CHEW. 180 capsule 1 Taking oxyCODONE (ROXICODONE) 15 mg immediate release tablet Take 1 tablet (15 mg total) by mouth every 6 (six) hours. Max Daily Amount: 60 mg 112 tablet 0 Taking SUMAtriptan (IMITREX) 25 mg tablet TAKE 1 TABLET BY MOUTH MAY REPEAT DOSE ONCE AFTER 2 HOURS, IF NEEDED. 5 tablet 5 Taking SUMAtriptan (IMITREX) 25 mg tablet Take 1 tablet (25 mg total) by mouth 1 (one) time if needed for migraine. Taking As Needed triamcinolone (KENALOG) 0.1 % ointment To affected area 2-3 times daily Taking Vitamin D3 50 mcg (2,000 unit) tablet TAKE 1 TABLET BY MOUTH EVERY DAY 90 tablet 1 Taking documented in this encounter Plan of Treatment Upcoming Encounters Date Type Department Care Team (Late st Contact Info) Description 01/07/2025 10:30 AM EDT Procedure visit Obstetrics & Gynecology [address] [id number] Rachelle Gross, [address] 03/18/2025 10:00 AM EST Office Visit Adult Medicine [address] [phone] Richard Aquino PA [address] [place] [address] documented as of this encounter Procedures Procedure Name Priority Date/Time Associated Diagnosis Comments US GUIDED SOFT TISSUE FLUID DRAIN Routine 12/26/2024 2:46 PM EDT CELL COUNT WITH REFLEX DIFFERENTIAL, BODY FLUID Routine 12/26/2024 2:46 PM EDT CULTURE BODY FLUID WITH GRAM STAIN Routine 12/26/2024 2:46 PM EDT DIFFERENTIAL BODY FLUID Routine 12/26/2024 2:46 PM EDT CBC WITH AUTO DIFFERENTIAL Routine 12/26/2024 6:45 AM EDT CBC AND DIFFERENTIAL Routine 12/26/2024 6:45 AM EDT MAGNESIUM Routine 12/26/2024 6:45 AM EDT BASIC METABOLIC PANEL Routine 12/26/2024 6:45 AM EDT CBC WITH AUTO DIFFERENTIAL STAT 12/25/2024 11:24 PM EDT SEDIMENTATION RATE STAT 12/25/2024 11 :24 PM EDT PROTHROMBIN TIME WITH INR STAT 12/25/2024 11:24 PM EDT CBC AND DIFFERENTIAL STAT 12/25/2024 11:24 PM EDT TYPE AND SCREEN STAT 12/25/2024 11:24 PM EDT C-REACTIVE PROTEIN STAT 12/25/2024 11 :24 PM EDT BASIC METABOLIC PANEL STAT 12/25/2024 11:[address] LOWER EXTREMITY WO CONTRAST LEFT STAT 12/25/2024 8:45 PM EDT POC , URINE DIAGNOSTIC STAT 12/25/2024 7:46 PM EDT VAS US DUPLEX LOWER EXT VENOUS LEFT STAT 12/25/2024 5:02 PM EDT Pain documented in this encounter Results * US Guided Soft Tissue Fluid Drain (12/26/2024 2:46 PM EDT) Anatomical Region Laterality Modality Body N/A Ultrasound 12/26/2024 3:03 PM EDT Narrative 12/26/2024 4:03 PM EDT INDICATION: Left calf fluid collection PROCEDURE: Consent obtained for ultrasound-guided drainage of left calf fluid collection. MEDICATIONS: Local anesthesia: 3 cc of 1% buffered lidocaine administered subcutaneously. TECHNIQUE: Patient placed supine on the ultrasound stretcher. Multiple images obtained of the left calf fluid collection. After review of the images appropriate area of the skin was localized under real-time ultrasound. This region was draped and prepped in the usual sterile fashion. After infiltration of local anesthetic a one-step catheter was advanced into the collection. Aspiration reveals 100 mL of cloudy light red fluid. Catheter removed and post placement images obtained. FINDINGS: Multiple sonographic images demonstrate fluid collection measuring 12.2 cm x 3.3 cm by 7.1 Images obtained during catheter placement demonstrate catheter positioned within the collection. Images obtained after drainage demonstrates residual 6.7 cm x 2.1 cm x 4.5 cm collection possibly representing thrombus. SPECIMEN: 100 mL of cloudy light red fluid drained. Samples sent for evaluation as ordered. CONCLUSION: Ultrasound-guided drainage of mildly complex left calf collection with partial resolution. -------- FINAL REPORT -------- Dictated By: Layne Santana Dictated Date: 12/26/2024 15:03 ET Assigned Physician: Layne Santana Reviewed and Electronically Signed By: Layne Santana Signed Date: 12/26/2024 16:03 ET Workstation ID: [id number] Transcribed By: Self Edit Transcribed Date: 12/26/2024 15:03 ET Procedure Note Layne Santana MD - 12/26/2024 INDICATION: Left calf fluid collection PROCEDURE: Consent obtained for ultrasound-guided drainage of left calffluid collection. MEDICATIONS: Local anesthesia: 3 cc of 1% buffered lidocaine administeredsubcutaneously. TECHNIQUE: Patient placed supine on the ultrasound stretcher. Multipleimages obtained of the left calf fluid collection. After review of theimages appropriate area of the skin was localized under real-timeultrasound. This region was draped and prepped in the usual sterilefashion. After infiltration of local anesthetic a one-step catheter wasadvanced into the collection. Aspiration reveals 100 mL of cloudy lightred fluid. Catheter removed and post placement images obtained. FINDINGS: Multiple sonographic images demonstrate fluid collectionmeasuring 12.2 cm x 3.3 cm by 7.1 Images obtained during catheter placement demonstrate catheter positionedwithin the collection. Images obtained after drainage demonstrates residual 6.7 cm x 2.1 cm x 4.5cm collection possibly representing thrombus. SPECIMEN: 100 mL of cloudy light red fluid drained. Samples sent forevaluation as ordered. CONCLUSION: Ultrasound-guided drainage of mildly complex left calf collection withpartial resolution. -------- FINAL REPORT -------- Dictated By: Layne Santana Dictated Date: 12/26/2024 15:03 ET Assigned Physician: Layne Santana Reviewed and Electronically Signed By: Layne Santana Signed Date: 12/26/2024 16:03 ET Workstation ID: [id number] Transcribed By: Self Edit Transcribed Date: 12/26/2024 15:03 ET us Layne Santana MD IMG US PROCEDURES Final Result * Differential body fluid (12/26/2024 2:46 PM EDT) Fluid Neutrophils % 90 % 12/26/2024 5:14 PM EDT [facility] Fluid Lymphocytes % 5 % 12/26/2024 5:14 PM EDT [facility] Fluid Monocytes/Macrop hages 5 % 12/26/2024 5:14 PM EDT [facility] Fluid Eosinophils % 0 % 12/26/2024 5:14 PM EDT [facility] Fluid Basophils % 0 % 12/26/2024 5:14 PM EDT [facility] Fluid Other Cells % 0 % 12/26/2024 5:14 PM T [facility] Aspirate Structure of left knee region / Unknown Non-blood Collection / Unknown 12/26/2024 2:46 PM EDT 12/26/2024 2:52 PM EDT Narrative [facility] - 12/26/2024 5:14 PM EDT No reference ranges have been established for body fluids. Clinical correlation recommended. Ame LLANOS LAB BODY FLUIDS AND STOOLS ORDER NORIS Final Result Performing Organization Address [facility]/ZIP Co de Phone Number [facility] [address] [place] [address], [place] [phone] * Cell count with reflex differential, body fluid (12/26/2024 2:46 PM EDT) Body Fluid Total Nucleated Cells 14,905 /mm3 LAB HEMETOLOGY METHOD 12/26/2024 5:14 PM EDT [facility] Body Fluid RBC 28,000 /mm3 LAB HEMETOLOGY METHOD 12/26/2024 5:14 PM EDT [facility] Body Fluid Color [place] 12/26/2024 5:14 PM EDT [facility] Body Fluid Clarity Cloudy 12/26/2024 5:14 PM EDT [facility] Body Fluid Source Knee, Left 12/26/2024 5:14 PM EDT [facility] Aspirate Structure of left knee region / Unknown Non-blood Collection / Unknown 12/26/2024 2:46 PM EDT 12/26/2024 2:52 PM EDT Narrative [facility] - 12/26/2024 5:14 PM EDT No reference ranges have been established for body fluids. Clinical correlation recommended. us Ame LLANOS LAB BODY FLUIDS AND STOOLS ORDER NORIS Final Result [facility] [address] [place] [address], [place] [phone] * Culture body fluid with gram stain (12/26/2024 2:46 PM EDT) Fluid Culture No growth at 3 days LAB MICROBIOLOGY METHOD 12/29/2024 10:33 AM EDT [facility] Gram Stain Result No Epithelial cells 12/29/2024 10:33 AM EDT [facility] Gram Stain Result Few Polymorphonuclear leukocytes 12/29/2024 10:33 AM EDT [facility] Gram Stain Result No organisms seen 12/29/2024 10:33 AM EDT [facility] Aspirate Structure of left lower limb / Unknown Non-blood Collection / Unknown 12/26/2024 2:46 PM EDT 12/26/2024 2:52 PM EDT us Ame LLANOS LAB MICROBIOLOGY - GENERAL ORDER NORIS Final Result [facility] [address] [place] [address], * (ABNORMAL) CBC auto differential (12/26/2024 6:45 AM EDT) WBC 8.7 4.8 - 10.8 K/mcL LAB HEMETOLOGY METHOD 12/26/2024 7:20 AM [facility] RBC 3.50(L) 3.80 - 4.80 M/mcL LAB HEMETOLOGY METHOD 12/26/2024 7:20 AM [facility] Hemoglobin 8.6(L) 11.5 - 16.0 g/dL LAB HEMETOLOGY METHOD 12/26/2024 7:20 AM T [facility] Hematocrit 29.6(L) 35.0 - 47.0 % LAB HEMETOLOGY METHOD 12/26/2024 7:20 AM EDT [facility] MCV 84.6 79.0 - 98.0 FL LAB HEMETOLOGY METHOD 12/26/2024 7:20 AM [facility] MCH 24.6(L) 27.0 - 32.0 pcg LAB HEMETOLOGY METHOD 12/26/2024 7:20 AM [facility] MCHC 29.1(L) 32.0 - 37.0 g/dL LAB HEMETOLOGY METHOD 12/26/2024 7:20 AM [facility] RDW 20.7(H) 11.0 - 15.0 % LAB HEMETOLOGY METHOD 12/26/2024 7:20 AM [facility] Platelets 343 130 - 400 K/mcL LAB HEMETOLOGY METHOD 12/26/2024 7:20 AM [facility] MPV 9.1 7.0 - 11.0 FL LAB HEMETOLOGY METHOD 12/26/2024 7:20 AM [facility] NRBC 0.0 <1.0 % LAB HEMETOLOGY METHOD 12/26/2024 7:20 AM [facility] NRBC Absolute 0.00 <0.10 K/mcL LAB HEMETOLOGY METHOD 12/26/2024 7:20 AM [facility] Neutrophils Relative 77.8 % LAB HEMETOLOGY METHOD 12/26/2024 7:20 AM [facility] Lymphocytes Relative 10.4 % LAB HEMETOLOGY METHOD 12/26/2024 7:20 AM [facility] Monocytes Relative 10.0 % LAB HEMETOLOGY METHOD 12/26/2024 7:20 AM [facility] Eosinophils Relative 0.5 % LAB HEMETOLOGY METHOD 12/26/2024 7:20 AM [facility] Basophils Relative 0.3 % LAB HEMETOLOGY METHOD 12/26/2024 7:20 AM [facility] Immature Granulocytes Relative 1.0 % LAB HEMETOLOGY METHOD 12/26/2024 7:20 AM [facility] Neutrophils Absolute 6.80 1.50 - 7.00 K/mcL LAB HEMETOLOGY METHOD 12/26/2024 7:20 AM EDT [facility] Lymphocytes Absolute 0.91(L) 1.00 - 5.00 K/mcL LAB HEMETOLOGY METHOD 12/26/2024 7:20 AM EDT [facility] Monocytes Absolute 0.87 0.20 - 1.00 K/mcL LAB HEMETOLOGY METHOD 12/26/2024 7:20 AM EDT [facility] Eosinophils Absolute 0.04 0.00 - 0.50 K/[facility] LAB HEMETOLOGY METHOD 12/26/2024 7:20 AM EDT [facility] Basophils Absolute 0.03 0.00 - 0.20 K/mcL LAB HEMETOLOGY METHOD 12/26/2024 7:20 AM EDT [facility] Immature Granulocytes Absolute 0.09(H) 0.00 - 0.03 K/[facility] LAB HEMETOLOGY METHOD 12/26/2024 7:20 AM EDT [facility] Blood Venous blood specimen / Unknown Venipuncture / Unknown 12/26/2024 6:45 AM EDT 12/26/2024 6:53 AM EDT us Levi Victoria MD LAB BLOOD ORDERABLES Final Res ult [facility] [address] [place] [address], * Magnesium (12/26/2024 6:45 AM EDT) Magnesium 2.0 1.9 - 2.6 mg/dL LAB CHEMISTRY METHOD 12/26/2024 7:47 AM EDT [facility] Blood Venous blood specimen / Unknown Venipuncture / Unknown 12/26/2024 6:45 AM EDT 12/26/2024 6:54 AM EDT us Levi Victoria MD LAB BLOOD ORDERABLES Final Res ult [facility] [address] [place] [address], * (ABNORMAL) Basic metabolic panel (12/26/2024 6:45 AM EDT) Sodium 143 133 - 145 mmol/L LAB CHEMISTRY METHOD 12/26/2024 7:47 AM [facility] Potassium 4.6 3.5 - 5.5 mmol/L LAB CHEMISTRY METHOD 12/26/2024 7:47 AM [facility] Chloride 111(H) 96 - 110 mmol/L LAB CHEMISTRY METHOD 12/26/2024 7:47 AM [facility] CO2 27 21 - 32 mmol/L LAB CHEMISTRY METHOD 12/26/2024 7:47 AM [facility] Anion Gap 5 3 - 11 LAB CHEMISTRY METHOD 12/26/2024 7:47 AM [facility] Glucose 121(H) 70 - 100 mg/dL LAB CHEMISTRY METHOD 12/26/2024 7:47 AM [facility] BUN 16 5 - 25 mg/dL LAB CHEMISTRY METHOD 12/26/2024 7:47 AM [facility] Creatinine 0.60 0.50 - 1.10 mg/dL LAB CHEMISTRY METHOD 12/26/2024 7:47 AM [facility] eGFR 120 >=60 mL/min/1. 73m2 LAB CHEMISTRY METHOD 12/26/2024 7:47 AM [facility] Comment:Calculation based on the Chronic Kidney Disease Epidemiology Collaboration (CKD-EPI) equation refit without adjustment for race. BUN/Creatinine Ratio 26.7 LAB CHEMISTRY METHOD 12/26/2024 7:47 AM [facility] Calcium 8.7 8.5 - 10.5 mg/dL LAB CHEMISTRY METHOD 12/26/2024 7:47 AM EDT [facility] Blood Venous blood specimen / Unknown Venipuncture / Unknown 12/26/2024 6:45 AM EDT 12/26/2024 6:54 AM EDT Levi Victoria MD LAB BLOOD ORDERABLES Final Res ult [facility] [address] [place] [address], [place] [phone] * (ABNORMAL) Sedimentation rate, automated (12/25/2024 11:24 PM EDT) [facility] Sed Rate 70(H) 0 - 20 mm/hr LAB HEMETOLOGY METHOD 12/26/2024 12:00 AM EDT [facility] Blood Venous blood specimen / Unknown Venipuncture / Unknown 12/25/2024 11:24 PM EDT 12/25/2024 11:31 PM EDT Bryson Torres MD LAB BLOOD ORDERABLES Final Result Performing Organization Address [facility] Co de Phone Number [facility] [address] [place] [address], [place] [phone] * (ABNORMAL) C-reactive protein (12/25/2024 11:24 PM EDT) [facility] C-Reactive Protein 2.24(H) <=0.50 mg/dL LAB CHEMISTRY METHOD 12/26/2024 12:12 AM EDT [facility] Blood Venous blood specimen / Unknown Venipuncture / Unknown 12/25/2024 11:24 PM EDT 12/25/2024 11:32 PM EDT Bryson Torres MD LAB BLOOD ORDERABLES Final Result [facility] [address] [place] [address], * (ABNORMAL) CBC auto differential (12/25/2024 11:24 PM EDT) [facility] WBC 8.1 4.8 - 10.8 K/mcL LAB HEMETOLOGY METHOD 12/25/2024 11:35 PM EDT [facility] RBC 3.80 3.80 - 4.80 M/mcL LAB HEMETOLOGY METHOD 12/25/2024 11:35 PM EDT [facility] Hemoglobin 9.3(L) 11.5 - 16.0 g/dL LAB HEMETOLOGY METHOD 12/25/2024 11:35 PM EDT [facility] Hematocrit 32.2(L) 35.0 - 47.0 % LAB HEMETOLOGY METHOD 12/25/2024 11:35 PM EDT [facility] MCV 84.5 79.0 - 98.0 FL LAB HEMETOLOGY METHOD 12/25/2024 11:35 PM EDT [facility] MCH 24.4(L) 27.0 - 32.0 pcg LAB HEMETOLOGY METHOD 12/25/2024 11:35 PM EDT [facility] MCHC 28.9(L) 32.0 - 37.0 g/dL LAB HEMETOLOGY METHOD 12/25/2024 11:35 PM EDT [facility] RDW 20.9(H) 11.0 - 15.0 % LAB HEMETOLOGY METHOD 12/25/2024 11:35 PM EDT [facility] Platelets 391 130 - 400 K/mcL LAB HEMETOLOGY METHOD 12/25/2024 11:35 PM EDT [facility] MPV 8.8 7.0 - 11.0 FL LAB HEMETOLOGY METHOD 12/25/2024 11:35 PM EDT [facility] NRBC 0.0 <1.0 % LAB HEMETOLOGY METHOD 12/25/2024 11:35 PM EDT [facility] NRBC Absolute 0.00 <0.10 K/mcL LAB HEMETOLOGY METHOD 12/[facility] Neutrophils Relative 65.7 % LAB HEMETOLOGY METHOD 12/25/2024 11:35 PM EDT [facility] Lymphocytes Relative 21.0 % LAB HEMETOLOGY METHOD 12/25/2024 11:35 PM EDT [facility] Monocytes Relative 10.9 % LAB HEMETOLOGY METHOD 12/25[facility]2024 11:[facility] Eosinophils Relative 1.0 % LAB HEMETOLOGY METHOD 12/25/2024 11:35 PM [facility] Basophils Relative 0.2 % LAB HEMETOLOGY METHOD 12/25/2024 11:35 PM EDT [facility] Immature Granulocytes Relative 1.2 % LAB HEMETOLOGY METHOD 12/25/2024 11:35 PM T [facility] Neutrophils Absolute 5.32 1.50 - 7.00 K/mcL LAB HEMETOLOGY METHOD 12/25/2024 11:35 PM T [facility] Lymphocytes Absolute 1.70 1.00 - 5.00 K/mcL LAB HEMETOLOGY METHOD 12/25/2024 11:35 PM EDT [facility] Monocytes Absolute 0.88 0.20 - 1.00 K/mcL LAB HEMETOLOGY METHOD 12/25/2024 11:35 PM EDT [facility] Eosinophils Absolute 0.08 0.00 - 0.50 K/mcL LAB HEMETOLOGY METHOD 12/25/2024 11:35 PM EDT [facility] Basophils Absolute 0.02 0.00 - 0.20 K/mcL LAB HEMETOLOGY METHOD 12/25/2024 11:35 PM EDT [facility] Immature Granulocytes Absolute 0.10(H) 0.00 - 0.03 K/mcL LAB HEMETOLOGY METHOD 12/25/2024 11:35 PM EDT [facility] Blood Venous blood specimen / Unknown Venipuncture / Unknown 12/25/2024 11:24 PM EDT 12/25/2024 11:31 PM EDT Bryson Torres MD LAB BLOOD ORDERABLES Final Result Performing Organization Address City/[facility]/ZIP Co de Phone Number [facility] [address] [place] [address], [place] [phone] * Protime-INR (12/25/2024 11:24 PM EDT) Protime 11.3 10.6 - 13.9 sec LAB COAGULATION METHOD 12/25/2024 11:40 PM EDT [facility] INR 0.9 LAB COAGULATION METHOD 12/25/2024 11:40 PM EDT [facility] Blood Venous blood specimen / Unknown Venipuncture / Unknown 12/25/2024 11:24 PM EDT 12/25/2024 11:32 PM EDT Bryson Torres MD LAB BLOOD ORDERABLES Final Result [facility] [address] [place] [address], [place] [phone] * Type and screen (12/25/2024 11:24 PM EDT) ABO Group B 12/26/2024 12:40 AM EDT [facility] Rh Type Negative 12/26/2024 12:40 AM EDT [facility] Antibody Screen Negative 12/26/2024 12:40 AM EDT [facility] Blood Venous blood specimen / Unknown Venipuncture / Unknown 12/25/2024 11:24 PM EDT 12/25/2024 11:32 PM EDT Bryson Torres MD LAB BLOOD BANK TEST ORDERABLES Final Result [facility] [address] [place] [address], * (ABNORMAL) Basic metabolic panel (12/25/2024 11:24 PM EDT) Sodium 142 133 - 145 mmol/L LAB CHEMISTRY METHOD 12/26/2024 12:03 AM [facility] Potassium 3.3(L) 3.5 - 5.5 mmol/L LAB CHEMISTRY METHOD 12/26/2024 12:03 AM [facility] Chloride 110 96 - 110 mmol/L LAB CHEMISTRY METHOD 12/26/2024 12:03 AM [facility] CO2 27 21 - 32 mmol/L LAB CHEMISTRY METHOD 12/26/2024 12:03 AM [facility] Anion Gap 5 3 - 11 LAB CHEMISTRY METHOD 12/26/2024 12:03 AM [facility] Glucose 101(H) 70 - 100 mg/dL LAB CHEMISTRY METHOD 12/26/2024 12:03 AM [facility] BUN 15 5 - 25 mg/dL LAB CHEMISTRY METHOD 12/26/2024 12:03 AM [facility] Creatinine 0.60 0.50 - 1.10 mg/dL LAB CHEMISTRY METHOD 12/26/2024 12:03 AM [facility] eGFR 120 >=60 mL/min/1. 73m2 LAB CHEMISTRY METHOD 12/26/2024 12:03 AM [facility] Comment:Calculation based on the Chronic Kidney Disease Epidemiology Collaboration (CKD-EPI) equation refit without adjustment for race. BUN/Creatinine Ratio 25.0 LAB CHEMISTRY METHOD 12/26/2024 12:03 AM EDT [facility] Calcium 8.7 8.5 - 10.5 mg/dL LAB CHEMISTRY METHOD 12/26/2024 12:03 AM EDT [facility] Blood Venous blood specimen / Unknown Venipuncture / Unknown 12/25/2024 11:24 PM EDT 12/25/2024 11:32 PM EDT us Bryson Torres MD LAB BLOOD ORDERABLES Final Result [facility] [address] [place] [address], [place] [phone] * CT Lower Extremity wo Contrast Left (12/25/2024 8:45 PM EDT) Anatomical Region Laterality Modality Lower Extremities Left Computed Tomog virginie 12/25/2024 9:31 PM EDT Impressions 12/25/2024 9:31 PM EDT Posterior left thigh deep soft tissue fluid collection, which could be due to liquefying hematoma, seroma, abscess, or other etiology. Compartment syndrome should be excluded clinically. Popliteal cyst. Left calf superficial soft tissue edema. Moderate left knee effusion. This document has been electronically signed by: Elder Stoner MD on 12/25/2024 21:31:35 Narrative 12/25/2024 9:31 PM EDT INDICATION: edema CT Left Calf WO Contrast COMPARISON: US - VAS US DUPLEX LOW EXT VENOUS LT - 12/25/24 16:21 EDT FINDINGS: Fluid density collection in the posterior left thigh soft tissues measuring 7.2 x 4.5 x 17.8 cm with internal partial septations or debris inferiorly. Popliteal cyst measuring 3.4 x 2.3 x 4.9 cm. Left calf superficial soft tissue edema. Moderate suprapatellar effusion. No acute fracture or dislocation. Procedure Note Elder Stoner MD - 12/25/2024 INDICATION: edema CT Left Calf WO Contrast COMPARISON: US - VAS US DUPLEX LOW EXT VENOUS LT - 12/25/24 16:21 EDT FINDINGS: Fluid density collection in the posterior left thigh soft tissues measuring 7.2 x 4.5 x 17.8 cm with internal partial septations or debris inferiorly. Popliteal cyst measuring 3.4 x 2.3 x 4.9 cm. Left calf superficial soft tissue edema. Moderate suprapatellar effusion. No acute fracture or dislocation. IMPRESSION: Posterior left thigh deep soft tissue fluid collection, which could bedue to liquefying hematoma, seroma, abscess, or other etiology. Compartment syndrome should be excluded clinically. Popliteal cyst. Left calf superficial soft tissue edema. Moderate left knee effusion. This document has been electronically signed by: Elder Stoner MD on 12/25/2024 21:31:[address] PROCEDURES Final Res ult * POC , urine manually resulted (12/25/2024 7:46 PM EDT) HCG, Ur POC Negative Negative POC hCG Int QC Pass? Yes Yes Urine Urine specimen obtained by clean catch procedure / Unknown 12/25/2024 7:46 PM EDT Bryson Torres MD POINT OF CARE TEST E NTER/EDIT ORDERABLES Final Result * Vascular US Duplex Lower Extremity Venous Left (12/25/2024 5:02 PM EDT) Anatomical Region Laterality Modality Vascular, Abdomen Ultrasound 12/25/2024 5:17 PM EDT Impressions 12/25/2024 5:17 PM EDT 1. Negative for left lower extremity deep vein thrombosis. 2. 5.4 cm evans's cyst. 3. 12.6 cm fluid collection within the superomedial soft tissues of the calf. It is unclear if this communicates with the Evans's cyst. In addition to a ruptured Evans's cyst, consider hematoma, seroma and abscess. This document has been electronically signed by: Digna Kohler MD on 12/25/2024 17:17:47 Narrative 12/25/2024 5:17 PM EDT INDICATION: Abn findings on diagnostic imaging of body structures Venous duplex ultrasound left lower extremity Comparison: None provided Findings: The visualized deep veins are fully compressible with normal Doppler color flow and spectral tracings. 5.4 x 1.7 x 2.8 cm popliteal cyst. There is a large complex fluid collection within the superomedial aspect of the calf measuring 12.6 x 2.8 x 7.9 cm in size. It is unclear if this communicates with the popliteal cyst. Procedure Note Digna Dickerson MD - 12/25/2024 INDICATION: Abn findings on diagnostic imaging of body structures Venous duplex ultrasound left lower extremity Comparison: None provided Findings: The visualized deep veins are fully compressible with normal Dopplercolor flow and spectral tracings. 5.4 x 1.7 x 2.8 cm popliteal cyst. There is a large complex fluid collection within the superomedial aspect of the calf measuring 12.6 x 2.8 x 7.9 cm in size. It is unclear if this communicates with the popliteal cyst. IMPRESSION: 1. Negative for left lower extremity deep vein thrombosis. 2. 5.4 cm evans's cyst. 3. 12.6 cm fluid collection within the superomedial soft tissues of the calf. It is unclear if this communicates with the Evans's cyst. In addition to a ruptured Evans's cyst, consider hematoma, seroma andabscess. This document has been electronically signed by: Digna Kohler MD on 12/25/2024 17:17:47 Tomy LLANOS CV VASCULAR PROCEDURES Final Result documented in this encounter Visit Diagnoses Diagnosis Leg swelling- Primary Swelling of limb Pain Generalized pain Swelling of thigh Leg abscess documented in this encounter Admitting Diagnoses Diagnosis Leg swelling Swelling of limb Leg abscess documented in this encounter Administered Medications Inactive Administered Medications - up to 3 most recent administrations Medication Order MAR Action Action Date Dose Rate Site acetaminophen (TYLENOL) tablet 650 mg 650 mg, oral, Every 6 hours PRN, mild pain, headaches, fever - temperature GREATER than 38 C (100.4 F), Starting on Sun12/26/24 at 0134 amitriptyline (ELAVIL) tablet 25 mg 25 mg, oral, Nightly, First dose on Sun12/26/24 at 0135, at bedtime Given 12/26/2024 9:13 PM EDT 25 mg Given 12/26/2024 2:51 AM EDT 25 mg cyclobenzaprine (FLEXERIL) tablet 10 mg 10 mg, oral, 2 times daily PRN, muscle spasms, Starting on Sun12/26/24 at 0134 Given 12/26/2024 9:14 PM EDT 10 mg Given 12/26/2024 1:35 PM EDT 10 mg diphenhydrAMINE (BENADRYL) injection 25 mg 25 mg, intravenous, Once, On Sofiya 12/25/24 at 2355, For 1 dose Given 12/26/2024 12:48 AM EDT 25 mg folic acid (FOLVITE) tablet 1,000 mcg 1,000 mcg, oral, Daily, First dose on Sun12/26/24 at 0900 Given 12/27/2024 8:03 AM EDT 1,000 mcg Given 12/26/2024 8:59 AM EDT 1,000 mcg lidocaine (XYLOCAINE) 1 % injection 10 mL 10 mL, injection, Once in imaging, Starting on Sun12/26/24 at 1447, For 1 dose Given 12/26/2024 2:47 PM EDT 10 mL losartan (COZAAR) tablet 100 mg 100 mg, oral, Daily, First dose on Sun12/26/24 at 0900 Given 12/27/2024 8:03 AM EDT 100 mg Given 12/26/2024 8:59 AM EDT 100 mg methylPREDNISolone (MEDROL) tablet 4 mg 4 mg, oral, 2 times daily, First dose on Sun12/26/24 at 0135 Given 12/27/2024 8:03 AM EDT 4 mg Given 12/26/2024 9:14 PM EDT 4 mg Given 12/26/2024 8:59 AM EDT 4 mg metoclopramide (REGLAN) injection 10 mg 10 mg, intravenous, Once, On Sofiya 12/25/24 at 2355, For 1 dose, Doses LESS than or equal to 10 mg can be given IV push undiluted over 1 minute Given 12/26/2024 12:51 AM EDT 10 mg morphine injection 4 mg 4 mg, intravenous, Once, On Sofiya 12/25/24 at 2341, For 1 dose Given 12/25/2024 11:49 PM EDT 4 mg oxyCODONE (ROXICODONE) immediate release tablet 15 mg 15 mg, oral, Every 6 hours, First dose on Sun12/26/24 at 0135 Given 12/27/2024 1:34 PM EDT 15 mg Given 12/27/2024 8:03 AM EDT 15 mg Given 12/27/2024 12:57 AM EDT 15 mg pantoprazole (PROTONIX) EC tablet 40 mg 40 mg, oral, Every morning before breakfast, First dose on Sun12/26/24 at 0700, Do not crush, chew, or split. Given 12/27/2024 6:36 AM EDT 40 mg Given 12/26/2024 6:50 AM EDT 40 mg potassium chloride (KLOR-CON M20) CR tablet 40 mEq 40 mEq, oral, Once, On Sun12/26/24 at 0131, For 1 dose, Tablet may be swallowed whole (do not crush/chew/suck on) OR broken in half and each half swallowed separately OR dissolved (whole tablet) in ~4 ounces of water (allow ~2 minutes to dissolve, stir well and administer immediately). Given 12/26/2024 2:50 AM EDT 40 mEq documented in this encounter Discontinued Medications Medication Sig Discontinue Reason Start Date End Da te clotrimazole (LOTRIMIN) 1 % cream 1 APPL TOPICALLY 2 TIMES A DAY Entered in Error 04/07/2023 12/26/2024 predniSONE (DELTASONE) 5 mg tablet Entered in Error 03/19/2023 12/26/2024 documented as of this encounter Active and Recently Administered Medications Times are shown in EDT. Scheduled Medication Order 12/25/2024 12/26/2024 12/27/2024 amitriptyline (ELAVIL) tablet 25 mg 25 mg, oral, Nightly, First dose on Sun12/26/24 at 0135, at bedtime 0251 (Given - Provider: Josey Hernandez, RN)2112 (Given - Provider: Elizabeth Baum RN) diphenhydrAMINE (BENADRYL) injection 25 mg (COMPLETED) 25 mg, intravenous, Once, On Sofiya 12/25/24 at 2355, For 1 dose 0048 (Given - Provider: Josey Hernandez, MARY GRACE) folic acid (FOLVITE) tablet 1,000 mcg 1,000 mcg, oral, Daily, First dose on Sun12/26/24 at 0900 0859 (Given - Provider: Yordy Aguilar RN) 0803 (Given - Provider: Erlin Ferraro, MARY GRACE) lidocaine (XYLOCAINE) 1 % injection 10 mL (COMPLETED) 10 mL, injection, Once in imaging, Starting on Sun12/26/24 at 1447, For 1 dose 1447 (Given - Provider: Liana Don) losartan (COZAAR) tablet 100 mg 100 mg, oral, Daily, First dose on Sun12/26/24 at 0900 0859 (Given - Provider: Yordy Aguilar RN) 0803 (Given - Provider: Erlin Ferraro RN) methylPREDNISolone (MEDROL) tablet 4 mg 4 mg, oral, 2 times daily, First dose on Sun12/26/24 at 0135 0250 (Given - Provider: Josey Hernandez RN)0859 (Given - Provider: Yordy Aguilar RN)2114 (Given - Provider: Elizabeth Baum RN) 0803 (Given - Provider: Erlin Ferraro, MARY GRACE) metoclopramide (REGLAN) injection 10 mg (COMPLETED) 10 mg, intravenous, Once, On Sofiya 12/25/24 at 2355, For 1 dose, Doses LESS than or equal to 10 mg can be given IV push undiluted over 1 minute 0051 (Given - Provider: Josey Hernandez RN) morphine injection 4 mg (COMPLETED) 4 mg, intravenous, Once, On Sofiya 12/25/24 at 2341, For 1 dose 2349 (Given - Provider: Josey Hernandez, MARY GRACE) oxyCODONE (ROXICODONE) immediate release tablet 15 mg 15 mg, oral, Every 6 hours, First dose on Sun12/26/24 at 0135 0251 (Given - Provider: Josey Hernandez RN)0858 (Given - Provider: Yordy Aguilar RN - Comment: prior dose given late in ED)1333 (Given - Provider: Yordy Aguilar RN)1953 (Given - Provider: Elizabeth Baum RN) 0057 (Given - Provider: Elizabeth Baum RN)0803 (Given - Provider: Erlin Ferraro, MARY GRACE)1334 (Given - Provider: Erlin Ferraro RN) pantoprazole (PROTONIX) EC tablet 40 mg 40 mg, oral, Every morning before breakfast, First dose on Sun12/26/24 at 0700, Do not crush, chew, or split. 0650 (Given - Provider: Kelly Willard RN) 0636 (Given - Provider: Elizabeth Baum RN) potassium chloride (KLOR-CON M20) CR tablet 40 mEq (COMPLETED) 40 mEq, oral, Once, On Sun12/26/24 at 0131, For 1 dose, Tablet may be swallowed whole (do not crush/chew/suck on) OR broken in half and each half swallowed separately OR dissolved (whole tablet) in ~4 ounces of water (allow ~2 minutes to dissolve, stir well and administer immediately). 0250 (Given - Provider: Josey Hernandez RN) PRN Medication Order 12/25/2024 12/26/2024 12/27/2024 acetaminophen (TYLENOL) tablet 650 mg 650 mg, oral, Every 6 hours PRN, mild pain, headaches, fever - temperature GREATER than 38 C (100.4 F), Starting on Sun12/26/24 at 0134 cyclobenzaprine (FLEXERIL) tablet 10 mg 10 mg, oral, 2 times daily PRN, muscle spasms, Starting on Sun12/26/24 at 0134 1335 (Given - Provider: Oliver Aguilar RN)2114 (Given - Provider: Elizabeth Baum RN) documented in this encounter Orders Medications Ordered That Babatunde ht Not Have Been Administered Count Last Ordered Date First Ordered Date acetaminophen (TYLENOL) tablet 650 mg 2 acetaminophen (TYLENOL) tablet 1,000 mg 1 1 Diet Count Last Ordered Date First Orde red Date ADULT DISCHARGE DIET 1 12/27/2024 Nursing Count Last Ordered Date First Orde red Date ACTIVITY 1 12/27/2024 Consult Count Last Ordered Date First Orde red Date IP CONSULT TO INTERVENTIONAL RADIOLOGY 1 Admission Count Last Ordered Date First Orde red Date ADMIT TO INPATIENT 1 12/27/2024 INITIATE OBSERVATION STATUS 1 12/27/2024 INITIATE OBS ADM REQ 1 12/26/2024 Discharge Count Last Ordered Date First Orde red Date DISCHARGE PATIENT 1 12/27/2024 documented in this encounter Care Teams Corner Cutter Relationship Specialty Start Date End Date Frederick Alfonso MD [address] [place] [address] PCP - General Internal Medicine 11/12/24 documented as of this encounter
--- NOTE | 2024-12-30 09:03 | A.OFFVIS_ITS ---
Vital Signs 12/30/24 09:08 Height 5 ft 1 in Weight 158 lb 2 oz BMI 29.9 BP 124/78 Blood Pressure Location Lt brachial Position Sitting Pulse 92 Pulse Source Pulse Oximeter Pulse Oximetry (%) 98 Oxygen Delivery Method Room Air Intake Visit Reasons: follow up Intake Note: Patient presents for RA follow up. Allergies upadacitinib (From Rinvoq) Allergy (Mild, Verified 12/30/24 09:08) Rash naproxen (NAPROXEN) Allergy (Unknown, Verified 12/30/24 09:08) DIZZINESS EYE REDNESS AND SWELLING, edema Medication List - Last Reconciled 12/30/24 by Aiyana Orlando MD acetaminophen (Tylenol Extra Strength) 1,000 mg PO Q6H PRN amitriptyline mg PO anakinra 100 mg (0.67 mL) subcut DAILY 30 days cholecalciferol (vitamin D3) (Vitamin D3) 50 mcg PO DAILY clotrimazole 1% 1 appl topical BID cyclobenzaprine 10 mg PO BEDTIME folic acid 1 mg PO DAILY ibuprofen 400 mg PO TID PRN levonorgestrel (Mirena) intrauterine losartan 50 mg PO DAILY methotrexate sodium 20 mg (8 x 2.5 mg) PO QWEEK methylprednisolone (Medrol) 12 mg (3 x 4 mg) PO DAILY 4 weeks omeprazole 20 mg PO BID oxycodone-acetaminophen 5-325 mg 1 tab PO BID PRN quetiapine (Seroquel) 25 mg PO BID sumatriptan succinate 25 mg PO DAILY triamcinolone acetonide 0.1% 1 appl topical BID HPI Comments Details: Patient is a 34-year-old female with hypertension, hidradenitis suppurativa, seronegative rheumatoid arthritis (history of systemic onset juvenile idiopathic arthritis) and fibromyalgia here today for follow up Interval History: Patient last seen 08/27/2024 with me. - On Anakinra 100mg SC daily, medrol taper, Methotrexate 20mg PO, Folic acid 1mg - She has had 2 falls - Currently on 1/2 tablet of medrol without return of symptoms - Tolerating the anakinra - Has a right leg wound after cat scratch that is taking long to heal, completed antibiotics Today - On Anakinra 100mg SC daily, medrol 8mg, Methotrexate 20mg PO, Folic acid 1mg - Hospitalized last week for 3 days, for ruptured popliteal cyst at [facility]. Fluid drained and sent for studies: 80328 cell count - Doing overall well, able to decrease medrol for 12mg to 8mg - Still being evaluated for surgical options for the knee Rheumatologic History: veRF -ve CCP -ve AN, onset at age 13. dx at [facility] with Dr Haro Treatment with methotrexate partially helpful but she did much better with addition of Humira for a year or 2 but then she ran out of insurance. Recurrence of synovitis 2015 - out of insurance again, just on low dose prednisone. Humira started, May 2017; methotrexate(SC) added, June 2017 Xeljanz and methotrexate(SC) 01/27 06/28: Xeljanz not effective, Enbrel added to methotrexate 01/2021 Humira started with 80 mg loading doses and the 40 mg weekly for hidradenitis; arthritis worse so Humira changed to Rinvoq 02/2022. Hives 04/2022, Rinvoq changed to baricitinib Baricitinib DC 11/2023 due to ineffective Actemra infusion started 12/2023 - 04/2024. Not effective Anakinra 05/2024 Current Rheumatology Medication(s): Anakinra 100mg SC daily Medrol taper Methotrexate 20 mg every week PO Folic acid 1 mg daily [facility] Medical History (Updated 09/16/24 @ 08:03 by Grady Pantoja MD) long-term (current) use of systemic steroids Long-term current use of anakinra Rheumatoid arthritis flare Surgical History History of shoulder surgery Hx of endoscopy Hx of colonoscopy History of removal of ovarian cyst Hx of lithotripsy Social History Household Members: Significant Other Housing: House Are you a primary home health care provider to a significant other at home: No Do you presently have visiting nurse or other home services: No 75 years or older and lives alone: No Alcohol intake: never Patient Tobacco Use Status: Former Tobacco user e-Cigarette/Vaping Use: Never Used Substance Use Type: Marijuana service: No Current occupational status: unemployed Current occupation: right hand dominant Physical Exam Exam Exam: Vital signs reviewed Physical Examination CONSTITUITIONAL Patient alert and cooperative. Well appearing and in no apparent painful distress Rios facies improving MSK Hands * Right Hand: Able to make a fist. No swelling or tenderness to palpation of the MCPs, PIPs or DIPs. Mild TTP of the 4th and 3rd MCPs * Left Hand: Able to make a fist. No swelling or tenderness to palpation of the MCPs, PIPs or DIPs. Wrists * Right Wrist: Full ROM to flexion and extension. No swelling or TTP * Left Wrist: Full ROM to flexion and extension. No swelling or TTP Elbows * Right Elbow: Full ROM. No swelling or TTP. No TTP of the medial epicondyle. No TTP of the lateral epicondyle * Left Elbow: Full ROM. No swelling or TTP. No TTP of the medial epicondyle. No TTP of the lateral epicondyle Shoulders * Right shoulder: Full ROM. No swelling noted. No TTP of the AC joint. No TTP of the subacromial bursa. No TTP of the posterior shoulder * Left shoulder: Decreased ROM. No swelling noted. No TTP of the AC joint. TTP of the subacromial bursa. No TTP of the posterior shoulder Knees * Right knee: Full ROM. No swelling noted. No TTP of the knee joint line. No TTP of pes anserine bursa * Left knee: Decreased ROM. Warmth and mild swelling. TTP of the knee joint line . No TTP of pes anserine bursa. Ankles * Right ankle: Good ankle dorsiflexion and plantar flexion. No swelling. No TTP of the ankle joint * Left ankle: Good ankle dorsiflexion and plantar flexion. No swelling. No TTP of the ankle joint Feet * Right foot: Negative squeeze test * Left foot: Negative squeeze test Tender points? * No tenderness to palpation of the bilateral trapezius, supraspinatus, anterior costochondral junctions, bilateral suboccipital muscle insertions SKIN No rashes Vital Signs: Last Vital Signs Pulse 92 12/30/24 09:08 BP 124/78 12/30/24 09:08 Pulse Ox 98 12/30/24 09:08 Oxygen Delivery Method Room Air 12/30/24 09:08 BMI result Body Mass Index 29.9 Results Reviewed Results Reviewed: Laboratory Tests 08/27/24 12/29/24 09:15 10:52 Sodium 142 Potassium 3.7 Chloride 106 Carbon Dioxide 27 BUN 13 Creatinine 0.65 AST 20 ALT 25 C-Reactive Protein 0.15 25-OH Vitamin D Total 42.4 Laboratory Tests 05/21/24 10:33 Hepatitis A IgM Ab Nonreactive Hep Bs Antigen Negative Hep Bs Antibody REACTIVE Hep B Core Total Ab Nonreactive Hepatitis C Ab (EIA) Nonreactive TB Test (T-Spot) Com Negative Cell count and differential body fluid Total cells 29432 RBC 69434 % Neut [address] Left Lower extremity wo contrast 12/2024 Findings: Fluid density collection in the posterior left thigh soft tissues measuring 7.2 x 4.5 x 17.8cm with internal partial septations or debris inferiorly Popliteal cyst measuring 3.4 x 2.3 x 4.9 cm Left calf superficial soft tissue edema Moderate suprapatellar effusion No acute fracture or dislocation Impression: Received left thigh deep soft tissue fluid collection, which could be due to liquified hematoma, seroma, abscess or other etiology. Compartment syndrome should be excluded clinically. Popliteal cyst. Left calf superficial soft tissue edema. Moderate left knee effusion Assessment & Plan Assessment & Plan (1) Seronegative rheumatoid arthritis: Comment: -ve -ve CCP -ve JOSE L dx Age 16 at [facility] with Dr Haro Treatment with methotrexate partially helpful but she did much better with addition of Humira for a year or 2 but then she ran out of insurance. Recurrence of synovitis 2015 - out of insurance again, just on low dose prednisone. Humira started, May 2017; methotrexate(SC) added, June 2017 Xeljanz and methotrexate(SC) 01/27 06/28: Xeljanz not effective, Enbrel added to methotrexate 09/27: Actemra in place of Enbrel(ineffective), parenteral, then oral methotrexate continued Actemra discontinued in September 2020 due to the hidradenitis suppurativa. Me thotrexate continued. 01/2021 Humira started with 80 mg loading doses and the 40 mg weekly for hidradenitis; arthritis worse so Humira changed to Rinvoq 02/2022. Hives 04/2022, Rinvoq changed to baricitinib Restarted Actemra 12/2023 - 03/2024. Not effective Anakinra 05/2024 Code(s): M06.00 - Rheumatoid arthritis without rheumatoid factor, unspecified site Category: Medical Plan: #Seronegative RA Patient is a 34-year-old female with longstanding history of rheumatoid arthritis starting as a child being diagnosed with systemic onset juvenile idiopathic arthritis and now as an adult with seronegative rheumatoid arthritis. Patient is currently in low disease activity on prednisolone taper and anakinra injections. Doing well on the anakinra and methotrexate combination Plan - Methotrexate 20mg every week - Folic acid 1mg every day - Medrol taper: medrol 6mg - Anakinra 100mg SC daily - RTC 4 months - Labs before visit: CBC, CMP, ESR, CRP, Hepatitis panel and T spot (2) Fibromyalgia, primary: Code(s): M79.7 - Fibromyalgia Category: Medical Plan: #Fibromyalgia Patient with an additional diagnosis of fibromyalgia however at this time I think her rheumatoid arthritis needs to be properly controlled before any additional fibromyalgia medications be added (3) Osteoporosis: Code(s): M81.0 - Age-related osteoporosis without current pathological fracture Qualifiers: Osteoporosis type: localized Presence of current pathological fracture: without current pathological fracture Qualified Code(s): M81.6 - Localized osteoporosis [[place]] Plan: #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 DEXA scan showed osteoporosis in the spine and in the hip. She has been on alendronate for several years and despite that she had a fragility fracture involving her ankle. Received 1st dose of Prolia 05/30/24. Noted pain at the injection site for a few days after but otherwise tolerated the medication well. Had a fall with rib fractures recently, if she continued to fall and have fractures, we may need to change medication to evenity Continue vitamin-D supplementation. 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 (current) use of systemic steroids: Code(s): Z79.52 - long-term (current) use of systemic steroids Category: Medical Plan: #Long-term Use of Steroids Discussed with patient the risks and benefits of steroid for managing the rheumatic condition Benefits include: - Reduced pain, improved mobility, increased participation in activities, and decreased progression of disease Risks include: - GI upset, potential ultrasound worsening or formation (especially in patients > 65 years old), elevated blood pressure/worsening hypertension, elevated blood sugar/worsening diabetes control, worsening of bone density, elevated lipids/worsening triglycerides, cataract formation, weight gain Recommended using proton pump inhibitors (PPIs) for the duration of steroid use to reduce the risk of gastric ulcers and vitamin-D daily to reduce the risk of osteoporosis Labs checked: A1c, T spot, hepatitis-B and C serologies Pneumocystis jiroveci prophylaxis: Patient with risk factors including steroids greater than 50 mg for more than 30 days, age greater than 60 years, and lung involvement from underlying rheumatic disease requires prophylaxis and will be given so Plan I spent 40 minutes reviewing the record and labs, taking a history, examining the patient, discussing the treatment plan, ordering diagnostic work up, d isability paperwork for spouse and documenting in the medical record Medications: New methylprednisolone (Medrol) 6 mg (3 x 2 mg) PO DAILY 270 tabs 1RF 90 days M06.00 - Rheumatoid arthritis without rheumatoid factor, unspecified site Refilled anakinra administer at approximately same time(s) each day 100 mg (0.67 mL) subcut DAILY 20.1 mL 4RF 30 days M06.00 - Rheumatoid arthritis without rheumatoid factor, unspecified site methotrexate sodium 20 mg (8 x 2.5 mg) PO QWEEK 96 tabs 1RF M06.00 - Rheumatoid arthritis without rheumatoid factor, unspecified site folic acid 1 mg PO DAILY 90 tabs 2RF M06.00 - Rheumatoid arthritis without rheumatoid factor, unspecified site, Z79.631 - supervisor intermediates (current) use of antimetabolite agent Coding Level of Care Code Est Pt Level 5 (82288) Complex EM visit Add On G2211 Diagnoses Seronegative rheumatoid arthritis M06.00 Fibromyalgia, primary M79.7 Localized osteoporosis without current pathological fracture M81.6 Osteoporosis type: localized Presence of current pathological fracture: without current pathological fracture Long-term current use of anakinra Z79.899 long-term (current) use of systemic steroids Z79.52
[2024-12-30 09:08] VITALS: BP 124/78; PULSE 92; O2SAT 98; BMI 29.9
--- OUTSIDE RECORDS SUMMARY | 2024-12-30 09:35 | XMS_ITS | Encounter Summary ---
Author Organization [facility] Address [address] [place] [address] Care Team Providers Care Custom Shoemaker Name Role Phone Frederick Alfonso MD Primary Care Provider [phone] Encounter Details Date Type Department Care Team ([facility] Contact Info) Description 07/08/2024 Lab Requisition [facility] - Main Lab [address] [place] [address] Wellington Del Valle MD [address] [place] [address] [place] [phone] Local infection of the skin and subcutaneous tissue, unspecified Social History Tobacco Use Types Packs/Day Years Used Date Smoking Tobacco: Former Smokeless Tobacco: Never Alcohol Use Standard Drinks/Week Comments No 0 (1 standard drink = 0.6 oz pur e alcohol) Interpersonal Safety Answer Date Record ed Physical Abuse Unrecognized value 06/13/2024 Verbal Abuse Unrecognized value 06/13/2024 Comments No Sex and Gender Information Value Date Recorded Sex Assigned at Female 04/10/2024 2:09 AM EST Legal Sex Female 2:47 PM EDT Gender Identity Female 04/10/2024 2:09 AM EST Sexual Orientation Something else 04/10/2024 2: 09 AM EST documented as of this encounter Plan of Treatment Upcoming Encounters Date Type Department Care Team ([facility] Contact Info) Description 01/07/2025 10:30 AM EDT Procedure visit Obstetrics & Gynecology - [facility] [address] [place] [address] Rachelle Gross, CNM [address] [place], [place] 03/18/2025 10:00 AM EST Office Visit Adult Medicine [facility] [address] [place] [address] Richard Aquino PA [address] [place] [address] documented as of this encounter Procedures Procedure Name Priority Date/Time Associated Diagnosis Comments CULTURE FUNGAL, OTHER Routine 07/08/2024 12:00 AM EDT Local infection of the skin and subcutaneous tissue, unspecified documented in this encounter Results * (ABNORMAL) Culture fungal, other (07/08/2024 12:00 AM EDT) Culture, Fungus Fungus(A) 3:14 PM EDT [facility] Comment: ORGANISM SENT TO REFERENCE LABORATORY FOR IDENTIFICATION. Refer to [id number] for results The organism value for this result has been updated. These results have been appended to the previously preliminary verified report. Skin 07/08/2024 07/08/2024 7:1 2 PM EDT Wellington Del Valle MD LAB MICROBIOLOGY - G ENERAL ORDERABLES Final Result [facility]) [facility] [address] [place] [address], documented in this encounter Visit Diagnoses Diagnosis Local infection of the skin and subcutaneous tissue, unspecified documented in this encounter Additional Health Concerns Infection Onset Date Last Indicated Resolved Time COVID-19 06/12/2024 06/12/2024 07/12/2024 7:04 PM EDT documented as of this encounter Care Teams Custom Shoemaker Relationship Specialty Start Date End Date Frederick Alfonso MD [address] [place] [address] PCP - General Internal Medicine 11/12/24 documented as of this encounter
--- OUTSIDE RECORDS SUMMARY | 2024-12-30 09:35 | XMS_ITS | Clinical Summary ---
Author Organization [facility] Address [address] [place] [address] Care Team Providers Care Sound Technician Supervisor Name Role Phone Frederick Alfonso MD Primary Care Provider [phone] Allergies Active Allergy Reactions Criticality Noted Date [...] once a week. 8 pills every Active triamcinolone (KENALOG) 0.1 % ointment To affected area 2-3 times daily 01/04/20 21 Active methylPREDNISol one (MEDROL) 8 mg tablet Take 1 tablet [...] for migraine. Active amitriptyline (ELAVIL) 25 mg tabletIndicatio ns:Rheumatoid arthritis, unspecified (CMS/HCC V24, CMS/HCC V28) TAKE 1 TO 2 TABLETS BY MOUTH AT BEDTIME 60 tablet 5 07/31/19 25 Active omeprazole (PriLOSEC) [address] capsule TAKE 1 CAPSULE (20 MG TOTAL) BY MOUTH 2 (TWO) TIMES A DAY. DO NOT CRUSH OR CHEW. 180 capsule 1 08/14/19 25 Active cyclobenzaprine (FLEXERIL) 10 mg tablet Take 1 tablet (10 mg total) by mouth 2 (two) times a day if needed for muscle spasms. 60 tablet 5 09/24/19 25 Active losartan (COZAAR) 100 mg tablet Take 1 tablet (100 mg total) by mouth 1 (one) time each day. 90 tablet 1 10/15/19 25 026 Active folic acid (FOLVITE) 1 mg tabletIndicatio ns:Rheumatoid arthritis, unspecified (CMS/HCC V24, CMS/HCC V28) TAKE 1 TABLET BY MOUTH EVERY DAY 90 tablet 1 10/23/19 25 Active Vitamin D3 50 mcg (2,000 unit) tablet TAKE 1 TABLET BY MOUTH EVERY DAY 90 tablet 1 11/13/19 25 Active oxyCODONE (ROXICODONE) 15 mg immediate release tabletIndicatio ns:Rheumatoid arthritis, involving unspecified site, unspecified whether rheumatoid factor present (CMS/HCC V24, CMS/HCC V28),Other chronic pain Take 1 tablet (15 mg total) by mouth every 6 (six) hours. Max Daily Amount: 60 mg 112 tablet 12/19/19 25 Active predniSONE (DELTASONE) 5 mg tablet 03/19/19 24 025 Discontin ued(Enter ed in Error) clotrimazole (LOTRIMIN) 1 % cream 1 APPL TOPICALLY 2 TIMES A DAY 04/07/19 24 025 Discontin ued(Enter ed in Error) oxyCODONE (ROXICODONE) 15 mg immediate release tabletIndicatio ns:Rheumatoid arthritis, involving unspecified site, unspecified whether rheumatoid factor present (CMS/HCC V24, CMS/HCC V28),Other chronic pain Take 1 tablet (15 mg total) by mouth every 6 (six) hours. Max Daily Amount: 60 mg 112 tablet 11/19/19 25 025 Discontin ued(Reord er) Active Problems Problem Noted Date Diagnosed Date Leg abscess 12/27/2024 Pneumonia due to COVID-19 virus 06/13/2024 Primary hypertension 02/19/2024 Rheumatoid arthritis ([facility] V24, [facility] V28) 12/13/2023 Overview (12/13/2023): Age 16 at [facility] with Dr Haro. RF negative. [...] (12/13/2023): 2020: Negative upper and lower endoscopies. Resolved Problems Problem Noted Date Diagnosed Date Resolved Date Leg abscess 12/27/2024 12/27/2024 Leg swelling 12/26/2024 12/27/2024 Encounters Date Type Department Care Team Description 12/25/2024 8:43 PM EDT - 12/27/2024 1:50 PM EDT Hospital Encounter [facility] [address] [place] [phone] Bryson Alcazar MD Ishtiaq, Rizwan, MD Seralathan, Manikandan, MD Pain (Primary Dx); Swelling of thigh Discharge Disposition: Home or Self Care 12/16/2024 10:00 AM EDT Office Visit [address] [phone] Frederick Alfonso MD Other chronic pain (Primary Dx); Rheumatoid arthritis, involving unspecified site, unspecified whether rheumatoid factor present (CMS/HCC V24, CMS/HCC V28); Primary hypertension 11/18/2024 8:30 AM EDT Office Visit [address] [phone] Frederick Alfonso MD Rheumatoid arthritis, involving unspecified site, unspecified whether rheumatoid factor present (CMS/HCC V24, CMS/HCC V28) (Primary Dx); Other chronic pain; Primary hypertension 11/17/2024 8:00 AM EDT Office Visit [address] [phone] Cynthia Argueta NP Encounter for long-term (current) use of high-risk medication (Primary Dx); Rheumatoid arthritis, involving unspecified site, unspecified whether rheumatoid factor present (CMS/HCC V24, CMS/HCC V28); Primary hypertension 10/14/2024 2:30 PM EDT Office Visit [address] [phone] Frederick Alfonso MD Other chronic pain (Primary Dx); Rheumatoid arthritis, involving unspecified site, unspecified whether rheumatoid factor present (CMS/HCC V24, CMS/HCC V28); Primary hypertension; Rupture of anterior cruciate ligament of knee, unspecified laterality, subsequent encounter; Closed fracture of multiple ribs with routine healing, unspecified laterality, subsequent encounter from Last 3 Months Immunizations Immunization Administration Dates Next Due Influenza Quadravalent, MDCK [...] Surgery Date Site/Laterality Comments KNEE ARTHROSCOPY PROCEDURE: MA ARTHROSCOPY KNEE DIAGNOSTIC W/WO SYNOVIAL BX SPX; COMMENT: on left knee LAPAROSCOPY DIAGNOSTIC / BIO PSY / ASPIRATION / LYSIS PROCEDURE: PELVIS LAPAROSCOPY, DIAGNOSTIC UPPER GASTROINTESTINAL ENDOSCOPY 07/28/2019 PROCEDURE: MA UPPER GI ENDOSCOPY PERFORMED; COMMENT: Visually normal; duodenal biopsies obtained--- pathology = normal. COLONOSCOPY 09/10/2019 PROCEDURE: HISTORICAL COLONOSCOPY; COMMENT: negative Medical History Medical History Date Comments Rheumatoid arthritis(714.0) DX:R heumatoid arthritis(714.0); COMMENT: following up with [facility] Vitamin D deficiency DX:Vitamin D deficiency Ovarian [...] Mass Index 29.1 12/25/2024 4:10 PM EDT Plan of Treatment Upcoming Encounters Date Type Department Care Team (Late st Contact Info) Description 01/07/2025 10:30 AM EDT Procedure visit Obstetrics & Gynecology [address] [phone] Rachelle Gross, [facility] [address] [place] [address] 03/18/2025 10:00 AM EST Office Visit Adult Medicine [address] [phone] Richard Aquino PA [address] [place] [phone] Health Maintenance Due Date Last Done Comments Hepatitis B Vaccines (1 of 3 - 19+ 3-dose series) 2008 HPV Vaccines (1 - 3-dose SCDM series) 2016 Social Influencers of Health Screening 12/24/2019 COVID-19 Vaccine (3 - Pfizer risk series) 08/31/2020 08/03/2020, 07/13/2020 Depression Screening 03/12/2024 06/26/2023 Influenza Vaccine (#1) 2024 , 12/29/2019, 12/04/2017, Additional history exists Hypertension/CHF/CAD Annual BMP Blood Test 12/26/2025 12/26/2024, 12/25/2024, 11/12/2024, Additional history exists Cervical Cancer Screening: HPV [...] FLUID DRAIN Routine 12/26/2024 2:46 PM EDT DIFFERENTIAL BODY FLUID Routine 12/26/2024 2:46 PM EDT CELL COUNT WITH REFLEX DIFFERENTIAL, BODY FLUID Routine 12/26/2024 2:46 PM EDT CULTURE BODY FLUID WITH GRAM STAIN Routine 12/26/2024 2:46 PM EDT CBC WITH AUTO DIFFERENTIAL Routine 12/26/2024 6:45 AM EDT MAGNESIUM Routine 12/26/2024 6:45 AM EDT BASIC METABOLIC PANEL Routine 12/26/2024 6:45 AM EDT CBC AND DIFFERENTIAL Routine 12/26/2024 6:45 AM EDT SEDIMENTATION RATE STAT 12/25/2024 11 :24 PM EDT C-REACTIVE PROTEIN STAT 12/25/2024 11 :24 PM EDT CBC WITH AUTO DIFFERENTIAL STAT 12/25/2024 11:24 PM EDT PROTHROMBIN TIME WITH INR STAT 12/25/2024 11:24 PM EDT TYPE AND SCREEN STAT 12/25/2024 11:24 PM EDT BASIC METABOLIC PANEL STAT 12/25/2024 11:24 PM EDT CBC AND DIFFERENTIAL STAT 12/25/2024 11:[address] LOWER EXTREMITY WO CONTRAST LEFT STAT 12/25/2024 8:45 PM EDT POC , URINE DIAGNOSTIC STAT 12/25/2024 7:46 PM EDT VAS US DUPLEX LOWER EXT VENOUS LEFT STAT 12/25/2024 5:02 PM EDT Pain OPIATES CONFIRMATION, URINE Routine 11/12/2024 10:19 AM [...] Recently Relevant to Health Maintenance Results * US Guided Soft Tissue Fluid [...] Signed Date: 12/26/2024 16:03 ET Workstation ID: [id number] Transcribed By: Self Edit Transcribed Date: 12/26/2024 [...] Signed Date: 12/26/2024 16:03 ET Workstation ID: [id number] Transcribed By: Self Edit Transcribed Date: 12/26/2024 15:03 ET us Layne Santana MD IMG US PROCEDURES Final Result * Cell count with reflex differential, body fluid (12/26/2024 2:46 PM EDT) Body Fluid Total Nucleated Cells 14,905 /mm3 LAB HEMETOLOGY METHOD 12/26/2024 5:[address] [facility] Body Fluid RBC 28,000 /mm3 LAB HEMETOLOGY METHOD 12/26/2024 5:[address] [facility] Body Fluid Color [place] 12/26/2024 5:[address] [facility] Body Fluid Clarity Cloudy 12/26/2024 5:[address] [facility] Body Fluid Source Knee, Left 12/26/2024 5:[address] [facility] Aspirate Structure of left knee region / Unknown Non-blood Collection / Unknown 12/26/2024 2:46 PM EDT 12/26/2024 2:[address] [facility] - 12/26/2024 5:14 PM EDT No reference ranges have been established for body fluids. Clinical correlation recommended. us Ame LLANOS LAB BODY FLUIDS AND STOOLS ORDER NORIS Final Result [facility] [address] [place] [address], [place] [phone] * Culture body fluid with gram stain (12/26/2024 2:46 PM EDT) Fluid Culture No growth at 3 days LAB MICROBIOLOGY METHOD 12/29/2024 10:[address] [facility] Gram Stain Result No Epithelial cells 12/29/2024 10:[address] [facility] Gram Stain Result Few Polymorphonuclear leukocytes 12/29/2024 10:[address] [facility] Gram Stain Result No organisms seen 12/29/2024 10:[address] [facility] Aspirate Structure of left lower limb / Unknown Non-blood Collection / Unknown 12/26/2024 2:46 PM EDT 12/26/2024 2:52 PM EDT Ame LLANOS LAB MICROBIOLOGY - GENERAL ORDER NORIS Final Result [facility] [address] [place] [address], [place] [phone] * Differential body fluid (12/26/2024 2:46 PM EDT) Fluid Neutrophils % 90 % 12/26/2024 5:[address] [facility] Fluid Lymphocytes % 5 % 12/26/2024 5:[address] [facility] Fluid Monocytes/Macrop hages 5 % 12/26/2024 5:[address] [facility] Fluid Eosinophils % 0 % 12/26/2024 5:[address] [facility] Fluid Basophils % 0 % 12/26/2024 5:[address] [facility] Fluid Other Cells % 0 % 12/26/2024 5:[address] [facility] Aspirate Structure of left knee region / Unknown Non-blood Collection / Unknown 12/26/2024 2:46 PM EDT 12/26/2024 2:[address] [facility] - 12/26/2024 5:14 PM EDT No reference ranges have been established for body fluids. Clinical correlation recommended. us Ame LLANOS LAB BODY FLUIDS AND STOOLS ORDER NORIS Final Result [facility] [address] [place] [address], [place] [phone] * (ABNORMAL) CBC auto differential (12/26/2024 6:45 AM EDT) Only the most recent of2 resultswithin the time period is included. WBC 8.7 4.8 - 10.8 K/mcL LAB HEMETOLOGY METHOD 12/26/2024 7:[address] [facility] RBC 3.50(L) 3.80 - 4.80 M/mcL LAB HEMETOLOGY METHOD 12/26/2024 7:[address] [facility] Hemoglobin 8.6(L) 11.5 - 16.0 g/dL LAB HEMETOLOGY METHOD [facility] Hematocrit 29.6(L) 35.0 - 47.0 % LAB HEMETOLOGY METHOD 12/26/2024 7:[address] [facility] MCV 84.6 79.0 - 98.0 FL LAB HEMETOLOGY METHOD 12/26/2024 7:[address] [facility] MCH 24.6(L) 27.0 - 32.0 pcg LAB HEMETOLOGY METHOD 12/26/2024 7:[address] [facility] MCHC 29.1(L) 32.0 - 37.0 g/dL LAB HEMETOLOGY METHOD 12/26[facility]2024 7:[facility] RDW 20.7(H) 11.0 - 15.0 % LAB HEMETOLOGY METHOD 12/26/2024 7:20 AM [facility] Platelets 343 130 - 400 K/mcL LAB HEMETOLOGY METHOD 12/26/2024 7:20 AM [facility] MPV 9.1 7.0 - 11.0 FL LAB HEMETOLOGY METHOD 12/26/2024 7:20 AM [facility] NRBC 0.0 <1.0 % LAB HEMETOLOGY METHOD 12/26/2024 7:20 AM [facility] NRBC Absolute 0.00 <0.10 K/mcL LAB HEMETOLOGY METHOD 12/26/2024 7:20 AM [facility] Neutrophils Relative 77.8 % LAB HEMETOLOGY METHOD 12/26/2024 7:20 AM [facility] Lymphocytes Relative 10.4 % LAB HEMETOLOGY METHOD 12/26/2024 7:20 AM [facility] Monocytes Relative 10.0 % LAB HEMETOLOGY METHOD 12/26/2024 7:20 AM [facility] Eosinophils Relative 0.5 % LAB HEMETOLOGY METHOD 12/26/2024 7:20 AM [facility] Basophils Relative 0.3 % LAB HEMETOLOGY METHOD 12/26/2024 7:20 AM [facility] Immature Granulocytes Relative 1.0 % LAB HEMETOLOGY METHOD 12/26/2024 7:20 AM [facility] Neutrophils Absolute 6.80 1.50 - 7.00 K/mcL LAB HEMETOLOGY METHOD 12/26/2024 7:20 AM [facility] Lymphocytes Absolute 0.91(L) 1.00 - 5.00 K/mcL LAB HEMETOLOGY METHOD 12/26/2024 7:20 AM [facility] Monocytes Absolute 0.87 0.20 - 1.00 K/mcL LAB HEMETOLOGY METHOD 12/26/2024 7:[address] [facility] Eosinophils Absolute 0.04 0.00 - 0.50 K/[facility] LAB HEMETOLOGY METHOD 12/26/2024 7:[address] [facility] Basophils Absolute 0.03 0.00 - 0.20 K/mcL LAB HEMETOLOGY METHOD 12/26/2024 7:[address] [facility] Immature Granulocytes Absolute 0.09(H) 0.00 - 0.03 K/[facility] LAB HEMETOLOGY METHOD 12/26/2024 7:[address] [facility] Blood Venous blood specimen / Unknown Venipuncture / Unknown 12/26/2024 6:45 AM EDT 12/26/2024 6:53 AM EDT Levi Victoria MD LAB BLOOD ORDERABLES Final Res ult [facility] [address] [place] [address], [place] [phone] * Magnesium (12/26/2024 6:45 AM EDT) [facility] Magnesium 2.0 1.9 - 2.6 mg/dL LAB CHEMISTRY METHOD 12/26/2024 7:[address] [facility] Blood Venous blood specimen / Unknown Venipuncture / Unknown 12/26/2024 6:45 AM EDT 12/26/2024 6:54 AM EDT Levi Victoria MD LAB BLOOD ORDERABLES Final Res ult [facility] [address] [place] [address], [place] [phone] * (ABNORMAL) Basic metabolic panel (12/26/2024 6:45 AM EDT) Only the most recent of3 resultswithin the time period is included. Sodium 143 133 - 145 mmol/L LAB CHEMISTRY METHOD 12/26/2024 7:47 AM [facility] Potassium 4.6 3.5 - 5.5 mmol/L LAB CHEMISTRY METHOD 12/26/2024 7:47 AM [facility] Chloride 111(H) 96 - 110 mmol/L LAB CHEMISTRY METHOD 12/26/2024 7:47 AM [facility] CO2 27 21 - 32 mmol/L LAB CHEMISTRY METHOD 12/26/2024 7:47 AM [facility] Anion Gap 5 3 - 11 LAB CHEMISTRY METHOD 12/26/2024 7:47 AM [facility] Glucose 121(H) 70 - 100 mg/dL LAB CHEMISTRY METHOD 12/26/2024 7:47 AM [facility] BUN 16 5 - 25 mg/dL LAB CHEMISTRY METHOD 12/26/2024 7:47 AM [facility] Creatinine 0.60 0.50 - 1.10 mg/dL LAB CHEMISTRY METHOD 12/26/2024 7:47 AM [facility] eGFR 120 >=60 mL/min/1. 73m2 LAB CHEMISTRY METHOD 12/26/2024 7:47 AM [facility] Comment:Calculation based on the Chronic Kidney Disease Epidemiology Collaboration (CKD-EPI) equation refit without adjustment for race. BUN/Creatinine Ratio 26.7 LAB CHEMISTRY METHOD 12/26/2024 7:47 AM [facility] Calcium 8.7 8.5 - 10.5 mg/dL LAB CHEMISTRY METHOD 12/26/2024 7:47 AM [facility] Blood Venous blood specimen / Unknown Venipuncture / Unknown 12/26/2024 6:45 AM EDT 12/26/2024 6:54 AM EDT Levi Victoria MD LAB BLOOD ORDERABLES Final Res ult Performing Organization Address City/[facility]/ZIP Co de Phone Number [facility] [address] [place] [address], [place] [phone] * (ABNORMAL) Sedimentation rate, automated (12/25/2024 11:24 PM EDT) [facility] Sed Rate 70(H) 0 - 20 mm/hr LAB HEMETOLOGY METHOD 12/26/2024 12:[address] [facility] Blood Venous blood specimen / Unknown Venipuncture / Unknown 12/25/2024 11:24 PM EDT 12/25/2024 11:31 PM EDT Bryson Torres MD LAB BLOOD ORDERABLES Final Result Performing Organization Address [facility]/ZIP Co de Phone Number [facility] [address] [place] [address], [place] [phone] * Protime-INR (12/25/2024 11:24 PM EDT) [facility] Protime 11.3 10.6 - 13.9 sec LAB COAGULATION METHOD 12/25/2024 11:[address] [facility] INR 0.9 LAB COAGULATION METHOD 12/25/2024 11:[address] [facility] Blood Venous blood specimen / Unknown Venipuncture / Unknown 12/25/2024 11:24 PM EDT 12/25/2024 11:32 PM EDT Bryson Torres MD LAB BLOOD ORDERABLES Final Result Performing Organization Address City/[facility]/ZIP Co de Phone Number [facility] [address] [place] [address], [place] [phone] * Type and screen (12/25/2024 11:24 PM EDT) Pathologist [facility] ABO Group B 12/26/2024 12:[address] [facility] Rh Type Negative 12/26/2024 12:[address] [facility] Antibody Screen Negative 12/26/2024 12:[address] [facility] Blood Venous blood specimen / Unknown Venipuncture / Unknown 12/25/2024 11:24 PM EDT 12/25/2024 11:32 PM EDT us Bryson Torres MD LAB BLOOD BANK TEST ORDERABLES Final Result [facility] [address] [place] [address], [place] [phone] * (ABNORMAL) C-reactive protein (12/25/2024 11:24 PM EDT) Pathologist [facility] C-Reactive Protein 2.24(H) <=0.50 mg/dL LAB CHEMISTRY METHOD 12/26/2024 12:[address] [facility] Blood Venous blood specimen / Unknown Venipuncture / Unknown 12/25/2024 11:24 PM EDT 12/25/2024 11:32 PM EDT us Bryson Torres MD LAB BLOOD ORDERABLES Final Result [facility] [address] [place] [address], [place] [phone] * CT Lower Extremity wo Contrast Left [...] Stoner MD on 12/25/2024 21:31:[address] PROCEDURES Final Res ult * POC [...] Region Laterality Modality Vascular, Abdomen Ultrasound 12/25/2024 5:1 7 PM EDT Impressions 12/25/2024 5:17 PM EDT [...] Tomy LLANOS CV VASCULAR PROCEDURES Final Result * (ABNORMAL) Drug abuse screen expanded with reflex confirmation, urine (11/12/2024 10:19 AM EDT) Amphetamine Screen, Ur Negative Negative LAB CHEMISTRY METHOD 2:[address] [facility] Comment:Certain OTC medicati ons containing ephedrine, phenylephrine, pseudoephedrine and phenylpropanolamine can cause false positive results. Barbiturate Screen, Ur Negative Negative [facility] Benzodiazepine Screen, Ur Negative Negative [facility]STRY [facility] 2:[facility] Cocaine Screen, Ur Negative Negative LAB CHEMISTRY METHOD 2:14 PM [facility] Opiate Screen, Ur Positive(A ) Negative LAB CHEMISTRY METHOD 2:14 PM [facility] Cannabinoid (THC) Screen, Ur Positive(A ) Negative LAB CHEMISTRY METHOD 2:14 PM [facility] Comment:Specimens from patie nts taking pantoprazole sodium (Protonix) have been shown to produce false positive results. Fentanyl, Ur Negative Negative LAB CHEMISTRY METHOD 5 2:[address] [facility] Oxycodone Screen, Ur Positive(A ) Negative LAB CHEMISTRY METHOD 2:14 PM [facility] Urine Urine specimen obtained by clean catch procedure / Unknown Non-blood Collection / Unknown 11/12/2024 10:19 AM EDT 11/12/2024 10:[address] [facility] - 11/12/2024 2:14 PM EDT [...] MD LAB URINE ORDERABLES Final Resu lt [facility] ([facility] [address] [place] [address], * (ABNORMAL) Opiates confirmation, urine (11/12/2024 10:19 [...] 623(H) Negative ng/mL 11/18/2024 12:38 PM EDT [facility] Oxymorphone Confirm, Urine 311(H) Negative ng/mL 11/18/2024 12:38 PM EDT [facility] Creatinine 180 20 - 250 mg/dL 11/18/2024 12:38 PM EDT [facility] Adulterants Negative 11/18/2024 12:38 PM EDT [facility] Comment: Confirmation (LC/MS/MS) Decision Limits Morphine [...] developed and the performance characteristics determined by [facility]. This confirmation testing has not been cleared or approved by the FDA. The laboratory is regulated under CLIA as qualified to perform high-complexity testing. This test is used for patient testing purposes. It should not be regarded as investigational or for research. Test performed at [facility], [address] , [place] [address] Madison Titus MD, PhD - Building Construction Supervisor Urine Urine specimen obtained by clean catch procedure / Unknown Non-blood Collection / Unknown 11/12/2024 10:19 AM EDT 11/12/2024 2:14 PM EDT us Frederick Alfonso MD LAB URINE ORDERABLES Final Resu lt [facility] [address] [place] [address] * THC, urine, confirmation (11/12/2024 10:19 AM EDT) Tetrahydrocannabinoid (THC) >1500 Negative ng/mL 11/17/2024 11:35 PM EDT [facility] Tetrahydrocannabinoid (THC)/Creatinine Ratio 1242 11:35 PM EDT [facility] Creatinine 175 20 - 250 mg/dL 11/17/2024 11:35 PM EDT [facility] Adulterants Negative 11/17/2024 11:35 PM EDT [facility] Comment: The urine THC/creatinine ratio is the best monitor to determine the possibility of continued drug usage. With abstinence, the ratio should decrease within one week by a factor of two or more. Confirmation (GC/MS) Decision Limit THC ([id number]) 3 ng/mL Adulterant Decision Limit: General Oxidants 200 ug/mL The adulterant assay tests for General Oxidants, including Chromates and Nitrites. Adulterants are substances either ingested or added directly to a urine specimen to prevent the detection of drug use. If applicable, any drug confirmation testing reported here was developed and the performance characteristics determined by [facility]. This confirmation testing has not been cleared or approved by the FDA. The laboratory is regulated under CLIA as qualified to perform high-complexity testing. This test is used for patient testing purposes. It should not be regarded as investigational or for research. Test performed at [facility], [address] , [place] [address] Madison Titus MD, PhD - Building Construction Supervisor Urine Urine specimen obtained by clean catch procedure / Unknown Non-blood Collection / Unknown 11/12/2024 10:19 AM EDT 11/12/2024 2:14 PM EDT Result [facility] Frederick Alfonso MD LAB URINE ORDERABLES Final Resu lt [facility] [address] [place] [address] * Depression Screening (06/26/2023) [facility] Depression Screening Abstracted Result [facility] [employer] Final Result * Lipid panel (06/25/2023) [facility] LDL/HDL Ratio 2 0 - 4 Triglycerides 76 0 - 150 mg/dL Cholesterol 171 0 - 200 mg/dL HDL 79 >=40 mg/dL LDL Cholesterol 77 0 - 100 mg/dL Blood Venous blood specimen / Unknown Result [facility] BLOOD ORDERABLES Noelle l Result * Cervical Cancer Screening: HPV (12/20/2022) [facility] Cervical Cancer Screening: HPV Negative, Abstracted Result [facility] [employer] Final Result * HIV Screening (05/19/2022) [facility] HIV Screening Abstracted Result [facility] [employer] Final Result * Hepatitis C Screening (05/19/2022) [facility] Hepatitis C Screening Abstracted Result [facility] [employer] Final Result from Last 3 Months or Most Recently Relevant to Health Maintenance Insurance [facility] Advance Directives * Full Code - Default (Latest Code Status on File) Date Activated Date Inactivated Comments 12/26/2024 1:15 AM 12/27/2024 3:55 PM This is or mary ellen is used when code status has not been discussed with the patient, or code status is otherwise unknown/unconfirmed To update the patient's code status, place a code status order. Do not modify or discontinue any currently active code status orders. * Full Code - Default Date Activated Date Inactivated Comments 06/13/2024 12:22 AM 06/14/2024 2:53 PM This is order is used when code status has not been discussed with the patient, or code status is otherwise unknown/unconfirmed To update the patient's code status, place a code status order. Do not modify or discontinue any currently active code status orders. Care Teams Sound Technician Supervisor Relationship Specialty Start Date End Date Frederick Alfonso MD [address] [place] [id number] PCP - General Internal Medicine 11/12/24
== END 2024-12-30 09:51 | disposition home or self-care (01) ==
LOC: HO.RHES 08:59
PROVIDERS: PCP Internal Medicine; Visit Provider Student in an Organized Health Care Education/Training Program
DX: M06.09 Rheumatoid arthritis without rheumatoid factor, multiple sites (principal); M79.7 Fibromyalgia; M81.6 Localized osteoporosis [Lequesne]; Z79.899 Other long term (current) drug therapy; Z79.52 Long term (current) use of systemic steroids
CPT/HCPCS: 99215

== ENCOUNTER → 2024-12-30 08:57 | Outpatient (BNVA) | payer OTHER, SELFPAY | PROVIDERS: PCP Internal Medicine; Visit Provider Student in an Organized Health Care Education/Training Program | DX: M06.09 Rheumatoid arthritis without rheumatoid factor, multiple sites (principal); M79.7 Fibromyalgia; M81.6 Localized osteoporosis [Lequesne]; Z79.52 Long term (current) use of systemic steroids; Z79.899 Other long term (current) drug therapy | CPT/HCPCS: 99212 ==